=== PATIENT | male | born 1955 | race Caucasian/White ===

== ENCOUNTER 2017-03-30 18:52 | Inpatient (IN) | payer MEDICAID ==
[~2017-03-30] VITALS: Ht 182.9 cm; Wt 116.1 kg
[~2017-03-30 18:52] MED LIST: ASPI81TA39 PO; LISI-661 PO; SERT50TA12 PO
[2017-03-30 20:17] LABS: BASOPHILS % (AUTO) 0.4 % (0.0-2.0); EOSINOPHILS % (AUTO) 1.1 % (1.0-6.0); HEMATOCRIT 44.3 % (41-53); HEMOGLOBIN 15.7 g/dL (13.5-17.5); LYMPHOCYTES # (AUTO) 2.4 K/uL (1.0-4.8); LYMPHOCYTES % (AUTO) 57.3 % (22.0-44.0); MEAN CORPUSCULAR HEMOGLOBIN 32.9 pg (26.0-34.0); MEAN CORPUSCULAR HGB CONC 35.3 G/dL (31.0-37.0); MEAN CORPUSCULAR VOLUME 93 fL (80-100); MONOCYTES # (AUTO) 0.3 K/uL (0.1-1.0); MONOCYTES % (AUTO) 8.2 % (2.0-9.0); NEUTROPHILS # (AUTO) 1.4 K/uL (1.8-7.7); PLATELET COUNT (AUTO) 147 K/uL (150-450); RED BLOOD CELL COUNT(AUTO) 4.75 MIL/uL (4.50-5.90); RED CELL DISTRIBUTION WIDTH 13.8 % (11.5-14.5); WHITE BLOOD COUNT (AUTO) 4.1 K/uL (4.5-11.0)
[2017-03-30 21:11] LABS: ANION GAP 8 mmol/L (8-16); CALCIUM, TOTAL 8.5 mg/dL (8.8-10.5); CARBON DIOXIDE 30 mmol/L (22-29); CHLORIDE 100 mmol/L (98-107); CREATININE 0.79 mg/dL (0.60-1.30); GLOMERULAR FILTR. RATE CALC > 60 mL/min (>60); POTASSIUM 3.6 mmol/L (3.5-5.1); SODIUM SERUM 138 mmol/L (136-145); UREA NITROGEN, BLOOD 10 mg/dL (7-18)
[2017-03-30 21:15] LABS: ALANINE AMINOTRANSFERASE 73 U/L (12-78); ALBUMIN 3.8 g/dL (3.4-5.0); ASPARTATE AMINOTRANSFERASE 104 U/L (15-37); BILIRUBIN,TOTAL 0.5 mg/dL (0.1-1.0); TOTAL PROTEIN, SERUM 7.5 g/dL (6.4-8.2)
[2017-03-30] MEDS ORDERED: LORazepam 1 MG TABLET PO ONE (21:30)
[2017-03-30] MEDS ORDERED: GLUCAGON,HUMAN RECOMBINANT 1 MG VIAL IM PRN (22:00)
[2017-03-30] MEDS ORDERED: INSULIN REGULAR, HUMAN 100 UNITS/ML SQ PRN (22:00)
[2017-03-31] VITALS (7 sets, daily range): BP systolic 108–136; BP diastolic 64–84
[2017-03-31] MEDS ORDERED: INFLUENZA VIRUS VACCINE QVS 2017-18 (3YR+)/PF 60 MCG/0.5 ML SYRINGE IM ONE (05:15)
[2017-03-31] MEDS ORDERED: -PHARMACY VACCINE NOTE- MISC ONE ×2 (05:15)
[2017-03-31 06:12] LABS: GLUCOSE,POINT OF CARE 165 MG/DL (70-110)
[2017-03-31] MEDS: LORazepam 2 MG TABLET PO PRN ×3 (06:12→15:15)
[2017-03-31] MEDS ORDERED: GLUCAGON,HUMAN RECOMBINANT 1 MG VIAL IM PRN (06:45)
[2017-03-31] MEDS: INSULIN ASPART 100 UNITS/ML SQ PRN ×3 (07:17→16:31)
[2017-03-31 08:03] LABS: CHOL/HDL RATIO 2.4 (4.2-7.3)
[2017-03-31] MEDS ORDERED: ONDANSETRON HCL 4 MG TABLET PO PRN (09:45)
[2017-03-31] MEDS ORDERED: GuaiFENesin/D-METHORPHAN [SUGAR-FREE] 200-20MG/10 ML SYRUP UDCUP PO PRN (10:15)
[2017-03-31] MEDS ORDERED: HydrOXYzine PAMOATE 50 MG CAPSULE PO PRN (10:15)
[2017-03-31] MEDS ORDERED: CYANOCOBALAMIN 1,000 MCG/ML VIAL IM ONE (10:15)
[2017-03-31] MEDS: THIAMINE HCL 100 MG TABLET PO SCH ×2 (10:35→16:07)
[2017-03-31] MEDS: MULTIVITAMINS WITH MINERALS, THERAPEUTIC TABLET PO SCH (10:35)
[2017-03-31] MEDS: FOLIC ACID 1 MG TABLET PO SCH (10:35)
[2017-03-31 10:47] LABS: GLUCOSE,POINT OF CARE 142 MG/DL (70-110)
[2017-03-31 16:22] LABS: GLUCOSE,POINT OF CARE 142 MG/DL (70-110)
[2017-03-31] MEDS: ZOLPIDEM TARTRATE 10 MG TABLET PO PRN (20:03)
[2017-03-31 20:12] LABS: GLUCOSE,POINT OF CARE 116 MG/DL (70-110)
[2017-04-01] VITALS: BP 117/72
[2017-04-01 03:33] VITALS: BP 117/72
[2017-04-01 05:57] LABS: GLUCOSE,POINT OF CARE 108 MG/DL (70-110)
[2017-04-01] MEDS ORDERED: LORazepam 2 MG TABLET PO PRN (07:00)
[2017-04-01 08:00] VITALS: BP 124/80
[2017-04-01 08:07] VITALS: BP 124/80
[2017-04-01] MEDS: ARIPiprazole 5 MG TABLET PO SCH (08:28)
[2017-04-01] MEDS: LORazepam 2 MG TABLET PO SCH ×4 (08:28→20:31)
[2017-04-01] MEDS: THIAMINE HCL 100 MG TABLET PO SCH ×2 (08:28→16:05)
[2017-04-01] MEDS: FOLIC ACID 1 MG TABLET PO SCH (08:29)
[2017-04-01] MEDS: SERTRALINE HCL 100 MG TABLET PO SCH (08:29)
[2017-04-01] MEDS: ASPIRIN 81 MG CHEWABLE TABLET PO SCH (08:29)
[2017-04-01] MEDS: MULTIVITAMINS WITH MINERALS, THERAPEUTIC TABLET PO SCH (08:29)
[2017-04-01 11:22] LABS: GLUCOSE,POINT OF CARE 137 MG/DL (70-110)
[2017-04-01 16:00] VITALS: BP 128/74
[2017-04-01 16:08] VITALS: BP 128/74
[2017-04-01 16:26] LABS: GLUCOSE,POINT OF CARE 135 MG/DL (70-110)
[2017-04-01] MEDS: LOPERAMIDE HCL 2 MG CAPSULE PO PRN (16:30)
[2017-04-01 20:37] LABS: GLUCOSE,POINT OF CARE 113 MG/DL (70-110)
[2017-04-01] MEDS: HALOPERIDOL 5 MG TABLET PO PRN (23:57)
[2017-04-01] MEDS: LORazepam 2 MG TABLET PO PRN (23:58)
[2017-04-02 00:51] VITALS: BP 126/84
[2017-04-02 06:48] LABS: GLUCOSE,POINT OF CARE 101 MG/DL (70-110)
[2017-04-02 08:01] VITALS: BP 116/70
[2017-04-02 08:13] VITALS: BP 116/70
[2017-04-02] MEDS: MULTIVITAMINS WITH MINERALS, THERAPEUTIC TABLET PO SCH (08:26)
[2017-04-02] MEDS: ASPIRIN 81 MG CHEWABLE TABLET PO SCH (08:27)
[2017-04-02] MEDS: SERTRALINE HCL 100 MG TABLET PO SCH (08:27)
[2017-04-02] MEDS: FOLIC ACID 1 MG TABLET PO SCH (08:27)
[2017-04-02] MEDS: LORazepam 2 MG TABLET PO SCH ×4 (08:27→20:26)
[2017-04-02] MEDS: THIAMINE HCL 100 MG TABLET PO SCH ×2 (08:27→16:02)
[2017-04-02] MEDS: ARIPiprazole 5 MG TABLET PO SCH (08:27)
[2017-04-02 11:37] LABS: GLUCOSE,POINT OF CARE 120 MG/DL (70-110)
[2017-04-02] MEDS: LOPERAMIDE HCL 2 MG CAPSULE PO PRN (15:40)
[2017-04-02 16:00] VITALS: BP 123/90
[2017-04-02 16:01] VITALS: BP 123/90
[2017-04-02] MEDS: INSULIN ASPART 100 UNITS/ML SQ PRN (17:49)
[2017-04-02 20:37] LABS: GLUCOSE,POINT OF CARE 183 MG/DL (70-110)
[2017-04-02 20:38] LABS: GLUCOSE,POINT OF CARE 102 MG/DL (70-110)
[2017-04-03 00:28] VITALS: BP 128/79
[2017-04-03 00:29] VITALS: BP 128/79
[2017-04-03 06:28] LABS: GLUCOSE,POINT OF CARE 105 MG/DL (70-110)
[2017-04-03] MEDS ORDERED: LORazepam 1 MG TABLET PO PRN (07:00)
[2017-04-03 08:10] VITALS: BP 103/58
[2017-04-03 08:11] VITALS: BP 103/58
[2017-04-03] MEDS: FOLIC ACID 1 MG TABLET PO SCH (08:38)
[2017-04-03] MEDS: THIAMINE HCL 100 MG TABLET PO SCH ×2 (08:38→17:17)
[2017-04-03] MEDS: MULTIVITAMINS WITH MINERALS, THERAPEUTIC TABLET PO SCH (08:38)
[2017-04-03] MEDS: ARIPiprazole 5 MG TABLET PO SCH (08:38)
[2017-04-03] MEDS: LORazepam 1 MG TABLET PO SCH ×4 (08:38→21:17)
[2017-04-03] MEDS: ASPIRIN 81 MG CHEWABLE TABLET PO SCH (08:39)
[2017-04-03] MEDS: SERTRALINE HCL 100 MG TABLET PO SCH (08:39)
[2017-04-03 11:32] LABS: GLUCOSE,POINT OF CARE 93 MG/DL (70-110)
[2017-04-03 16:00] VITALS: BP 111/78
[2017-04-03] MEDS: HALOPERIDOL 5 MG TABLET PO PRN (16:06)
[2017-04-03 16:12] VITALS: BP 111/78
[2017-04-03 16:52] LABS: GLUCOSE,POINT OF CARE 122 MG/DL (70-110)
[2017-04-03 20:36] LABS: GLUCOSE,POINT OF CARE 96 MG/DL (70-110)
[2017-04-04] VITALS (7 sets, daily range): BP systolic 115–131; BP diastolic 63–82
[2017-04-04 06:43] LABS: GLUCOSE,POINT OF CARE 99 MG/DL (70-110)
[2017-04-04] MEDS: MULTIVITAMINS WITH MINERALS, THERAPEUTIC TABLET PO SCH (08:30)
[2017-04-04] MEDS: SERTRALINE HCL 100 MG TABLET PO SCH (08:30)
[2017-04-04] MEDS: THIAMINE HCL 100 MG TABLET PO SCH ×2 (08:30→16:27)
[2017-04-04] MEDS: ASPIRIN 81 MG CHEWABLE TABLET PO SCH (08:31)
[2017-04-04] MEDS: FOLIC ACID 1 MG TABLET PO SCH (08:31)
[2017-04-04] MEDS: LORazepam 1 MG TABLET PO PRN ×3 (08:31→21:14)
[2017-04-04] MEDS: ARIPiprazole 5 MG TABLET PO SCH (08:31)
[2017-04-04 10:57] LABS: GLUCOSE,POINT OF CARE 97 MG/DL (70-110)
[2017-04-04 16:37] LABS: GLUCOSE,POINT OF CARE 137 MG/DL (70-110)
[2017-04-04 21:17] LABS: GLUCOSE,POINT OF CARE 128 MG/DL (70-110)
[2017-04-04] MEDS: ZOLPIDEM TARTRATE 10 MG TABLET PO PRN (21:51)
[2017-04-05 01:16] VITALS: BP 135/88
[2017-04-05 07:42] LABS: GLUCOSE,POINT OF CARE 97 MG/DL (70-110)
[2017-04-05 08:06] VITALS: BP 101/67
[2017-04-05] MEDS: ASPIRIN 81 MG CHEWABLE TABLET PO SCH (08:22)
[2017-04-05] MEDS: SERTRALINE HCL 100 MG TABLET PO SCH (08:23)
[2017-04-05] MEDS: THIAMINE HCL 100 MG TABLET PO SCH ×2 (08:23→16:13)
[2017-04-05] MEDS: FOLIC ACID 1 MG TABLET PO SCH (08:23)
[2017-04-05] MEDS: ARIPiprazole 5 MG TABLET PO SCH (08:23)
[2017-04-05] MEDS: MULTIVITAMINS WITH MINERALS, THERAPEUTIC TABLET PO SCH (08:23)
[2017-04-05] MEDS: LORazepam 2 MG TABLET PO PRN ×2 (08:41→15:50)
[2017-04-05 11:08] LABS: GLUCOSE,POINT OF CARE 119 MG/DL (70-110)
[2017-04-05 16:07] VITALS: BP 111/76
[2017-04-05 16:57] LABS: GLUCOSE,POINT OF CARE 97 MG/DL (70-110)
[2017-04-05] MEDS: ZOLPIDEM TARTRATE 10 MG TABLET PO PRN (21:06)
[2017-04-05 21:37] LABS: GLUCOSE,POINT OF CARE 125 MG/DL (70-110)
[2017-04-06 00:03] VITALS: BP 125/78
[2017-04-06] MEDS: INSULIN ASPART 100 UNITS/ML SQ PRN (07:12)
[2017-04-06 07:52] LABS: GLUCOSE,POINT OF CARE 147 MG/DL (70-110)
[2017-04-06] MEDS: FOLIC ACID 1 MG TABLET PO SCH (08:25)
[2017-04-06] MEDS: THIAMINE HCL 100 MG TABLET PO SCH ×2 (08:25→16:22)
[2017-04-06] MEDS: ASPIRIN 81 MG CHEWABLE TABLET PO SCH (08:25)
[2017-04-06] MEDS: ARIPiprazole 5 MG TABLET PO SCH (08:25)
[2017-04-06] MEDS: SERTRALINE HCL 100 MG TABLET PO SCH (08:25)
[2017-04-06] MEDS: MULTIVITAMINS WITH MINERALS, THERAPEUTIC TABLET PO SCH (08:25)
[2017-04-06] MEDS: LORazepam 2 MG TABLET PO PRN (08:30)
[2017-04-06] MEDS ORDERED: ARIP5TAB8 PO (08:55)
[2017-04-06] MEDS ORDERED: THIA100 PO (08:55)
[2017-04-06] MEDS ORDERED: MV-M1TAB2 PO (08:55)
[2017-04-06] MEDS ORDERED: FOLI1 PO (08:55)
[2017-04-06 09:06] VITALS: BP 117/71
[2017-04-06 12:17] LABS: GLUCOSE,POINT OF CARE 91 MG/DL (70-110)
[2017-04-06 16:12] VITALS: BP 117/77
== END 2017-04-06 16:40 | disposition home or self-care (01) | DRG 750 ==
LOC: EEVIPCON 18:54 → EMS 18:54 → B2S 22:00
PROVIDERS: ADMIT Psychiatry & Neurology Psychiatry; ATTEND Psychiatry & Neurology Psychiatry
PROC: 3E0234Z Introduction of Serum, Toxoid and Vaccine into Muscle, Percutaneous Approach (ICD-10-PCS; principal; 2017-03-31)
DX: F25.1 Schizoaffective disorder, depressive type (principal); E11.22 Type 2 diabetes mellitus with diabetic chronic kidney disease; R45.851 Suicidal ideations; D57.1 Sickle-cell disease without crisis; E55.9 Vitamin D deficiency, unspecified; E78.00 Pure hypercholesterolemia, unspecified; E78.5 Hyperlipidemia, unspecified; F17.200 Nicotine dependence, unspecified, uncomplicated; F32.9 Major depressive disorder, single episode, unspecified; F41.9 Anxiety disorder, unspecified; I12.9 Hypertensive chronic kidney disease with stage 1 through stage 4 chronic kidney disease, or unspecified chronic kidney disease; I25.10 Atherosclerotic heart disease of native coronary artery without angina pectoris; J44.9 Chronic obstructive pulmonary disease, unspecified; K21.9 Gastro-esophageal reflux disease without esophagitis; N18.9 Chronic kidney disease, unspecified; F10.20 Alcohol dependence, uncomplicated; S61.512A Laceration without foreign body of left wrist, initial encounter; Z59.0 Homelessness; Z81.8 Family history of other mental and behavioral disorders; Z86.74 Personal history of sudden cardiac arrest; Z91.5 Personal history of self-harm; Z91.018 Allergy to other foods; Z79.82 Long term (current) use of aspirin; Z23 Encounter for immunization
CPT/HCPCS: 82962; 83036; 99285; G0480; J3420; Q0162

== ENCOUNTER 2017-04-26 12:41 | Inpatient (IN) | payer MEDICAID ==
[~2017-04-26] VITALS: Ht 182.9 cm; Wt 121.7 kg
[~2017-04-26 12:41] MED LIST changes: +ARIP5TAB8 PO; -LISI-661 PO
[2017-04-26] MEDS ORDERED: TRAM50TA4 PO (13:48)
[2017-04-26 14:57] LABS: GLUCOSE,POINT OF CARE 131 MG/DL (70-110)
[2017-04-26] MEDS ORDERED: SERT100T12 PO (15:27)
[2017-04-26 15:28] LABS: BASOPHILS % (AUTO) 0.5 % (0.0-2.0); EOSINOPHILS % (AUTO) 1.1 % (1.0-6.0); HEMOGLOBIN 14.1 g/dL (13.5-17.5); LYMPHOCYTES # (AUTO) 2.5 K/uL (1.0-4.8); LYMPHOCYTES % (AUTO) 45.8 % (22.0-44.0); MEAN CORPUSCULAR HEMOGLOBIN 32.4 pg (26.0-34.0); MEAN CORPUSCULAR HGB CONC 34.4 G/dL (31.0-37.0); MEAN CORPUSCULAR VOLUME 94 fL (80-100); MONOCYTES # (AUTO) 0.3 K/uL (0.1-1.0); MONOCYTES % (AUTO) 5.6 % (2.0-9.0); NEUTROPHILS # (AUTO) 2.6 K/uL (1.8-7.7); PLATELET COUNT (AUTO) 198 K/uL (150-450); RED BLOOD CELL COUNT(AUTO) 4.35 MIL/uL (4.50-5.90); RED CELL DISTRIBUTION WIDTH 14.4 % (11.5-14.5)
[2017-04-26] MEDS ORDERED: LORazepam 2 MG TABLET PO PRN ×2 (15:30→21:30)
[2017-04-26 15:46] LABS: ANION GAP 5 mmol/L (8-16); CALCIUM, TOTAL 8.5 mg/dL (8.8-10.5); CARBON DIOXIDE 33 mmol/L (22-29); CHLORIDE 105 mmol/L (98-107); CREATININE 0.72 mg/dL (0.60-1.30); GLOMERULAR FILTR. RATE CALC > 60 mL/min (>60); GLUCOSE,RANDOM 136 mg/dL (70-110); POTASSIUM 3.6 mmol/L (3.5-5.1); SODIUM SERUM 143 mmol/L (136-145); UREA NITROGEN, BLOOD 8 mg/dL (7-18)
[2017-04-26 15:50] LABS: ALANINE AMINOTRANSFERASE 42 U/L (12-78); ALBUMIN 3.2 g/dL (3.4-5.0); ALKALINE PHOSPHATASE 126 U/L (46-116); ASPARTATE AMINOTRANSFERASE 32 U/L (15-37); BILIRUBIN,TOTAL 0.3 mg/dL (0.1-1.0); TOTAL PROTEIN, SERUM 6.8 g/dL (6.4-8.2)
[2017-04-26 16:00] LABS: AMPHET/METH SCREEN,URINE NEGATIVE (NEGATIVE); BARBITURATE SCREEN, URINE NEGATIVE (NEGATIVE); BENZODIAZEPINES SCREEN,URINE NEGATIVE (NEGATIVE); CANNABINOID SCREEN,URINE NEGATIVE (NEGATIVE); COCAINE SCREEN,URINE NEGATIVE (NEGATIVE); METHADONE SCREEN, URINE NEGATIVE (NEGATIVE); OPIATE SCREEN,URINE NEGATIVE (NEGATIVE)
[2017-04-26 16:04] LABS: PHENCYCLIDINE SCREEN,URINE NEGATIVE (NEGATIVE)
[2017-04-26] MEDS ORDERED: ONDANSETRON HCL 4 MG TABLET PO ONE ×2 (17:45→23:45)
[2017-04-26] MEDS ORDERED: ONDANSETRON HCL 4 MG/2 ML VIAL IM ONE (21:00)
[2017-04-26 21:17] LABS: GLUCOSE,POINT OF CARE 143 MG/DL (70-110)
[2017-04-26 21:30] VITALS: BP 112/68
[2017-04-26] MEDS ORDERED: -PHARMACY VACCINE NOTE- MISC ONE (22:15)
[2017-04-26] MEDS ORDERED: INFLUENZA VIRUS VACCINE QVS 2017-18 (3YR+)/PF 60 MCG/0.5 ML SYRINGE IM ONE (22:15)
[2017-04-26 22:30] VITALS: BP 105/66
[2017-04-26] MEDS ORDERED: INSULIN ASPART 100 UNITS/ML SQ PRN (22:30)
[2017-04-26] MEDS ORDERED: DEXTROSE 50%-WATER 25 GM/50 ML SYRINGE IVP PRN (22:30)
[2017-04-26] MEDS: ZOLPIDEM TARTRATE 10 MG TABLET PO PRN (22:59)
[2017-04-26 23:30] VITALS: BP 114/65
[2017-04-26] MEDS ORDERED: ONDANSETRON HCL 4 MG TABLET PO PRN (23:30)
[2017-04-27] VITALS (9 sets, daily range): BP systolic 117–148; BP diastolic 64–93
[2017-04-27 06:03] LABS: GLUCOMETER DEV NAME(LOC) 3EI B; GLUCOSE,POINT OF CARE 126 MG/DL (70-110)
[2017-04-27 07:48] LABS: CHOL/HDL RATIO 2.5 (4.2-7.3)
[2017-04-27] MEDS: ASPIRIN 81 MG CHEWABLE TABLET PO SCH (08:01)
[2017-04-27] MEDS: ARIPiprazole 5 MG TABLET PO SCH (08:01)
[2017-04-27] MEDS: LORazepam 2 MG TABLET PO SCH ×4 (08:02→20:35)
[2017-04-27] MEDS: NICOTINE 7 MG/24 HOUR PATCH TD SCH (08:02)
[2017-04-27] MEDS: SERTRALINE HCL 100 MG TABLET PO SCH (08:02)
[2017-04-27 11:12] LABS: GLUCOMETER DEV NAME(LOC) 3EI B; GLUCOSE,POINT OF CARE 111 MG/DL (70-110)
[2017-04-27 17:03] LABS: GLUCOMETER DEV NAME(LOC) 3EI B; GLUCOSE,POINT OF CARE 107 MG/DL (70-110)
[2017-04-27 21:13] LABS: GLUCOMETER DEV NAME(LOC) 3EI B; GLUCOSE,POINT OF CARE 121 MG/DL (70-110)
[2017-04-28] MEDS: LORazepam 2 MG TABLET PO PRN (00:01)
[2017-04-28] MEDS: ZOLPIDEM TARTRATE 10 MG TABLET PO PRN ×2 (00:01→20:29)
[2017-04-28 01:30] VITALS: BP 127/88
[2017-04-28 06:23] LABS: GLUCOMETER DEV NAME(LOC) 3EI B; GLUCOSE,POINT OF CARE 137 MG/DL (70-110)
[2017-04-28 08:00] VITALS: BP 133/87
[2017-04-28] MEDS: ASPIRIN 81 MG CHEWABLE TABLET PO SCH (08:49)
[2017-04-28] MEDS: NICOTINE 7 MG/24 HOUR PATCH TD SCH (08:49)
[2017-04-28] MEDS: ARIPiprazole 5 MG TABLET PO SCH (08:49)
[2017-04-28] MEDS: SERTRALINE HCL 100 MG TABLET PO SCH (08:49)
[2017-04-28] MEDS: LORazepam 2 MG TABLET PO SCH ×4 (08:49→20:29)
[2017-04-28] MEDS: HALOPERIDOL 5 MG TABLET PO PRN (10:05)
[2017-04-28] MEDS ORDERED: HydrOXYzine PAMOATE 50 MG CAPSULE PO PRN (10:30)
[2017-04-28] MEDS ORDERED: GuaiFENesin/D-METHORPHAN [SUGAR-FREE] 200-20MG/10 ML SYRUP UDCUP PO PRN (10:30)
[2017-04-28] MEDS ORDERED: CYANOCOBALAMIN 1,000 MCG/ML VIAL IM ONE (10:30)
[2017-04-28] MEDS ORDERED: LOPERAMIDE HCL 2 MG CAPSULE PO PRN (10:30)
[2017-04-28 11:38] LABS: GLUCOMETER DEV NAME(LOC) 3EI B; GLUCOSE,POINT OF CARE 102 MG/DL (70-110)
[2017-04-28] MEDS: THIAMINE HCL 100 MG TABLET PO SCH (16:46)
[2017-04-28 17:03] LABS: GLUCOMETER DEV NAME(LOC) 3EI B; GLUCOSE,POINT OF CARE 98 MG/DL (70-110)
[2017-04-28 18:28] VITALS: BP 119/73
[2017-04-28 20:37] LABS: GLUCOMETER DEV NAME(LOC) 3EI B; GLUCOSE,POINT OF CARE 94 MG/DL (70-110)
[2017-04-29] MEDS: HALOPERIDOL 5 MG TABLET PO PRN (00:57)
[2017-04-29] MEDS: LORazepam 2 MG TABLET PO PRN (00:57)
[2017-04-29 00:58] VITALS: BP 138/90
[2017-04-29 05:52] LABS: GLUCOMETER DEV NAME(LOC) 3EI B; GLUCOSE,POINT OF CARE 111 MG/DL (70-110)
[2017-04-29] MEDS ORDERED: LORazepam 1 MG TABLET PO PRN (07:00)
[2017-04-29 08:00] VITALS: BP 128/90
[2017-04-29] MEDS: ARIPiprazole 5 MG TABLET PO SCH (08:29)
[2017-04-29] MEDS: SERTRALINE HCL 100 MG TABLET PO SCH (08:29)
[2017-04-29] MEDS: FOLIC ACID 1 MG TABLET PO SCH (08:29)
[2017-04-29] MEDS: MULTIVITAMINS WITH MINERALS, THERAPEUTIC TABLET PO SCH (08:29)
[2017-04-29] MEDS: ASPIRIN 81 MG CHEWABLE TABLET PO SCH (08:29)
[2017-04-29] MEDS: THIAMINE HCL 100 MG TABLET PO SCH ×2 (08:29→16:10)
[2017-04-29] MEDS: LORazepam 1 MG TABLET PO SCH ×4 (08:29→20:53)
[2017-04-29] MEDS: NICOTINE 7 MG/24 HOUR PATCH TD SCH (08:32)
[2017-04-29 11:28] LABS: GLUCOMETER DEV NAME(LOC) 3EI B; GLUCOSE,POINT OF CARE 87 MG/DL (70-110)
[2017-04-29 17:28] LABS: GLUCOMETER DEV NAME(LOC) 3EI B; GLUCOSE,POINT OF CARE 91 MG/DL (70-110)
[2017-04-29 18:22] VITALS: BP 138/84
[2017-04-29 21:08] LABS: GLUCOMETER DEV NAME(LOC) 3EI B; GLUCOSE,POINT OF CARE 117 MG/DL (70-110)
[2017-04-30 06:03] LABS: GLUCOMETER DEV NAME(LOC) 3EI B; GLUCOSE,POINT OF CARE 97 MG/DL (70-110)
[2017-04-30 06:11] VITALS: BP 133/94
[2017-04-30] MEDS ORDERED: LORazepam 1 MG TABLET PO PRN (07:00)
[2017-04-30] MEDS: MULTIVITAMINS WITH MINERALS, THERAPEUTIC TABLET PO SCH (08:38)
[2017-04-30] MEDS: ASPIRIN 81 MG CHEWABLE TABLET PO SCH (08:38)
[2017-04-30] MEDS: FOLIC ACID 1 MG TABLET PO SCH (08:38)
[2017-04-30] MEDS: THIAMINE HCL 100 MG TABLET PO SCH ×2 (08:38→17:10)
[2017-04-30] MEDS: ARIPiprazole 5 MG TABLET PO SCH (08:38)
[2017-04-30] MEDS: NICOTINE 7 MG/24 HOUR PATCH TD SCH (08:38)
[2017-04-30] MEDS: SERTRALINE HCL 100 MG TABLET PO SCH (08:39)
[2017-04-30 10:08] VITALS: BP 148/90
[2017-04-30 11:28] LABS: GLUCOMETER DEV NAME(LOC) 3EI B; GLUCOSE,POINT OF CARE 95 MG/DL (70-110)
[2017-04-30 16:32] LABS: GLUCOMETER DEV NAME(LOC) 3EI B; GLUCOSE,POINT OF CARE 104 MG/DL (70-110)
[2017-04-30 16:34] VITALS: BP 130/70
[2017-04-30] MEDS ORDERED: FOLI1 PO (16:37)
[2017-04-30] MEDS ORDERED: THIA100 PO (16:39)
[2017-04-30] MEDS ORDERED: MV-M1TAB2 PO (16:39)
== END 2017-04-30 18:30 | disposition home or self-care (01) | DRG 750 ==
LOC: EMS 12:45 → 3EI 17:05
PROVIDERS: ADMIT Psychiatry & Neurology Psychiatry; ATTEND Psychiatry & Neurology Psychiatry
DX: F25.1 Schizoaffective disorder, depressive type (principal); Z86.74 Personal history of sudden cardiac arrest; R45.851 Suicidal ideations; D57.1 Sickle-cell disease without crisis; I10 Essential (primary) hypertension; E55.9 Vitamin D deficiency, unspecified; J44.9 Chronic obstructive pulmonary disease, unspecified; I25.10 Atherosclerotic heart disease of native coronary artery without angina pectoris; Z28.21 Immunization not carried out because of patient refusal; F60.3 Borderline personality disorder; Z91.018 Allergy to other foods; F41.9 Anxiety disorder, unspecified; E11.9 Type 2 diabetes mellitus without complications; E78.00 Pure hypercholesterolemia, unspecified; E78.5 Hyperlipidemia, unspecified; F10.229 Alcohol dependence with intoxication, unspecified; F17.200 Nicotine dependence, unspecified, uncomplicated; K21.9 Gastro-esophageal reflux disease without esophagitis; Z59.0 Homelessness; Z81.8 Family history of other mental and behavioral disorders; Z91.5 Personal history of self-harm; N28.9 Disorder of kidney and ureter, unspecified; Z71.6 Tobacco abuse counseling; Z63.9 Problem related to primary support group, unspecified
CPT/HCPCS: 82962; 87081; 96372; 99285; G0480; J2405; J3420; Q0162

== ENCOUNTER 2017-05-09 12:51 | Emergency (ER) | payer MEDICAID ==
[~2017-05-09] VITALS: Ht 182.9 cm; Wt 113.6 kg
[~2017-05-09 12:51] MED LIST changes: +FOLI1 PO; +MV-M1TAB2 PO; +SERT100T12 PO; -SERT50TA12 PO; +THIA100 PO
[2017-05-09 15:45] VITALS: BP 132/72
== END 2017-05-09 16:05 | disposition home or self-care (01) ==
LOC: EMS 13:25
DX: F10.10 Alcohol abuse, uncomplicated (principal); I25.10 Atherosclerotic heart disease of native coronary artery without angina pectoris; J44.9 Chronic obstructive pulmonary disease, unspecified; E11.9 Type 2 diabetes mellitus without complications; I10 Essential (primary) hypertension; E78.00 Pure hypercholesterolemia, unspecified; Z02.89 Encounter for other administrative examinations; Z76.0 Encounter for issue of repeat prescription; Z91.018 Allergy to other foods
CPT/HCPCS: 99281

== ENCOUNTER 2017-09-16 14:49 | Inpatient (IN) | payer MEDICAID ==
[~2017-09-16] VITALS: Ht 182.9 cm; Wt 127.5 kg
[2017-09-16] MEDS ORDERED: [UNRECOGNIZED DRUG - REMARK] (15:03)
[2017-09-16] MEDS ORDERED: ACTIVATED CHARCOAL 50 GM/240 ML SUSPENSION PO ONE (16:00)
[2017-09-16 16:23] LABS: BASOPHILS % (AUTO) 0.7 % (0.0-2.0); EOSINOPHILS % (AUTO) 3.9 % (1.0-6.0); HEMATOCRIT 43.1 % (41-53); HEMOGLOBIN 15.2 g/dL (13.5-17.5); LYMPHOCYTES # (AUTO) 2.5 K/uL (1.0-4.8); MEAN CORPUSCULAR HEMOGLOBIN 31.7 pg (26.0-34.0); MEAN CORPUSCULAR HGB CONC 35.3 G/dL (31.0-37.0); MEAN CORPUSCULAR VOLUME 90 fL (80-100); MONOCYTES # (AUTO) 0.3 K/uL (0.1-1.0); MONOCYTES % (AUTO) 5.5 % (2.0-9.0); NEUTROPHILS # (AUTO) 2.4 K/uL (1.8-7.7); NEUTROPHILS % (AUTO) 43.9 % (40.0-70.0); PLATELET COUNT (AUTO) 176 K/uL (150-450); RED BLOOD CELL COUNT(AUTO) 4.79 MIL/uL (4.50-5.90); RED CELL DISTRIBUTION WIDTH 14.5 % (11.5-14.5)
[2017-09-16 16:31] LABS: ANION GAP 6 mmol/L (8-16); CALCIUM, TOTAL 8.7 mg/dL (8.8-10.5); CARBON DIOXIDE 33 mmol/L (22-29); CHLORIDE 100 mmol/L (98-107); CREATININE 0.73 mg/dL (0.60-1.30); GLOMERULAR FILTR. RATE CALC > 60 mL/min (>60); GLUCOSE,RANDOM 165 mg/dL (70-110); POTASSIUM 3.5 mmol/L (3.5-5.1); SODIUM SERUM 139 mmol/L (136-145); UREA NITROGEN, BLOOD 8 mg/dL (7-18)
[2017-09-16 16:37] LABS: ALANINE AMINOTRANSFERASE 24 U/L (12-78); ALBUMIN 3.8 g/dL (3.4-5.0); ALKALINE PHOSPHATASE 104 U/L (46-116); ASPARTATE AMINOTRANSFERASE 15 U/L (15-37); BILIRUBIN,TOTAL 0.4 mg/dL (0.1-1.0); LIPASE 76 U/L (73-393); TOTAL PROTEIN, SERUM 8.1 g/dL (6.4-8.2)
[2017-09-16 16:38] LABS: ACETAMINOPHEN < 2 mcg/mL (10-30)
[2017-09-16 16:43] LABS: SALICYLATE 2.1 mg/dL (2.8-20.0)
[2017-09-16] MEDS ORDERED: ONDANSETRON HCL 4 MG/2 ML VIAL IVP ONE ×2 (16:45→21:15)
[2017-09-16] MEDS ORDERED: SODIUM CHLORIDE 0.9% 1,000 ML IV ONE (16:52)
[2017-09-16] MEDS ORDERED: SODIUM CHLORIDE 0.9% 500 ML IV ONE (17:00)
[2017-09-16 20:05] LABS: AMPHET/METH SCREEN,URINE NEGATIVE (NEGATIVE); BARBITURATE SCREEN, URINE NEGATIVE (NEGATIVE); BENZODIAZEPINES SCREEN,URINE NEGATIVE (NEGATIVE); CANNABINOID SCREEN,URINE NEGATIVE (NEGATIVE); COCAINE SCREEN,URINE NEGATIVE (NEGATIVE); METHADONE SCREEN, URINE NEGATIVE (NEGATIVE); OPIATE SCREEN,URINE NEGATIVE (NEGATIVE)
[2017-09-16 20:11] LABS: PHENCYCLIDINE SCREEN,URINE NEGATIVE (NEGATIVE)
[2017-09-16 20:23] LABS: ANION GAP 3 mmol/L (8-16); CALCIUM, TOTAL 8.3 mg/dL (8.8-10.5); CARBON DIOXIDE 35 mmol/L (22-29); CHLORIDE 102 mmol/L (98-107); CREATININE 0.79 mg/dL (0.60-1.30); GLOMERULAR FILTR. RATE CALC > 60 mL/min (>60); GLUCOSE,RANDOM 195 mg/dL (70-110); POTASSIUM 3.7 mmol/L (3.5-5.1); SODIUM SERUM 140 mmol/L (136-145); UREA NITROGEN, BLOOD 8 mg/dL (7-18)
[2017-09-16 20:28] LABS: ACETAMINOPHEN < 2 mcg/mL (10-30)
[2017-09-16 20:40] LABS: APPEARANCE,URINE CLEAR (CLEAR); BILIRUBIN,URINE NEGATIVE (NEGATIVE); GLUCOSE, URINE (UA) 100 mg/dL (NEGATIVE); KETONES,URINE NEGATIVE (NEGATIVE); LEUKOCYTE ESTERASE ,URINE NEGATIVE (NEGATIVE); NITRATE,URINE NEGATIVE (NEGATIVE); OCCULT BLOOD,URINE NEGATIVE (NEGATIVE); PROTEIN,URINE NEGATIVE (NEGATIVE); UROBILINOGEN,URINE 0.2 mg/dL (<=1.0)
[2017-09-16 20:43] LABS: BACTERIA,URINE None Seen /HPF (None Seen); RBC,URINE None Seen /HPF (0-2); SQUAMOUS EPITHELIAL CELL,UR None Seen /LPF (None Seen); WBC,URINE None Seen /HPF (0-5)
[2017-09-16] MEDS ORDERED: LORazepam 2 MG TABLET PO ONE (22:45)
[2017-09-17] VITALS (10 sets, daily range): BP systolic 110–139; BP diastolic 61–86
[2017-09-17] MEDS ORDERED: ACETAMINOPHEN 325 MG TABLET PO PRN (00:15)
[2017-09-17] MEDS ORDERED: MAG HYDROX/AL HYDROX/SIMETH ES 30 ML SUSPENSION UDCUP PO PRN (00:15)
[2017-09-17] MEDS ORDERED: HALOPERIDOL 5 MG TABLET PO PRN (00:15)
[2017-09-17] MEDS ORDERED: MAGNESIUM HYDROXIDE SUSPENSION 30 ML UDCUP PO PRN (00:15)
[2017-09-17] MEDS ORDERED: HydrOXYzine PAMOATE 50 MG CAPSULE PO PRN (00:15)
[2017-09-17] MEDS ORDERED: LOPERAMIDE HCL 2 MG CAPSULE PO PRN ×2 (00:15)
[2017-09-17] MEDS ORDERED: CYANOCOBALAMIN 1,000 MCG/ML VIAL IM ONE (00:15)
[2017-09-17] MEDS ORDERED: GuaiFENesin/D-METHORPHAN [SUGAR-FREE] 200-20MG/10 ML SYRUP UDCUP PO PRN (00:15)
[2017-09-17] MEDS ORDERED: ONDANSETRON HCL 4 MG/2 ML VIAL IVP ONE (02:30)
[2017-09-17] MEDS: LORazepam 2 MG TABLET PO PRN ×3 (03:45→14:20)
[2017-09-17 03:47] LABS: GLUCOMETER DEV NAME(LOC) BV3N5; GLUCOSE,POINT OF CARE 219 MG/DL (70-110)
[2017-09-17] MEDS: THIAMINE HCL 100 MG TABLET PO SCH ×2 (08:36→16:50)
[2017-09-17] MEDS: MULTIVITAMINS WITH MINERALS, THERAPEUTIC TABLET PO SCH (08:36)
[2017-09-17] MEDS: FOLIC ACID 1 MG TABLET PO SCH (08:37)
[2017-09-17] MEDS: PROMETHAZINE HCL 25 MG TABLET PO PRN ×2 (08:55→14:19)
[2017-09-17] MEDS ORDERED: GLUCAGON,HUMAN RECOMBINANT 1 MG VIAL IM PRN (09:00)
[2017-09-17] MEDS ORDERED: ALBUTEROL SULFATE HFA 90 MCG/PUFF 8 GM INHALER IH PRN (09:30)
[2017-09-17] MEDS: INSULIN LISPRO 100 UNITS/ML SQ PRN ×4 (09:36→20:45)
[2017-09-17 10:28] LABS: GLUCOMETER DEV NAME(LOC) BV3N5; GLUCOSE,POINT OF CARE 163 MG/DL (70-110)
[2017-09-17 12:33] LABS: GLUCOMETER DEV NAME(LOC) BV3N5; GLUCOSE,POINT OF CARE 168 MG/DL (70-110)
[2017-09-17 17:18] LABS: GLUCOMETER DEV NAME(LOC) BV3N5; GLUCOSE,POINT OF CARE 148 MG/DL (70-110)
[2017-09-17] MEDS: ZOLPIDEM TARTRATE 10 MG TABLET PO PRN (20:44)
[2017-09-17] MEDS: SERTRALINE HCL 100 MG TABLET PO SCH (20:44)
[2017-09-17 20:52] LABS: GLUCOMETER DEV NAME(LOC) BV3N5; GLUCOSE,POINT OF CARE 153 MG/DL (70-110)
[2017-09-18 01:35] VITALS: BP 119/91
[2017-09-18] MEDS: LORazepam 2 MG TABLET PO PRN (01:40)
[2017-09-18 02:05] VITALS: BP 122/79
[2017-09-18 06:12] LABS: GLUCOMETER DEV NAME(LOC) BV3N5; GLUCOSE,POINT OF CARE 128 MG/DL (70-110)
[2017-09-18 06:33] VITALS: BP 147/96
[2017-09-18] MEDS ORDERED: LORazepam 2 MG TABLET PO PRN (07:00)
[2017-09-18] MEDS: MULTIVITAMINS WITH MINERALS, THERAPEUTIC TABLET PO SCH (08:14)
[2017-09-18] MEDS: LORazepam 2 MG TABLET PO SCH ×4 (08:14→20:29)
[2017-09-18] MEDS: FOLIC ACID 1 MG TABLET PO SCH (08:14)
[2017-09-18] MEDS: ARIPiprazole 5 MG TABLET PO SCH (08:14)
[2017-09-18] MEDS: ASPIRIN 81 MG EC TABLET PO SCH (08:15)
[2017-09-18] MEDS: PANTOPRAZOLE SODIUM 40 MG DR TABLET PO SCH (08:15)
[2017-09-18] MEDS: THIAMINE HCL 100 MG TABLET PO SCH ×2 (08:16→16:59)
[2017-09-18 08:17] LABS: CHOL/HDL RATIO 2.7 (4.2-7.3); FREE T4 (FREE THYROXINE) 0.84 ng/dL (0.76-1.46); MAGNESIUM 1.6 mg/dL (1.80-2.40); THYROID STIMULATING HORMONE 3.27 uIU/mL (0.36-3.74)
[2017-09-18 08:20] VITALS: BP 110/64
[2017-09-18 09:34] LABS: VITAMIN D,TOTAL (25-0H) 26 ng/mL (30-100)
[2017-09-18 09:35] LABS: VITAMIN B12 LEVEL 944 pg/mL (211-911)
[2017-09-18 12:17] LABS: GLUCOMETER DEV NAME(LOC) BV3N5; GLUCOSE,POINT OF CARE 136 MG/DL (70-110)
[2017-09-18 16:00] VITALS: BP 137/83
[2017-09-18 17:28] LABS: GLUCOMETER DEV NAME(LOC) BV3N5; GLUCOSE,POINT OF CARE 129 MG/DL (70-110)
[2017-09-18] MEDS: SERTRALINE HCL 100 MG TABLET PO SCH (20:29)
[2017-09-18] MEDS: INSULIN LISPRO 100 UNITS/ML SQ PRN (20:30)
[2017-09-18 23:32] LABS: GLUCOMETER DEV NAME(LOC) BV3N5; GLUCOSE,POINT OF CARE 146 MG/DL (70-110)
[2017-09-19 00:37] VITALS: BP 131/74
[2017-09-19 02:54] VITALS: BP 131/74
[2017-09-19 05:57] LABS: GLUCOMETER DEV NAME(LOC) BV3N5; GLUCOSE,POINT OF CARE 127 MG/DL (70-110)
[2017-09-19 08:00] VITALS: BP 127/67
[2017-09-19 08:11] VITALS: BP 127/67
[2017-09-19] MEDS: PANTOPRAZOLE SODIUM 40 MG DR TABLET PO SCH (08:28)
[2017-09-19] MEDS: LORazepam 2 MG TABLET PO SCH ×4 (08:28→20:54)
[2017-09-19] MEDS: THIAMINE HCL 100 MG TABLET PO SCH ×2 (08:28→16:58)
[2017-09-19] MEDS: MULTIVITAMINS WITH MINERALS, THERAPEUTIC TABLET PO SCH (08:28)
[2017-09-19] MEDS: FOLIC ACID 1 MG TABLET PO SCH (08:28)
[2017-09-19] MEDS: ASPIRIN 81 MG EC TABLET PO SCH (08:28)
[2017-09-19] MEDS: ARIPiprazole 5 MG TABLET PO SCH (08:31)
[2017-09-19 11:33] LABS: GLUCOMETER DEV NAME(LOC) BV3N5; GLUCOSE,POINT OF CARE 136 MG/DL (70-110)
[2017-09-19 16:05] VITALS: BP 126/73
[2017-09-19] MEDS: INSULIN LISPRO 100 UNITS/ML SQ PRN (16:59)
[2017-09-19 17:13] LABS: GLUCOMETER DEV NAME(LOC) BV3N5; GLUCOSE,POINT OF CARE 142 MG/DL (70-110)
[2017-09-19] MEDS: SERTRALINE HCL 100 MG TABLET PO SCH (20:54)
[2017-09-19] MEDS: ZOLPIDEM TARTRATE 10 MG TABLET PO PRN (20:54)
[2017-09-19 21:07] LABS: GLUCOMETER DEV NAME(LOC) BV3N5; GLUCOSE,POINT OF CARE 113 MG/DL (70-110)
[2017-09-20 05:35] VITALS: BP 119/68
[2017-09-20 05:37] VITALS: BP 119/68
[2017-09-20 06:27] LABS: GLUCOMETER DEV NAME(LOC) BV3N5; GLUCOSE,POINT OF CARE 127 MG/DL (70-110)
[2017-09-20] MEDS ORDERED: LORazepam 1 MG TABLET PO PRN (07:00)
[2017-09-20 08:00] VITALS: BP 114/60
[2017-09-20 08:09] VITALS: BP 114/60
[2017-09-20] MEDS: PANTOPRAZOLE SODIUM 40 MG DR TABLET PO SCH (08:11)
[2017-09-20] MEDS: LORazepam 1 MG TABLET PO SCH ×4 (08:11→20:38)
[2017-09-20] MEDS: FOLIC ACID 1 MG TABLET PO SCH (08:11)
[2017-09-20] MEDS: MULTIVITAMINS WITH MINERALS, THERAPEUTIC TABLET PO SCH (08:11)
[2017-09-20] MEDS: THIAMINE HCL 100 MG TABLET PO SCH ×2 (08:11→17:13)
[2017-09-20] MEDS: ASPIRIN 81 MG EC TABLET PO SCH (08:12)
[2017-09-20] MEDS: ARIPiprazole 5 MG TABLET PO SCH (08:17)
[2017-09-20 11:53] LABS: GLUCOMETER DEV NAME(LOC) BV3S 2; GLUCOSE,POINT OF CARE 122 MG/DL (70-110)
[2017-09-20 16:05] VITALS: BP 116/76
[2017-09-20 17:33] LABS: GLUCOMETER DEV NAME(LOC) BV3S 2; GLUCOSE,POINT OF CARE 132 MG/DL (70-110)
[2017-09-20 18:48] VITALS: BP 116/76
[2017-09-20] MEDS: ZOLPIDEM TARTRATE 10 MG TABLET PO PRN (20:38)
[2017-09-20] MEDS: SERTRALINE HCL 100 MG TABLET PO SCH (20:38)
[2017-09-20 20:47] LABS: GLUCOMETER DEV NAME(LOC) BV3S 2; GLUCOSE,POINT OF CARE 114 MG/DL (70-110)
[2017-09-21] MEDS: INSULIN LISPRO 100 UNITS/ML SQ PRN (06:36)
[2017-09-21 06:53] LABS: GLUCOMETER DEV NAME(LOC) BV3S 2; GLUCOSE,POINT OF CARE 142 MG/DL (70-110)
[2017-09-21 06:59] VITALS: BP 110/64
[2017-09-21 07:00] VITALS: BP 110/64
[2017-09-21] MEDS ORDERED: LORazepam 1 MG TABLET PO PRN (07:00)
[2017-09-21 08:00] VITALS: BP 110/62
[2017-09-21 08:03] VITALS: BP 110/62
[2017-09-21] MEDS: ASPIRIN 81 MG EC TABLET PO SCH (09:02)
[2017-09-21] MEDS: MULTIVITAMINS WITH MINERALS, THERAPEUTIC TABLET PO SCH (09:02)
[2017-09-21] MEDS: PANTOPRAZOLE SODIUM 40 MG DR TABLET PO SCH (09:02)
[2017-09-21] MEDS: THIAMINE HCL 100 MG TABLET PO SCH ×2 (09:02→16:47)
[2017-09-21] MEDS: FOLIC ACID 1 MG TABLET PO SCH (09:03)
[2017-09-21] MEDS: ARIPiprazole 5 MG TABLET PO SCH (09:24)
[2017-09-21 12:12] LABS: GLUCOMETER DEV NAME(LOC) BV3S 2; GLUCOSE,POINT OF CARE 123 MG/DL (70-110)
[2017-09-21 16:00] VITALS: BP 114/86
[2017-09-21] MEDS: LORazepam 2 MG TABLET PO PRN (16:47)
[2017-09-21 17:23] LABS: GLUCOMETER DEV NAME(LOC) BV3S 2; GLUCOSE,POINT OF CARE 130 MG/DL (70-110)
[2017-09-21 17:54] VITALS: BP 114/86
[2017-09-21] MEDS: SERTRALINE HCL 100 MG TABLET PO SCH (20:29)
[2017-09-21] MEDS: ZOLPIDEM TARTRATE 10 MG TABLET PO PRN (20:29)
[2017-09-21 21:03] LABS: GLUCOMETER DEV NAME(LOC) BV2S 2; GLUCOSE,POINT OF CARE 129 MG/DL (70-110)
[2017-09-22 01:38] VITALS: BP 106/63
[2017-09-22 01:59] VITALS: BP 106/63
[2017-09-22 08:30] VITALS: BP 108/69
[2017-09-22] MEDS: PANTOPRAZOLE SODIUM 40 MG DR TABLET PO SCH (08:53)
[2017-09-22] MEDS: THIAMINE HCL 100 MG TABLET PO SCH (08:53)
[2017-09-22] MEDS: MULTIVITAMINS WITH MINERALS, THERAPEUTIC TABLET PO SCH (08:53)
[2017-09-22] MEDS: ARIPiprazole 5 MG TABLET PO SCH (08:53)
[2017-09-22] MEDS: FOLIC ACID 1 MG TABLET PO SCH (08:54)
[2017-09-22] MEDS: ASPIRIN 81 MG EC TABLET PO SCH (08:54)
[2017-09-22] MEDS ORDERED: PANT40TA25 PO (09:21)
[2017-09-22] MEDS ORDERED: SERT100T12 PO (09:21)
[2017-09-22] MEDS ORDERED: ASPI-1146 PO (09:21)
[2017-09-22] MEDS ORDERED: ARIP5TAB8 PO (09:21)
[2017-09-22] MEDS: INSULIN LISPRO 100 UNITS/ML SQ PRN (12:05)
[2017-09-22 12:08] LABS: GLUCOMETER DEV NAME(LOC) BV2S 2; GLUCOSE,POINT OF CARE 149 MG/DL (70-110)
[2017-09-22] MEDS: LORazepam 2 MG TABLET PO PRN (13:00)
== END 2017-09-22 15:23 | disposition home or self-care (01) | DRG 750 ==
LOC: EMS 14:52 → B3A 09-17 02:01 → B2S 09-21 18:50
PROVIDERS: ADMIT Psychiatry & Neurology Psychiatry; ATTEND Psychiatry & Neurology Psychiatry
DX: F25.1 Schizoaffective disorder, depressive type (principal); Z86.74 Personal history of sudden cardiac arrest; R45.851 Suicidal ideations; I25.10 Atherosclerotic heart disease of native coronary artery without angina pectoris; E11.9 Type 2 diabetes mellitus without complications; E78.00 Pure hypercholesterolemia, unspecified; E78.5 Hyperlipidemia, unspecified; J44.9 Chronic obstructive pulmonary disease, unspecified; N28.9 Disorder of kidney and ureter, unspecified; F41.9 Anxiety disorder, unspecified; F60.3 Borderline personality disorder; I10 Essential (primary) hypertension; D57.1 Sickle-cell disease without crisis; F17.200 Nicotine dependence, unspecified, uncomplicated; Z59.0 Homelessness; Z91.14 Patient's other noncompliance with medication regimen; Z63.9 Problem related to primary support group, unspecified; I25.2 Old myocardial infarction; Z91.018 Allergy to other foods; Z86.718 Personal history of other venous thrombosis and embolism; Z91.5 Personal history of self-harm; Z81.8 Family history of other mental and behavioral disorders; Z71.6 Tobacco abuse counseling
CPT/HCPCS: 80074; 82306; 82607; 83036; 83735; 84439; 84443; 93005; 96361; 96372; 96374; 96376; 99285; G0480; G0481; J2405; J3420; J7030

== ENCOUNTER 2017-09-28 16:09 | Inpatient (IN) | payer MEDICAID ==
[~2017-09-28] VITALS: Ht 182.9 cm; Wt 128.2 kg
[~2017-09-28 16:09] MED LIST changes: +ASPI-1146 PO; -ASPI81TA39 PO; -FOLI1 PO; -MV-M1TAB2 PO; +PANT40TA25 PO; -THIA100 PO
[2017-09-28] MEDS ORDERED: PERTUSS(ACELL),DIPH,TET VAC/PF 0.5 ML VIAL IM ONE (16:45)
[2017-09-28] MEDS ORDERED: SODIUM CHLORIDE 0.9% 1,000 ML IV ONE (16:45)
[2017-09-28] MEDS ORDERED: ONDANSETRON HCL 4 MG/2 ML VIAL IVP ONE ×2 (16:45→20:00)
[2017-09-28] MEDS ORDERED: BACITRACIN 0.9 GM PACKET OINTMENT TP ONE (16:45)
[2017-09-28] MEDS ORDERED: MAGNESIUM SULFATE 2 GM, MVI, ADULT NO.1 WITH VIT K 10 ML, THIAMINE HCL 100 MG, FOLIC AC... IV ONE ×5 (16:45)
[2017-09-28 16:50] LABS: BASOPHILS % (AUTO) 0.7 % (0.0-2.0); EOSINOPHILS % (AUTO) 0.7 % (1.0-6.0); HEMOGLOBIN 14.8 g/dL (13.5-17.5); LYMPHOCYTES # (AUTO) 2.5 K/uL (1.0-4.8); LYMPHOCYTES % (AUTO) 51.4 % (22.0-44.0); MEAN CORPUSCULAR HEMOGLOBIN 31.5 pg (26.0-34.0); MEAN CORPUSCULAR HGB CONC 35.3 G/dL (31.0-37.0); MEAN CORPUSCULAR VOLUME 89 fL (80-100); MONOCYTES # (AUTO) 0.3 K/uL (0.1-1.0); MONOCYTES % (AUTO) 5.9 % (2.0-9.0); NEUTROPHILS % (AUTO) 41.3 % (40.0-70.0); PLATELET COUNT (AUTO) 197 K/uL (150-450); RED CELL DISTRIBUTION WIDTH 14.6 % (11.5-14.5)
[2017-09-28 17:00] LABS: ANION GAP 7 mmol/L (8-16); CALCIUM, TOTAL 8.3 mg/dL (8.8-10.5); CARBON DIOXIDE 31 mmol/L (22-29); CHLORIDE 101 mmol/L (98-107); GLOMERULAR FILTR. RATE CALC > 60 mL/min (>60); GLUCOSE,RANDOM 159 mg/dL (70-110); POTASSIUM 3.4 mmol/L (3.5-5.1); SODIUM SERUM 139 mmol/L (136-145); UREA NITROGEN, BLOOD 8 mg/dL (7-18)
[2017-09-28 17:05] LABS: ALANINE AMINOTRANSFERASE 27 U/L (12-78); ALBUMIN 3.7 g/dL (3.4-5.0); ALKALINE PHOSPHATASE 129 U/L (46-116); ASPARTATE AMINOTRANSFERASE 20 U/L (15-37); BILIRUBIN,TOTAL 0.4 mg/dL (0.1-1.0); LIPASE 140 U/L (73-393); TOTAL PROTEIN, SERUM 7.7 g/dL (6.4-8.2)
[2017-09-28 17:40] LABS: AMPHET/METH SCREEN,URINE NEGATIVE (NEGATIVE); BARBITURATE SCREEN, URINE NEGATIVE (NEGATIVE); BENZODIAZEPINES SCREEN,URINE NEGATIVE (NEGATIVE); CANNABINOID SCREEN,URINE NEGATIVE (NEGATIVE); COCAINE SCREEN,URINE NEGATIVE (NEGATIVE); METHADONE SCREEN, URINE NEGATIVE (NEGATIVE); OPIATE SCREEN,URINE NEGATIVE (NEGATIVE)
[2017-09-28 17:42] LABS: PHENCYCLIDINE SCREEN,URINE NEGATIVE (NEGATIVE)
[2017-09-28] MEDS ORDERED: GLUCAGON,HUMAN RECOMBINANT 1 MG VIAL IM PRN (22:45)
[2017-09-28] MEDS ORDERED: INSULIN LISPRO 100 UNITS/ML SQ PRN (22:45)
[2017-09-29] VITALS (10 sets, daily range): BP systolic 112–151; BP diastolic 67–90
[2017-09-29] MEDS ORDERED: ACETAMINOPHEN 500 MG TABLET PO ONE (00:30)
[2017-09-29 02:59] LABS: CHOL/HDL RATIO 2.8 (4.2-7.3)
[2017-09-29] MEDS ORDERED: ONDANSETRON HCL 4 MG/2 ML VIAL IVP ONE (03:15)
[2017-09-29] MEDS ORDERED: DEXTROSE 50%-WATER 25 GM/50 ML SYG IVP PRN (03:45)
[2017-09-29 05:43] LABS: GLUCOMETER DEV NAME(LOC) 3EX 1; GLUCOSE,POINT OF CARE 149 MG/DL (70-110)
[2017-09-29] MEDS: LORazepam 1 MG TABLET PO PRN ×3 (06:13→12:35)
[2017-09-29] MEDS: INSULIN LISPRO 100 UNITS/ML SQ PRN (06:37)
[2017-09-29] MEDS: MetFORMIN HCL 500 MG TABLET PO SCH (06:37)
[2017-09-29] MEDS: PANTOPRAZOLE SODIUM 40 MG DR TABLET PO SCH (08:25)
[2017-09-29] MEDS ORDERED: GuaiFENesin/D-METHORPHAN [SUGAR-FREE] 200-20MG/10 ML SYRUP UDCUP PO PRN (08:30)
[2017-09-29] MEDS ORDERED: HydrOXYzine PAMOATE 50 MG CAPSULE PO PRN (08:30)
[2017-09-29] MEDS ORDERED: CYANOCOBALAMIN 1,000 MCG/ML VIAL IM ONE (08:30)
[2017-09-29] MEDS ORDERED: LORazepam 2 MG TABLET PO PRN (08:30)
[2017-09-29] MEDS ORDERED: ASPIRIN 325 MG EC TABLET PO SCH (09:00)
[2017-09-29] MEDS: PROMETHAZINE HCL 25 MG TABLET PO PRN ×2 (10:02→16:48)
[2017-09-29] MEDS: MULTIVITAMINS WITH MINERALS, THERAPEUTIC TABLET PO SCH (10:18)
[2017-09-29] MEDS: FOLIC ACID 1 MG TABLET PO SCH (10:18)
[2017-09-29] MEDS: THIAMINE HCL 100 MG TABLET PO SCH ×2 (10:18→16:28)
[2017-09-29] MEDS ORDERED: ONDANSETRON HCL 4 MG TABLET PO PRN (12:15)
[2017-09-29 17:03] LABS: GLUCOMETER DEV NAME(LOC) 3EX 1; GLUCOSE,POINT OF CARE 114 MG/DL (70-110)
[2017-09-29] MEDS: ATORVASTATIN CALCIUM 10 MG TABLET PO SCH (20:07)
[2017-09-29] MEDS: ZOLPIDEM TARTRATE 10 MG TABLET PO PRN (23:01)
[2017-09-30] VITALS (9 sets, daily range): BP systolic 127–152; BP diastolic 72–95
[2017-09-30] MEDS: PROMETHAZINE HCL 25 MG TABLET PO PRN (04:02)
[2017-09-30 06:28] LABS: GLUCOMETER DEV NAME(LOC) 3EX 1; GLUCOSE,POINT OF CARE 115 MG/DL (70-110)
[2017-09-30] MEDS: INSULIN LISPRO 100 UNITS/ML SQ PRN (06:53)
[2017-09-30] MEDS: MetFORMIN HCL 500 MG TABLET PO SCH (07:00)
[2017-09-30] MEDS ORDERED: LORazepam 2 MG TABLET PO PRN (07:00)
[2017-09-30] MEDS: FOLIC ACID 1 MG TABLET PO SCH (09:09)
[2017-09-30] MEDS: ASPIRIN 81 MG EC TABLET PO SCH (09:10)
[2017-09-30] MEDS: PANTOPRAZOLE SODIUM 40 MG DR TABLET PO SCH (09:10)
[2017-09-30] MEDS: ARIPiprazole 5 MG TABLET PO SCH (09:10)
[2017-09-30] MEDS: THIAMINE HCL 100 MG TABLET PO SCH ×2 (09:10→16:53)
[2017-09-30] MEDS: SERTRALINE HCL 100 MG TABLET PO SCH (09:10)
[2017-09-30] MEDS: LORazepam 2 MG TABLET PO SCH ×4 (09:11→20:40)
[2017-09-30] MEDS: MULTIVITAMINS WITH MINERALS, THERAPEUTIC TABLET PO SCH (09:11)
[2017-09-30] MEDS: LOPERAMIDE HCL 2 MG CAPSULE PO PRN ×2 (14:10→19:31)
[2017-09-30] MEDS: ATORVASTATIN CALCIUM 10 MG TABLET PO SCH (20:40)
[2017-09-30 20:43] LABS: GLUCOMETER DEV NAME(LOC) 3EX 1; GLUCOSE,POINT OF CARE 139 MG/DL (70-110)
[2017-09-30] MEDS: ZOLPIDEM TARTRATE 10 MG TABLET PO PRN (22:53)
[2017-10-01 05:32] VITALS: BP 133/87
[2017-10-01 06:08] LABS: GLUCOMETER DEV NAME(LOC) 3EX 1; GLUCOSE,POINT OF CARE 136 MG/DL (70-110)
[2017-10-01 06:34] LABS: ALANINE AMINOTRANSFERASE 28 U/L (12-78); ALBUMIN 3.8 g/dL (3.4-5.0); ALKALINE PHOSPHATASE 131 U/L (46-116); ANION GAP 9 mmol/L (8-16); ASPARTATE AMINOTRANSFERASE 20 U/L (15-37); BILIRUBIN,TOTAL 1.5 mg/dL (0.1-1.0); CALCIUM, TOTAL 9.1 mg/dL (8.8-10.5); CARBON DIOXIDE 27 mmol/L (22-29); CHLORIDE 101 mmol/L (98-107); CREATININE 0.88 mg/dL (0.60-1.30); GLOMERULAR FILTR. RATE CALC > 60 mL/min (>60); GLUCOSE,RANDOM 124 mg/dL (70-110); POTASSIUM 3.4 mmol/L (3.5-5.1); SODIUM SERUM 137 mmol/L (136-145); TOTAL PROTEIN, SERUM 7.8 g/dL (6.4-8.2); UREA NITROGEN, BLOOD 12 mg/dL (7-18)
[2017-10-01] MEDS: MetFORMIN HCL 500 MG TABLET PO SCH (06:45)
[2017-10-01 08:00] VITALS: BP 137/82
[2017-10-01] MEDS: FOLIC ACID 1 MG TABLET PO SCH (09:12)
[2017-10-01] MEDS: ARIPiprazole 5 MG TABLET PO SCH (09:12)
[2017-10-01] MEDS: LORazepam 2 MG TABLET PO SCH ×4 (09:12→20:09)
[2017-10-01] MEDS: SERTRALINE HCL 100 MG TABLET PO SCH (09:12)
[2017-10-01] MEDS: PANTOPRAZOLE SODIUM 40 MG DR TABLET PO SCH (09:13)
[2017-10-01] MEDS: MULTIVITAMINS WITH MINERALS, THERAPEUTIC TABLET PO SCH (09:13)
[2017-10-01] MEDS: ASPIRIN 81 MG EC TABLET PO SCH (09:13)
[2017-10-01] MEDS: THIAMINE HCL 100 MG TABLET PO SCH ×2 (09:13→16:11)
[2017-10-01] MEDS ORDERED: POTASSIUM CHLORIDE 20 MEQ ER TABLET PO ONE (10:00)
[2017-10-01] MEDS: LOPERAMIDE HCL 2 MG CAPSULE PO PRN (13:28)
[2017-10-01 17:13] LABS: GLUCOMETER DEV NAME(LOC) 3EX 1; GLUCOSE,POINT OF CARE 116 MG/DL (70-110)
[2017-10-01 20:01] VITALS: BP 152/79
[2017-10-01] MEDS: ATORVASTATIN CALCIUM 10 MG TABLET PO SCH (20:09)
[2017-10-01 21:22] LABS: GLUCOMETER DEV NAME(LOC) 3EX 1; GLUCOSE,POINT OF CARE 110 MG/DL (70-110)
[2017-10-02] MEDS: ZOLPIDEM TARTRATE 10 MG TABLET PO PRN (00:01)
[2017-10-02 00:13] VITALS: BP 110/79
[2017-10-02 00:15] VITALS: BP 110/79
[2017-10-02 06:18] LABS: GLUCOMETER DEV NAME(LOC) 3EX 1; GLUCOSE,POINT OF CARE 97 MG/DL (70-110)
[2017-10-02] MEDS: MetFORMIN HCL 500 MG TABLET PO SCH (06:33)
[2017-10-02] MEDS ORDERED: LORazepam 1 MG TABLET PO PRN (07:00)
[2017-10-02 09:15] VITALS: BP 129/73
[2017-10-02 09:16] VITALS: BP 129/73
[2017-10-02] MEDS: ASPIRIN 81 MG EC TABLET PO SCH (09:22)
[2017-10-02] MEDS: MULTIVITAMINS WITH MINERALS, THERAPEUTIC TABLET PO SCH (09:22)
[2017-10-02] MEDS: FOLIC ACID 1 MG TABLET PO SCH (09:22)
[2017-10-02] MEDS: PANTOPRAZOLE SODIUM 40 MG DR TABLET PO SCH (09:22)
[2017-10-02] MEDS: LORazepam 1 MG TABLET PO SCH ×4 (09:23→20:23)
[2017-10-02] MEDS: THIAMINE HCL 100 MG TABLET PO SCH ×2 (09:23→16:17)
[2017-10-02] MEDS: SERTRALINE HCL 100 MG TABLET PO SCH (09:23)
[2017-10-02] MEDS: ARIPiprazole 5 MG TABLET PO SCH (09:30)
[2017-10-02 16:48] LABS: GLUCOMETER DEV NAME(LOC) 3EX 1; GLUCOSE,POINT OF CARE 115 MG/DL (70-110)
[2017-10-02] MEDS: ATORVASTATIN CALCIUM 10 MG TABLET PO SCH (20:23)
[2017-10-02 22:38] VITALS: BP 124/62
[2017-10-03 06:39] LABS: GLUCOMETER DEV NAME(LOC) 3EI B; GLUCOSE,POINT OF CARE 107 MG/DL (70-110)
[2017-10-03] MEDS: MetFORMIN HCL 500 MG TABLET PO SCH (07:05)
[2017-10-03 07:07] VITALS: BP 124/75
[2017-10-03 07:11] VITALS: BP 124/75
[2017-10-03] MEDS: PANTOPRAZOLE SODIUM 40 MG DR TABLET PO SCH (08:27)
[2017-10-03] MEDS: ARIPiprazole 5 MG TABLET PO SCH (08:27)
[2017-10-03] MEDS: FOLIC ACID 1 MG TABLET PO SCH (08:27)
[2017-10-03] MEDS: ASPIRIN 81 MG EC TABLET PO SCH (08:27)
[2017-10-03] MEDS: LORazepam 1 MG TABLET PO PRN ×3 (08:27→20:17)
[2017-10-03] MEDS: MULTIVITAMINS WITH MINERALS, THERAPEUTIC TABLET PO SCH (08:28)
[2017-10-03] MEDS: SERTRALINE HCL 100 MG TABLET PO SCH (08:28)
[2017-10-03] MEDS: THIAMINE HCL 100 MG TABLET PO SCH ×2 (08:28→16:09)
[2017-10-03 08:50] LABS: ANION GAP 7 mmol/L (8-16); CARBON DIOXIDE 26 mmol/L (22-29); CHLORIDE 100 mmol/L (98-107); CREATININE 1.02 mg/dL (0.60-1.30); GLOMERULAR FILTR. RATE CALC > 60 mL/min (>60); GLUCOSE,RANDOM 218 mg/dL (70-110); POTASSIUM 4.1 mmol/L (3.5-5.1); SODIUM SERUM 133 mmol/L (136-145); UREA NITROGEN, BLOOD 12 mg/dL (7-18)
[2017-10-03 09:17] VITALS: BP 96/75
[2017-10-03 09:18] VITALS: BP 96/75
[2017-10-03 16:18] LABS: GLUCOMETER DEV NAME(LOC) 3EI B; GLUCOSE,POINT OF CARE 114 MG/DL (70-110)
[2017-10-03 16:30] VITALS: BP 116/73
[2017-10-03] MEDS: ATORVASTATIN CALCIUM 10 MG TABLET PO SCH (20:17)
[2017-10-04 05:48] LABS: GLUCOMETER DEV NAME(LOC) 3EI B; GLUCOSE,POINT OF CARE 128 MG/DL (70-110)
[2017-10-04 06:15] VITALS: BP 128/78
[2017-10-04 06:17] VITALS: BP 128/78
[2017-10-04] MEDS: MetFORMIN HCL 500 MG TABLET PO SCH (06:58)
[2017-10-04] MEDS: INSULIN LISPRO 100 UNITS/ML SQ PRN (06:59)
[2017-10-04] MEDS ORDERED: SERT100T12 PO (09:32)
[2017-10-04] MEDS ORDERED: ATOR10TA84 PO (09:33)
[2017-10-04] MEDS ORDERED: ASPI-1182 PO (09:33)
[2017-10-04] MEDS ORDERED: FOLI1 PO (09:33)
[2017-10-04] MEDS ORDERED: MULT-248 PO (09:34)
[2017-10-04] MEDS ORDERED: METF500T6 PO (09:34)
[2017-10-04] MEDS ORDERED: THIA100 PO (09:35)
[2017-10-04] MEDS: FOLIC ACID 1 MG TABLET PO SCH (10:01)
[2017-10-04] MEDS: ASPIRIN 81 MG EC TABLET PO SCH (10:01)
[2017-10-04] MEDS: THIAMINE HCL 100 MG TABLET PO SCH ×2 (10:01→16:19)
[2017-10-04] MEDS: PANTOPRAZOLE SODIUM 40 MG DR TABLET PO SCH (10:01)
[2017-10-04] MEDS: ARIPiprazole 5 MG TABLET PO SCH (10:01)
[2017-10-04] MEDS: MULTIVITAMINS WITH MINERALS, THERAPEUTIC TABLET PO SCH (10:01)
[2017-10-04] MEDS: SERTRALINE HCL 100 MG TABLET PO SCH (10:02)
[2017-10-04 10:28] VITALS: BP 115/76
[2017-10-04 16:33] LABS: GLUCOMETER DEV NAME(LOC) 3EI B; GLUCOSE,POINT OF CARE 111 MG/DL (70-110)
[2017-10-04 19:55] VITALS: BP 107/66
[2017-10-04] MEDS: ZOLPIDEM TARTRATE 10 MG TABLET PO PRN (20:06)
[2017-10-04] MEDS: ATORVASTATIN CALCIUM 10 MG TABLET PO SCH (20:06)
[2017-10-05 05:53] LABS: GLUCOMETER DEV NAME(LOC) 3EI B; GLUCOSE,POINT OF CARE 105 MG/DL (70-110)
[2017-10-05] MEDS: MetFORMIN HCL 500 MG TABLET PO SCH (06:53)
[2017-10-05 08:46] VITALS: BP 122/81
[2017-10-05] MEDS: ARIPiprazole 5 MG TABLET PO SCH (08:54)
[2017-10-05] MEDS: ASPIRIN 81 MG EC TABLET PO SCH (08:55)
[2017-10-05] MEDS: SERTRALINE HCL 100 MG TABLET PO SCH (08:55)
[2017-10-05] MEDS: FOLIC ACID 1 MG TABLET PO SCH (08:55)
[2017-10-05] MEDS: PANTOPRAZOLE SODIUM 40 MG DR TABLET PO SCH (08:55)
[2017-10-05] MEDS: THIAMINE HCL 100 MG TABLET PO SCH (08:55)
[2017-10-05] MEDS: MULTIVITAMINS WITH MINERALS, THERAPEUTIC TABLET PO SCH (08:56)
== END 2017-10-05 15:00 | disposition home or self-care (01) | DRG 750 ==
LOC: EMS 16:10 → 3EI 09-29 02:50
PROVIDERS: ADMIT Psychiatry & Neurology Psychiatry; ATTEND Psychiatry & Neurology Psychiatry
DX: F25.1 Schizoaffective disorder, depressive type (principal); E11.65 Type 2 diabetes mellitus with hyperglycemia; R45.851 Suicidal ideations; Z86.74 Personal history of sudden cardiac arrest; E87.1 Hypo-osmolality and hyponatremia; D57.1 Sickle-cell disease without crisis; E78.00 Pure hypercholesterolemia, unspecified; E78.5 Hyperlipidemia, unspecified; E87.6 Hypokalemia; F10.229 Alcohol dependence with intoxication, unspecified; F41.9 Anxiety disorder, unspecified; F17.200 Nicotine dependence, unspecified, uncomplicated; R45.87 Impulsiveness; I10 Essential (primary) hypertension; I25.10 Atherosclerotic heart disease of native coronary artery without angina pectoris; J44.9 Chronic obstructive pulmonary disease, unspecified; K21.9 Gastro-esophageal reflux disease without esophagitis; Y90.8 Blood alcohol level of 240 mg/100 ml or more; I25.2 Old myocardial infarction; Z59.0 Homelessness; Z79.82 Long term (current) use of aspirin; Z79.899 Other long term (current) drug therapy; Z86.718 Personal history of other venous thrombosis and embolism; Z91.5 Personal history of self-harm; Z81.8 Family history of other mental and behavioral disorders; Z71.6 Tobacco abuse counseling
CPT/HCPCS: 87081; 90715; 93970; 96374; 96376; 99285; G0480; J2405; J3411; J3420; J3475; J3490; J7030

== ENCOUNTER 2018-11-29 11:57 | Inpatient (IN) | payer MEDICAID ==
[~2018-11-29] VITALS: Ht 177.8 cm; Wt 143.3 kg
[~2018-11-29 11:57] MED LIST changes: -ASPI-1146 PO; +ASPI-1182 PO; +ATOR10TA84 PO; +FOLI1 PO; +METF-960 PO; +MULT-248 PO; +OLAN5TAB5 PO; +THIA100T67 PO
[2018-11-29 12:25] LABS: GLUCOSE,POINT OF CARE 290 MG/DL (70-110)
[2018-11-29] MEDS ORDERED: FURO40 PO (12:29)
[2018-11-29] MEDS ORDERED: ONDANSETRON HCL 4 MG/2 ML VIAL IVP ONE (12:30)
[2018-11-29] MEDS ORDERED: DILTIAZEM HCL 5 MG/ML 5 ML VIAL IVP ONE (12:45)
[2018-11-29 12:52] LABS: BASOPHILS % (AUTO) 0.6 % (0.0-2.0); EOSINOPHILS % (AUTO) 0.6 % (1.0-6.0); HEMATOCRIT 46.7 % (41-53); HEMOGLOBIN 15.8 g/dL (13.5-17.5); LYMPHOCYTES # (AUTO) 1.7 K/uL (1.0-4.8); LYMPHOCYTES % (AUTO) 36.9 % (22.0-44.0); MEAN CORPUSCULAR HEMOGLOBIN 32.8 pg (26.0-34.0); MEAN CORPUSCULAR HGB CONC 33.9 G/dL (31.0-37.0); MEAN CORPUSCULAR VOLUME 97 fL (80-100); MONOCYTES # (AUTO) 0.4 K/uL (0.1-1.0); MONOCYTES % (AUTO) 9.5 % (2.0-9.0); NEUTROPHILS # (AUTO) 2.4 K/uL (1.8-7.7); NEUTROPHILS % (AUTO) 52.4 % (40.0-70.0); RED BLOOD CELL COUNT(AUTO) 4.82 MIL/uL (4.50-5.90); RED CELL DISTRIBUTION WIDTH 15.9 % (11.5-14.5)
[2018-11-29 13:01] LABS: PLATELET COUNT (AUTO) 200 K/uL (150-450)
[2018-11-29 13:03] LABS: ANION GAP 15 mmol/L (8-16); CALCIUM, TOTAL 9.4 mg/dL (8.8-10.5); CARBON DIOXIDE 23 mmol/L (22-29); CHLORIDE 93 mmol/L (98-107); CREATININE 0.88 mg/dL (0.60-1.30); GLOMERULAR FILTR. RATE CALC > 60 mL/min (>60); GLUCOSE,RANDOM 268 mg/dL (70-110); POTASSIUM 3.3 mmol/L (3.5-5.1); SODIUM SERUM 131 mmol/L (136-145); UREA NITROGEN, BLOOD 4 mg/dL (7-18)
[2018-11-29 13:09] LABS: ALANINE AMINOTRANSFERASE 37 U/L (12-78); ALBUMIN 3.5 g/dL (3.4-5.0); ALKALINE PHOSPHATASE 118 U/L (46-116); ASPARTATE AMINOTRANSFERASE 39 U/L (15-37); BILIRUBIN,TOTAL 0.8 mg/dL (0.1-1.0); TOTAL PROTEIN, SERUM 7.6 g/dL (6.4-8.2)
[2018-11-29 13:22] LABS: B-TYPE NATRIURETIC PEPTIDE 17 pg/mL (0-100)
[2018-11-29] MEDS ORDERED: DEXTROSE 50%-WATER 25 GM/50 ML SYRINGE IVP PRN (13:30)
[2018-11-29] MEDS ORDERED: ALBUTEROL SULFATE 2.5 MG/0.5 ML NEB SOLUTION NEB PRN (13:30)
[2018-11-29] MEDS ORDERED: POTASSIUM CHL 10 MEQ/WATER 50 ML IV PRN (13:30)
[2018-11-29] MEDS ORDERED: ACETAMINOPHEN 325 MG TABLET PO PRN (13:30)
[2018-11-29] MEDS ORDERED: MAGNESIUM OXIDE 400 MG TABLET PO PRN (13:30)
[2018-11-29] MEDS ORDERED: MAGNESIUM SULFATE 2 GM/WATER 50 ML IV PRN (13:30)
[2018-11-29] MEDS ORDERED: MAGNESIUM HYDROXIDE SUSPENSION 30 ML UDCUP PO PRN (13:30)
[2018-11-29] MEDS ORDERED: MAGNESIUM SULFATE 4 GM/WATER 100 ML IV PRN (13:30)
[2018-11-29] MEDS: APIXABAN 5 MG TABLET PO SCH ×2 (13:52→23:49)
[2018-11-29] MEDS: METOPROLOL TARTRATE 25 MG TABLET PO SCH ×2 (13:52→22:06)
[2018-11-29] MEDS: MULTIVITAMINS WITH MINERALS, THERAPEUTIC TABLET PO SCH (13:52)
[2018-11-29 14:22] LABS: PROTHROMBIN TIME 10.2 SEC (9.4-11.6)
[2018-11-29 14:49] LABS: APPEARANCE,URINE CLEAR (CLEAR); BILIRUBIN,URINE NEGATIVE (NEGATIVE); GLUCOSE, URINE (UA) >=1000 mg/dL (NEGATIVE); KETONES,URINE TRACE mg/dL (NEGATIVE); LEUKOCYTE ESTERASE ,URINE NEGATIVE (NEGATIVE); NITRATE,URINE NEGATIVE (NEGATIVE); OCCULT BLOOD,URINE TRACE (NEGATIVE); PH,URINE 5.5 (5.0-8.0); PROTEIN,URINE TRACE (NEGATIVE); UROBILINOGEN,URINE 0.2 mg/dL (<=1.0)
[2018-11-29 14:50] LABS: AMPHET/METH SCREEN,URINE NEGATIVE (NEGATIVE); BARBITURATE SCREEN, URINE NEGATIVE (NEGATIVE); BENZODIAZEPINES SCREEN,URINE NEGATIVE (NEGATIVE); CANNABINOID SCREEN,URINE NEGATIVE (NEGATIVE); COCAINE SCREEN,URINE NEGATIVE (NEGATIVE); METHADONE SCREEN, URINE NEGATIVE (NEGATIVE); OPIATE SCREEN,URINE NEGATIVE (NEGATIVE); PHENCYCLIDINE SCREEN,URINE NEGATIVE (NEGATIVE)
[2018-11-29 15:15] LABS: BACTERIA,URINE None Seen /HPF (None Seen); RBC,URINE 0-2 /HPF (0-2); WBC,URINE None Seen /HPF (0-5)
[2018-11-29 15:16] LABS: SQUAMOUS EPITHELIAL CELL,UR Rare /LPF (None Seen)
[2018-11-29] MEDS: POTASSIUM CHLORIDE 20 MEQ ER TABLET PO PRN (16:04)
[2018-11-29] MEDS: ONDANSETRON HCL 4 MG/2 ML VIAL IVP PRN (16:18)
[2018-11-29] MEDS: INSULIN LISPRO 100 UNITS/ML SQ PRN ×2 (17:25→22:10)
[2018-11-29] MEDS: LORazepam 2 MG/ML VIAL IVP PRN ×2 (18:22→23:51)
[2018-11-29 19:41] VITALS: BP 130/85
[2018-11-29] MEDS: DOCUSATE SODIUM 100 MG CAPSULE PO SCH (22:06)
[2018-11-30] VITALS (8 sets, daily range): BP systolic 103–131; BP diastolic 57–88
[2018-11-30 00:05] LABS: GLUCOMETER DEV NAME(LOC) 5N.1; GLUCOSE,POINT OF CARE 331 MG/DL (70-110)
[2018-11-30 00:06] LABS: GLUCOMETER DEV NAME(LOC) 5S.1; GLUCOSE,POINT OF CARE 315 MG/DL (70-110)
[2018-11-30] MEDS: INSULIN LISPRO 100 UNITS/ML SQ PRN ×4 (06:10→20:59)
[2018-11-30 06:50] LABS: GLUCOMETER DEV NAME(LOC) 5S.1; GLUCOSE,POINT OF CARE 246 MG/DL (70-110)
[2018-11-30] MEDS: POTASSIUM CHLORIDE 20 MEQ ER TABLET PO PRN ×2 (08:59→15:04)
[2018-11-30] MEDS: DOCUSATE SODIUM 100 MG CAPSULE PO SCH ×2 (09:00→20:58)
[2018-11-30] MEDS: MULTIVITAMINS WITH MINERALS, THERAPEUTIC TABLET PO SCH (09:00)
[2018-11-30] MEDS ORDERED: FUROSEMIDE 20 MG/2 ML VIAL IVP SCH (09:00)
[2018-11-30] MEDS: FAMOTIDINE 20 MG TABLET PO SCH (09:01)
[2018-11-30] MEDS: METOPROLOL TARTRATE 25 MG TABLET PO SCH ×2 (09:01→20:58)
[2018-11-30] MEDS: LORazepam 2 MG/ML VIAL IVP PRN (11:07)
[2018-11-30] MEDS: THIAMINE HCL 100 MG TABLET PO SCH (11:07)
[2018-11-30] MEDS: FOLIC ACID 1 MG TABLET PO SCH (11:07)
[2018-11-30 11:50] LABS: GLUCOMETER DEV NAME(LOC) 5S.1; GLUCOSE,POINT OF CARE 362 MG/DL (70-110)
[2018-11-30] MEDS: ONDANSETRON HCL 4 MG/2 ML VIAL IVP PRN (14:48)
[2018-11-30] MEDS ORDERED: CYANOCOBALAMIN 1,000 MCG/ML VIAL IM ONE (16:45)
[2018-11-30] MEDS: LORazepam 2 MG TABLET PO PRN ×2 (17:16→21:08)
[2018-11-30] MEDS: ARIPiprazole 15 MG TABLET PO SCH (17:16)
[2018-11-30 19:20] LABS: GLUCOMETER DEV NAME(LOC) 5S.1; GLUCOSE,POINT OF CARE 308 MG/DL (70-110)
[2018-12-01] VITALS (8 sets, daily range): BP systolic 115–140; BP diastolic 71–88
[2018-12-01 00:25] LABS: GLUCOMETER DEV NAME(LOC) 5S.1; GLUCOSE,POINT OF CARE 331 MG/DL (70-110)
[2018-12-01 06:23] LABS: BASOPHILS % (AUTO) 0.4 % (0.0-2.0); EOSINOPHILS % (AUTO) 1.6 % (1.0-6.0); HEMOGLOBIN 14.4 g/dL (13.5-17.5); LYMPHOCYTES # (AUTO) 1.2 K/uL (1.0-4.8); LYMPHOCYTES % (AUTO) 28.2 % (22.0-44.0); MEAN CORPUSCULAR HEMOGLOBIN 32.7 pg (26.0-34.0); MEAN CORPUSCULAR HGB CONC 33.6 G/dL (31.0-37.0); MEAN CORPUSCULAR VOLUME 97 fL (80-100); MONOCYTES # (AUTO) 0.4 K/uL (0.1-1.0); MONOCYTES % (AUTO) 9.7 % (2.0-9.0); NEUTROPHILS # (AUTO) 2.5 K/uL (1.8-7.7); NEUTROPHILS % (AUTO) 60.1 % (40.0-70.0); PLATELET COUNT (AUTO) 109 K/uL (150-450); RED BLOOD CELL COUNT(AUTO) 4.42 MIL/uL (4.50-5.90); RED CELL DISTRIBUTION WIDTH 15.4 % (11.5-14.5)
[2018-12-01 06:47] LABS: ALANINE AMINOTRANSFERASE 39 U/L (12-78); ALKALINE PHOSPHATASE 112 U/L (46-116); ANION GAP 6 mmol/L (8-16); ASPARTATE AMINOTRANSFERASE 39 U/L (15-37); BILIRUBIN,TOTAL 0.8 mg/dL (0.1-1.0); CALCIUM, TOTAL 8.9 mg/dL (8.8-10.5); CARBON DIOXIDE 31 mmol/L (22-29); CHLORIDE 94 mmol/L (98-107); CREATININE 0.92 mg/dL (0.60-1.30); GLOMERULAR FILTR. RATE CALC > 60 mL/min (>60); GLUCOSE,RANDOM 280 mg/dL (70-110); POTASSIUM 3.6 mmol/L (3.5-5.1); SODIUM SERUM 131 mmol/L (136-145); TOTAL PROTEIN, SERUM 6.7 g/dL (6.4-8.2)
[2018-12-01] MEDS ORDERED: LORazepam 2 MG TABLET PO PRN (07:00)
[2018-12-01 07:44] LABS: UREA NITROGEN, BLOOD 11 mg/dL (7-18)
[2018-12-01] MEDS ORDERED: POTASSIUM CHLORIDE 20 MEQ ER TABLET PO ONE (08:45)
[2018-12-01] MEDS: DOCUSATE SODIUM 100 MG CAPSULE PO SCH ×2 (09:00→20:03)
[2018-12-01] MEDS: FOLIC ACID 1 MG TABLET PO SCH (09:31)
[2018-12-01] MEDS: THIAMINE HCL 100 MG TABLET PO SCH (09:31)
[2018-12-01] MEDS: MULTIVITAMINS WITH MINERALS, THERAPEUTIC TABLET PO SCH (09:31)
[2018-12-01] MEDS: LORazepam 2 MG TABLET PO SCH ×4 (09:31→20:05)
[2018-12-01] MEDS: FUROSEMIDE 20 MG TABLET PO SCH (09:32)
[2018-12-01] MEDS: SERTRALINE HCL 100 MG TABLET PO SCH (09:32)
[2018-12-01] MEDS: FAMOTIDINE 20 MG TABLET PO SCH (09:32)
[2018-12-01] MEDS: ARIPiprazole 15 MG TABLET PO SCH (09:32)
[2018-12-01] MEDS: INSULIN LISPRO 100 UNITS/ML SQ PRN ×3 (11:53→20:07)
[2018-12-01 20:31] LABS: GLUCOMETER DEV NAME(LOC) 5S.1; GLUCOSE,POINT OF CARE 295 MG/DL (70-110)
[2018-12-01 20:31] LABS: GLUCOMETER DEV NAME(LOC) 5S.1; GLUCOSE,POINT OF CARE 348 MG/DL (70-110)
[2018-12-01 21:35] LABS: GLUCOMETER DEV NAME(LOC) 5N.2; GLUCOSE,POINT OF CARE 349 MG/DL (70-110)
[2018-12-02 05:32] VITALS: BP 100/60
[2018-12-02] MEDS: INSULIN LISPRO 100 UNITS/ML SQ PRN ×4 (06:13→20:02)
[2018-12-02 06:44] LABS: BASOPHILS % (AUTO) 0.3 % (0.0-2.0); EOSINOPHILS % (AUTO) 2.3 % (1.0-6.0); HEMATOCRIT 42.3 % (41-53); LYMPHOCYTES # (AUTO) 1.1 K/uL (1.0-4.8); LYMPHOCYTES % (AUTO) 28.9 % (22.0-44.0); MEAN CORPUSCULAR HEMOGLOBIN 32.5 pg (26.0-34.0); MEAN CORPUSCULAR VOLUME 98 fL (80-100); MONOCYTES # (AUTO) 0.4 K/uL (0.1-1.0); MONOCYTES % (AUTO) 11.2 % (2.0-9.0); NEUTROPHILS # (AUTO) 2.1 K/uL (1.8-7.7); NEUTROPHILS % (AUTO) 57.3 % (40.0-70.0); PLATELET COUNT (AUTO) 106 K/uL (150-450); RED CELL DISTRIBUTION WIDTH 15.8 % (11.5-14.5)
[2018-12-02 07:18] LABS: ALANINE AMINOTRANSFERASE 42 U/L (12-78); ALBUMIN 3.1 g/dL (3.4-5.0); ALKALINE PHOSPHATASE 110 U/L (46-116); ANION GAP 9 mmol/L (8-16); ASPARTATE AMINOTRANSFERASE 32 U/L (15-37); BILIRUBIN,TOTAL 0.6 mg/dL (0.1-1.0); CALCIUM, TOTAL 9.2 mg/dL (8.8-10.5); CARBON DIOXIDE 29 mmol/L (22-29); CHLORIDE 97 mmol/L (98-107); CREATININE 0.96 mg/dL (0.60-1.30); GLOMERULAR FILTR. RATE CALC > 60 mL/min (>60); GLUCOSE,RANDOM 284 mg/dL (70-110); POTASSIUM 3.8 mmol/L (3.5-5.1); SODIUM SERUM 135 mmol/L (136-145); TOTAL PROTEIN, SERUM 6.4 g/dL (6.4-8.2); UREA NITROGEN, BLOOD 12 mg/dL (7-18)
[2018-12-02 07:25] LABS: GLUCOMETER DEV NAME(LOC) 5N.2; GLUCOSE,POINT OF CARE 293 MG/DL (70-110)
[2018-12-02] MEDS: THIAMINE HCL 100 MG TABLET PO SCH (08:01)
[2018-12-02] MEDS: MULTIVITAMINS WITH MINERALS, THERAPEUTIC TABLET PO SCH (08:02)
[2018-12-02] MEDS: FOLIC ACID 1 MG TABLET PO SCH (08:02)
[2018-12-02] MEDS: FUROSEMIDE 20 MG TABLET PO SCH (08:02)
[2018-12-02] MEDS: SERTRALINE HCL 100 MG TABLET PO SCH (08:02)
[2018-12-02] MEDS: LORazepam 2 MG TABLET PO SCH ×4 (08:02→20:00)
[2018-12-02] MEDS: ARIPiprazole 15 MG TABLET PO SCH (08:02)
[2018-12-02] MEDS: DOCUSATE SODIUM 100 MG CAPSULE PO SCH ×2 (08:04→19:57)
[2018-12-02 08:12] VITALS: BP 146/95
[2018-12-02] MEDS: FAMOTIDINE 20 MG TABLET PO SCH (08:13)
[2018-12-02 11:36] LABS: GLUCOMETER DEV NAME(LOC) 5N.1; GLUCOSE,POINT OF CARE 306 MG/DL (70-110)
[2018-12-02 11:42] VITALS: BP 130/85
[2018-12-02 11:46] LABS: GLUCOMETER DEV NAME(LOC) 5N.2; GLUCOSE,POINT OF CARE 302 MG/DL (70-110)
[2018-12-02 16:07] VITALS: BP 133/97
[2018-12-02 17:21] LABS: GLUCOMETER DEV NAME(LOC) 5S.1; GLUCOSE,POINT OF CARE 263 MG/DL (70-110)
[2018-12-02 19:24] VITALS: BP 130/94
[2018-12-03 00:15] VITALS: BP 140/92
[2018-12-03 05:00] VITALS: BP 120/66
[2018-12-03] MEDS: INSULIN LISPRO 100 UNITS/ML SQ PRN ×3 (06:00→17:33)
[2018-12-03 06:29] LABS: BASOPHILS % (AUTO) 0.3 % (0.0-2.0); EOSINOPHILS % (AUTO) 2.3 % (1.0-6.0); HEMATOCRIT 43.7 % (41-53); HEMOGLOBIN 14.4 g/dL (13.5-17.5); LYMPHOCYTES # (AUTO) 1.3 K/uL (1.0-4.8); LYMPHOCYTES % (AUTO) 29.3 % (22.0-44.0); MEAN CORPUSCULAR HEMOGLOBIN 32.7 pg (26.0-34.0); MEAN CORPUSCULAR VOLUME 99 fL (80-100); MONOCYTES # (AUTO) 0.5 K/uL (0.1-1.0); NEUTROPHILS # (AUTO) 2.4 K/uL (1.8-7.7); NEUTROPHILS % (AUTO) 56.1 % (40.0-70.0); PLATELET COUNT (AUTO) 101 K/uL (150-450); RED CELL DISTRIBUTION WIDTH 15.8 % (11.5-14.5)
[2018-12-03 06:39] LABS: ANION GAP 7 mmol/L (8-16); CALCIUM, TOTAL 9.1 mg/dL (8.8-10.5); CARBON DIOXIDE 30 mmol/L (22-29); CHLORIDE 98 mmol/L (98-107); CREATININE 0.75 mg/dL (0.60-1.30); GLOMERULAR FILTR. RATE CALC > 60 mL/min (>60); GLUCOSE,RANDOM 220 mg/dL (70-110); POTASSIUM 3.8 mmol/L (3.5-5.1); SODIUM SERUM 135 mmol/L (136-145); UREA NITROGEN, BLOOD 13 mg/dL (7-18)
[2018-12-03] MEDS ORDERED: LORazepam 1 MG TABLET PO PRN (07:00)
[2018-12-03 07:52] VITALS: BP 130/82
[2018-12-03] MEDS: DOCUSATE SODIUM 100 MG CAPSULE PO SCH (09:12)
[2018-12-03] MEDS: SERTRALINE HCL 100 MG TABLET PO SCH (09:12)
[2018-12-03] MEDS: ARIPiprazole 15 MG TABLET PO SCH (09:12)
[2018-12-03] MEDS: MULTIVITAMINS WITH MINERALS, THERAPEUTIC TABLET PO SCH (09:12)
[2018-12-03] MEDS: FOLIC ACID 1 MG TABLET PO SCH (09:12)
[2018-12-03] MEDS: FUROSEMIDE 20 MG TABLET PO SCH (09:12)
[2018-12-03] MEDS: THIAMINE HCL 100 MG TABLET PO SCH (09:12)
[2018-12-03] MEDS: FAMOTIDINE 20 MG TABLET PO SCH (09:12)
[2018-12-03] MEDS: LORazepam 1 MG TABLET PO SCH ×3 (09:13→16:12)
[2018-12-03 11:30] VITALS: BP 125/96
[2018-12-03] MEDS ORDERED: SERTRALINE HCL 100 MG TABLET PO SCH (14:00)
[2018-12-03 15:12] VITALS: BP 111/59
[2018-12-03 15:16] LABS: GLUCOMETER DEV NAME(LOC) 5S.1; GLUCOSE,POINT OF CARE 255 MG/DL (70-110)
[2018-12-03 15:16] LABS: GLUCOMETER DEV NAME(LOC) 5S.1; GLUCOSE,POINT OF CARE 295 MG/DL (70-110)
[2018-12-04] MEDS ORDERED: LORazepam 1 MG TABLET PO PRN (07:00)
[2018-12-04 16:51] LABS: GLUCOMETER DEV NAME(LOC) 5N.2; GLUCOSE,POINT OF CARE 259 MG/DL (70-110)
[2018-12-04 16:51] LABS: GLUCOMETER DEV NAME(LOC) 5N.2; GLUCOSE,POINT OF CARE 324 MG/DL (70-110)
== END 2018-12-03 18:50 | DRG 201 ==
LOC: EMS 11:58 → 5S 14:37
PROVIDERS: ADMIT Internal Medicine; ATTEND Internal Medicine
PROC: 5A09357 Assistance with Respiratory Ventilation, Less than 24 Consecutive Hours, Continuous Positive Airway Pressure (ICD-10-PCS; principal; 2018-12-01)
DX: I48.0 Paroxysmal atrial fibrillation (principal); D57.1 Sickle-cell disease without crisis; I11.0 Hypertensive heart disease with heart failure; I50.9 Heart failure, unspecified; R45.851 Suicidal ideations; F10.239 Alcohol dependence with withdrawal, unspecified; F10.229 Alcohol dependence with intoxication, unspecified; I44.2 Atrioventricular block, complete; E66.01 Morbid (severe) obesity due to excess calories; E11.9 Type 2 diabetes mellitus without complications; F25.1 Schizoaffective disorder, depressive type; G47.33 Obstructive sleep apnea (adult) (pediatric); E78.00 Pure hypercholesterolemia, unspecified; F32.9 Major depressive disorder, single episode, unspecified; I25.10 Atherosclerotic heart disease of native coronary artery without angina pectoris; J44.9 Chronic obstructive pulmonary disease, unspecified; S61.512A Laceration without foreign body of left wrist, initial encounter; X78.9XXA Intentional self-harm by unspecified sharp object, initial encounter; Z91.19 Patient's noncompliance with other medical treatment and regimen; Z79.899 Other long term (current) drug therapy; Z91.018 Allergy to other foods; Y93.89 Activity, other specified; Y92.89 Other specified places as the place of occurrence of the external cause; Y99.8 Other external cause status; Z82.49 Family history of ischemic heart disease and other diseases of the circulatory system; Z86.74 Personal history of sudden cardiac arrest; Z91.5 Personal history of self-harm; I25.2 Old myocardial infarction; Z68.42 Body mass index [BMI] 45.0-49.9, adult
CPT/HCPCS: 83735; 84132; 93005; 93306; 94660; 99291; G0480; J1940; J2060; J2405; J3420; J3490

== ENCOUNTER 2018-12-03 19:00 | Inpatient (IN) | payer MEDICAID ==
[~2018-12-03] VITALS: Ht 213.4 cm; Wt 142.2 kg
[~2018-12-03 19:00] MED LIST changes: -ARIP5TAB8 PO; -ASPI-1182 PO; -ATOR10TA84 PO; -FOLI1 PO; +FURO40 PO; -MULT-248 PO; -OLAN5TAB5 PO; -PANT40TA25 PO; -SERT100T12 PO; -THIA100T67 PO
[2018-12-03] MEDS ORDERED: HALOPERIDOL 5 MG TABLET PO PRN (21:00)
[2018-12-03] MEDS ORDERED: DEXTROSE 50%-WATER 25 GM/50 ML SYRINGE IVP PRN (21:45)
[2018-12-03] MEDS ORDERED: PETROLATUM,WHITE 28 GM JELLY TP PRN (21:45)
[2018-12-03] MEDS ORDERED: MAG HYDROX/AL HYDROX/SIMETH ES 30 ML SUSPENSION UDCUP PO PRN (21:45)
[2018-12-03] MEDS ORDERED: ACETAMINOPHEN 325 MG TABLET PO PRN (21:45)
[2018-12-03] MEDS ORDERED: ONDANSETRON HCL 4 MG TABLET PO PRN (21:45)
[2018-12-03] MEDS ORDERED: IBUPROFEN 400 MG TABLET PO PRN (21:45)
[2018-12-03] MEDS ORDERED: MAGNESIUM HYDROXIDE SUSPENSION 30 ML UDCUP PO PRN (21:45)
[2018-12-03] MEDS ORDERED: CloNIDine HCL 0.1 MG TABLET PO PRN (21:45)
[2018-12-03] MEDS ORDERED: ALBUTEROL SULFATE HFA 90 MCG/PUFF 8 GM INHALER IH PRN (21:45)
[2018-12-03] MEDS ORDERED: LOPERAMIDE HCL 2 MG CAPSULE PO PRN (21:45)
[2018-12-03] MEDS ORDERED: NICOTINE 14 MG/24 HOUR PATCH TD PRN (21:45)
[2018-12-03] MEDS ORDERED: GuaiFENesin/D-METHORPHAN [SUGAR-FREE] 200-20MG/10 ML SYRUP UDCUP PO PRN (21:45)
[2018-12-03] MEDS ORDERED: DOCUSATE SODIUM 100 MG CAPSULE PO PRN (21:45)
[2018-12-03 22:05] VITALS: BP 140/90
[2018-12-04 05:41] LABS: GLUCOMETER DEV NAME(LOC) 3E.I; GLUCOSE,POINT OF CARE 223 MG/DL (70-110)
[2018-12-04 06:21] LABS: BASOPHILS % (AUTO) 0.5 % (0.0-2.0); EOSINOPHILS % (AUTO) 2.8 % (1.0-6.0); HEMOGLOBIN 14.4 g/dL (13.5-17.5); LYMPHOCYTES # (AUTO) 1.1 K/uL (1.0-4.8); LYMPHOCYTES % (AUTO) 30.4 % (22.0-44.0); MEAN CORPUSCULAR HEMOGLOBIN 32.9 pg (26.0-34.0); MEAN CORPUSCULAR HGB CONC 33.5 G/dL (31.0-37.0); MEAN CORPUSCULAR VOLUME 98 fL (80-100); MONOCYTES # (AUTO) 0.5 K/uL (0.1-1.0); MONOCYTES % (AUTO) 12.6 % (2.0-9.0); NEUTROPHILS % (AUTO) 53.7 % (40.0-70.0); PLATELET COUNT (AUTO) 104 K/uL (150-450); RED BLOOD CELL COUNT(AUTO) 4.38 MIL/uL (4.50-5.90); RED CELL DISTRIBUTION WIDTH 15.4 % (11.5-14.5)
[2018-12-04 06:30] LABS: HEMOGLOBIN A1C 8.4 % (4.5-6.2)
[2018-12-04] MEDS: MetFORMIN HCL 500 MG TABLET PO SCH (06:41)
[2018-12-04 06:47] LABS: ALANINE AMINOTRANSFERASE 45 U/L (12-78); ALBUMIN 3.2 g/dL (3.4-5.0); ALKALINE PHOSPHATASE 101 U/L (46-116); ANION GAP 5 mmol/L (8-16); ASPARTATE AMINOTRANSFERASE 30 U/L (15-37); BILIRUBIN,TOTAL 0.6 mg/dL (0.1-1.0); CALCIUM, TOTAL 8.9 mg/dL (8.8-10.5); CARBON DIOXIDE 30 mmol/L (22-29); CHLORIDE 100 mmol/L (98-107); CHOLESTEROL 160 mg/dL (131-200); CREATININE 0.78 mg/dL (0.60-1.30); GLOMERULAR FILTR. RATE CALC > 60 mL/min (>60); GLUCOSE,RANDOM 226 mg/dL (70-110); HDL CHOLESTEROL 80 mg/dL (40-60); LDL CHOL (CALC.) 69 mg/dL (0-130); POTASSIUM 3.8 mmol/L (3.5-5.1); SODIUM SERUM 135 mmol/L (136-145); THYROID STIMULATING HORMONE 2.17 uIU/mL (0.36-3.74); TOTAL PROTEIN, SERUM 6.2 g/dL (6.4-8.2); TRIGLYCERIDES 56 mg/dL (15-150); UREA NITROGEN, BLOOD 12 mg/dL (7-18)
[2018-12-04] MEDS: INSULIN LISPRO 100 UNITS/ML SQ PRN ×3 (06:47→21:34)
[2018-12-04 10:11] VITALS: BP 140/69
[2018-12-04] MEDS: ARIPiprazole 15 MG TABLET PO SCH (10:46)
[2018-12-04] MEDS: SERTRALINE HCL 50 MG TABLET PO SCH (10:46)
[2018-12-04] MEDS: FUROSEMIDE 40 MG TABLET PO SCH (10:46)
[2018-12-04 16:36] LABS: GLUCOMETER DEV NAME(LOC) 3E.I; GLUCOSE,POINT OF CARE 240 MG/DL (70-110)
[2018-12-04] MEDS: LORazepam 2 MG TABLET PO PRN (16:47)
[2018-12-04 16:55] VITALS: BP 122/83
[2018-12-04 21:41] LABS: GLUCOMETER DEV NAME(LOC) 3E.I; GLUCOSE,POINT OF CARE 248 MG/DL (70-110)
[2018-12-05] MEDS: INSULIN LISPRO 100 UNITS/ML SQ PRN ×3 (05:43→17:39)
[2018-12-05 06:17] LABS: GLUCOMETER DEV NAME(LOC) 3E.I; GLUCOSE,POINT OF CARE 206 MG/DL (70-110)
[2018-12-05] MEDS: MetFORMIN HCL 500 MG TABLET PO SCH (06:42)
[2018-12-05] MEDS: ARIPiprazole 15 MG TABLET PO SCH (09:28)
[2018-12-05] MEDS: SERTRALINE HCL 50 MG TABLET PO SCH (09:28)
[2018-12-05] MEDS: FUROSEMIDE 40 MG TABLET PO SCH (09:28)
[2018-12-05] MEDS: LORazepam 2 MG TABLET PO PRN (09:33)
[2018-12-05 10:26] VITALS: BP 100/56
[2018-12-05 11:30] LABS: GLUCOMETER DEV NAME(LOC) 3E.I; GLUCOSE,POINT OF CARE 278 MG/DL (70-110)
[2018-12-05 16:30] VITALS: BP 115/65
[2018-12-05 17:46] LABS: GLUCOMETER DEV NAME(LOC) 3E.I; GLUCOSE,POINT OF CARE 240 MG/DL (70-110)
[2018-12-05 22:26] LABS: GLUCOMETER DEV NAME(LOC) 3E.I; GLUCOSE,POINT OF CARE 184 MG/DL (70-110)
[2018-12-06] MEDS: INSULIN LISPRO 100 UNITS/ML SQ PRN ×4 (06:34→21:14)
[2018-12-06 06:39] LABS: GLUCOMETER DEV NAME(LOC) 3E.I; GLUCOSE,POINT OF CARE 208 MG/DL (70-110)
[2018-12-06] MEDS: MetFORMIN HCL 500 MG TABLET PO SCH (06:47)
[2018-12-06 08:00] VITALS: BP 119/68
[2018-12-06] MEDS: LORazepam 2 MG TABLET PO PRN ×2 (09:39→16:09)
[2018-12-06] MEDS: SERTRALINE HCL 50 MG TABLET PO SCH (09:39)
[2018-12-06] MEDS: ARIPiprazole 15 MG TABLET PO SCH (09:39)
[2018-12-06] MEDS: FUROSEMIDE 40 MG TABLET PO SCH (09:39)
[2018-12-06 12:00] LABS: GLUCOMETER DEV NAME(LOC) 3E.I; GLUCOSE,POINT OF CARE 266 MG/DL (70-110)
[2018-12-06 16:41] VITALS: BP 121/85
[2018-12-06 16:55] LABS: GLUCOMETER DEV NAME(LOC) 3E.I; GLUCOSE,POINT OF CARE 237 MG/DL (70-110)
[2018-12-06 20:45] LABS: GLUCOMETER DEV NAME(LOC) 3E.I; GLUCOSE,POINT OF CARE 293 MG/DL (70-110)
[2018-12-07 06:07] LABS: GLUCOMETER DEV NAME(LOC) 3E.I; GLUCOSE,POINT OF CARE 219 MG/DL (70-110)
[2018-12-07] MEDS: MetFORMIN HCL 500 MG TABLET PO SCH (07:03)
[2018-12-07] MEDS: INSULIN LISPRO 100 UNITS/ML SQ PRN ×4 (07:05→22:51)
[2018-12-07 08:00] VITALS: BP 106/64
[2018-12-07] MEDS: FUROSEMIDE 40 MG TABLET PO SCH (09:36)
[2018-12-07] MEDS: ARIPiprazole 15 MG TABLET PO SCH (09:36)
[2018-12-07] MEDS: SERTRALINE HCL 50 MG TABLET PO SCH (09:36)
[2018-12-07] MEDS: LORazepam 2 MG TABLET PO PRN ×2 (09:36→20:29)
[2018-12-07 11:15] LABS: GLUCOMETER DEV NAME(LOC) 3E.I; GLUCOSE,POINT OF CARE 264 MG/DL (70-110)
[2018-12-07 17:26] LABS: GLUCOMETER DEV NAME(LOC) 3E.I; GLUCOSE,POINT OF CARE 259 MG/DL (70-110)
[2018-12-07 20:45] LABS: GLUCOMETER DEV NAME(LOC) 3E.I; GLUCOSE,POINT OF CARE 364 MG/DL (70-110)
[2018-12-08 06:26] LABS: GLUCOMETER DEV NAME(LOC) 3E.I; GLUCOSE,POINT OF CARE 217 MG/DL (70-110)
[2018-12-08] MEDS: INSULIN LISPRO 100 UNITS/ML SQ PRN ×4 (06:48→21:39)
[2018-12-08] MEDS: MetFORMIN HCL 500 MG TABLET PO SCH (06:49)
[2018-12-08 09:10] VITALS: BP 134/68
[2018-12-08] MEDS: LORazepam 2 MG TABLET PO PRN (09:12)
[2018-12-08] MEDS: FUROSEMIDE 40 MG TABLET PO SCH (09:12)
[2018-12-08] MEDS: SERTRALINE HCL 50 MG TABLET PO SCH (09:12)
[2018-12-08] MEDS: ARIPiprazole 15 MG TABLET PO SCH (09:12)
[2018-12-08 11:20] LABS: GLUCOMETER DEV NAME(LOC) 3E.I; GLUCOSE,POINT OF CARE 243 MG/DL (70-110)
[2018-12-08 16:30] VITALS: BP 132/90
[2018-12-08 16:39] LABS: GLUCOMETER DEV NAME(LOC) 3E.I; GLUCOSE,POINT OF CARE 335 MG/DL (70-110)
[2018-12-08] MEDS ORDERED: SERTRALINE HCL 100 MG TABLET PO ONE (18:15)
[2018-12-08 21:46] LABS: GLUCOMETER DEV NAME(LOC) 3E.I; GLUCOSE,POINT OF CARE 293 MG/DL (70-110)
[2018-12-09 05:30] LABS: GLUCOMETER DEV NAME(LOC) 3E.I; GLUCOSE,POINT OF CARE 215 MG/DL (70-110)
[2018-12-09] MEDS: MetFORMIN HCL 500 MG TABLET PO SCH (06:40)
[2018-12-09] MEDS: INSULIN LISPRO 100 UNITS/ML SQ PRN ×4 (06:41→21:10)
[2018-12-09 07:57] LABS: ANION GAP 7 mmol/L (8-16); CALCIUM, TOTAL 9.2 mg/dL (8.8-10.5); CARBON DIOXIDE 29 mmol/L (22-29); CHLORIDE 103 mmol/L (98-107); GLOMERULAR FILTR. RATE CALC > 60 mL/min (>60); GLUCOSE,RANDOM 200 mg/dL (70-110); POTASSIUM 3.9 mmol/L (3.5-5.1); SODIUM SERUM 139 mmol/L (136-145); UREA NITROGEN, BLOOD 18 mg/dL (7-18)
[2018-12-09] MEDS: FUROSEMIDE 40 MG TABLET PO SCH (10:00)
[2018-12-09] MEDS: ARIPiprazole 15 MG TABLET PO SCH (10:00)
[2018-12-09] MEDS: LORazepam 2 MG TABLET PO PRN (11:40)
[2018-12-09 12:10] LABS: GLUCOMETER DEV NAME(LOC) 3E.I; GLUCOSE,POINT OF CARE 296 MG/DL (70-110)
[2018-12-09 13:19] VITALS: BP 128/77
[2018-12-09 16:30] VITALS: BP 122/79
[2018-12-09 17:21] LABS: GLUCOMETER DEV NAME(LOC) 3E.I; GLUCOSE,POINT OF CARE 180 MG/DL (70-110)
[2018-12-09 21:20] LABS: GLUCOMETER DEV NAME(LOC) 3E.I; GLUCOSE,POINT OF CARE 208 MG/DL (70-110)
[2018-12-10 06:10] LABS: GLUCOMETER DEV NAME(LOC) 3E.I; GLUCOSE,POINT OF CARE 187 MG/DL (70-110)
[2018-12-10] MEDS: MetFORMIN HCL 500 MG TABLET PO SCH (06:56)
[2018-12-10] MEDS: INSULIN LISPRO 100 UNITS/ML SQ PRN ×4 (06:57→21:27)
[2018-12-10] MEDS: FUROSEMIDE 40 MG TABLET PO SCH (09:46)
[2018-12-10] MEDS: ARIPiprazole 15 MG TABLET PO SCH (09:46)
[2018-12-10 12:10] LABS: GLUCOMETER DEV NAME(LOC) 3E.I; GLUCOSE,POINT OF CARE 236 MG/DL (70-110)
[2018-12-10] MEDS: LORazepam 2 MG TABLET PO PRN (12:57)
[2018-12-10 14:32] VITALS: BP 124/72
[2018-12-10 16:26] LABS: GLUCOMETER DEV NAME(LOC) 3E.I; GLUCOSE,POINT OF CARE 257 MG/DL (70-110)
[2018-12-10 17:15] VITALS: BP 112/72
[2018-12-10 21:35] LABS: GLUCOMETER DEV NAME(LOC) 3E.I; GLUCOSE,POINT OF CARE 216 MG/DL (70-110)
[2018-12-11 05:32] LABS: GLUCOMETER DEV NAME(LOC) 3E.I; GLUCOSE,POINT OF CARE 190 MG/DL (70-110)
[2018-12-11] MEDS: MetFORMIN HCL 500 MG TABLET PO SCH (06:51)
[2018-12-11] MEDS: INSULIN LISPRO 100 UNITS/ML SQ PRN ×4 (06:52→20:58)
[2018-12-11 08:00] VITALS: BP 128/71
[2018-12-11] MEDS: FUROSEMIDE 40 MG TABLET PO SCH (08:36)
[2018-12-11] MEDS: ARIPiprazole 15 MG TABLET PO SCH (08:36)
[2018-12-11] MEDS: LORazepam 2 MG TABLET PO PRN (14:42)
[2018-12-11 16:35] LABS: GLUCOMETER DEV NAME(LOC) 3E.I; GLUCOSE,POINT OF CARE 243 MG/DL (70-110)
[2018-12-11 19:15] LABS: GLUCOMETER DEV NAME(LOC) 3E.I; GLUCOSE,POINT OF CARE 323 MG/DL (70-110)
[2018-12-11] MEDS: ZOLPIDEM TARTRATE 10 MG TABLET PO PRN (20:14)
[2018-12-11 21:15] LABS: GLUCOMETER DEV NAME(LOC) 3E.I; GLUCOSE,POINT OF CARE 294 MG/DL (70-110)
[2018-12-12] MEDS: INSULIN LISPRO 100 UNITS/ML SQ PRN ×4 (06:24→20:24)
[2018-12-12 06:31] LABS: GLUCOMETER DEV NAME(LOC) 3E.I; GLUCOSE,POINT OF CARE 190 MG/DL (70-110)
[2018-12-12] MEDS: MetFORMIN HCL 500 MG TABLET PO SCH (06:50)
[2018-12-12] MEDS: ARIPiprazole 15 MG TABLET PO SCH (08:36)
[2018-12-12] MEDS: FUROSEMIDE 40 MG TABLET PO SCH (08:36)
[2018-12-12] MEDS: FOLIC ACID 1 MG TABLET PO SCH (08:36)
[2018-12-12 09:50] VITALS: BP 129/90
[2018-12-12 10:45] LABS: GLUCOMETER DEV NAME(LOC) 3E.I; GLUCOSE,POINT OF CARE 302 MG/DL (70-110)
[2018-12-12] MEDS: LORazepam 2 MG TABLET PO PRN (16:02)
[2018-12-12 16:10] LABS: GLUCOMETER DEV NAME(LOC) 3E.I; GLUCOSE,POINT OF CARE 259 MG/DL (70-110)
[2018-12-12 17:00] VITALS: BP 136/88
[2018-12-12 20:25] LABS: GLUCOMETER DEV NAME(LOC) 3E.I; GLUCOSE,POINT OF CARE 291 MG/DL (70-110)
[2018-12-12] MEDS: ZOLPIDEM TARTRATE 10 MG TABLET PO PRN (20:25)
[2018-12-13 06:20] LABS: GLUCOMETER DEV NAME(LOC) 3E.I; GLUCOSE,POINT OF CARE 199 MG/DL (70-110)
[2018-12-13] MEDS: INSULIN LISPRO 100 UNITS/ML SQ PRN ×2 (06:35→11:13)
[2018-12-13] MEDS: MetFORMIN HCL 500 MG TABLET PO SCH (06:52)
[2018-12-13] MEDS: ARIPiprazole 15 MG TABLET PO SCH (09:15)
[2018-12-13] MEDS: FUROSEMIDE 40 MG TABLET PO SCH (09:15)
[2018-12-13] MEDS: FOLIC ACID 1 MG TABLET PO SCH (09:15)
[2018-12-13 10:09] VITALS: BP 106/56
[2018-12-13 11:15] LABS: GLUCOMETER DEV NAME(LOC) 3E.I; GLUCOSE,POINT OF CARE 216 MG/DL (70-110)
[2018-12-13] MEDS ORDERED: ARIP15TA2 PO (11:29)
[2018-12-13] MEDS ORDERED: SERT100T12 PO (11:34)
[2018-12-13] MEDS ORDERED: FOLI1 PO (13:21)
[2018-12-13] MEDS ORDERED: FURO40 PO (13:22)
== END 2018-12-13 15:02 | disposition home or self-care (01) | DRG 750 ==
LOC: 3EI 19:00
DX: F25.1 Schizoaffective disorder, depressive type (principal); I50.9 Heart failure, unspecified; E66.01 Morbid (severe) obesity due to excess calories; E11.9 Type 2 diabetes mellitus without complications; E87.1 Hypo-osmolality and hyponatremia; I48.91 Unspecified atrial fibrillation; D72.819 Decreased white blood cell count, unspecified; E78.5 Hyperlipidemia, unspecified; F10.20 Alcohol dependence, uncomplicated; H40.9 Unspecified glaucoma; I25.10 Atherosclerotic heart disease of native coronary artery without angina pectoris; J44.9 Chronic obstructive pulmonary disease, unspecified; I25.2 Old myocardial infarction; Z79.899 Other long term (current) drug therapy; Z91.5 Personal history of self-harm; Z68.31 Body mass index [BMI] 31.0-31.9, adult
CPT/HCPCS: 83036; 84443; 87081

== ENCOUNTER 2018-12-14 14:12 | Inpatient (IN) | payer MEDICAID ==
[~2018-12-14] VITALS: Ht 182.9 cm; Wt 135.5 kg
[~2018-12-14 14:12] MED LIST changes: +ARIP15TA2 PO; +FOLI1 PO; +SERT100T12 PO
[2018-12-14 16:18] LABS: BASOPHILS % (AUTO) 1.1 % (0.0-2.0); EOSINOPHILS % (AUTO) 2.3 % (1.0-6.0); HEMATOCRIT 45.7 % (41-53); HEMOGLOBIN 15.2 g/dL (13.5-17.5); LYMPHOCYTES # (AUTO) 1.6 K/uL (1.0-4.8); LYMPHOCYTES % (AUTO) 29.1 % (22.0-44.0); MEAN CORPUSCULAR HEMOGLOBIN 32.3 pg (26.0-34.0); MEAN CORPUSCULAR HGB CONC 33.4 G/dL (31.0-37.0); MEAN CORPUSCULAR VOLUME 97 fL (80-100); MONOCYTES # (AUTO) 0.4 K/uL (0.1-1.0); MONOCYTES % (AUTO) 7.9 % (2.0-9.0); NEUTROPHILS # (AUTO) 3.2 K/uL (1.8-7.7); NEUTROPHILS % (AUTO) 59.6 % (40.0-70.0); PLATELET COUNT (AUTO) 176 K/uL (150-450); RED BLOOD CELL COUNT(AUTO) 4.72 MIL/uL (4.50-5.90); RED CELL DISTRIBUTION WIDTH 14.4 % (11.5-14.5)
[2018-12-14 16:28] LABS: ANION GAP 8 mmol/L (8-16); CALCIUM, TOTAL 9.1 mg/dL (8.8-10.5); CARBON DIOXIDE 25 mmol/L (22-29); CHLORIDE 100 mmol/L (98-107); CREATININE 1.05 mg/dL (0.60-1.30); GLOMERULAR FILTR. RATE CALC > 60 mL/min (>60); GLUCOSE,RANDOM 296 mg/dL (70-110); POTASSIUM 3.5 mmol/L (3.5-5.1); SODIUM SERUM 133 mmol/L (136-145); UREA NITROGEN, BLOOD 9 mg/dL (7-18)
[2018-12-14 16:34] LABS: ALANINE AMINOTRANSFERASE 29 U/L (12-78); ALBUMIN 3.3 g/dL (3.4-5.0); ALKALINE PHOSPHATASE 125 U/L (46-116); ASPARTATE AMINOTRANSFERASE 18 U/L (15-37); BILIRUBIN,TOTAL 0.3 mg/dL (0.1-1.0); TOTAL PROTEIN, SERUM 7.1 g/dL (6.4-8.2)
[2018-12-14 16:49] LABS: AMPHET/METH SCREEN,URINE NEGATIVE (NEGATIVE); BARBITURATE SCREEN, URINE NEGATIVE (NEGATIVE); BENZODIAZEPINES SCREEN,URINE NEGATIVE (NEGATIVE); CANNABINOID SCREEN,URINE NEGATIVE (NEGATIVE); COCAINE SCREEN,URINE NEGATIVE (NEGATIVE); METHADONE SCREEN, URINE NEGATIVE (NEGATIVE); OPIATE SCREEN,URINE NEGATIVE (NEGATIVE); PHENCYCLIDINE SCREEN,URINE NEGATIVE (NEGATIVE)
[2018-12-14] MEDS ORDERED: HALOPERIDOL 5 MG TABLET PO PRN (20:45)
[2018-12-15 04:58] LABS: HEMOGLOBIN A1C 7.9 % (4.5-6.2)
[2018-12-15 04:59] LABS: CHOL/HDL RATIO 3.6 (4.2-7.3); CHOLESTEROL 157 mg/dL (131-200); HDL CHOLESTEROL 44 mg/dL (40-60); LDL CHOL (CALC.) 43 mg/dL (0-130); TRIGLYCERIDES 352 mg/dL (15-150)
[2018-12-15 09:06] LABS: GLUCOSE,POINT OF CARE 207 MG/DL (70-110)
[2018-12-15] MEDS ORDERED: NICOTINE 14 MG/24 HOUR PATCH TD PRN (11:30)
[2018-12-15] MEDS ORDERED: MAG HYDROX/AL HYDROX/SIMETH ES 30 ML SUSPENSION UDCUP PO PRN (11:30)
[2018-12-15] MEDS ORDERED: GuaiFENesin/D-METHORPHAN [SUGAR-FREE] 200-20MG/10 ML SYRUP UDCUP PO PRN (11:30)
[2018-12-15] MEDS ORDERED: ONDANSETRON HCL 4 MG TABLET PO PRN (11:30)
[2018-12-15] MEDS ORDERED: CloNIDine HCL 0.1 MG TABLET PO PRN (11:30)
[2018-12-15] MEDS ORDERED: IBUPROFEN 400 MG TABLET PO PRN (11:30)
[2018-12-15] MEDS ORDERED: DOCUSATE SODIUM 100 MG CAPSULE PO PRN (11:30)
[2018-12-15] MEDS ORDERED: ACETAMINOPHEN 325 MG TABLET PO PRN (11:30)
[2018-12-15] MEDS ORDERED: PETROLATUM,WHITE 28 GM JELLY TP PRN (11:30)
[2018-12-15] MEDS ORDERED: ARIPiprazole ER SUSPENSION 400 MG PRE-FILLED DUAL CHAMBER SYRINGE IM SCH (11:30)
[2018-12-15] MEDS ORDERED: MAGNESIUM HYDROXIDE SUSPENSION 30 ML UDCUP PO PRN (11:30)
[2018-12-15] MEDS ORDERED: LOPERAMIDE HCL 2 MG CAPSULE PO PRN (11:30)
[2018-12-15] MEDS ORDERED: ALBUTEROL SULFATE HFA 90 MCG/PUFF 8 GM INHALER IH PRN (11:30)
[2018-12-15 12:10] LABS: GLUCOMETER DEV NAME(LOC) 3E.I; GLUCOSE,POINT OF CARE 267 MG/DL (70-110)
[2018-12-15] MEDS: INSULIN LISPRO 100 UNITS/ML SQ PRN ×3 (12:26→22:21)
[2018-12-15] MEDS: ARIPiprazole 15 MG TABLET PO SCH (13:20)
[2018-12-15] MEDS: SERTRALINE HCL 100 MG TABLET PO SCH (13:20)
[2018-12-15] MEDS: HydrOXYzine PAMOATE 50 MG CAPSULE PO PRN (13:21)
[2018-12-15 15:28] VITALS: BP 135/77
[2018-12-15 16:40] LABS: GLUCOMETER DEV NAME(LOC) 3E.I; GLUCOSE,POINT OF CARE 247 MG/DL (70-110)
[2018-12-15 17:00] VITALS: BP 129/77
[2018-12-15 21:11] LABS: GLUCOMETER DEV NAME(LOC) 3E.I; GLUCOSE,POINT OF CARE 259 MG/DL (70-110)
[2018-12-16] MEDS: MetFORMIN HCL 500 MG TABLET PO SCH (07:13)
[2018-12-16] MEDS: INSULIN LISPRO 100 UNITS/ML SQ PRN ×3 (07:15→17:28)
[2018-12-16] MEDS: FUROSEMIDE 40 MG TABLET PO SCH (09:28)
[2018-12-16] MEDS: ARIPiprazole 15 MG TABLET PO SCH (09:28)
[2018-12-16] MEDS: SERTRALINE HCL 100 MG TABLET PO SCH (09:28)
[2018-12-16] MEDS: FOLIC ACID 1 MG TABLET PO SCH (09:28)
[2018-12-16 10:19] VITALS: BP 116/63
[2018-12-16 12:06] LABS: GLUCOMETER DEV NAME(LOC) 3E.I; GLUCOSE,POINT OF CARE 246 MG/DL (70-110)
[2018-12-16 14:45] LABS: GLUCOMETER DEV NAME(LOC) 3E.I; GLUCOSE,POINT OF CARE 271 MG/DL (70-110)
[2018-12-16 17:06] LABS: GLUCOMETER DEV NAME(LOC) 3E.I; GLUCOSE,POINT OF CARE 206 MG/DL (70-110)
[2018-12-16 18:08] VITALS: BP 104/64
[2018-12-16] MEDS: ZOLPIDEM TARTRATE 10 MG TABLET PO PRN (20:37)
[2018-12-16 20:45] LABS: GLUCOMETER DEV NAME(LOC) 3E.I; GLUCOSE,POINT OF CARE 245 MG/DL (70-110)
[2018-12-17] MEDS: INSULIN LISPRO 100 UNITS/ML SQ PRN ×4 (06:20→20:27)
[2018-12-17 06:21] LABS: GLUCOMETER DEV NAME(LOC) 3E.I; GLUCOSE,POINT OF CARE 200 MG/DL (70-110)
[2018-12-17] MEDS: MetFORMIN HCL 500 MG TABLET PO SCH (06:50)
[2018-12-17] MEDS: FOLIC ACID 1 MG TABLET PO SCH (09:14)
[2018-12-17] MEDS: FUROSEMIDE 40 MG TABLET PO SCH (09:14)
[2018-12-17] MEDS: ARIPiprazole 15 MG TABLET PO SCH (09:14)
[2018-12-17] MEDS: SERTRALINE HCL 100 MG TABLET PO SCH (09:15)
[2018-12-17] MEDS: MULTIVITAMINS WITH MINERALS, THERAPEUTIC TABLET PO SCH (09:15)
[2018-12-17 09:36] VITALS: BP 110/73
[2018-12-17 11:56] LABS: GLUCOMETER DEV NAME(LOC) 3E.I; GLUCOSE,POINT OF CARE 221 MG/DL (70-110)
[2018-12-17 17:00] VITALS: BP 130/85
[2018-12-17 17:41] LABS: GLUCOMETER DEV NAME(LOC) 3E.I; GLUCOSE,POINT OF CARE 213 MG/DL (70-110)
[2018-12-17] MEDS: ZOLPIDEM TARTRATE 10 MG TABLET PO PRN (20:27)
[2018-12-17 20:56] LABS: GLUCOMETER DEV NAME(LOC) 3E.I; GLUCOSE,POINT OF CARE 285 MG/DL (70-110)
[2018-12-18 06:21] LABS: GLUCOMETER DEV NAME(LOC) 3E.I; GLUCOSE,POINT OF CARE 217 MG/DL (70-110)
[2018-12-18] MEDS: INSULIN LISPRO 100 UNITS/ML SQ PRN ×4 (06:36→21:21)
[2018-12-18] MEDS: MetFORMIN HCL 500 MG TABLET PO SCH (07:12)
[2018-12-18] MEDS: MULTIVITAMINS WITH MINERALS, THERAPEUTIC TABLET PO SCH (09:55)
[2018-12-18] MEDS: FOLIC ACID 1 MG TABLET PO SCH (09:55)
[2018-12-18] MEDS: ARIPiprazole 15 MG TABLET PO SCH (09:55)
[2018-12-18] MEDS: FUROSEMIDE 40 MG TABLET PO SCH (09:55)
[2018-12-18] MEDS: SERTRALINE HCL 100 MG TABLET PO SCH (09:55)
[2018-12-18 10:58] VITALS: BP 116/67
[2018-12-18] MEDS: NALTREXONE HCL 50 MG TABLET PO SCH (11:40)
[2018-12-18 11:55] LABS: GLUCOMETER DEV NAME(LOC) 3E.I; GLUCOSE,POINT OF CARE 248 MG/DL (70-110)
[2018-12-18 16:59] LABS: GLUCOMETER DEV NAME(LOC) 3E.I; GLUCOSE,POINT OF CARE 181 MG/DL (70-110)
[2018-12-18] MEDS: ZOLPIDEM TARTRATE 10 MG TABLET PO PRN (21:19)
[2018-12-18 21:25] LABS: GLUCOMETER DEV NAME(LOC) 3E.I; GLUCOSE,POINT OF CARE 246 MG/DL (70-110)
[2018-12-19 05:30] LABS: GLUCOMETER DEV NAME(LOC) 3E.I; GLUCOSE,POINT OF CARE 202 MG/DL (70-110)
[2018-12-19] MEDS: GlipiZIDE 5 MG TABLET PO SCH (06:32)
[2018-12-19] MEDS: MetFORMIN HCL 500 MG TABLET PO SCH (06:33)
[2018-12-19] MEDS: INSULIN LISPRO 100 UNITS/ML SQ PRN ×4 (07:09→21:30)
[2018-12-19] MEDS: SERTRALINE HCL 100 MG TABLET PO SCH (09:41)
[2018-12-19] MEDS: FOLIC ACID 1 MG TABLET PO SCH (09:41)
[2018-12-19] MEDS: MULTIVITAMINS WITH MINERALS, THERAPEUTIC TABLET PO SCH (09:41)
[2018-12-19] MEDS: ARIPiprazole 15 MG TABLET PO SCH (09:42)
[2018-12-19] MEDS: FUROSEMIDE 40 MG TABLET PO SCH (09:44)
[2018-12-19] MEDS: NALTREXONE HCL 50 MG TABLET PO SCH (09:44)
[2018-12-19 11:09] LABS: GLUCOMETER DEV NAME(LOC) 3E.I; GLUCOSE,POINT OF CARE 215 MG/DL (70-110)
[2018-12-19] MEDS: HydrOXYzine PAMOATE 50 MG CAPSULE PO PRN (12:31)
[2018-12-19 12:32] VITALS: BP 119/78
[2018-12-19 16:52] VITALS: BP 124/77
[2018-12-19 17:05] LABS: GLUCOMETER DEV NAME(LOC) 3E.I; GLUCOSE,POINT OF CARE 176 MG/DL (70-110)
[2018-12-19] MEDS: ZOLPIDEM TARTRATE 10 MG TABLET PO PRN (21:20)
[2018-12-19 21:26] LABS: GLUCOMETER DEV NAME(LOC) 3E.I; GLUCOSE,POINT OF CARE 221 MG/DL (70-110)
[2018-12-20 05:46] LABS: GLUCOMETER DEV NAME(LOC) 3E.I; GLUCOSE,POINT OF CARE 184 MG/DL (70-110)
[2018-12-20] MEDS: GlipiZIDE 5 MG TABLET PO SCH (06:49)
[2018-12-20] MEDS: MetFORMIN HCL 500 MG TABLET PO SCH (06:49)
[2018-12-20] MEDS: INSULIN LISPRO 100 UNITS/ML SQ PRN ×4 (06:50→21:04)
[2018-12-20] MEDS: SERTRALINE HCL 100 MG TABLET PO SCH (09:05)
[2018-12-20] MEDS: FOLIC ACID 1 MG TABLET PO SCH (09:05)
[2018-12-20] MEDS: NALTREXONE HCL 50 MG TABLET PO SCH (09:05)
[2018-12-20] MEDS: FUROSEMIDE 40 MG TABLET PO SCH (09:05)
[2018-12-20] MEDS: ARIPiprazole 15 MG TABLET PO SCH (09:05)
[2018-12-20] MEDS: MULTIVITAMINS WITH MINERALS, THERAPEUTIC TABLET PO SCH (09:05)
[2018-12-20 09:31] VITALS: BP 121/74
[2018-12-20 11:40] LABS: GLUCOMETER DEV NAME(LOC) 3E.I; GLUCOSE,POINT OF CARE 193 MG/DL (70-110)
[2018-12-20 16:41] VITALS: BP 105/72
[2018-12-20] MEDS: HydrOXYzine PAMOATE 50 MG CAPSULE PO PRN (17:13)
[2018-12-20 17:35] LABS: GLUCOMETER DEV NAME(LOC) 3E.I; GLUCOSE,POINT OF CARE 180 MG/DL (70-110)
[2018-12-20] MEDS: ZOLPIDEM TARTRATE 10 MG TABLET PO PRN (21:05)
[2018-12-20 21:10] LABS: GLUCOMETER DEV NAME(LOC) 3E.I; GLUCOSE,POINT OF CARE 199 MG/DL (70-110)
[2018-12-21 05:40] LABS: GLUCOMETER DEV NAME(LOC) 3E.I; GLUCOSE,POINT OF CARE 189 MG/DL (70-110)
[2018-12-21] MEDS: GlipiZIDE 5 MG TABLET PO SCH (06:43)
[2018-12-21] MEDS: MetFORMIN HCL 500 MG TABLET PO SCH (06:43)
[2018-12-21] MEDS: INSULIN LISPRO 100 UNITS/ML SQ PRN ×4 (06:44→21:05)
[2018-12-21] MEDS: NALTREXONE HCL 50 MG TABLET PO SCH (09:37)
[2018-12-21] MEDS: FUROSEMIDE 40 MG TABLET PO SCH (09:37)
[2018-12-21] MEDS: SERTRALINE HCL 100 MG TABLET PO SCH (09:37)
[2018-12-21] MEDS: ARIPiprazole 15 MG TABLET PO SCH (09:37)
[2018-12-21] MEDS: MULTIVITAMINS WITH MINERALS, THERAPEUTIC TABLET PO SCH (09:37)
[2018-12-21] MEDS: FOLIC ACID 1 MG TABLET PO SCH (09:37)
[2018-12-21] MEDS: HydrOXYzine PAMOATE 50 MG CAPSULE PO PRN (09:38)
[2018-12-21 09:56] VITALS: BP 139/86
[2018-12-21 11:41] LABS: GLUCOMETER DEV NAME(LOC) 3E.I; GLUCOSE,POINT OF CARE 160 MG/DL (70-110)
[2018-12-21 17:06] LABS: GLUCOMETER DEV NAME(LOC) 3E.I; GLUCOSE,POINT OF CARE 142 MG/DL (70-110)
[2018-12-21 18:03] VITALS: BP 126/79
[2018-12-21 21:16] LABS: GLUCOMETER DEV NAME(LOC) 3E.I; GLUCOSE,POINT OF CARE 217 MG/DL (70-110)
[2018-12-21] MEDS: ZOLPIDEM TARTRATE 10 MG TABLET PO PRN (23:57)
[2018-12-22] VITALS: BP 114/75
[2018-12-22] MEDS: INSULIN LISPRO 100 UNITS/ML SQ PRN ×3 (06:16→21:09)
[2018-12-22 06:17] LABS: GLUCOMETER DEV NAME(LOC) 3E.I; GLUCOSE,POINT OF CARE 176 MG/DL (70-110)
[2018-12-22] MEDS: MetFORMIN HCL 500 MG TABLET PO SCH (06:44)
[2018-12-22] MEDS: GlipiZIDE 5 MG TABLET PO SCH (06:44)
[2018-12-22 08:47] VITALS: BP 117/64
[2018-12-22] MEDS: NALTREXONE HCL 50 MG TABLET PO SCH (10:10)
[2018-12-22] MEDS: MULTIVITAMINS WITH MINERALS, THERAPEUTIC TABLET PO SCH (10:10)
[2018-12-22] MEDS: FUROSEMIDE 40 MG TABLET PO SCH (10:10)
[2018-12-22] MEDS: FOLIC ACID 1 MG TABLET PO SCH (10:10)
[2018-12-22] MEDS: ARIPiprazole 15 MG TABLET PO SCH (10:10)
[2018-12-22] MEDS: SERTRALINE HCL 100 MG TABLET PO SCH (10:10)
[2018-12-22] MEDS: HydrOXYzine PAMOATE 50 MG CAPSULE PO PRN (16:21)
[2018-12-22 16:46] LABS: GLUCOMETER DEV NAME(LOC) 3E.I; GLUCOSE,POINT OF CARE 159 MG/DL (70-110)
[2018-12-22 19:20] VITALS: BP 129/74
[2018-12-22 21:16] LABS: GLUCOMETER DEV NAME(LOC) 3E.I; GLUCOSE,POINT OF CARE 184 MG/DL (70-110)
[2018-12-23] MEDS: MetFORMIN HCL 500 MG TABLET PO SCH (06:52)
[2018-12-23] MEDS: GlipiZIDE 5 MG TABLET PO SCH (06:52)
[2018-12-23] MEDS: INSULIN LISPRO 100 UNITS/ML SQ PRN ×4 (06:58→20:22)
[2018-12-23 08:00] VITALS: BP 155/78
[2018-12-23] MEDS: ARIPiprazole 15 MG TABLET PO SCH (08:28)
[2018-12-23] MEDS: SERTRALINE HCL 100 MG TABLET PO SCH (08:28)
[2018-12-23] MEDS: MULTIVITAMINS WITH MINERALS, THERAPEUTIC TABLET PO SCH (08:28)
[2018-12-23] MEDS: FOLIC ACID 1 MG TABLET PO SCH (08:29)
[2018-12-23] MEDS: NALTREXONE HCL 50 MG TABLET PO SCH (08:29)
[2018-12-23] MEDS: FUROSEMIDE 40 MG TABLET PO SCH (08:29)
[2018-12-23] MEDS: HydrOXYzine PAMOATE 50 MG CAPSULE PO PRN ×2 (08:30→15:54)
[2018-12-23 10:35] LABS: GLUCOMETER DEV NAME(LOC) 3E.C; GLUCOSE,POINT OF CARE 158 MG/DL (70-110)
[2018-12-23 15:45] LABS: GLUCOMETER DEV NAME(LOC) 3E.I; GLUCOSE,POINT OF CARE 179 MG/DL (70-110)
[2018-12-23 16:00] VITALS: BP 102/64
[2018-12-23 16:05] LABS: GLUCOMETER DEV NAME(LOC) 3E.I; GLUCOSE,POINT OF CARE 161 MG/DL (70-110)
[2018-12-23] MEDS: ZOLPIDEM TARTRATE 10 MG TABLET PO PRN (20:20)
[2018-12-23 20:26] LABS: GLUCOMETER DEV NAME(LOC) 3E.I; GLUCOSE,POINT OF CARE 217 MG/DL (70-110)
[2018-12-24] MEDS: MetFORMIN HCL 500 MG TABLET PO SCH (06:54)
[2018-12-24] MEDS: GlipiZIDE 5 MG TABLET PO SCH (06:54)
[2018-12-24] MEDS: INSULIN LISPRO 100 UNITS/ML SQ PRN ×4 (06:55→21:09)
[2018-12-24] MEDS: ARIPiprazole 15 MG TABLET PO SCH (09:41)
[2018-12-24] MEDS: MULTIVITAMINS WITH MINERALS, THERAPEUTIC TABLET PO SCH (09:41)
[2018-12-24] MEDS: SERTRALINE HCL 100 MG TABLET PO SCH (09:41)
[2018-12-24 09:42] VITALS: BP 109/62
[2018-12-24] MEDS: FUROSEMIDE 40 MG TABLET PO SCH (09:42)
[2018-12-24] MEDS: FOLIC ACID 1 MG TABLET PO SCH (09:42)
[2018-12-24] MEDS: NALTREXONE HCL 50 MG TABLET PO SCH (09:42)
[2018-12-24] MEDS: HydrOXYzine PAMOATE 50 MG CAPSULE PO PRN ×2 (09:43→17:39)
[2018-12-24 11:00] LABS: GLUCOMETER DEV NAME(LOC) 3E.I; GLUCOSE,POINT OF CARE 154 MG/DL (70-110)
[2018-12-24 19:13] VITALS: BP 100/71
[2018-12-24] MEDS: ZOLPIDEM TARTRATE 10 MG TABLET PO PRN (21:04)
[2018-12-25] MEDS: MetFORMIN HCL 500 MG TABLET PO SCH (07:15)
[2018-12-25] MEDS: GlipiZIDE 5 MG TABLET PO SCH (07:15)
[2018-12-25] MEDS: INSULIN LISPRO 100 UNITS/ML SQ PRN (07:20)
[2018-12-25] MEDS: NALTREXONE HCL 50 MG TABLET PO SCH (09:23)
[2018-12-25] MEDS: MULTIVITAMINS WITH MINERALS, THERAPEUTIC TABLET PO SCH (09:23)
[2018-12-25] MEDS: SERTRALINE HCL 100 MG TABLET PO SCH (09:23)
[2018-12-25] MEDS: ARIPiprazole 15 MG TABLET PO SCH (09:23)
[2018-12-25] MEDS: FUROSEMIDE 40 MG TABLET PO SCH (09:23)
[2018-12-25] MEDS: FOLIC ACID 1 MG TABLET PO SCH (09:24)
[2018-12-25 10:58] VITALS: BP 130/81
[2018-12-25 12:07] LABS: GLUCOMETER DEV NAME(LOC) 3E.I; GLUCOSE,POINT OF CARE 184 MG/DL (70-110)
[2018-12-25] MEDS ORDERED: ARIP15TA2 PO (12:17)
[2018-12-25] MEDS ORDERED: ARIP400S3 IM (12:17)
[2018-12-25] MEDS ORDERED: NALT50TA6 PO (12:17)
[2018-12-25 12:21] LABS: GLUCOMETER DEV NAME(LOC) 3E.I; GLUCOSE,POINT OF CARE 167 MG/DL (70-110)
[2018-12-25] MEDS ORDERED: GLIP5 PO (12:24)
[2018-12-25] MEDS ORDERED: MULT-1239 PO (12:28)
[2018-12-25 12:40] LABS: GLUCOMETER DEV NAME(LOC) 3E.I; GLUCOSE,POINT OF CARE 169 MG/DL (70-110)
[2018-12-25 12:40] LABS: GLUCOMETER DEV NAME(LOC) 3E.I; GLUCOSE,POINT OF CARE 161 MG/DL (70-110)
[2018-12-25 13:00] LABS: GLUCOMETER DEV NAME(LOC) 3E.I; GLUCOSE,POINT OF CARE 120 MG/DL (70-110)
== END 2018-12-25 14:45 | disposition home or self-care (01) | DRG 750 ==
LOC: EMS 14:14 → 3EI 12-15 09:48
DX: F25.1 Schizoaffective disorder, depressive type (principal); I11.0 Hypertensive heart disease with heart failure; I50.9 Heart failure, unspecified; E66.01 Morbid (severe) obesity due to excess calories; Z86.74 Personal history of sudden cardiac arrest; E11.9 Type 2 diabetes mellitus without complications; E78.00 Pure hypercholesterolemia, unspecified; E78.5 Hyperlipidemia, unspecified; E87.1 Hypo-osmolality and hyponatremia; I25.10 Atherosclerotic heart disease of native coronary artery without angina pectoris; F10.20 Alcohol dependence, uncomplicated; I48.91 Unspecified atrial fibrillation; J44.9 Chronic obstructive pulmonary disease, unspecified; Z79.899 Other long term (current) drug therapy; I25.2 Old myocardial infarction; Z91.5 Personal history of self-harm; Z88.8 Allergy status to other drugs, medicaments and biological substances; Z68.41 Body mass index [BMI] 40.0-44.9, adult
CPT/HCPCS: 83036; 87081; G0480; J0401

== ENCOUNTER 2019-01-10 12:49 | Emergency (ER) | payer MEDICAID ==
[~2019-01-10] VITALS: Ht 182.9 cm; Wt 1.4 kg
[~2019-01-10 12:49] MED LIST changes: +ARIP400S3 IM; +GLIP5 PO; +MULT-1239 PO; +NALT50TA6 PO
[2019-01-10 13:30] LABS: GLUCOSE,POINT OF CARE 287 MG/DL (70-110)
[2019-01-10 15:00] LABS: BAND NEUTROPHILS % (MANUAL) 0 % (0-5)
[2019-01-10 15:03] LABS: HEMATOCRIT 44.7 % (41-53); HEMOGLOBIN 15.2 g/dL (13.5-17.5); MEAN CORPUSCULAR HEMOGLOBIN 32.3 pg (26.0-34.0); MEAN CORPUSCULAR HGB CONC 33.9 G/dL (31.0-37.0); MEAN CORPUSCULAR VOLUME 95 fL (80-100); PLATELET COUNT (AUTO) 107 K/uL (150-450); RED CELL DISTRIBUTION WIDTH 14.4 % (11.5-14.5)
[2019-01-10 15:15] LABS: ANION GAP 9 mmol/L (8-16); CALCIUM, TOTAL 9.1 mg/dL (8.8-10.5); CARBON DIOXIDE 29 mmol/L (22-29); CHLORIDE 96 mmol/L (98-107); CREATININE 0.99 mg/dL (0.60-1.30); GLOMERULAR FILTR. RATE CALC > 60 mL/min (>60); GLUCOSE,RANDOM 275 mg/dL (70-110); POTASSIUM 3.3 mmol/L (3.5-5.1); SODIUM SERUM 134 mmol/L (136-145); UREA NITROGEN, BLOOD 9 mg/dL (7-18)
[2019-01-10 15:20] LABS: ALANINE AMINOTRANSFERASE 47 U/L (12-78); ALBUMIN 3.3 g/dL (3.4-5.0); ALKALINE PHOSPHATASE 114 U/L (46-116); ASPARTATE AMINOTRANSFERASE 31 U/L (15-37); BILIRUBIN,TOTAL 0.6 mg/dL (0.1-1.0); TOTAL PROTEIN, SERUM 6.8 g/dL (6.4-8.2)
[2019-01-10 15:52] LABS: LYMPHOCYTES % (MANUAL) 28 % (22-44); MONOCYTES % (MANUAL) 9 % (2-9); SEGMENTED NEUTROPHILS % 63 % (40-70)
[2019-01-10] MEDS ORDERED: POTASSIUM CHLORIDE 20 MEQ ER TABLET PO ONE (16:00)
[2019-01-10 16:55] VITALS: BP 119/78
== END 2019-01-10 17:00 | disposition home or self-care (01) ==
LOC: EMS 12:52
DX: F10.10 Alcohol abuse, uncomplicated (principal); I25.10 Atherosclerotic heart disease of native coronary artery without angina pectoris; I11.0 Hypertensive heart disease with heart failure; I50.9 Heart failure, unspecified; E78.00 Pure hypercholesterolemia, unspecified; E11.9 Type 2 diabetes mellitus without complications; I25.2 Old myocardial infarction; J44.9 Chronic obstructive pulmonary disease, unspecified; Z91.018 Allergy to other foods; Z79.899 Other long term (current) drug therapy; Z79.84 Long term (current) use of oral hypoglycemic drugs; Y90.0 Blood alcohol level of less than 20 mg/100 ml
CPT/HCPCS: 36415; 80053; 82962; 85007; 85027; 99283; G0480

== ENCOUNTER 2020-03-13 19:24 | Inpatient (IN) | payer MEDICAID ==
[~2020-03-13] VITALS: Ht 182.9 cm; Wt 128.8 kg
[~2020-03-13 19:24] MED LIST changes: +ACET-2865 PO; +ARIP10TA8 PO; -ARIP15TA2 PO; -ARIP400S3 IM; +ASPI-728 PO; +BENZ-51 PO; +BUPR-93 PO; +FAMO20 PO; +FOLI-130 PO; -FOLI1 PO; -FURO40 PO; -GLIP5 PO; +MELA3TAB82 PO; +MOM30 PO; -MULT-1239 PO; +MULT-248 PO; -NALT50TA6 PO; -SERT100T12 PO; +THIA100T80 PO; +ZINC220C14 PO
[2020-03-13 20:00] LABS: GLUCOSE,POINT OF CARE 345 MG/DL (70-110)
[2020-03-13 20:12] LABS: COVID AG,FIA SOURCE NASOPHARYNGEAL
[2020-03-13 20:15] LABS: BASOPHILS % (AUTO) 0.4 % (0.0-2.0); EOSINOPHILS % (AUTO) 1.1 % (1.0-6.0); HEMOGLOBIN 15.1 g/dL (13.5-17.5); LYMPHOCYTES # (AUTO) 2.2 K/uL (1.0-4.8); LYMPHOCYTES % (AUTO) 46.4 % (22.0-44.0); MEAN CORPUSCULAR VOLUME 94 fL (80-100); MONOCYTES # (AUTO) 0.4 K/uL (0.1-1.0); MONOCYTES % (AUTO) 8.4 % (2.0-9.0); NEUTROPHILS # (AUTO) 2.1 K/uL (1.8-7.7); NEUTROPHILS % (AUTO) 43.7 % (40.0-70.0); PLATELET COUNT (AUTO) 134 K/uL (150-450); RED BLOOD CELL COUNT(AUTO) 4.57 MIL/uL (4.50-5.90); RED CELL DISTRIBUTION WIDTH 16.7 % (11.5-14.5)
[2020-03-13 20:17] LABS: AMPHET/METH SCREEN,URINE NEGATIVE (NEGATIVE); BARBITURATE SCREEN, URINE NEGATIVE (NEGATIVE); BENZODIAZEPINES SCREEN,URINE NEGATIVE (NEGATIVE); CANNABINOID SCREEN,URINE NEGATIVE (NEGATIVE); COCAINE SCREEN,URINE NEGATIVE (NEGATIVE); METHADONE SCREEN, URINE NEGATIVE (NEGATIVE); OPIATE SCREEN,URINE NEGATIVE (NEGATIVE)
[2020-03-13 20:18] LABS: PHENCYCLIDINE SCREEN,URINE NEGATIVE (NEGATIVE)
[2020-03-13 20:26] LABS: ANION GAP 13 mmol/L (8-16); CALCIUM, TOTAL 8.9 mg/dL (8.8-10.5); CARBON DIOXIDE 24 mmol/L (22-29); CHLORIDE 94 mmol/L (98-107); CREATININE 1.03 mg/dL (0.60-1.30); GLOMERULAR FILTR. RATE CALC > 60 mL/min (>60); GLUCOSE,RANDOM 320 mg/dL (70-110); POTASSIUM 3.4 mmol/L (3.5-5.1); SODIUM SERUM 131 mmol/L (136-145); UREA NITROGEN, BLOOD 5 mg/dL (7-18)
[2020-03-13 20:32] LABS: ALANINE AMINOTRANSFERASE 103 U/L (12-78); ALBUMIN 3.2 g/dL (3.4-5.0); ALKALINE PHOSPHATASE 173 U/L (46-116); ASPARTATE AMINOTRANSFERASE 98 U/L (15-37); BILIRUBIN,TOTAL 0.6 mg/dL (0.1-1.0); TOTAL PROTEIN, SERUM 7.3 g/dL (6.4-8.2)
[2020-03-13] MEDS ORDERED: INSULIN REGULAR, HUMAN 100 UNITS/ML SQ ONE (21:45)
[2020-03-13] MEDS ORDERED: HALOPERIDOL 5 MG TABLET PO PRN (21:45)
[2020-03-13 23:18] LABS: GLUCOSE,POINT OF CARE 274 MG/DL (70-110)
[2020-03-14] VITALS (10 sets, daily range): BP systolic 102–140; BP diastolic 54–86
[2020-03-14] MEDS ORDERED: INSULIN REGULAR, HUMAN 100 UNITS/ML SQ ONE (00:15)
[2020-03-14 01:17] LABS: GLUCOSE,POINT OF CARE 224 MG/DL (70-110)
[2020-03-14] MEDS: LORazepam 2 MG TABLET PO PRN ×2 (02:40→05:25)
[2020-03-14] MEDS ORDERED: INFLUENZA VIRUS VACCINE QVS 2020-21 (6MO+)/PF 60 MCG/0.5 ML SYRINGE IM ONE (03:00)
[2020-03-14 05:33] LABS: GLUCOMETER DEV NAME(LOC) 3E.I 2; GLUCOSE,POINT OF CARE 224 MG/DL (70-110)
[2020-03-14] MEDS ORDERED: LORazepam 2 MG TABLET PO PRN (07:00)
[2020-03-14] MEDS ORDERED: MELATONIN 3 MG TABLET PO PRN (07:15)
[2020-03-14] MEDS ORDERED: ACETAMINOPHEN 325 MG TABLET PO PRN (07:15)
[2020-03-14] MEDS ORDERED: ONDANSETRON HCL 4 MG TABLET PO PRN (07:15)
[2020-03-14] MEDS ORDERED: LOPERAMIDE HCL 2 MG CAPSULE PO PRN (07:15)
[2020-03-14] MEDS ORDERED: DOCUSATE SODIUM 100 MG CAPSULE PO PRN (07:15)
[2020-03-14] MEDS ORDERED: NICOTINE 14 MG/24 HOUR PATCH TD PRN (07:15)
[2020-03-14] MEDS ORDERED: PETROLATUM,WHITE 28 GM JELLY TP PRN (07:15)
[2020-03-14] MEDS ORDERED: MAG HYDROX/AL HYDROX/SIMETH ES 30 ML SUSPENSION UDCUP PO PRN (07:15)
[2020-03-14] MEDS ORDERED: GuaiFENesin/D-METHORPHAN [SUGAR-FREE] 200-20MG/10 ML SYRUP UDCUP PO PRN (07:15)
[2020-03-14] MEDS ORDERED: BENZONATATE 100 MG CAPSULE PO PRN (07:15)
[2020-03-14] MEDS ORDERED: MAGNESIUM HYDROXIDE SUSPENSION 30 ML UDCUP PO PRN ×2 (07:15)
[2020-03-14] MEDS ORDERED: ALBUTEROL SULFATE HFA 90 MCG/PUFF 8 GM INHALER IH PRN (07:15)
[2020-03-14] MEDS ORDERED: IBUPROFEN 400 MG TABLET PO PRN (07:15)
[2020-03-14] MEDS ORDERED: DEXTROSE 50%-WATER 25 GM/50 ML SYRINGE IVP PRN (07:15)
[2020-03-14] MEDS ORDERED: CloNIDine HCL 0.1 MG TABLET PO PRN (07:15)
[2020-03-14 08:11] LABS: CHOL/HDL RATIO 1.7 (4.2-7.3)
[2020-03-14] MEDS: LORazepam 2 MG TABLET PO SCH ×4 (08:34→20:42)
[2020-03-14] MEDS: MULTIVITAMINS WITH MINERALS, THERAPEUTIC TABLET PO SCH (08:34)
[2020-03-14] MEDS: FAMOTIDINE 20 MG TABLET PO SCH (08:34)
[2020-03-14] MEDS: FOLIC ACID 1 MG TABLET PO SCH (08:34)
[2020-03-14] MEDS: ASPIRIN 81 MG CHEWABLE TABLET PO SCH (08:34)
[2020-03-14] MEDS: THIAMINE 100 MG TABLET PO SCH (08:35)
[2020-03-14] MEDS: ZINC SULFATE 220 MG CAPSULE PO SCH ×2 (08:36→16:17)
[2020-03-14] MEDS: MetFORMIN HCL 850 MG TABLET PO SCH ×2 (08:36→16:17)
[2020-03-14] MEDS: INSULIN LISPRO 100 UNITS/ML SQ PRN ×3 (11:35→21:18)
[2020-03-14 11:37] LABS: GLUCOMETER DEV NAME(LOC) 3E.I 2; GLUCOSE,POINT OF CARE 258 MG/DL (70-110)
[2020-03-14 17:26] LABS: GLUCOMETER DEV NAME(LOC) 3E.I 2; GLUCOSE,POINT OF CARE 315 MG/DL (70-110)
[2020-03-14 21:05] LABS: GLUCOMETER DEV NAME(LOC) 3E.I 2; GLUCOSE,POINT OF CARE 266 MG/DL (70-110)
[2020-03-15 01:00] VITALS: BP 118/78
[2020-03-15 05:15] VITALS: BP 114/71
[2020-03-15 05:41] LABS: GLUCOMETER DEV NAME(LOC) 3E.I 2; GLUCOSE,POINT OF CARE 208 MG/DL (70-110)
[2020-03-15 06:15] LABS: BASOPHILS % (AUTO) 0.3 % (0.0-2.0); EOSINOPHILS % (AUTO) 2.1 % (1.0-6.0); HEMATOCRIT 42.5 % (41-53); HEMOGLOBIN 14.8 g/dL (13.5-17.5); LYMPHOCYTES # (AUTO) 1.1 K/uL (1.0-4.8); LYMPHOCYTES % (AUTO) 32.9 % (22.0-44.0); MEAN CORPUSCULAR HEMOGLOBIN 32.8 pg (26.0-34.0); MEAN CORPUSCULAR HGB CONC 34.8 G/dL (31.0-37.0); MEAN CORPUSCULAR VOLUME 94 fL (80-100); MONOCYTES # (AUTO) 0.3 K/uL (0.1-1.0); MONOCYTES % (AUTO) 9.8 % (2.0-9.0); NEUTROPHILS # (AUTO) 1.9 K/uL (1.8-7.7); NEUTROPHILS % (AUTO) 54.9 % (40.0-70.0); PLATELET COUNT (AUTO) 112 K/uL (150-450); RED BLOOD CELL COUNT(AUTO) 4.51 MIL/uL (4.50-5.90); RED CELL DISTRIBUTION WIDTH 16.6 % (11.5-14.5)
[2020-03-15] MEDS: MetFORMIN HCL 850 MG TABLET PO SCH ×2 (06:55→16:50)
[2020-03-15] MEDS: INSULIN LISPRO 100 UNITS/ML SQ PRN ×4 (07:01→21:19)
[2020-03-15 08:49] VITALS: BP 128/90
[2020-03-15 09:15] VITALS: BP 127/69
[2020-03-15] MEDS: ASPIRIN 81 MG CHEWABLE TABLET PO SCH (09:23)
[2020-03-15] MEDS: FAMOTIDINE 20 MG TABLET PO SCH (09:23)
[2020-03-15] MEDS: MULTIVITAMINS WITH MINERALS, THERAPEUTIC TABLET PO SCH (09:23)
[2020-03-15] MEDS: LORazepam 2 MG TABLET PO SCH ×4 (09:24→21:16)
[2020-03-15] MEDS: THIAMINE 100 MG TABLET PO SCH (09:24)
[2020-03-15] MEDS: FOLIC ACID 1 MG TABLET PO SCH (09:24)
[2020-03-15] MEDS: ZINC SULFATE 220 MG CAPSULE PO SCH ×2 (09:25→16:49)
[2020-03-15 11:41] LABS: GLUCOMETER DEV NAME(LOC) 3E.I 2; GLUCOSE,POINT OF CARE 227 MG/DL (70-110)
[2020-03-15 13:20] VITALS: BP 132/73
[2020-03-15 16:00] VITALS: BP 134/84
[2020-03-15 17:14] LABS: GLUCOMETER DEV NAME(LOC) 3E.I 2; GLUCOSE,POINT OF CARE 253 MG/DL (70-110)
[2020-03-15 21:45] LABS: GLUCOMETER DEV NAME(LOC) 3E.I 2; GLUCOSE,POINT OF CARE 223 MG/DL (70-110)
[2020-03-16 06:21] VITALS: BP 124/84
[2020-03-16 06:27] LABS: GLUCOMETER DEV NAME(LOC) 3E.I 2; GLUCOSE,POINT OF CARE 226 MG/DL (70-110)
[2020-03-16] MEDS ORDERED: LORazepam 1 MG TABLET PO PRN (07:00)
[2020-03-16] MEDS: MetFORMIN HCL 850 MG TABLET PO SCH ×2 (07:06→16:50)
[2020-03-16] MEDS: INSULIN LISPRO 100 UNITS/ML SQ PRN ×4 (07:11→21:29)
[2020-03-16 08:26] VITALS: BP 124/86
[2020-03-16 08:48] VITALS: BP 14/86
[2020-03-16] MEDS: MULTIVITAMINS WITH MINERALS, THERAPEUTIC TABLET PO SCH (09:00)
[2020-03-16] MEDS: THIAMINE 100 MG TABLET PO SCH (09:00)
[2020-03-16] MEDS: ASPIRIN 81 MG CHEWABLE TABLET PO SCH (09:00)
[2020-03-16] MEDS: FOLIC ACID 1 MG TABLET PO SCH (09:00)
[2020-03-16] MEDS: FAMOTIDINE 20 MG TABLET PO SCH (09:00)
[2020-03-16] MEDS: ZINC SULFATE 220 MG CAPSULE PO SCH ×2 (09:01→16:50)
[2020-03-16] MEDS: LORazepam 1 MG TABLET PO SCH ×4 (09:02→20:00)
[2020-03-16 11:26] LABS: GLUCOMETER DEV NAME(LOC) 3E.I 2; GLUCOSE,POINT OF CARE 232 MG/DL (70-110)
[2020-03-16 16:00] VITALS: BP 133/99
[2020-03-16 16:48] LABS: GLUCOMETER DEV NAME(LOC) 3E.I 2; GLUCOSE,POINT OF CARE 243 MG/DL (70-110)
[2020-03-16 21:46] LABS: GLUCOMETER DEV NAME(LOC) 3E.I 2; GLUCOSE,POINT OF CARE 218 MG/DL (70-110)
[2020-03-17 02:09] VITALS: BP 127/85
[2020-03-17 05:49] LABS: GLUCOMETER DEV NAME(LOC) 3E.I 2; GLUCOSE,POINT OF CARE 194 MG/DL (70-110)
[2020-03-17] MEDS: MetFORMIN HCL 850 MG TABLET PO SCH ×2 (07:07→17:01)
[2020-03-17] MEDS: INSULIN LISPRO 100 UNITS/ML SQ PRN ×4 (07:15→20:55)
[2020-03-17 08:02] LABS: ANION GAP 11 mmol/L (8-16); CALCIUM, TOTAL 8.9 mg/dL (8.8-10.5); CARBON DIOXIDE 26 mmol/L (22-29); CHLORIDE 98 mmol/L (98-107); CREATININE 0.86 mg/dL (0.60-1.30); GLOMERULAR FILTR. RATE CALC > 60 mL/min (>60); GLUCOSE,RANDOM 250 mg/dL (70-110); POTASSIUM 3.9 mmol/L (3.5-5.1); SODIUM SERUM 135 mmol/L (136-145); UREA NITROGEN, BLOOD 12 mg/dL (7-18)
[2020-03-17] MEDS: FOLIC ACID 1 MG TABLET PO SCH (08:32)
[2020-03-17] MEDS: THIAMINE 100 MG TABLET PO SCH (08:32)
[2020-03-17] MEDS: ZINC SULFATE 220 MG CAPSULE PO SCH ×2 (08:32→17:01)
[2020-03-17] MEDS: ASPIRIN 81 MG CHEWABLE TABLET PO SCH (08:32)
[2020-03-17] MEDS: FAMOTIDINE 20 MG TABLET PO SCH (08:32)
[2020-03-17] MEDS: MULTIVITAMINS WITH MINERALS, THERAPEUTIC TABLET PO SCH (08:32)
[2020-03-17 09:10] VITALS: BP 100/56
[2020-03-17 11:44] LABS: GLUCOMETER DEV NAME(LOC) 3E.I 2; GLUCOSE,POINT OF CARE 182 MG/DL (70-110)
[2020-03-17] MEDS: LORazepam 1 MG TABLET PO PRN ×2 (12:31→19:44)
[2020-03-17] MEDS: BuPROPion HCL XL 150 MG ER TABLET PO SCH (12:31)
[2020-03-17 16:51] LABS: GLUCOMETER DEV NAME(LOC) 3E.I 2; GLUCOSE,POINT OF CARE 226 MG/DL (70-110)
[2020-03-17 17:03] VITALS: BP 128/93
[2020-03-17 17:04] VITALS: BP 128/93
[2020-03-17 21:19] LABS: GLUCOMETER DEV NAME(LOC) 3E.I 2; GLUCOSE,POINT OF CARE 217 MG/DL (70-110)
[2020-03-18] MEDS: MetFORMIN HCL 850 MG TABLET PO SCH ×2 (06:38→16:40)
[2020-03-18] MEDS: INSULIN LISPRO 100 UNITS/ML SQ PRN ×4 (06:39→21:03)
[2020-03-18 06:46] LABS: GLUCOMETER DEV NAME(LOC) 3E.I 2; GLUCOSE,POINT OF CARE 190 MG/DL (70-110)
[2020-03-18 08:00] VITALS: BP 116/87
[2020-03-18] MEDS: MULTIVITAMINS WITH MINERALS, THERAPEUTIC TABLET PO SCH (08:34)
[2020-03-18] MEDS: ASPIRIN 81 MG CHEWABLE TABLET PO SCH (08:34)
[2020-03-18] MEDS: FAMOTIDINE 20 MG TABLET PO SCH (08:34)
[2020-03-18] MEDS: BuPROPion HCL XL 150 MG ER TABLET PO SCH (08:34)
[2020-03-18] MEDS: FOLIC ACID 1 MG TABLET PO SCH (08:34)
[2020-03-18] MEDS: THIAMINE 100 MG TABLET PO SCH (08:34)
[2020-03-18] MEDS: ZINC SULFATE 220 MG CAPSULE PO SCH ×2 (08:35→16:40)
[2020-03-18 10:51] VITALS: BP 120/76
[2020-03-18 11:38] LABS: GLUCOMETER DEV NAME(LOC) 3E.I 2; GLUCOSE,POINT OF CARE 280 MG/DL (70-110)
[2020-03-18 16:00] VITALS: BP 120/85
[2020-03-18 16:12] VITALS: BP 126/85
[2020-03-18 17:49] LABS: GLUCOMETER DEV NAME(LOC) 3E.I 2; GLUCOSE,POINT OF CARE 236 MG/DL (70-110)
[2020-03-18 20:22] LABS: GLUCOMETER DEV NAME(LOC) 3E.I 2; GLUCOSE,POINT OF CARE 222 MG/DL (70-110)
[2020-03-18] MEDS: ZOLPIDEM TARTRATE 10 MG TABLET PO PRN (21:09)
[2020-03-19 05:32] LABS: GLUCOMETER DEV NAME(LOC) 3E.I 2; GLUCOSE,POINT OF CARE 190 MG/DL (70-110)
[2020-03-19] MEDS: MetFORMIN HCL 850 MG TABLET PO SCH ×2 (06:36→17:30)
[2020-03-19] MEDS: INSULIN LISPRO 100 UNITS/ML SQ PRN ×4 (06:50→21:15)
[2020-03-19 08:00] VITALS: BP 156/94
[2020-03-19] MEDS: MULTIVITAMINS WITH MINERALS, THERAPEUTIC TABLET PO SCH (08:26)
[2020-03-19] MEDS: BuPROPion HCL XL 150 MG ER TABLET PO SCH (08:26)
[2020-03-19] MEDS: FOLIC ACID 1 MG TABLET PO SCH (08:26)
[2020-03-19] MEDS: FAMOTIDINE 20 MG TABLET PO SCH (08:26)
[2020-03-19] MEDS: ASPIRIN 81 MG CHEWABLE TABLET PO SCH (08:26)
[2020-03-19] MEDS: THIAMINE 100 MG TABLET PO SCH (08:26)
[2020-03-19] MEDS: ZINC SULFATE 220 MG CAPSULE PO SCH ×2 (08:26→16:28)
[2020-03-19 16:19] LABS: GLUCOMETER DEV NAME(LOC) 3E.I 2; GLUCOSE,POINT OF CARE 198 MG/DL (70-110)
[2020-03-19 16:35] VITALS: BP 117/75
[2020-03-19 17:15] LABS: GLUCOMETER DEV NAME(LOC) 3E.I 2; GLUCOSE,POINT OF CARE 279 MG/DL (70-110)
[2020-03-19] MEDS: ZOLPIDEM TARTRATE 10 MG TABLET PO PRN (21:14)
[2020-03-19 21:17] LABS: GLUCOMETER DEV NAME(LOC) 3E.I 2; GLUCOSE,POINT OF CARE 180 MG/DL (70-110)
[2020-03-20 05:49] LABS: GLUCOMETER DEV NAME(LOC) 3E.I 2; GLUCOSE,POINT OF CARE 186 MG/DL (70-110)
[2020-03-20] MEDS: MetFORMIN HCL 850 MG TABLET PO SCH ×2 (06:37→17:11)
[2020-03-20] MEDS: INSULIN LISPRO 100 UNITS/ML SQ PRN ×5 (06:48→21:32)
[2020-03-20] MEDS: ASPIRIN 81 MG CHEWABLE TABLET PO SCH (08:43)
[2020-03-20] MEDS: FAMOTIDINE 20 MG TABLET PO SCH (08:43)
[2020-03-20] MEDS: BuPROPion HCL XL 150 MG ER TABLET PO SCH (08:43)
[2020-03-20] MEDS: FOLIC ACID 1 MG TABLET PO SCH (08:43)
[2020-03-20] MEDS: ZINC SULFATE 220 MG CAPSULE PO SCH ×2 (08:43→16:17)
[2020-03-20] MEDS: THIAMINE 100 MG TABLET PO SCH (08:43)
[2020-03-20] MEDS: MULTIVITAMINS WITH MINERALS, THERAPEUTIC TABLET PO SCH (08:43)
[2020-03-20 09:15] VITALS: BP 115/88
[2020-03-20 11:03] LABS: GLUCOMETER DEV NAME(LOC) 3E.I 2; GLUCOSE,POINT OF CARE 189 MG/DL (70-110)
[2020-03-20 16:00] VITALS: BP 118/79
[2020-03-20 17:19] LABS: GLUCOMETER DEV NAME(LOC) 3E.I 2; GLUCOSE,POINT OF CARE 192 MG/DL (70-110)
[2020-03-20] MEDS: ZOLPIDEM TARTRATE 10 MG TABLET PO PRN (20:14)
[2020-03-20 21:06] LABS: GLUCOMETER DEV NAME(LOC) 3E.I 2; GLUCOSE,POINT OF CARE 204 MG/DL (70-110)
[2020-03-21 05:51] LABS: GLUCOMETER DEV NAME(LOC) 3E.I 2; GLUCOSE,POINT OF CARE 169 MG/DL (70-110)
[2020-03-21] MEDS: MetFORMIN HCL 850 MG TABLET PO SCH ×2 (06:56→17:22)
[2020-03-21] MEDS: INSULIN LISPRO 100 UNITS/ML SQ PRN ×4 (07:02→21:33)
[2020-03-21 09:24] VITALS: BP 104/59
[2020-03-21] MEDS: MULTIVITAMINS WITH MINERALS, THERAPEUTIC TABLET PO SCH (09:25)
[2020-03-21] MEDS: BuPROPion HCL XL 150 MG ER TABLET PO SCH (09:25)
[2020-03-21] MEDS: FAMOTIDINE 20 MG TABLET PO SCH (09:25)
[2020-03-21] MEDS: FOLIC ACID 1 MG TABLET PO SCH (09:25)
[2020-03-21] MEDS: THIAMINE 100 MG TABLET PO SCH (09:25)
[2020-03-21] MEDS: ZINC SULFATE 220 MG CAPSULE PO SCH ×2 (09:25→17:22)
[2020-03-21] MEDS: ASPIRIN 81 MG CHEWABLE TABLET PO SCH (09:26)
[2020-03-21 11:31] LABS: GLUCOMETER DEV NAME(LOC) 3E.I 2; GLUCOSE,POINT OF CARE 184 MG/DL (70-110)
[2020-03-21 16:00] VITALS: BP 136/86
[2020-03-21 16:49] LABS: GLUCOMETER DEV NAME(LOC) 3E.I 2; GLUCOSE,POINT OF CARE 188 MG/DL (70-110)
[2020-03-21] MEDS: ZOLPIDEM TARTRATE 10 MG TABLET PO PRN (20:09)
[2020-03-21 20:18] LABS: GLUCOMETER DEV NAME(LOC) 3E.I 2; GLUCOSE,POINT OF CARE 211 MG/DL (70-110)
[2020-03-22 05:35] LABS: GLUCOMETER DEV NAME(LOC) 3E.I 2; GLUCOSE,POINT OF CARE 163 MG/DL (70-110)
[2020-03-22] MEDS: MetFORMIN HCL 850 MG TABLET PO SCH ×2 (06:37→16:16)
[2020-03-22] MEDS: INSULIN LISPRO 100 UNITS/ML SQ PRN ×3 (06:38→17:16)
[2020-03-22] MEDS: ASPIRIN 81 MG CHEWABLE TABLET PO SCH (08:32)
[2020-03-22] MEDS: ZINC SULFATE 220 MG CAPSULE PO SCH ×2 (08:32→16:16)
[2020-03-22] MEDS: BuPROPion HCL XL 150 MG ER TABLET PO SCH (08:32)
[2020-03-22] MEDS: FAMOTIDINE 20 MG TABLET PO SCH (08:32)
[2020-03-22] MEDS: MULTIVITAMINS WITH MINERALS, THERAPEUTIC TABLET PO SCH (08:32)
[2020-03-22] MEDS: FOLIC ACID 1 MG TABLET PO SCH (08:32)
[2020-03-22] MEDS: THIAMINE 100 MG TABLET PO SCH (08:32)
[2020-03-22 08:41] LABS: ANION GAP 7 mmol/L (8-16); CALCIUM, TOTAL 9.1 mg/dL (8.8-10.5); CARBON DIOXIDE 28 mmol/L (22-29); CHLORIDE 100 mmol/L (98-107); CREATININE 0.87 mg/dL (0.60-1.30); GLOMERULAR FILTR. RATE CALC > 60 mL/min (>60); GLUCOSE,RANDOM 223 mg/dL (70-110); SODIUM SERUM 135 mmol/L (136-145); UREA NITROGEN, BLOOD 10 mg/dL (7-18)
[2020-03-22 09:13] VITALS: BP 124/80
[2020-03-22 11:59] LABS: GLUCOMETER DEV NAME(LOC) 3E.I 2; GLUCOSE,POINT OF CARE 189 MG/DL (70-110)
[2020-03-22 16:32] LABS: GLUCOMETER DEV NAME(LOC) 3E.I 2; GLUCOSE,POINT OF CARE 163 MG/DL (70-110)
[2020-03-22 17:44] VITALS: BP 112/75
[2020-03-22] MEDS: ZOLPIDEM TARTRATE 10 MG TABLET PO PRN (20:16)
[2020-03-22 21:22] LABS: GLUCOMETER DEV NAME(LOC) 3E.I 2; GLUCOSE,POINT OF CARE 210 MG/DL (70-110)
[2020-03-23 05:33] LABS: GLUCOMETER DEV NAME(LOC) 3E.I 2; GLUCOSE,POINT OF CARE 172 MG/DL (70-110)
[2020-03-23] MEDS: MetFORMIN HCL 850 MG TABLET PO SCH ×2 (06:38→16:17)
[2020-03-23] MEDS: INSULIN LISPRO 100 UNITS/ML SQ PRN ×3 (06:39→21:07)
[2020-03-23] MEDS: FAMOTIDINE 20 MG TABLET PO SCH (08:59)
[2020-03-23] MEDS: ASPIRIN 81 MG CHEWABLE TABLET PO SCH (08:59)
[2020-03-23] MEDS: BuPROPion HCL XL 150 MG ER TABLET PO SCH (08:59)
[2020-03-23] MEDS: THIAMINE 100 MG TABLET PO SCH (08:59)
[2020-03-23] MEDS: MULTIVITAMINS WITH MINERALS, THERAPEUTIC TABLET PO SCH (08:59)
[2020-03-23] MEDS: FOLIC ACID 1 MG TABLET PO SCH (08:59)
[2020-03-23] MEDS: ZINC SULFATE 220 MG CAPSULE PO SCH ×2 (08:59→16:18)
[2020-03-23 09:23] VITALS: BP 144/76
[2020-03-23 11:31] LABS: GLUCOMETER DEV NAME(LOC) 3E.I 2; GLUCOSE,POINT OF CARE 184 MG/DL (70-110)
[2020-03-23 17:17] VITALS: BP 116/79
[2020-03-23 17:27] LABS: GLUCOMETER DEV NAME(LOC) 3E.I 2; GLUCOSE,POINT OF CARE 133 MG/DL (70-110)
[2020-03-23] MEDS: ZOLPIDEM TARTRATE 10 MG TABLET PO PRN (20:08)
[2020-03-23 20:19] LABS: GLUCOMETER DEV NAME(LOC) 3E.I 2; GLUCOSE,POINT OF CARE 169 MG/DL (70-110)
[2020-03-24 05:34] LABS: GLUCOMETER DEV NAME(LOC) 3E.I 2; GLUCOSE,POINT OF CARE 172 MG/DL (70-110)
[2020-03-24] MEDS: MetFORMIN HCL 850 MG TABLET PO SCH ×2 (07:01→17:04)
[2020-03-24] MEDS: INSULIN LISPRO 100 UNITS/ML SQ PRN ×3 (07:04→20:56)
[2020-03-24] MEDS: BuPROPion HCL XL 150 MG ER TABLET PO SCH (08:49)
[2020-03-24] MEDS: FAMOTIDINE 20 MG TABLET PO SCH (08:49)
[2020-03-24] MEDS: MULTIVITAMINS WITH MINERALS, THERAPEUTIC TABLET PO SCH (08:49)
[2020-03-24] MEDS: THIAMINE 100 MG TABLET PO SCH (08:49)
[2020-03-24] MEDS: FOLIC ACID 1 MG TABLET PO SCH (08:49)
[2020-03-24] MEDS: ASPIRIN 81 MG CHEWABLE TABLET PO SCH (08:49)
[2020-03-24] MEDS: ZINC SULFATE 220 MG CAPSULE PO SCH ×2 (08:51→17:04)
[2020-03-24 09:00] VITALS: BP 116/75
[2020-03-24 11:34] LABS: GLUCOMETER DEV NAME(LOC) 3E.I 2; GLUCOSE,POINT OF CARE 185 MG/DL (70-110)
[2020-03-24 15:40] LABS: COVID AG,FIA SOURCE NASOPHARYNGEAL
[2020-03-24 16:00] VITALS: BP 118/73
[2020-03-24 17:47] LABS: GLUCOMETER DEV NAME(LOC) 3E.I 2; GLUCOSE,POINT OF CARE 177 MG/DL (70-110)
[2020-03-24 21:42] LABS: GLUCOMETER DEV NAME(LOC) 3E.I 2; GLUCOSE,POINT OF CARE 203 MG/DL (70-110)
[2020-03-25 06:24] LABS: GLUCOMETER DEV NAME(LOC) 3E.I 2; GLUCOSE,POINT OF CARE 176 MG/DL (70-110)
[2020-03-25] MEDS: MetFORMIN HCL 850 MG TABLET PO SCH (06:48)
[2020-03-25] MEDS: INSULIN LISPRO 100 UNITS/ML SQ PRN ×2 (06:54→11:48)
[2020-03-25 08:43] VITALS: BP 148/82
[2020-03-25] MEDS: ASPIRIN 81 MG CHEWABLE TABLET PO SCH (08:45)
[2020-03-25] MEDS: THIAMINE 100 MG TABLET PO SCH (08:45)
[2020-03-25] MEDS: BuPROPion HCL XL 150 MG ER TABLET PO SCH (08:45)
[2020-03-25] MEDS: FAMOTIDINE 20 MG TABLET PO SCH (08:45)
[2020-03-25] MEDS: MULTIVITAMINS WITH MINERALS, THERAPEUTIC TABLET PO SCH (08:45)
[2020-03-25] MEDS: FOLIC ACID 1 MG TABLET PO SCH (08:45)
[2020-03-25] MEDS: ZINC SULFATE 220 MG CAPSULE PO SCH (08:46)
[2020-03-25 11:57] LABS: GLUCOMETER DEV NAME(LOC) 3E.I 2; GLUCOSE,POINT OF CARE 144 MG/DL (70-110)
== END 2020-03-25 12:10 | disposition home or self-care (01) | DRG 750 ==
LOC: EMS 19:24 → 3EI 21:40
PROVIDERS: ADMIT Psychiatry & Neurology Psychiatry; ATTEND Psychiatry & Neurology Psychiatry
DX: F25.1 Schizoaffective disorder, depressive type (principal); D72.819 Decreased white blood cell count, unspecified; Z20.828 Contact with and (suspected) exposure to other viral communicable diseases; D57.1 Sickle-cell disease without crisis; E11.65 Type 2 diabetes mellitus with hyperglycemia; E66.9 Obesity, unspecified; E78.00 Pure hypercholesterolemia, unspecified; E78.5 Hyperlipidemia, unspecified; I11.0 Hypertensive heart disease with heart failure; I25.10 Atherosclerotic heart disease of native coronary artery without angina pectoris; I50.9 Heart failure, unspecified; F99 Mental disorder, not otherwise specified; J44.9 Chronic obstructive pulmonary disease, unspecified; E87.1 Hypo-osmolality and hyponatremia; E87.6 Hypokalemia; R45.851 Suicidal ideations; Z68.38 Body mass index [BMI] 38.0-38.9, adult; Z28.21 Immunization not carried out because of patient refusal; I25.2 Old myocardial infarction; Z59.0 Homelessness; Z86.19 Personal history of other infectious and parasitic diseases; Z86.74 Personal history of sudden cardiac arrest; Z91.5 Personal history of self-harm
CPT/HCPCS: 87426; G0480; J1815

== ENCOUNTER 2020-05-06 06:02 | Inpatient (IN) | payer MEDICAID ==
[~2020-05-06] VITALS: Ht 177.8 cm; Wt 131.6 kg
[~2020-05-06 06:02] MED LIST changes: -ACET-2865 PO; -ARIP10TA8 PO; -BENZ-51 PO; -MELA3TAB82 PO; -MOM30 PO
[2020-05-06] MEDS ORDERED: MAGNESIUM SULFATE 2 GM, MVI, ADULT NO.1 WITH VIT K 10 ML, THIAMINE 100 MG, FOLIC ACID 1... IV ONE ×5 (08:30)
[2020-05-06] MEDS ORDERED: LORazepam 2 MG/ML VIAL IVP ONE ×2 (08:30→13:30)
[2020-05-06] MEDS ORDERED: ONDANSETRON HCL 4 MG/2 ML VIAL IVP ONE ×2 (08:30→12:30)
[2020-05-06] MEDS ORDERED: FAMOTIDINE 10 MG/ML 2 ML VIAL IVP ONE (08:30)
[2020-05-06 09:46] LABS: AMPHET/METH SCREEN,URINE NEGATIVE (NEGATIVE); BARBITURATE SCREEN, URINE NEGATIVE (NEGATIVE); BENZODIAZEPINES SCREEN,URINE NEGATIVE (NEGATIVE); CANNABINOID SCREEN,URINE NEGATIVE (NEGATIVE); COCAINE SCREEN,URINE NEGATIVE (NEGATIVE); METHADONE SCREEN, URINE NEGATIVE (NEGATIVE); OPIATE SCREEN,URINE NEGATIVE (NEGATIVE)
[2020-05-06 09:47] LABS: PHENCYCLIDINE SCREEN,URINE NEGATIVE (NEGATIVE)
[2020-05-06 10:41] LABS: BASOPHILS % (AUTO) 0.1 % (0.0-2.0); EOSINOPHILS % (AUTO) 0 % (1.0-6.0); HEMATOCRIT 44.5 % (41-53); HEMOGLOBIN 15.8 g/dL (13.5-17.5); LYMPHOCYTES # (AUTO) 0.5 K/uL (1.0-4.8); LYMPHOCYTES % (AUTO) 4.8 % (22.0-44.0); MEAN CORPUSCULAR HEMOGLOBIN 33.2 pg (26.0-34.0); MEAN CORPUSCULAR HGB CONC 35.5 G/dL (31.0-37.0); MEAN CORPUSCULAR VOLUME 94 fL (80-100); MONOCYTES % (AUTO) 10.1 % (2.0-9.0); NEUTROPHILS # (AUTO) 8.8 K/uL (1.8-7.7); PLATELET COUNT (AUTO) 192 K/uL (150-450); RED BLOOD CELL COUNT(AUTO) 4.76 MIL/uL (4.50-5.90); RED CELL DISTRIBUTION WIDTH 15.2 % (11.5-14.5)
[2020-05-06 11:03] LABS: ALANINE AMINOTRANSFERASE 148 U/L (12-78); ALBUMIN 2.9 g/dL (3.4-5.0); ALKALINE PHOSPHATASE 388 U/L (46-116); ANION GAP 21 mmol/L (8-16); ASPARTATE AMINOTRANSFERASE 129 U/L (15-37); CALCIUM, TOTAL 8.8 mg/dL (8.8-10.5); CARBON DIOXIDE 25 mmol/L (22-29); CHLORIDE 71 mmol/L (98-107); CREATININE 1.11 mg/dL (0.60-1.30); GLOMERULAR FILTR. RATE CALC > 60 mL/min (>60); GLUCOSE,RANDOM 284 mg/dL (70-110); TOTAL PROTEIN, SERUM 7.7 g/dL (6.4-8.2); UREA NITROGEN, BLOOD 12 mg/dL (7-18)
[2020-05-06 11:11] LABS: POTASSIUM 2.1 mmol/L (3.5-5.1); SODIUM SERUM 117 mmol/L (136-145)
[2020-05-06] MEDS ORDERED: POTASSIUM CHLORIDE 20 MEQ ER TABLET PO ONE (11:15)
[2020-05-06 12:03] LABS: LIPASE 5197 U/L (73-393)
[2020-05-06] MEDS ORDERED: POTASSIUM CHL 10 MEQ/WATER 50 ML IV PRN (12:45)
[2020-05-06] MEDS ORDERED: MAGNESIUM SULFATE 4 GM/WATER 100 ML IV PRN (12:45)
[2020-05-06] MEDS ORDERED: ACETAMINOPHEN 325 MG TABLET PO PRN (12:45)
[2020-05-06] MEDS ORDERED: DEXTROSE 50%-WATER 25 GM/50 ML SYRINGE IVP PRN (12:45)
[2020-05-06] MEDS ORDERED: MAGNESIUM SULFATE 2 GM/WATER 50 ML IV PRN (12:45)
[2020-05-06] MEDS: SODIUM CHLORIDE 0.9% 1,000 ML IV SCH (12:58)
[2020-05-06] MEDS: MULTIVITAMINS WITH MINERALS, THERAPEUTIC TABLET PO SCH (12:58)
[2020-05-06 13:17] LABS: COVID AG,FIA SOURCE NASOPHARYNGEAL
[2020-05-06] MEDS: LORazepam 2 MG/ML VIAL IVP PRN ×2 (13:20→21:48)
[2020-05-06 13:29] LABS: PROTHROMBIN TIME 10.9 SEC (9.4-11.6)
[2020-05-06] MEDS ORDERED: METOCLOPRAMIDE HCL 5 MG/ML 2 ML VIAL IVP ONE (13:30)
[2020-05-06] MEDS ORDERED: SODIUM CHLORIDE 0.9% 250 ML IV ONE (13:45)
[2020-05-06] MEDS: HEPARIN SODIUM,PORCINE 5,000 UNITS/ML VIAL SQ SCH ×2 (15:32→23:45)
[2020-05-06] MEDS: ChlordiazePOXIDE HCL 10 MG CAPSULE PO SCH ×2 (16:10→23:45)
[2020-05-06 19:08] VITALS: BP 128/88
[2020-05-06] MEDS: DOCUSATE SODIUM 100 MG CAPSULE PO SCH (21:00)
[2020-05-06] MEDS: INSULIN LISPRO 100 UNITS/ML SQ PRN (23:44)
[2020-05-06 23:52] VITALS: BP 118/77
[2020-05-07] MEDS: SODIUM CHLORIDE 0.9% 1,000 ML IV SCH (03:39)
[2020-05-07 03:55] VITALS: BP 122/85
[2020-05-07] MEDS: INSULIN LISPRO 100 UNITS/ML SQ PRN ×4 (06:23→20:49)
[2020-05-07] MEDS: DOCUSATE SODIUM 100 MG CAPSULE PO SCH ×2 (08:43→20:38)
[2020-05-07] MEDS: MULTIVITAMINS WITH MINERALS, THERAPEUTIC TABLET PO SCH (08:44)
[2020-05-07] MEDS: ChlordiazePOXIDE HCL 10 MG CAPSULE PO SCH ×2 (08:44→16:36)
[2020-05-07] MEDS: PANTOPRAZOLE SODIUM 40 MG DR TABLET PO SCH (08:44)
[2020-05-07] MEDS: HEPARIN SODIUM,PORCINE 5,000 UNITS/ML VIAL SQ SCH ×2 (08:45→16:36)
[2020-05-07 08:47] VITALS: BP 114/59
[2020-05-07 10:01] LABS: BASOPHILS % (AUTO) 0.8 % (0.0-2.0); EOSINOPHILS % (AUTO) 0 % (1.0-6.0); HEMATOCRIT 41.2 % (41-53); HEMOGLOBIN 14.4 g/dL (13.5-17.5); LYMPHOCYTES # (AUTO) 0.5 K/uL (1.0-4.8); LYMPHOCYTES % (AUTO) 4.9 % (22.0-44.0); MEAN CORPUSCULAR VOLUME 95 fL (80-100); MONOCYTES # (AUTO) 0.8 K/uL (0.1-1.0); MONOCYTES % (AUTO) 8.1 % (2.0-9.0); NEUTROPHILS # (AUTO) 8.1 K/uL (1.8-7.7); RED BLOOD CELL COUNT(AUTO) 4.36 MIL/uL (4.50-5.90); RED CELL DISTRIBUTION WIDTH 15.3 % (11.5-14.5)
[2020-05-07 10:07] LABS: NEUTROPHILS % (AUTO) 86.2 % (40.0-70.0); PLATELET COUNT (AUTO) 188 K/uL (150-450)
[2020-05-07 10:17] LABS: ALANINE AMINOTRANSFERASE 115 U/L (12-78); ALBUMIN 2.4 g/dL (3.4-5.0); ALKALINE PHOSPHATASE 316 U/L (46-116); ANION GAP 11 mmol/L (8-16); ASPARTATE AMINOTRANSFERASE 124 U/L (15-37); BILIRUBIN,TOTAL 4.8 mg/dL (0.1-1.0); CALCIUM, TOTAL 7.9 mg/dL (8.8-10.5); CARBON DIOXIDE 27 mmol/L (22-29); CHLORIDE 77 mmol/L (98-107); CREATININE 1.02 mg/dL (0.60-1.30); GLOMERULAR FILTR. RATE CALC > 60 mL/min (>60); GLUCOSE,RANDOM 246 mg/dL (70-110); TOTAL PROTEIN, SERUM 6.6 g/dL (6.4-8.2); UREA NITROGEN, BLOOD 14 mg/dL (7-18)
[2020-05-07 10:20] LABS: SODIUM SERUM 115 mmol/L (136-145)
[2020-05-07 10:21] LABS: POTASSIUM 2.2 mmol/L (3.5-5.1)
[2020-05-07] MEDS ORDERED: SODIUM CHLORIDE 3% 500 ML IV ONE (11:45)
[2020-05-07] MEDS ORDERED: POTASSIUM CHLORIDE 20 MEQ ER TABLET PO ONE ×2 (12:00→19:30)
[2020-05-07] MEDS: POTASSIUM CHL 10 MEQ/WATER 50 ML IV SCH ×7 (13:42→22:58)
[2020-05-07] MEDS: ONDANSETRON HCL 4 MG/2 ML VIAL IVP PRN (13:42)
[2020-05-07 19:11] LABS: ANION GAP 14 mmol/L (8-16); CALCIUM, TOTAL 8.3 mg/dL (8.8-10.5); CARBON DIOXIDE 30 mmol/L (22-29); CHLORIDE 78 mmol/L (98-107); CREATININE 0.93 mg/dL (0.60-1.30); GLOMERULAR FILTR. RATE CALC > 60 mL/min (>60); GLUCOSE,RANDOM 212 mg/dL (70-110); UREA NITROGEN, BLOOD 12 mg/dL (7-18)
[2020-05-07 19:14] LABS: POTASSIUM 2.8 mmol/L (3.5-5.1); SODIUM SERUM 122 mmol/L (136-145)
[2020-05-07 20:05] VITALS: BP 123/58
[2020-05-07] MEDS: LORazepam 2 MG/ML VIAL IVP PRN (20:39)
[2020-05-07 21:37] LABS: ANION GAP 8 mmol/L (8-16); CARBON DIOXIDE 30 mmol/L (22-29); CHLORIDE 82 mmol/L (98-107); CREATININE 0.92 mg/dL (0.60-1.30); GLOMERULAR FILTR. RATE CALC > 60 mL/min (>60); GLUCOSE,RANDOM 240 mg/dL (70-110); UREA NITROGEN, BLOOD 11 mg/dL (7-18)
[2020-05-07 21:39] LABS: SODIUM SERUM 120 mmol/L (136-145)
[2020-05-07 21:40] LABS: POTASSIUM 2.8 mmol/L (3.5-5.1)
[2020-05-07 23:29] VITALS: BP 109/65
[2020-05-08] MEDS: POTASSIUM CHL 10 MEQ/WATER 50 ML IV SCH ×4 (01:19→23:26)
[2020-05-08] MEDS: ChlordiazePOXIDE HCL 10 MG CAPSULE PO SCH ×4 (01:19→23:27)
[2020-05-08] MEDS: HEPARIN SODIUM,PORCINE 5,000 UNITS/ML VIAL SQ SCH ×4 (01:19→23:27)
[2020-05-08 01:53] LABS: ANION GAP 9 mmol/L (8-16); CARBON DIOXIDE 28 mmol/L (22-29); CHLORIDE 85 mmol/L (98-107); CREATININE 0.81 mg/dL (0.60-1.30); GLOMERULAR FILTR. RATE CALC > 60 mL/min (>60); GLUCOSE,RANDOM 185 mg/dL (70-110); POTASSIUM 3.2 mmol/L (3.5-5.1); UREA NITROGEN, BLOOD 11 mg/dL (7-18)
[2020-05-08 02:02] LABS: SODIUM SERUM 122 mmol/L (136-145)
[2020-05-08] MEDS: POTASSIUM CHLORIDE 20 MEQ ER TABLET PO PRN ×3 (02:22→15:15)
[2020-05-08 03:48] VITALS: BP 124/73
[2020-05-08] MEDS: INSULIN LISPRO 100 UNITS/ML SQ PRN ×4 (05:49→21:22)
[2020-05-08 06:17] LABS: BASOPHILS % (AUTO) 0.1 % (0.0-2.0); EOSINOPHILS % (AUTO) 0.3 % (1.0-6.0); HEMOGLOBIN 13.9 g/dL (13.5-17.5); LYMPHOCYTES # (AUTO) 0.8 K/uL (1.0-4.8); LYMPHOCYTES % (AUTO) 9.4 % (22.0-44.0); MEAN CORPUSCULAR HEMOGLOBIN 33.3 pg (26.0-34.0); MEAN CORPUSCULAR HGB CONC 34.8 G/dL (31.0-37.0); MEAN CORPUSCULAR VOLUME 96 fL (80-100); MONOCYTES # (AUTO) 0.7 K/uL (0.1-1.0); MONOCYTES % (AUTO) 7.9 % (2.0-9.0); NEUTROPHILS # (AUTO) 7.4 K/uL (1.8-7.7); NEUTROPHILS % (AUTO) 82.3 % (40.0-70.0); RED BLOOD CELL COUNT(AUTO) 4.18 MIL/uL (4.50-5.90); RED CELL DISTRIBUTION WIDTH 14.9 % (11.5-14.5)
[2020-05-08 07:09] LABS: ALANINE AMINOTRANSFERASE 146 U/L (12-78); ALKALINE PHOSPHATASE 325 U/L (46-116); AMYLASE 48 U/L (25-115); ANION GAP 9 mmol/L (8-16); ASPARTATE AMINOTRANSFERASE 226 U/L (15-37); BILIRUBIN,TOTAL 6.6 mg/dL (0.1-1.0); CALCIUM, TOTAL 7.9 mg/dL (8.8-10.5); CARBON DIOXIDE 27 mmol/L (22-29); CHLORIDE 86 mmol/L (98-107); CREATININE 0.78 mg/dL (0.60-1.30); GLOMERULAR FILTR. RATE CALC > 60 mL/min (>60); GLUCOSE,RANDOM 191 mg/dL (70-110); LIPASE 627 U/L (73-393); POTASSIUM 3.2 mmol/L (3.5-5.1); TOTAL PROTEIN, SERUM 6.3 g/dL (6.4-8.2); UREA NITROGEN, BLOOD 10 mg/dL (7-18)
[2020-05-08 07:15] LABS: PHOSPHORUS 0.5 mg/dL (2.5-4.9); SODIUM SERUM 122 mmol/L (136-145)
[2020-05-08 07:37] VITALS: BP 110/69
[2020-05-08] MEDS ORDERED: SODIUM PHOS,M-BASIC-D-BASIC 20 MMOL in DEXTROSE 5%-WATER 150 ML IV ONE (07:45)
[2020-05-08] MEDS: DOCUSATE SODIUM 100 MG CAPSULE PO SCH ×2 (08:21→20:17)
[2020-05-08] MEDS: MULTIVITAMINS WITH MINERALS, THERAPEUTIC TABLET PO SCH (08:25)
[2020-05-08] MEDS: PANTOPRAZOLE SODIUM 40 MG DR TABLET PO SCH (08:25)
[2020-05-08 08:32] LABS: PLATELET COUNT (AUTO) 111 K/uL (150-450)
[2020-05-08] MEDS: SODIUM CHLORIDE 3% 500 ML IV SCH (09:13)
[2020-05-08] MEDS: SODIUM,POTASSIUM PHOSPHATES POWDER PACKET PO SCH ×2 (11:13→20:19)
[2020-05-08 12:22] VITALS: BP 98/56
[2020-05-08 13:28] LABS: ANION GAP 11 mmol/L (8-16); CARBON DIOXIDE 27 mmol/L (22-29); CHLORIDE 88 mmol/L (98-107); CREATININE 0.87 mg/dL (0.60-1.30); GLOMERULAR FILTR. RATE CALC > 60 mL/min (>60); GLUCOSE,RANDOM 230 mg/dL (70-110); POTASSIUM 3.2 mmol/L (3.5-5.1); SODIUM SERUM 126 mmol/L (136-145); UREA NITROGEN, BLOOD 9 mg/dL (7-18)
[2020-05-08 15:59] VITALS: BP 117/72
[2020-05-08] MEDS: PIPERACILLIN/TAZO 3.375 GM/D5W 50 ML IV SCH ×2 (19:06→23:27)
[2020-05-08 19:48] VITALS: BP 121/75
[2020-05-08 21:08] LABS: ANION GAP 8 mmol/L (8-16); CARBON DIOXIDE 27 mmol/L (22-29); CHLORIDE 89 mmol/L (98-107); CREATININE 0.74 mg/dL (0.60-1.30); GLOMERULAR FILTR. RATE CALC > 60 mL/min (>60); GLUCOSE,RANDOM 295 mg/dL (70-110); POTASSIUM 3.1 mmol/L (3.5-5.1); UREA NITROGEN, BLOOD 7 mg/dL (7-18)
[2020-05-08 21:14] LABS: SODIUM SERUM 124 mmol/L (136-145)
[2020-05-08] MEDS ORDERED: POTASSIUM CHLORIDE 20 MEQ ER TABLET PO ONE (22:30)
[2020-05-08 22:59] VITALS: BP 105/74
[2020-05-09] MEDS: LORazepam 2 MG/ML VIAL IVP PRN (01:01)
[2020-05-09] MEDS: POTASSIUM CHL 10 MEQ/WATER 50 ML IV SCH ×2 (01:02→02:40)
[2020-05-09 04:25] VITALS: BP 104/50
[2020-05-09] MEDS: PIPERACILLIN/TAZO 3.375 GM/D5W 50 ML IV SCH ×4 (06:03→22:49)
[2020-05-09 06:18] LABS: BASOPHILS % (AUTO) 0.4 % (0.0-2.0); EOSINOPHILS % (AUTO) 1.4 % (1.0-6.0); HEMATOCRIT 37.4 % (41-53); HEMOGLOBIN 13.4 g/dL (13.5-17.5); LYMPHOCYTES # (AUTO) 1.2 K/uL (1.0-4.8); LYMPHOCYTES % (AUTO) 15.9 % (22.0-44.0); MEAN CORPUSCULAR HEMOGLOBIN 34.3 pg (26.0-34.0); MEAN CORPUSCULAR HGB CONC 35.7 G/dL (31.0-37.0); MEAN CORPUSCULAR VOLUME 96 fL (80-100); MONOCYTES # (AUTO) 0.7 K/uL (0.1-1.0); MONOCYTES % (AUTO) 10.1 % (2.0-9.0); NEUTROPHILS # (AUTO) 5.3 K/uL (1.8-7.7); NEUTROPHILS % (AUTO) 72.2 % (40.0-70.0); PLATELET COUNT (AUTO) 109 K/uL (150-450); RED BLOOD CELL COUNT(AUTO) 3.89 MIL/uL (4.50-5.90); RED CELL DISTRIBUTION WIDTH 15.4 % (11.5-14.5)
[2020-05-09 07:32] LABS: ALANINE AMINOTRANSFERASE 182 U/L (12-78); ALBUMIN 1.9 g/dL (3.4-5.0); ALKALINE PHOSPHATASE 445 U/L (46-116); AMYLASE 42 U/L (25-115); ANION GAP 9 mmol/L (8-16); ASPARTATE AMINOTRANSFERASE 245 U/L (15-37); BILIRUBIN,TOTAL 5.2 mg/dL (0.1-1.0); CALCIUM, TOTAL 8.1 mg/dL (8.8-10.5); CARBON DIOXIDE 27 mmol/L (22-29); CHLORIDE 93 mmol/L (98-107); CREATININE 0.79 mg/dL (0.60-1.30); GLOMERULAR FILTR. RATE CALC > 60 mL/min (>60); GLUCOSE,RANDOM 186 mg/dL (70-110); LIPASE 497 U/L (73-393); POTASSIUM 3.9 mmol/L (3.5-5.1); SODIUM SERUM 129 mmol/L (136-145); THYROID STIMULATING HORMONE 1.64 uIU/mL (0.36-3.74); TOTAL PROTEIN, SERUM 6.2 g/dL (6.4-8.2); UREA NITROGEN, BLOOD 8 mg/dL (7-18)
[2020-05-09 07:42] LABS: PHOSPHORUS 0.8 mg/dL (2.5-4.9)
[2020-05-09] MEDS: ChlordiazePOXIDE HCL 10 MG CAPSULE PO SCH ×3 (08:00→22:49)
[2020-05-09] MEDS: HEPARIN SODIUM,PORCINE 5,000 UNITS/ML VIAL SQ SCH (08:00)
[2020-05-09] MEDS ORDERED: SODIUM PHOS,M-BASIC-D-BASIC 30 MEQ in DEXTROSE 5%-WATER 150 ML IV ONE (08:00)
[2020-05-09 08:06] VITALS: BP 133/79
[2020-05-09] MEDS ORDERED: SODIUM PHOS,M-BASIC-D-BASIC 20 MEQ in DEXTROSE 5%-WATER 100 ML IV ONE (08:30)
[2020-05-09] MEDS: PANTOPRAZOLE SODIUM 40 MG DR TABLET PO SCH (09:00)
[2020-05-09] MEDS: MULTIVITAMINS WITH MINERALS, THERAPEUTIC TABLET PO SCH (09:00)
[2020-05-09] MEDS: SODIUM,POTASSIUM PHOSPHATES POWDER PACKET PO SCH ×2 (09:00→20:27)
[2020-05-09] MEDS: DOCUSATE SODIUM 100 MG CAPSULE PO SCH ×2 (09:00→20:28)
[2020-05-09 10:47] VITALS: BP 115/84
[2020-05-09] MEDS ORDERED: IOTHALAMATE MEGLUMINE 600 MG/ML 50 ML VIAL IVP ONE (12:14)
[2020-05-09] MEDS ORDERED: ALBUTEROL SULFATE 2.5 MG/0.5 ML NEB SOLUTION NEB ONE (15:30)
[2020-05-09] MEDS: SODIUM CHLORIDE 3% 500 ML IV SCH (16:43)
[2020-05-09 16:53] VITALS: BP 110/73
[2020-05-09 17:38] LABS: ANION GAP 12 mmol/L (8-16); CALCIUM, TOTAL 8.5 mg/dL (8.8-10.5); CARBON DIOXIDE 23 mmol/L (22-29); CHLORIDE 94 mmol/L (98-107); CREATININE 0.69 mg/dL (0.60-1.30); GLOMERULAR FILTR. RATE CALC > 60 mL/min (>60); GLUCOSE,RANDOM 209 mg/dL (70-110); POTASSIUM 3.5 mmol/L (3.5-5.1); SODIUM SERUM 129 mmol/L (136-145); UREA NITROGEN, BLOOD 11 mg/dL (7-18)
[2020-05-09 17:42] LABS: PHOSPHORUS 1.5 mg/dL (2.5-4.9)
[2020-05-09] MEDS: INSULIN LISPRO 100 UNITS/ML SQ PRN ×2 (18:28→22:50)
[2020-05-09 21:14] VITALS: BP 116/68
[2020-05-09 21:35] LABS: ANION GAP 13 mmol/L (8-16); CALCIUM, TOTAL 8.6 mg/dL (8.8-10.5); CARBON DIOXIDE 25 mmol/L (22-29); CHLORIDE 94 mmol/L (98-107); CREATININE 0.79 mg/dL (0.60-1.30); GLOMERULAR FILTR. RATE CALC > 60 mL/min (>60); GLUCOSE,RANDOM 212 mg/dL (70-110); POTASSIUM 3.6 mmol/L (3.5-5.1); SODIUM SERUM 132 mmol/L (136-145); UREA NITROGEN, BLOOD 11 mg/dL (7-18)
[2020-05-10] VITALS (7 sets, daily range): BP systolic 97–123; BP diastolic 60–77
[2020-05-10] MEDS: PIPERACILLIN/TAZO 3.375 GM/D5W 50 ML IV SCH ×3 (05:00→17:56)
[2020-05-10 05:45] LABS: BASOPHILS % (AUTO) 0.3 % (0.0-2.0); EOSINOPHILS % (AUTO) 0.3 % (1.0-6.0); HEMATOCRIT 36.6 % (41-53); HEMOGLOBIN 12.7 g/dL (13.5-17.5); LYMPHOCYTES # (AUTO) 0.7 K/uL (1.0-4.8); LYMPHOCYTES % (AUTO) 12.3 % (22.0-44.0); MEAN CORPUSCULAR HEMOGLOBIN 33.6 pg (26.0-34.0); MEAN CORPUSCULAR HGB CONC 34.8 G/dL (31.0-37.0); MEAN CORPUSCULAR VOLUME 97 fL (80-100); MONOCYTES # (AUTO) 0.6 K/uL (0.1-1.0); NEUTROPHILS # (AUTO) 4.3 K/uL (1.8-7.7); NEUTROPHILS % (AUTO) 76.1 % (40.0-70.0); PLATELET COUNT (AUTO) 149 K/uL (150-450); RED BLOOD CELL COUNT(AUTO) 3.79 MIL/uL (4.50-5.90); RED CELL DISTRIBUTION WIDTH 15.4 % (11.5-14.5)
[2020-05-10] MEDS: INSULIN LISPRO 100 UNITS/ML SQ PRN ×4 (06:16→21:21)
[2020-05-10 07:07] LABS: ALANINE AMINOTRANSFERASE 218 U/L (12-78); ALBUMIN 1.8 g/dL (3.4-5.0); ALKALINE PHOSPHATASE 663 U/L (46-116); ANION GAP 10 mmol/L (8-16); ASPARTATE AMINOTRANSFERASE 296 U/L (15-37); BILIRUBIN,TOTAL 4.6 mg/dL (0.1-1.0); CALCIUM, TOTAL 8.3 mg/dL (8.8-10.5); CARBON DIOXIDE 26 mmol/L (22-29); CHLORIDE 94 mmol/L (98-107); CREATININE 0.74 mg/dL (0.60-1.30); GLOMERULAR FILTR. RATE CALC > 60 mL/min (>60); GLUCOSE,RANDOM 199 mg/dL (70-110); PHOSPHORUS 2.1 mg/dL (2.5-4.9); POTASSIUM 3.5 mmol/L (3.5-5.1); SODIUM SERUM 130 mmol/L (136-145); UREA NITROGEN, BLOOD 12 mg/dL (7-18)
[2020-05-10] MEDS ORDERED: FentaNYL CITRATE PF 100 MCG/2 ML VIAL IVP ONE (07:11)
[2020-05-10] MEDS ORDERED: MIDAZOLAM HCL 2 MG/2 ML VIAL IVP ONE (07:11)
[2020-05-10] MEDS ORDERED: ONDANSETRON HCL 4 MG/2 ML VIAL IVP ONE (07:11)
[2020-05-10] MEDS ORDERED: DEXAMETHASONE SOD PHOS 4 MG/ML VIAL IVP ONE (07:11)
[2020-05-10] MEDS ORDERED: LIDOCAINE/PF 2% 5 ML VIAL IM ONE (07:11)
[2020-05-10] MEDS ORDERED: PROPOFOL 1% 20 ML VIAL IVP ONE (07:11)
[2020-05-10] MEDS ORDERED: SUCCINYLCHOLINE CHLORIDE 20 MG/ML 10 ML VIAL IVP ONE (07:11)
[2020-05-10] MEDS ORDERED: 0.9% SODIUM CHLORIDE 10 ML VIAL IVP ONE (07:11)
[2020-05-10] MEDS ORDERED: PHENYLEPHRINE HCL 10 MG/ML VIAL IVP ONE (07:11)
[2020-05-10] MEDS: ChlordiazePOXIDE HCL 10 MG CAPSULE PO SCH ×2 (07:58→16:32)
[2020-05-10] MEDS: PANTOPRAZOLE SODIUM 40 MG DR TABLET PO SCH (07:59)
[2020-05-10] MEDS: MULTIVITAMINS WITH MINERALS, THERAPEUTIC TABLET PO SCH (07:59)
[2020-05-10] MEDS: DOCUSATE SODIUM 100 MG CAPSULE PO SCH ×2 (08:02→21:00)
[2020-05-10] MEDS: POTASSIUM CHLORIDE 20 MEQ ER TABLET PO PRN (08:37)
[2020-05-10] MEDS ORDERED: 0.9% SODIUM CHLORIDE 5 ML NEB SOLUTION NEB ONE ×2 (12:52→18:47)
[2020-05-10] MEDS: ALBUTEROL SULFATE 2.5 MG/0.5 ML NEB SOLUTION NEB PRN ×3 (12:57→23:53)
[2020-05-10] MEDS: ONDANSETRON HCL 4 MG/2 ML VIAL IVP PRN (21:16)
[2020-05-11] MEDS: ChlordiazePOXIDE HCL 10 MG CAPSULE PO SCH ×4 (00:17→23:55)
[2020-05-11] MEDS: PIPERACILLIN/TAZO 3.375 GM/D5W 50 ML IV SCH ×5 (00:17→23:55)
[2020-05-11] MEDS: ONDANSETRON HCL 4 MG/2 ML VIAL IVP PRN (03:32)
[2020-05-11] MEDS ORDERED: 0.9% SODIUM CHLORIDE 5 ML NEB SOLUTION NEB ONE (04:46)
[2020-05-11 05:40] VITALS: BP 108/52
[2020-05-11] MEDS: INSULIN LISPRO 100 UNITS/ML SQ PRN ×4 (06:13→20:23)
[2020-05-11 06:52] LABS: BASOPHILS % (AUTO) 0.8 % (0.0-2.0); HEMATOCRIT 38.4 % (41-53); HEMOGLOBIN 13.2 g/dL (13.5-17.5); LYMPHOCYTES % (AUTO) 21.9 % (22.0-44.0); MEAN CORPUSCULAR HEMOGLOBIN 33.6 pg (26.0-34.0); MEAN CORPUSCULAR HGB CONC 34.5 G/dL (31.0-37.0); MEAN CORPUSCULAR VOLUME 97 fL (80-100); MONOCYTES # (AUTO) 0.8 K/uL (0.1-1.0); MONOCYTES % (AUTO) 16.5 % (2.0-9.0); NEUTROPHILS # (AUTO) 2.8 K/uL (1.8-7.7); NEUTROPHILS % (AUTO) 58.8 % (40.0-70.0); PLATELET COUNT (AUTO) 148 K/uL (150-450); RED BLOOD CELL COUNT(AUTO) 3.95 MIL/uL (4.50-5.90)
[2020-05-11 07:23] LABS: ALANINE AMINOTRANSFERASE 290 U/L (12-78); ALBUMIN 1.8 g/dL (3.4-5.0); ALKALINE PHOSPHATASE 892 U/L (46-116); ANION GAP 11 mmol/L (8-16); ASPARTATE AMINOTRANSFERASE 343 U/L (15-37); BILIRUBIN,TOTAL 3.7 mg/dL (0.1-1.0); CALCIUM, TOTAL 8.3 mg/dL (8.8-10.5); CARBON DIOXIDE 22 mmol/L (22-29); CHLORIDE 94 mmol/L (98-107); CREATININE 0.87 mg/dL (0.60-1.30); GLOMERULAR FILTR. RATE CALC > 60 mL/min (>60); GLUCOSE,RANDOM 218 mg/dL (70-110); POTASSIUM 3.6 mmol/L (3.5-5.1); SODIUM SERUM 127 mmol/L (136-145); TOTAL PROTEIN, SERUM 6.1 g/dL (6.4-8.2); UREA NITROGEN, BLOOD 13 mg/dL (7-18)
[2020-05-11 07:42] LABS: PHOSPHORUS 1.4 mg/dL (2.5-4.9)
[2020-05-11 08:08] VITALS: BP 104/58
[2020-05-11] MEDS ORDERED: SODIUM PHOS,M-BASIC-D-BASIC 20 MMOL in DEXTROSE 5%-WATER 150 ML IV ONE (08:15)
[2020-05-11] MEDS: PANTOPRAZOLE SODIUM 40 MG DR TABLET PO SCH (08:35)
[2020-05-11] MEDS: MULTIVITAMINS WITH MINERALS, THERAPEUTIC TABLET PO SCH (08:35)
[2020-05-11] MEDS: DOCUSATE SODIUM 100 MG CAPSULE PO SCH ×2 (08:36→20:14)
[2020-05-11] MEDS: FUROSEMIDE 20 MG/2 ML VIAL IVP SCH (08:36)
[2020-05-11] MEDS ORDERED: POTASSIUM CHLORIDE 20 MEQ ER TABLET PO ONE (10:00)
[2020-05-11 11:28] VITALS: BP 102/73
[2020-05-11] MEDS ORDERED: SODIUM CHLORIDE 0.9% 250 ML IV ONE (11:38)
[2020-05-11 16:00] VITALS: BP 108/68
[2020-05-11 19:38] VITALS: BP 99/63
[2020-05-11 23:38] VITALS: BP 109/65
[2020-05-12] MEDS: LORazepam 2 MG/ML VIAL IVP PRN ×2 (00:03→15:13)
[2020-05-12 04:25] VITALS: BP 106/56
[2020-05-12] MEDS ORDERED: SODIUM CHLORIDE 0.9% 250 ML IV ONE (04:54)
[2020-05-12] MEDS: PIPERACILLIN/TAZO 3.375 GM/D5W 50 ML IV SCH ×4 (06:01→23:49)
[2020-05-12] MEDS: INSULIN LISPRO 100 UNITS/ML SQ PRN ×4 (06:14→20:29)
[2020-05-12 07:11] VITALS: BP 102/61
[2020-05-12 07:52] LABS: EOSINOPHILS % (AUTO) 2.6 % (1.0-6.0); HEMOGLOBIN 12.9 g/dL (13.5-17.5); LYMPHOCYTES % (AUTO) 28.6 % (22.0-44.0); MEAN CORPUSCULAR HEMOGLOBIN 33.3 pg (26.0-34.0); MEAN CORPUSCULAR HGB CONC 33.9 G/dL (31.0-37.0); MEAN CORPUSCULAR VOLUME 98 fL (80-100); MONOCYTES # (AUTO) 0.5 K/uL (0.1-1.0); MONOCYTES % (AUTO) 14.2 % (2.0-9.0); NEUTROPHILS # (AUTO) 1.9 K/uL (1.8-7.7); NEUTROPHILS % (AUTO) 53.6 % (40.0-70.0); PLATELET COUNT (AUTO) 151 K/uL (150-450); RED BLOOD CELL COUNT(AUTO) 3.86 MIL/uL (4.50-5.90); RED CELL DISTRIBUTION WIDTH 16.1 % (11.5-14.5)
[2020-05-12 08:18] LABS: ALANINE AMINOTRANSFERASE 257 U/L (12-78); ALBUMIN 1.7 g/dL (3.4-5.0); ALKALINE PHOSPHATASE 883 U/L (46-116); ANION GAP 8 mmol/L (8-16); ASPARTATE AMINOTRANSFERASE 198 U/L (15-37); BILIRUBIN,TOTAL 2.4 mg/dL (0.1-1.0); CALCIUM, TOTAL 8.6 mg/dL (8.8-10.5); CARBON DIOXIDE 26 mmol/L (22-29); CHLORIDE 97 mmol/L (98-107); GLOMERULAR FILTR. RATE CALC > 60 mL/min (>60); GLUCOSE,RANDOM 302 mg/dL (70-110); PHOSPHORUS 2.1 mg/dL (2.5-4.9); POTASSIUM 3.1 mmol/L (3.5-5.1); SODIUM SERUM 131 mmol/L (136-145); TOTAL PROTEIN, SERUM 5.8 g/dL (6.4-8.2); UREA NITROGEN, BLOOD 13 mg/dL (7-18)
[2020-05-12] MEDS: ChlordiazePOXIDE HCL 10 MG CAPSULE PO SCH ×3 (08:19→23:49)
[2020-05-12] MEDS: MULTIVITAMINS WITH MINERALS, THERAPEUTIC TABLET PO SCH (08:19)
[2020-05-12] MEDS: PANTOPRAZOLE SODIUM 40 MG DR TABLET PO SCH (08:19)
[2020-05-12] MEDS: FUROSEMIDE 20 MG/2 ML VIAL IVP SCH (08:19)
[2020-05-12] MEDS: DOCUSATE SODIUM 100 MG CAPSULE PO SCH ×2 (08:19→20:30)
[2020-05-12 11:35] VITALS: BP 107/74
[2020-05-12] MEDS: POTASSIUM CHLORIDE 20 MEQ ER TABLET PO PRN ×2 (11:47→20:20)
[2020-05-12] MEDS ORDERED: POTASSIUM PHOS,M-BASIC-D-BASIC 30 MEQ in DEXTROSE 5%-WATER 150 ML IV ONE (15:00)
[2020-05-12] MEDS ORDERED: DEXTROSE 50%-WATER 25 GM/50 ML SYRINGE IVP PRN (15:30)
[2020-05-12 15:41] VITALS: BP 100/71
[2020-05-12] MEDS ORDERED: POTASSIUM CHLORIDE 20 MEQ ER TABLET PO ONE (16:00)
[2020-05-12 20:40] VITALS: BP 111/80
[2020-05-12] MEDS ORDERED: INSULIN GLARGINE,HUM.REC.ANLOG 100 UNITS/ML SQ SCH (21:00)
[2020-05-13 00:53] VITALS: BP 99/70
[2020-05-13] MEDS: POTASSIUM CHLORIDE 20 MEQ ER TABLET PO PRN (01:19)
[2020-05-13] MEDS: LORazepam 2 MG/ML VIAL IVP PRN (01:20)
[2020-05-13 05:31] VITALS: BP 110/76
[2020-05-13] MEDS: PIPERACILLIN/TAZO 3.375 GM/D5W 50 ML IV SCH ×3 (05:59→17:19)
[2020-05-13] MEDS: INSULIN LISPRO 100 UNITS/ML SQ PRN ×3 (06:02→18:08)
[2020-05-13 07:15] VITALS: BP 89/52
[2020-05-13] MEDS: ChlordiazePOXIDE HCL 10 MG CAPSULE PO SCH ×2 (08:45→15:46)
[2020-05-13] MEDS: PANTOPRAZOLE SODIUM 40 MG DR TABLET PO SCH (08:45)
[2020-05-13] MEDS: FUROSEMIDE 20 MG/2 ML VIAL IVP SCH (08:46)
[2020-05-13] MEDS: MULTIVITAMINS WITH MINERALS, THERAPEUTIC TABLET PO SCH (08:46)
[2020-05-13] MEDS: DOCUSATE SODIUM 100 MG CAPSULE PO SCH (08:49)
[2020-05-13 09:04] LABS: BASOPHILS % (AUTO) 1.3 % (0.0-2.0); EOSINOPHILS % (AUTO) 2.8 % (1.0-6.0); HEMATOCRIT 37.6 % (41-53); HEMOGLOBIN 12.7 g/dL (13.5-17.5); LYMPHOCYTES # (AUTO) 1.1 K/uL (1.0-4.8); LYMPHOCYTES % (AUTO) 29.6 % (22.0-44.0); MEAN CORPUSCULAR HEMOGLOBIN 33.4 pg (26.0-34.0); MEAN CORPUSCULAR HGB CONC 33.8 G/dL (31.0-37.0); MEAN CORPUSCULAR VOLUME 99 fL (80-100); MONOCYTES # (AUTO) 0.4 K/uL (0.1-1.0); MONOCYTES % (AUTO) 11.2 % (2.0-9.0); NEUTROPHILS # (AUTO) 2.1 K/uL (1.8-7.7); NEUTROPHILS % (AUTO) 55.1 % (40.0-70.0); PLATELET COUNT (AUTO) 151 K/uL (150-450); RED BLOOD CELL COUNT(AUTO) 3.79 MIL/uL (4.50-5.90); RED CELL DISTRIBUTION WIDTH 16.3 % (11.5-14.5)
[2020-05-13 09:35] LABS: ALANINE AMINOTRANSFERASE 229 U/L (12-78); ALBUMIN 1.8 g/dL (3.4-5.0); ALKALINE PHOSPHATASE 884 U/L (46-116); ANION GAP 10 mmol/L (8-16); ASPARTATE AMINOTRANSFERASE 130 U/L (15-37); BILIRUBIN,TOTAL 1.8 mg/dL (0.1-1.0); CALCIUM, TOTAL 8.7 mg/dL (8.8-10.5); CARBON DIOXIDE 25 mmol/L (22-29); CHLORIDE 96 mmol/L (98-107); CREATININE 0.83 mg/dL (0.60-1.30); GLOMERULAR FILTR. RATE CALC > 60 mL/min (>60); GLUCOSE,RANDOM 221 mg/dL (70-110); PHOSPHORUS 2.4 mg/dL (2.5-4.9); POTASSIUM 3.8 mmol/L (3.5-5.1); SODIUM SERUM 131 mmol/L (136-145); TOTAL PROTEIN, SERUM 6.1 g/dL (6.4-8.2); UREA NITROGEN, BLOOD 15 mg/dL (7-18)
[2020-05-13 09:49] LABS: COVID AG,FIA SOURCE NASOPHARYNGEAL
[2020-05-13] MEDS: MAGNESIUM OXIDE 400 MG TABLET PO PRN ×2 (10:31→16:24)
[2020-05-13 11:00] VITALS: BP 87/51
[2020-05-13 16:05] VITALS: BP 104/74
[2020-05-13 21:57] LABS: GLUCOMETER DEV NAME(LOC) 3E.I 2; GLUCOSE,POINT OF CARE 231 MG/DL (70-110)
== END 2020-05-13 18:50 ==
LOC: EMS 06:05 → 5S 18:25
PROVIDERS: ADMIT Internal Medicine; ATTEND Internal Medicine
PROC: BF131ZZ Fluoroscopy of Gallbladder and Bile Ducts using Low Osmolar Contrast (ICD-10-PCS; 2020-05-09)
PROC: 0FC98ZZ Extirpation of Matter from Common Bile Duct, Via Natural or Artificial Opening Endoscopic (ICD-10-PCS; principal; 2020-05-09 15:00)
DX: K80.70 Calculus of gallbladder and bile duct without cholecystitis without obstruction (principal); K85.90 Acute pancreatitis without necrosis or infection, unspecified; E43 Unspecified severe protein-calorie malnutrition; E87.6 Hypokalemia; E87.1 Hypo-osmolality and hyponatremia; E11.65 Type 2 diabetes mellitus with hyperglycemia; E66.01 Morbid (severe) obesity due to excess calories; Z68.41 Body mass index [BMI] 40.0-44.9, adult; R45.851 Suicidal ideations; E78.5 Hyperlipidemia, unspecified; E83.39 Other disorders of phosphorus metabolism; E83.41 Hypermagnesemia; F25.9 Schizoaffective disorder, unspecified; I50.9 Heart failure, unspecified; K70.10 Alcoholic hepatitis without ascites; Z91.19 Patient's noncompliance with other medical treatment and regimen; I25.10 Atherosclerotic heart disease of native coronary artery without angina pectoris; Y90.9 Presence of alcohol in blood, level not specified; I25.2 Old myocardial infarction; J44.9 Chronic obstructive pulmonary disease, unspecified; E78.00 Pure hypercholesterolemia, unspecified; D57.1 Sickle-cell disease without crisis; I11.0 Hypertensive heart disease with heart failure; Z83.3 Family history of diabetes mellitus; Z82.49 Family history of ischemic heart disease and other diseases of the circulatory system; Z88.8 Allergy status to other drugs, medicaments and biological substances; Z79.4 Long term (current) use of insulin; F10.139 Alcohol abuse with withdrawal, unspecified; F32.9 Major depressive disorder, single episode, unspecified; Z86.74 Personal history of sudden cardiac arrest; Z79.82 Long term (current) use of aspirin; E87.70 Fluid overload, unspecified; E26.1 Secondary hyperaldosteronism; Z20.822 Contact with and (suspected) exposure to COVID-19
CPT/HCPCS: 76700; 82533; 83735; 83935; 84100; 84132; 84300; 84443; 87426; 93005; 94640; 97162; G0238; G0480; J0330; J1100; J1644; J1815; J1940; J2060; J2250; J2370; J2405; J2543; J2704; J2765; J3010; J3411; J3475; J3480; J3490; J7030; J7050; J7060; Q9961; 36415-L1; 36415-TC; 71045-TC; J7613; X7700

== ENCOUNTER 2020-05-13 19:00 | Inpatient (IN) | payer MEDICAID ==
[~2020-05-13] VITALS: Ht 182.9 cm; Wt 59.6 kg
[2020-05-13 19:58] VITALS: BP 101/60
[2020-05-13] MEDS ORDERED: HALOPERIDOL 5 MG TABLET PO PRN (20:15)
[2020-05-13] MEDS ORDERED: LORazepam 2 MG TABLET PO PRN (20:15)
[2020-05-13] MEDS ORDERED: ONDANSETRON HCL 4 MG TABLET PO PRN (20:30)
[2020-05-13] MEDS ORDERED: ALBUTEROL SULFATE 2.5 MG/0.5 ML NEB SOLUTION NEB PRN (20:30)
[2020-05-13] MEDS ORDERED: DEXTROSE 50%-WATER 25 GM/50 ML SYRINGE IVP PRN (20:45)
[2020-05-13] MEDS: INSULIN GLARGINE,HUM.REC.ANLOG 100 UNITS/ML SQ SCH (20:56)
[2020-05-13] MEDS: INSULIN LISPRO 100 UNITS/ML SQ PRN (20:57)
[2020-05-13] MEDS: ZOLPIDEM TARTRATE 10 MG TABLET PO PRN (21:47)
[2020-05-14 06:14] LABS: GLUCOMETER DEV NAME(LOC) 3E.I 2; GLUCOSE,POINT OF CARE 209 MG/DL (70-110)
[2020-05-14] MEDS: INSULIN LISPRO 100 UNITS/ML SQ PRN ×4 (06:52→20:38)
[2020-05-14 08:02] LABS: BASOPHILS % (AUTO) 1.8 % (0.0-2.0); EOSINOPHILS % (AUTO) 2.9 % (1.0-6.0); HEMATOCRIT 38.2 % (41-53); HEMOGLOBIN 12.7 g/dL (13.5-17.5); LYMPHOCYTES # (AUTO) 1.2 K/uL (1.0-4.8); LYMPHOCYTES % (AUTO) 25.9 % (22.0-44.0); MEAN CORPUSCULAR HEMOGLOBIN 33.1 pg (26.0-34.0); MEAN CORPUSCULAR HGB CONC 33.3 G/dL (31.0-37.0); MEAN CORPUSCULAR VOLUME 99 fL (80-100); MONOCYTES # (AUTO) 0.4 K/uL (0.1-1.0); MONOCYTES % (AUTO) 9.9 % (2.0-9.0); NEUTROPHILS # (AUTO) 2.7 K/uL (1.8-7.7); NEUTROPHILS % (AUTO) 59.5 % (40.0-70.0); PLATELET COUNT (AUTO) 181 K/uL (150-450); RED BLOOD CELL COUNT(AUTO) 3.85 MIL/uL (4.50-5.90); RED CELL DISTRIBUTION WIDTH 16.3 % (11.5-14.5)
[2020-05-14 08:14] LABS: ALANINE AMINOTRANSFERASE 184 U/L (12-78); ALBUMIN 1.8 g/dL (3.4-5.0); ALKALINE PHOSPHATASE 822 U/L (46-116); ANION GAP 7 mmol/L (8-16); ASPARTATE AMINOTRANSFERASE 90 U/L (15-37); BILIRUBIN,TOTAL 1.4 mg/dL (0.1-1.0); CALCIUM, TOTAL 8.4 mg/dL (8.8-10.5); CARBON DIOXIDE 28 mmol/L (22-29); CHLORIDE 100 mmol/L (98-107); CREATININE 0.89 mg/dL (0.60-1.30); GLOMERULAR FILTR. RATE CALC > 60 mL/min (>60); GLUCOSE,RANDOM 285 mg/dL (70-110); POTASSIUM 3.6 mmol/L (3.5-5.1); SODIUM SERUM 135 mmol/L (136-145); TOTAL PROTEIN, SERUM 5.3 g/dL (6.4-8.2); UREA NITROGEN, BLOOD 13 mg/dL (7-18)
[2020-05-14 08:44] VITALS: BP 96/58
[2020-05-14] MEDS: AMOX TR/POT CLAV 875 MG/125 MG TABLET PO SCH ×2 (09:07→16:30)
[2020-05-14] MEDS: FUROSEMIDE 20 MG TABLET PO SCH (09:07)
[2020-05-14] MEDS: PANTOPRAZOLE SODIUM 40 MG DR TABLET PO SCH (09:08)
[2020-05-14] MEDS: BuPROPion HCL XL 150 MG ER TABLET PO SCH (09:08)
[2020-05-14] MEDS: MULTIVITAMINS WITH MINERALS, THERAPEUTIC TABLET PO SCH (09:08)
[2020-05-14 11:30] LABS: GLUCOMETER DEV NAME(LOC) 3E.I 2; GLUCOSE,POINT OF CARE 242 MG/DL (70-110)
[2020-05-14 16:00] VITALS: BP 97/67
[2020-05-14 16:45] LABS: GLUCOMETER DEV NAME(LOC) 3E.I 2; GLUCOSE,POINT OF CARE 315 MG/DL (70-110)
[2020-05-14] MEDS: INSULIN GLARGINE,HUM.REC.ANLOG 100 UNITS/ML SQ SCH (20:39)
[2020-05-14 20:42] LABS: GLUCOMETER DEV NAME(LOC) 3E.I 2; GLUCOSE,POINT OF CARE 323 MG/DL (70-110)
[2020-05-14] MEDS: ZOLPIDEM TARTRATE 10 MG TABLET PO PRN (21:12)
[2020-05-14] MEDS ORDERED: ALBUTEROL SULFATE HFA 90 MCG/PUFF 8 GM INHALER IH PRN (23:00)
[2020-05-14] MEDS ORDERED: MAGNESIUM HYDROXIDE SUSPENSION 30 ML UDCUP PO PRN (23:00)
[2020-05-14] MEDS ORDERED: BENZOCAINE/MENTHOL LOZENGE PO PRN (23:00)
[2020-05-14] MEDS ORDERED: BACITRACIN 28 GM OINTMENT TP PRN (23:00)
[2020-05-14] MEDS ORDERED: MAG HYDROX/AL HYDROX/SIMETH ES 30 ML SUSPENSION UDCUP PO PRN (23:00)
[2020-05-14] MEDS ORDERED: LOPERAMIDE HCL 2 MG CAPSULE PO PRN (23:00)
[2020-05-14] MEDS ORDERED: DOCUSATE SODIUM 100 MG CAPSULE PO PRN (23:00)
[2020-05-14] MEDS ORDERED: PETROLATUM,WHITE 28 GM JELLY TP PRN (23:00)
[2020-05-14] MEDS ORDERED: CloNIDine HCL 0.1 MG TABLET PO PRN (23:00)
[2020-05-15 06:45] LABS: GLUCOMETER DEV NAME(LOC) 3E.I 2; GLUCOSE,POINT OF CARE 224 MG/DL (70-110)
[2020-05-15] MEDS: INSULIN LISPRO 100 UNITS/ML SQ PRN ×4 (06:47→20:44)
[2020-05-15 08:00] VITALS: BP 132/73
[2020-05-15 08:03] LABS: ALANINE AMINOTRANSFERASE 164 U/L (12-78); ALKALINE PHOSPHATASE 823 U/L (46-116); ANION GAP 12 mmol/L (8-16); ASPARTATE AMINOTRANSFERASE 77 U/L (15-37); BILIRUBIN,TOTAL 1.3 mg/dL (0.1-1.0); CALCIUM, TOTAL 9.2 mg/dL (8.8-10.5); CARBON DIOXIDE 24 mmol/L (22-29); CHLORIDE 99 mmol/L (98-107); CREATININE 0.96 mg/dL (0.60-1.30); GLOMERULAR FILTR. RATE CALC > 60 mL/min (>60); GLUCOSE,RANDOM 277 mg/dL (70-110); POTASSIUM 3.6 mmol/L (3.5-5.1); SODIUM SERUM 135 mmol/L (136-145); TOTAL PROTEIN, SERUM 6.5 g/dL (6.4-8.2); UREA NITROGEN, BLOOD 10 mg/dL (7-18)
[2020-05-15] MEDS: AMOX TR/POT CLAV 875 MG/125 MG TABLET PO SCH ×2 (08:22→16:28)
[2020-05-15] MEDS: PANTOPRAZOLE SODIUM 40 MG DR TABLET PO SCH (08:23)
[2020-05-15] MEDS: MULTIVITAMINS WITH MINERALS, THERAPEUTIC TABLET PO SCH (08:23)
[2020-05-15] MEDS: BuPROPion HCL XL 150 MG ER TABLET PO SCH (08:23)
[2020-05-15] MEDS: FUROSEMIDE 20 MG TABLET PO SCH (08:23)
[2020-05-15 11:39] LABS: GLUCOMETER DEV NAME(LOC) 3E.I 2; GLUCOSE,POINT OF CARE 281 MG/DL (70-110)
[2020-05-15 16:16] VITALS: BP 109/69
[2020-05-15 16:43] LABS: GLUCOMETER DEV NAME(LOC) 3E.I 2; GLUCOSE,POINT OF CARE 358 MG/DL (70-110)
[2020-05-15] MEDS: INSULIN GLARGINE,HUM.REC.ANLOG 100 UNITS/ML SQ SCH (20:44)
[2020-05-15] MEDS: ZOLPIDEM TARTRATE 10 MG TABLET PO PRN (20:47)
[2020-05-16] MEDS: INSULIN LISPRO 100 UNITS/ML SQ PRN ×3 (06:43→16:39)
[2020-05-16 06:50] LABS: GLUCOMETER DEV NAME(LOC) 3E.I 2; GLUCOSE,POINT OF CARE 237 MG/DL (70-110)
[2020-05-16 09:00] VITALS: BP 105/71
[2020-05-16] MEDS: FUROSEMIDE 20 MG TABLET PO SCH (09:01)
[2020-05-16] MEDS: PANTOPRAZOLE SODIUM 40 MG DR TABLET PO SCH (09:01)
[2020-05-16] MEDS: MULTIVITAMINS WITH MINERALS, THERAPEUTIC TABLET PO SCH (09:01)
[2020-05-16] MEDS: BuPROPion HCL XL 150 MG ER TABLET PO SCH (09:01)
[2020-05-16] MEDS: AMOX TR/POT CLAV 875 MG/125 MG TABLET PO SCH ×2 (09:01→16:37)
[2020-05-16 10:08] VITALS: BP 106/68
[2020-05-16] MEDS: IBUPROFEN 600 MG TABLET PO PRN (10:08)
[2020-05-16 11:08] VITALS: BP 102/66
[2020-05-16 11:25] LABS: GLUCOMETER DEV NAME(LOC) 3E.I 2; GLUCOSE,POINT OF CARE 295 MG/DL (70-110)
[2020-05-16 12:58] VITALS: BP 110/58
[2020-05-16] MEDS: ACETAMINOPHEN 325 MG TABLET PO PRN (12:58)
[2020-05-16 13:58] VITALS: BP 108/66
[2020-05-16 16:00] VITALS: BP 102/61
[2020-05-16 16:31] LABS: GLUCOMETER DEV NAME(LOC) 3E.I 2; GLUCOSE,POINT OF CARE 386 MG/DL (70-110)
[2020-05-16] MEDS: ZOLPIDEM TARTRATE 10 MG TABLET PO PRN (20:06)
[2020-05-16] MEDS: INSULIN GLARGINE,HUM.REC.ANLOG 100 UNITS/ML SQ SCH (20:11)
[2020-05-16 20:16] LABS: GLUCOMETER DEV NAME(LOC) 3E.I 2; GLUCOSE,POINT OF CARE 421 MG/DL (70-110)
[2020-05-16] MEDS ORDERED: INSULIN GLARGINE,HUM.REC.ANLOG 100 UNITS/ML SQ ONE (21:15)
[2020-05-17 05:39] LABS: GLUCOMETER DEV NAME(LOC) 3E.I 2; GLUCOSE,POINT OF CARE 209 MG/DL (70-110)
[2020-05-17] MEDS: INSULIN LISPRO 100 UNITS/ML SQ PRN ×4 (06:37→20:40)
[2020-05-17] MEDS: AMOX TR/POT CLAV 875 MG/125 MG TABLET PO SCH ×2 (08:14→17:00)
[2020-05-17] MEDS: PANTOPRAZOLE SODIUM 40 MG DR TABLET PO SCH (08:15)
[2020-05-17] MEDS: FUROSEMIDE 20 MG TABLET PO SCH (08:15)
[2020-05-17] MEDS: BuPROPion HCL XL 150 MG ER TABLET PO SCH (08:15)
[2020-05-17] MEDS: MULTIVITAMINS WITH MINERALS, THERAPEUTIC TABLET PO SCH (08:15)
[2020-05-17 08:16] VITALS: BP 99/61
[2020-05-17] MEDS: IBUPROFEN 600 MG TABLET PO PRN ×2 (08:16→17:00)
[2020-05-17 08:40] VITALS: BP 99/61
[2020-05-17 09:16] VITALS: BP 107/64
[2020-05-17 11:17] LABS: GLUCOMETER DEV NAME(LOC) 3E.I 2; GLUCOSE,POINT OF CARE 287 MG/DL (70-110)
[2020-05-17 16:07] VITALS: BP 110/73
[2020-05-17 17:00] VITALS: BP 110/73
[2020-05-17 17:10] LABS: GLUCOMETER DEV NAME(LOC) 3E.I 2; GLUCOSE,POINT OF CARE 344 MG/DL (70-110)
[2020-05-17 18:00] VITALS: BP 105/67
[2020-05-17] MEDS: INSULIN GLARGINE,HUM.REC.ANLOG 100 UNITS/ML SQ SCH (20:38)
[2020-05-17] MEDS: ZOLPIDEM TARTRATE 10 MG TABLET PO PRN (20:41)
[2020-05-17 21:12] LABS: GLUCOMETER DEV NAME(LOC) 3E.I 2; GLUCOSE,POINT OF CARE 308 MG/DL (70-110)
[2020-05-18 05:53] LABS: GLUCOMETER DEV NAME(LOC) 3E.I 2; GLUCOSE,POINT OF CARE 210 MG/DL (70-110)
[2020-05-18] MEDS: INSULIN LISPRO 100 UNITS/ML SQ PRN ×4 (06:31→20:49)
[2020-05-18 08:39] VITALS: BP 117/81
[2020-05-18 08:45] VITALS: BP 117/81
[2020-05-18] MEDS: IBUPROFEN 600 MG TABLET PO PRN (09:08)
[2020-05-18] MEDS: MULTIVITAMINS WITH MINERALS, THERAPEUTIC TABLET PO SCH (09:09)
[2020-05-18] MEDS: AMOX TR/POT CLAV 875 MG/125 MG TABLET PO SCH ×2 (09:09→16:55)
[2020-05-18] MEDS: FUROSEMIDE 20 MG TABLET PO SCH (09:09)
[2020-05-18] MEDS: PANTOPRAZOLE SODIUM 40 MG DR TABLET PO SCH (09:09)
[2020-05-18] MEDS: BuPROPion HCL XL 150 MG ER TABLET PO SCH (09:09)
[2020-05-18 10:08] VITALS: BP 113/66
[2020-05-18 11:25] LABS: GLUCOMETER DEV NAME(LOC) 3E.I 2; GLUCOSE,POINT OF CARE 294 MG/DL (70-110)
[2020-05-18 16:36] VITALS: BP 116/73
[2020-05-18 17:17] LABS: GLUCOMETER DEV NAME(LOC) 3E.I 2; GLUCOSE,POINT OF CARE 257 MG/DL (70-110)
[2020-05-18] MEDS: INSULIN GLARGINE,HUM.REC.ANLOG 100 UNITS/ML SQ SCH (20:48)
[2020-05-18] MEDS: ZOLPIDEM TARTRATE 10 MG TABLET PO PRN (20:49)
[2020-05-18 21:10] LABS: GLUCOMETER DEV NAME(LOC) 3E.I 2; GLUCOSE,POINT OF CARE 257 MG/DL (70-110)
[2020-05-19 05:31] LABS: GLUCOMETER DEV NAME(LOC) 3E.I 2; GLUCOSE,POINT OF CARE 197 MG/DL (70-110)
[2020-05-19] MEDS: INSULIN LISPRO 100 UNITS/ML SQ PRN ×4 (06:37→20:35)
[2020-05-19 08:54] VITALS: BP 99/65
[2020-05-19] MEDS: BuPROPion HCL XL 150 MG ER TABLET PO SCH (08:54)
[2020-05-19] MEDS: PANTOPRAZOLE SODIUM 40 MG DR TABLET PO SCH (08:54)
[2020-05-19] MEDS: FUROSEMIDE 20 MG TABLET PO SCH (08:54)
[2020-05-19] MEDS: MULTIVITAMINS WITH MINERALS, THERAPEUTIC TABLET PO SCH (08:54)
[2020-05-19] MEDS: AMOX TR/POT CLAV 875 MG/125 MG TABLET PO SCH ×2 (08:54→17:26)
[2020-05-19] MEDS: IBUPROFEN 600 MG TABLET PO PRN (08:55)
[2020-05-19 09:55] VITALS: BP 102/68
[2020-05-19 11:23] LABS: GLUCOMETER DEV NAME(LOC) 3E.I 2; GLUCOSE,POINT OF CARE 259 MG/DL (70-110)
[2020-05-19 14:50] LABS: GLUCOMETER DEV NAME(LOC) 3E.I 2; GLUCOSE,POINT OF CARE 328 MG/DL (70-110)
[2020-05-19 15:48] LABS: COVID AG,FIA SOURCE NASOPHARYNGEAL
[2020-05-19 16:00] VITALS: BP 123/78
[2020-05-19 16:44] LABS: GLUCOMETER DEV NAME(LOC) 3E.I 2; GLUCOSE,POINT OF CARE 256 MG/DL (70-110)
[2020-05-19] MEDS: INSULIN GLARGINE,HUM.REC.ANLOG 100 UNITS/ML SQ SCH (20:36)
[2020-05-19] MEDS: ZOLPIDEM TARTRATE 10 MG TABLET PO PRN (20:37)
[2020-05-19 20:41] LABS: GLUCOMETER DEV NAME(LOC) 3E.I 2; GLUCOSE,POINT OF CARE 327 MG/DL (70-110)
[2020-05-19 22:16] LABS: APPEARANCE,URINE CLEAR (CLEAR); BILIRUBIN,URINE NEGATIVE (NEGATIVE); GLUCOSE, URINE (UA) >=1000 mg/dL (NEGATIVE); KETONES,URINE NEGATIVE (NEGATIVE); LEUKOCYTE ESTERASE ,URINE NEGATIVE (NEGATIVE); NITRATE,URINE NEGATIVE (NEGATIVE); OCCULT BLOOD,URINE NEGATIVE (NEGATIVE); PH,URINE 5.5 (5.0-8.0); PROTEIN,URINE NEGATIVE (NEGATIVE); UROBILINOGEN,URINE 0.2 mg/dL (<=1.0)
[2020-05-19 22:24] LABS: BACTERIA,URINE None Seen /HPF (None Seen); RBC,URINE None Seen /HPF (0-2); SQUAMOUS EPITHELIAL CELL,UR None Seen /LPF (None Seen); WBC,URINE None Seen /HPF (0-5)
[2020-05-20 06:35] LABS: GLUCOMETER DEV NAME(LOC) 3E.I 2; GLUCOSE,POINT OF CARE 185 MG/DL (70-110)
[2020-05-20] MEDS: INSULIN LISPRO 100 UNITS/ML SQ PRN ×4 (06:54→20:35)
[2020-05-20 08:14] VITALS: BP 103/64
[2020-05-20] MEDS: AMOX TR/POT CLAV 875 MG/125 MG TABLET PO SCH ×2 (09:13→16:36)
[2020-05-20] MEDS: MULTIVITAMINS WITH MINERALS, THERAPEUTIC TABLET PO SCH (09:13)
[2020-05-20] MEDS: BuPROPion HCL XL 150 MG ER TABLET PO SCH (09:13)
[2020-05-20] MEDS: FUROSEMIDE 40 MG TABLET PO SCH (09:13)
[2020-05-20] MEDS: PANTOPRAZOLE SODIUM 40 MG DR TABLET PO SCH (09:13)
[2020-05-20 09:23] VITALS: BP 103/64
[2020-05-20] MEDS: IBUPROFEN 600 MG TABLET PO PRN (09:26)
[2020-05-20 11:33] LABS: GLUCOMETER DEV NAME(LOC) 3E.I 2; GLUCOSE,POINT OF CARE 228 MG/DL (70-110)
[2020-05-20 16:00] VITALS: BP 109/73
[2020-05-20 16:48] LABS: GLUCOMETER DEV NAME(LOC) 3E.I 2; GLUCOSE,POINT OF CARE 316 MG/DL (70-110)
[2020-05-20] MEDS: INSULIN GLARGINE,HUM.REC.ANLOG 100 UNITS/ML SQ SCH (20:34)
[2020-05-20 20:43] LABS: GLUCOMETER DEV NAME(LOC) 3E.I 2; GLUCOSE,POINT OF CARE 269 MG/DL (70-110)
[2020-05-20] MEDS: ZOLPIDEM TARTRATE 10 MG TABLET PO PRN (21:12)
[2020-05-21 05:56] LABS: GLUCOMETER DEV NAME(LOC) 3E.I 2; GLUCOSE,POINT OF CARE 238 MG/DL (70-110)
[2020-05-21] MEDS: INSULIN LISPRO 100 UNITS/ML SQ PRN ×4 (06:53→20:44)
[2020-05-21] MEDS: BuPROPion HCL XL 150 MG ER TABLET PO SCH (09:13)
[2020-05-21] MEDS: MULTIVITAMINS WITH MINERALS, THERAPEUTIC TABLET PO SCH (09:13)
[2020-05-21] MEDS: PANTOPRAZOLE SODIUM 40 MG DR TABLET PO SCH (09:13)
[2020-05-21] MEDS: FUROSEMIDE 40 MG TABLET PO SCH (09:13)
[2020-05-21] MEDS: IBUPROFEN 600 MG TABLET PO PRN (09:19)
[2020-05-21 09:31] VITALS: BP 100/66
[2020-05-21 12:35] LABS: GLUCOMETER DEV NAME(LOC) 3E.I 2; GLUCOSE,POINT OF CARE 236 MG/DL (70-110)
[2020-05-21 16:00] VITALS: BP 119/79
[2020-05-21 17:02] LABS: GLUCOMETER DEV NAME(LOC) 3E.I 2; GLUCOSE,POINT OF CARE 332 MG/DL (70-110)
[2020-05-21] MEDS: INSULIN GLARGINE,HUM.REC.ANLOG 100 UNITS/ML SQ SCH (20:44)
[2020-05-21] MEDS: ZOLPIDEM TARTRATE 10 MG TABLET PO PRN (20:46)
[2020-05-21 21:10] LABS: GLUCOMETER DEV NAME(LOC) 3E.I 2; GLUCOSE,POINT OF CARE 239 MG/DL (70-110)
[2020-05-21] MEDS: ACETAMINOPHEN 325 MG TABLET PO PRN (22:20)
[2020-05-22 05:15] VITALS: BP 113/69
[2020-05-22] MEDS: ACETAMINOPHEN 325 MG TABLET PO PRN (05:18)
[2020-05-22 05:36] LABS: GLUCOMETER DEV NAME(LOC) 3E.I 2; GLUCOSE,POINT OF CARE 217 MG/DL (70-110)
[2020-05-22] MEDS: INSULIN LISPRO 100 UNITS/ML SQ PRN ×4 (06:35→20:42)
[2020-05-22] MEDS: MULTIVITAMINS WITH MINERALS, THERAPEUTIC TABLET PO SCH (08:19)
[2020-05-22] MEDS: BuPROPion HCL XL 150 MG ER TABLET PO SCH (08:19)
[2020-05-22] MEDS: PANTOPRAZOLE SODIUM 40 MG DR TABLET PO SCH (08:20)
[2020-05-22] MEDS: FUROSEMIDE 40 MG TABLET PO SCH (08:20)
[2020-05-22 08:25] VITALS: BP 107/64
[2020-05-22] MEDS: IBUPROFEN 600 MG TABLET PO PRN (08:25)
[2020-05-22 11:40] LABS: GLUCOMETER DEV NAME(LOC) 3E.I 2; GLUCOSE,POINT OF CARE 244 MG/DL (70-110)
[2020-05-22 16:00] VITALS: BP 105/72
[2020-05-22 16:52] LABS: GLUCOMETER DEV NAME(LOC) 3E.I 2; GLUCOSE,POINT OF CARE 279 MG/DL (70-110)
[2020-05-22] MEDS: INSULIN GLARGINE,HUM.REC.ANLOG 100 UNITS/ML SQ SCH (20:41)
[2020-05-22] MEDS: ZOLPIDEM TARTRATE 10 MG TABLET PO PRN (20:45)
[2020-05-22 20:47] LABS: GLUCOMETER DEV NAME(LOC) 3E.I 2; GLUCOSE,POINT OF CARE 252 MG/DL (70-110)
[2020-05-22 21:45] VITALS: BP 98/60
[2020-05-23 06:27] LABS: GLUCOMETER DEV NAME(LOC) 3E.I 2; GLUCOSE,POINT OF CARE 170 MG/DL (70-110)
[2020-05-23] MEDS: INSULIN LISPRO 100 UNITS/ML SQ PRN ×4 (06:41→20:41)
[2020-05-23 08:00] VITALS: BP 98/60
[2020-05-23] MEDS: FUROSEMIDE 40 MG TABLET PO SCH (08:36)
[2020-05-23] MEDS: MULTIVITAMINS WITH MINERALS, THERAPEUTIC TABLET PO SCH (08:36)
[2020-05-23] MEDS: PANTOPRAZOLE SODIUM 40 MG DR TABLET PO SCH (08:36)
[2020-05-23] MEDS: BuPROPion HCL XL 150 MG ER TABLET PO SCH (08:36)
[2020-05-23] MEDS: IBUPROFEN 600 MG TABLET PO PRN ×2 (08:39→22:52)
[2020-05-23 09:39] VITALS: BP 130/72
[2020-05-23 11:28] LABS: GLUCOMETER DEV NAME(LOC) 3E.I 2; GLUCOSE,POINT OF CARE 225 MG/DL (70-110)
[2020-05-23 16:00] VITALS: BP 97/59
[2020-05-23 16:55] LABS: GLUCOMETER DEV NAME(LOC) 3E.I 2; GLUCOSE,POINT OF CARE 295 MG/DL (70-110)
[2020-05-23] MEDS: INSULIN GLARGINE,HUM.REC.ANLOG 100 UNITS/ML SQ SCH (20:42)
[2020-05-23] MEDS: ZOLPIDEM TARTRATE 10 MG TABLET PO PRN (20:43)
[2020-05-23 20:48] LABS: GLUCOMETER DEV NAME(LOC) 3E.I 2; GLUCOSE,POINT OF CARE 279 MG/DL (70-110)
[2020-05-23 22:52] VITALS: BP 100/66
[2020-05-24 05:41] LABS: GLUCOMETER DEV NAME(LOC) 3E.I 2; GLUCOSE,POINT OF CARE 166 MG/DL (70-110)
[2020-05-24] MEDS: INSULIN LISPRO 100 UNITS/ML SQ PRN ×4 (06:43→20:21)
[2020-05-24] MEDS: BuPROPion HCL XL 150 MG ER TABLET PO SCH (08:41)
[2020-05-24] MEDS: MULTIVITAMINS WITH MINERALS, THERAPEUTIC TABLET PO SCH (08:41)
[2020-05-24] MEDS: PANTOPRAZOLE SODIUM 40 MG DR TABLET PO SCH (08:41)
[2020-05-24] MEDS: FUROSEMIDE 40 MG TABLET PO SCH (08:41)
[2020-05-24 08:45] VITALS: BP 109/80
[2020-05-24] MEDS: IBUPROFEN 600 MG TABLET PO PRN ×2 (08:45→20:32)
[2020-05-24 09:04] VITALS: BP 109/80
[2020-05-24 09:45] VITALS: BP 105/82
[2020-05-24 11:24] LABS: GLUCOMETER DEV NAME(LOC) 3E.I 2; GLUCOSE,POINT OF CARE 210 MG/DL (70-110)
[2020-05-24 16:00] VITALS: BP 99/60
[2020-05-24 17:14] LABS: GLUCOMETER DEV NAME(LOC) 3E.I 2; GLUCOSE,POINT OF CARE 260 MG/DL (70-110)
[2020-05-24] MEDS: ZOLPIDEM TARTRATE 10 MG TABLET PO PRN (20:13)
[2020-05-24] MEDS: INSULIN GLARGINE,HUM.REC.ANLOG 100 UNITS/ML SQ SCH (20:21)
[2020-05-24 20:30] LABS: GLUCOMETER DEV NAME(LOC) 3E.I 2; GLUCOSE,POINT OF CARE 274 MG/DL (70-110)
[2020-05-25 06:31] LABS: GLUCOMETER DEV NAME(LOC) 3E.I 2; GLUCOSE,POINT OF CARE 195 MG/DL (70-110)
[2020-05-25] MEDS: INSULIN LISPRO 100 UNITS/ML SQ PRN ×4 (07:03→21:06)
[2020-05-25] MEDS: PANTOPRAZOLE SODIUM 40 MG DR TABLET PO SCH (09:18)
[2020-05-25] MEDS: MULTIVITAMINS WITH MINERALS, THERAPEUTIC TABLET PO SCH (09:18)
[2020-05-25] MEDS: FUROSEMIDE 40 MG TABLET PO SCH (09:18)
[2020-05-25] MEDS: BuPROPion HCL XL 150 MG ER TABLET PO SCH (09:18)
[2020-05-25 09:45] VITALS: BP 100/55
[2020-05-25] MEDS: IBUPROFEN 600 MG TABLET PO PRN ×2 (09:45→20:27)
[2020-05-25 12:19] LABS: GLUCOMETER DEV NAME(LOC) 3E.I 2; GLUCOSE,POINT OF CARE 265 MG/DL (70-110)
[2020-05-25 16:47] VITALS: BP 104/56
[2020-05-25 17:18] LABS: GLUCOMETER DEV NAME(LOC) 3E.I 2; GLUCOSE,POINT OF CARE 290 MG/DL (70-110)
[2020-05-25 17:28] LABS: COVID AG,FIA SOURCE NASOPHARYNGEAL
[2020-05-25] MEDS: ZOLPIDEM TARTRATE 10 MG TABLET PO PRN (20:27)
[2020-05-25] MEDS: INSULIN GLARGINE,HUM.REC.ANLOG 100 UNITS/ML SQ SCH (20:35)
[2020-05-25 20:40] LABS: GLUCOMETER DEV NAME(LOC) 3E.I 2; GLUCOSE,POINT OF CARE 246 MG/DL (70-110)
[2020-05-26 05:45] LABS: GLUCOMETER DEV NAME(LOC) 3E.I 2; GLUCOSE,POINT OF CARE 172 MG/DL (70-110)
[2020-05-26] MEDS: INSULIN LISPRO 100 UNITS/ML SQ PRN ×4 (06:41→20:55)
[2020-05-26] MEDS: MULTIVITAMINS WITH MINERALS, THERAPEUTIC TABLET PO SCH (08:24)
[2020-05-26] MEDS: BuPROPion HCL XL 150 MG ER TABLET PO SCH (08:24)
[2020-05-26] MEDS: FUROSEMIDE 40 MG TABLET PO SCH (08:25)
[2020-05-26] MEDS: PANTOPRAZOLE SODIUM 40 MG DR TABLET PO SCH (08:25)
[2020-05-26] MEDS: IBUPROFEN 600 MG TABLET PO PRN ×2 (08:33→21:41)
[2020-05-26 08:34] VITALS: BP 126/77
[2020-05-26 09:33] VITALS: BP 122/79
[2020-05-26 11:30] LABS: GLUCOMETER DEV NAME(LOC) 3E.I 2; GLUCOSE,POINT OF CARE 234 MG/DL (70-110)
[2020-05-26 16:00] VITALS: BP 119/76
[2020-05-26 17:15] LABS: GLUCOMETER DEV NAME(LOC) 3E.I 2; GLUCOSE,POINT OF CARE 232 MG/DL (70-110)
[2020-05-26] MEDS: INSULIN GLARGINE,HUM.REC.ANLOG 100 UNITS/ML SQ SCH (20:54)
[2020-05-26] MEDS: ZOLPIDEM TARTRATE 10 MG TABLET PO PRN (20:55)
[2020-05-26 21:01] LABS: GLUCOMETER DEV NAME(LOC) 3E.I 2; GLUCOSE,POINT OF CARE 257 MG/DL (70-110)
[2020-05-26 21:41] VITALS: BP 125/71
[2020-05-27 05:36] LABS: GLUCOMETER DEV NAME(LOC) 3E.I 2; GLUCOSE,POINT OF CARE 218 MG/DL (70-110)
[2020-05-27] MEDS: INSULIN LISPRO 100 UNITS/ML SQ PRN ×2 (07:02→11:14)
[2020-05-27 08:00] VITALS: BP 125/83
[2020-05-27] MEDS: BuPROPion HCL XL 150 MG ER TABLET PO SCH (08:54)
[2020-05-27] MEDS: FUROSEMIDE 40 MG TABLET PO SCH (08:55)
[2020-05-27] MEDS: PANTOPRAZOLE SODIUM 40 MG DR TABLET PO SCH (08:55)
[2020-05-27] MEDS: MULTIVITAMINS WITH MINERALS, THERAPEUTIC TABLET PO SCH (08:55)
[2020-05-27 08:58] VITALS: BP 119/73
[2020-05-27] MEDS: IBUPROFEN 600 MG TABLET PO PRN (08:58)
[2020-05-27 09:58] VITALS: BP 139/88
[2020-05-27 11:21] LABS: GLUCOMETER DEV NAME(LOC) 3E.I 2; GLUCOSE,POINT OF CARE 270 MG/DL (70-110)
[2020-05-27] MEDS ORDERED: INSLAN SQ (11:25)
[2020-05-27] MEDS ORDERED: FURO40 PO (11:25)
[2020-05-27] MEDS ORDERED: PANT-31 PO (11:26)
== END 2020-05-27 15:00 | disposition home or self-care (01) | DRG 750 ==
LOC: 3EI 19:00
PROVIDERS: ADMIT Psychiatry & Neurology Psychiatry; ATTEND Psychiatry & Neurology Psychiatry
DX: F25.9 Schizoaffective disorder, unspecified (principal); E11.65 Type 2 diabetes mellitus with hyperglycemia; E55.9 Vitamin D deficiency, unspecified; E66.01 Morbid (severe) obesity due to excess calories; E78.5 Hyperlipidemia, unspecified; F10.10 Alcohol abuse, uncomplicated; F17.200 Nicotine dependence, unspecified, uncomplicated; I11.0 Hypertensive heart disease with heart failure; I50.9 Heart failure, unspecified; J44.9 Chronic obstructive pulmonary disease, unspecified; K21.9 Gastro-esophageal reflux disease without esophagitis; K59.00 Constipation, unspecified; K70.10 Alcoholic hepatitis without ascites; R45.851 Suicidal ideations; F32.9 Major depressive disorder, single episode, unspecified; Z20.822 Contact with and (suspected) exposure to COVID-19; Z68.39 Body mass index [BMI] 39.0-39.9, adult; Z71.41 Alcohol abuse counseling and surveillance of alcoholic; Z71.6 Tobacco abuse counseling
CPT/HCPCS: 80074; 87081; 87426; 97110; 97161; 97166; 97535; J1815

== ENCOUNTER 2020-07-01 14:38 | Inpatient (IN) | payer MEDICAID ==
[~2020-07-01] VITALS: Ht 188 cm; Wt 132.4 kg
[~2020-07-01 14:38] MED LIST changes: -ASPI-728 PO; -FAMO20 PO; -FOLI-130 PO; +FURO40 PO; +INSLAN SQ; -METF-960 PO; +PANT-31 PO; -THIA100T80 PO; -ZINC220C14 PO
[2020-07-01] MEDS ORDERED: ONDANSETRON HCL 4 MG TABLET PO ONE ×2 (15:30→16:30)
[2020-07-01 16:23] LABS: HEMATOCRIT 44.2 % (41-53); HEMOGLOBIN 15.8 g/dL (13.5-17.5); MEAN CORPUSCULAR HEMOGLOBIN 33.6 pg (26.0-34.0); MEAN CORPUSCULAR HGB CONC 35.7 G/dL (31.0-37.0); MEAN CORPUSCULAR VOLUME 94 fL (80-100); PLATELET COUNT (AUTO) 122 K/uL (150-450); RED BLOOD CELL COUNT(AUTO) 4.69 MIL/uL (4.50-5.90); RED CELL DISTRIBUTION WIDTH 15.7 % (11.5-14.5)
[2020-07-01 16:37] LABS: ANION GAP 18 mmol/L (8-16); CALCIUM, TOTAL 9.3 mg/dL (8.8-10.5); CARBON DIOXIDE 28 mmol/L (22-29); CHLORIDE 93 mmol/L (98-107); CREATININE 0.81 mg/dL (0.60-1.30); GLOMERULAR FILTR. RATE CALC > 60 mL/min (>60); GLUCOSE,RANDOM 167 mg/dL (70-110); SODIUM SERUM 139 mmol/L (136-145); UREA NITROGEN, BLOOD 7 mg/dL (7-18)
[2020-07-01 16:45] LABS: ALANINE AMINOTRANSFERASE 134 U/L (12-78); ALBUMIN 3.2 g/dL (3.4-5.0); ALKALINE PHOSPHATASE 418 U/L (46-116); ASPARTATE AMINOTRANSFERASE 204 U/L (15-37); BILIRUBIN,TOTAL 1.3 mg/dL (0.1-1.0); LIPASE 64 U/L (73-393); TOTAL PROTEIN, SERUM 7.6 g/dL (6.4-8.2)
[2020-07-01 16:50] LABS: B-TYPE NATRIURETIC PEPTIDE 46 pg/mL (0-100)
[2020-07-01 16:50] LABS: AMPHET/METH SCREEN,URINE NEGATIVE (NEGATIVE); BARBITURATE SCREEN, URINE NEGATIVE (NEGATIVE); BENZODIAZEPINES SCREEN,URINE NEGATIVE (NEGATIVE); CANNABINOID SCREEN,URINE NEGATIVE (NEGATIVE); COCAINE SCREEN,URINE NEGATIVE (NEGATIVE); METHADONE SCREEN, URINE NEGATIVE (NEGATIVE); OPIATE SCREEN,URINE NEGATIVE (NEGATIVE)
[2020-07-01 16:51] LABS: PHENCYCLIDINE SCREEN,URINE NEGATIVE (NEGATIVE)
[2020-07-01] MEDS ORDERED: LORazepam 1 MG TABLET PO ONE (17:00)
[2020-07-01 17:09] LABS: BAND NEUTROPHILS % (MANUAL) 0 % (0-5); LYMPHOCYTES % (MANUAL) 39 % (22-44); MONOCYTES % (MANUAL) 5 % (2-9); SEGMENTED NEUTROPHILS % 56 % (40-70)
[2020-07-01] MEDS ORDERED: POTASSIUM CHLORIDE 20 MEQ ER TABLET PO ONE (17:30)
[2020-07-01 19:10] LABS: COVID AG,FIA SOURCE NASOPHARYNGEAL
[2020-07-01 21:45] VITALS: BP 123/78
[2020-07-02] MEDS: LORazepam 2 MG TABLET PO PRN ×3 (00:53→17:20)
[2020-07-02] MEDS ORDERED: LOPERAMIDE HCL 2 MG CAPSULE PO PRN (07:45)
[2020-07-02] MEDS ORDERED: BENZOCAINE/MENTHOL LOZENGE PO PRN (07:45)
[2020-07-02] MEDS ORDERED: DOCUSATE SODIUM 100 MG CAPSULE PO PRN (07:45)
[2020-07-02] MEDS ORDERED: BACITRACIN 28 GM OINTMENT TP PRN (07:45)
[2020-07-02] MEDS ORDERED: DEXTROSE 50%-WATER 25 GM/50 ML SYRINGE IVP PRN (07:45)
[2020-07-02] MEDS ORDERED: MAG HYDROX/AL HYDROX/SIMETH ES 30 ML SUSPENSION UDCUP PO PRN (07:45)
[2020-07-02] MEDS ORDERED: ALBUTEROL SULFATE HFA 90 MCG/PUFF 8 GM INHALER IH PRN (07:45)
[2020-07-02] MEDS ORDERED: CloNIDine HCL 0.1 MG TABLET PO PRN (07:45)
[2020-07-02] MEDS ORDERED: ACETAMINOPHEN 325 MG TABLET PO PRN (07:45)
[2020-07-02] MEDS ORDERED: PETROLATUM,WHITE 28 GM JELLY TP PRN (07:45)
[2020-07-02] MEDS ORDERED: MAGNESIUM HYDROXIDE SUSPENSION 30 ML UDCUP PO PRN (07:45)
[2020-07-02] MEDS ORDERED: OMEPRAZOLE 20 MG CAPSULE PO PRN (07:45)
[2020-07-02] MEDS: MULTIVITAMINS WITH MINERALS, THERAPEUTIC TABLET PO SCH (07:59)
[2020-07-02] MEDS: IBUPROFEN 600 MG TABLET PO PRN (07:59)
[2020-07-02] MEDS: OLANZapine 5 MG TABLET PO PRN (08:00)
[2020-07-02 08:20] LABS: CHOL/HDL RATIO 1.7 (4.2-7.3)
[2020-07-02 12:02] LABS: GLUCOMETER DEV NAME(LOC) 3E.I 2; GLUCOSE,POINT OF CARE 257 MG/DL (70-110)
[2020-07-02] MEDS: INSULIN LISPRO 100 UNITS/ML SQ PRN ×3 (12:13→20:54)
[2020-07-02 12:50] VITALS: BP 116/78
[2020-07-02 16:00] VITALS: BP 109/68
[2020-07-02 17:23] LABS: GLUCOMETER DEV NAME(LOC) 3E.I 2; GLUCOSE,POINT OF CARE 225 MG/DL (70-110)
[2020-07-02 20:30] VITALS: BP 112/72
[2020-07-02 20:34] LABS: GLUCOMETER DEV NAME(LOC) 3E.I 2; GLUCOSE,POINT OF CARE 226 MG/DL (70-110)
[2020-07-02] MEDS: INSULIN GLARGINE,HUM.REC.ANLOG 100 UNITS/ML SQ SCH (20:54)
[2020-07-02] MEDS: ZOLPIDEM TARTRATE 10 MG TABLET PO PRN (20:57)
[2020-07-03 05:25] LABS: GLUCOMETER DEV NAME(LOC) 3E.I 2; GLUCOSE,POINT OF CARE 174 MG/DL (70-110)
[2020-07-03] MEDS: ONDANSETRON HCL 4 MG TABLET PO PRN ×3 (06:15→20:35)
[2020-07-03] MEDS: LORazepam 2 MG TABLET PO PRN ×3 (06:15→20:35)
[2020-07-03] MEDS: INSULIN LISPRO 100 UNITS/ML SQ PRN ×4 (06:37→20:30)
[2020-07-03 06:49] LABS: HEMOGLOBIN A1C 7.1 % (3.8-5.6)
[2020-07-03 07:03] LABS: ALANINE AMINOTRANSFERASE 83 U/L (12-78); ALBUMIN 2.5 g/dL (3.4-5.0); ALKALINE PHOSPHATASE 298 U/L (46-116); ANION GAP 6 mmol/L (8-16); ASPARTATE AMINOTRANSFERASE 77 U/L (15-37); BILIRUBIN,TOTAL 1.5 mg/dL (0.1-1.0); CALCIUM, TOTAL 9.1 mg/dL (8.8-10.5); CARBON DIOXIDE 35 mmol/L (22-29); CHLORIDE 97 mmol/L (98-107); CREATININE 0.86 mg/dL (0.60-1.30); GLOMERULAR FILTR. RATE CALC > 60 mL/min (>60); GLUCOSE,RANDOM 176 mg/dL (70-110); SODIUM SERUM 138 mmol/L (136-145); TOTAL PROTEIN, SERUM 6.1 g/dL (6.4-8.2); UREA NITROGEN, BLOOD 12 mg/dL (7-18)
[2020-07-03 07:32] LABS: POTASSIUM 2.7 mmol/L (3.5-5.1)
[2020-07-03] MEDS: MULTIVITAMINS WITH MINERALS, THERAPEUTIC TABLET PO SCH (08:22)
[2020-07-03] MEDS: BuPROPion HCL XL 150 MG ER TABLET PO SCH (08:22)
[2020-07-03] MEDS ORDERED: POTASSIUM CHLORIDE 20 MEQ ER TABLET PO ONE (08:30)
[2020-07-03 08:50] VITALS: BP 103/70
[2020-07-03 11:14] VITALS: BP 111/71
[2020-07-03] MEDS: IBUPROFEN 600 MG TABLET PO PRN (11:14)
[2020-07-03 11:25] LABS: GLUCOMETER DEV NAME(LOC) 3E.I 2; GLUCOSE,POINT OF CARE 223 MG/DL (70-110)
[2020-07-03 16:23] VITALS: BP 110/79
[2020-07-03 16:51] LABS: GLUCOMETER DEV NAME(LOC) 3E.I 2; GLUCOSE,POINT OF CARE 207 MG/DL (70-110)
[2020-07-03 19:50] VITALS: BP 112/81
[2020-07-03] MEDS: INSULIN GLARGINE,HUM.REC.ANLOG 100 UNITS/ML SQ SCH (20:29)
[2020-07-03 20:36] LABS: GLUCOMETER DEV NAME(LOC) 3E.I 2; GLUCOSE,POINT OF CARE 187 MG/DL (70-110)
[2020-07-03] MEDS: ZOLPIDEM TARTRATE 10 MG TABLET PO PRN (23:04)
[2020-07-04 05:33] LABS: GLUCOMETER DEV NAME(LOC) 3E.I 2; GLUCOSE,POINT OF CARE 153 MG/DL (70-110)
[2020-07-04] MEDS: INSULIN LISPRO 100 UNITS/ML SQ PRN ×4 (06:47→21:09)
[2020-07-04 07:15] VITALS: BP 105/75
[2020-07-04] MEDS: ONDANSETRON HCL 4 MG TABLET PO PRN ×2 (07:19→19:31)
[2020-07-04] MEDS: LORazepam 2 MG TABLET PO PRN ×2 (07:19→19:31)
[2020-07-04 08:19] VITALS: BP 110/75
[2020-07-04] MEDS: BuPROPion HCL XL 150 MG ER TABLET PO SCH (09:54)
[2020-07-04] MEDS: HYPROMELLOSE 0.5% 15 ML OPHTHALMIC SOLUTION OU PRN (09:54)
[2020-07-04] MEDS: MULTIVITAMINS WITH MINERALS, THERAPEUTIC TABLET PO SCH (09:55)
[2020-07-04 13:04] LABS: GLUCOMETER DEV NAME(LOC) 3E.I 2; GLUCOSE,POINT OF CARE 217 MG/DL (70-110)
[2020-07-04 16:22] VITALS: BP 105/75
[2020-07-04 17:07] LABS: GLUCOMETER DEV NAME(LOC) 3E.I 2; GLUCOSE,POINT OF CARE 217 MG/DL (70-110)
[2020-07-04] MEDS: INSULIN GLARGINE,HUM.REC.ANLOG 100 UNITS/ML SQ SCH (21:08)
[2020-07-04] MEDS: ZOLPIDEM TARTRATE 10 MG TABLET PO PRN (21:10)
[2020-07-04 21:16] LABS: GLUCOMETER DEV NAME(LOC) 3E.I 2; GLUCOSE,POINT OF CARE 218 MG/DL (70-110)
[2020-07-05 05:25] LABS: GLUCOMETER DEV NAME(LOC) 3E.I 2; GLUCOSE,POINT OF CARE 156 MG/DL (70-110)
[2020-07-05 06:45] VITALS: BP 108/70
[2020-07-05] MEDS: INSULIN LISPRO 100 UNITS/ML SQ PRN ×4 (07:07→20:43)
[2020-07-05] MEDS: MULTIVITAMINS WITH MINERALS, THERAPEUTIC TABLET PO SCH (08:21)
[2020-07-05] MEDS: HYPROMELLOSE 0.5% 15 ML OPHTHALMIC SOLUTION OU PRN ×2 (08:22→16:52)
[2020-07-05] MEDS: OLANZapine 5 MG TABLET PO PRN ×2 (08:22→16:52)
[2020-07-05] MEDS: LORazepam 2 MG TABLET PO PRN ×2 (08:22→16:52)
[2020-07-05] MEDS: BuPROPion HCL XL 150 MG ER TABLET PO SCH (08:23)
[2020-07-05 08:30] VITALS: BP 92/70
[2020-07-05 12:03] LABS: GLUCOMETER DEV NAME(LOC) 3E.I 2; GLUCOSE,POINT OF CARE 189 MG/DL (70-110)
[2020-07-05 17:25] LABS: GLUCOMETER DEV NAME(LOC) 3E.I 2; GLUCOSE,POINT OF CARE 234 MG/DL (70-110)
[2020-07-05] MEDS: ONDANSETRON HCL 4 MG TABLET PO PRN (20:40)
[2020-07-05] MEDS: ZOLPIDEM TARTRATE 10 MG TABLET PO PRN (20:40)
[2020-07-05] MEDS: INSULIN GLARGINE,HUM.REC.ANLOG 100 UNITS/ML SQ SCH (20:42)
[2020-07-05 21:45] LABS: GLUCOMETER DEV NAME(LOC) 3E.I 2; GLUCOSE,POINT OF CARE 212 MG/DL (70-110)
[2020-07-06 05:52] LABS: GLUCOMETER DEV NAME(LOC) 3E.I 2; GLUCOSE,POINT OF CARE 147 MG/DL (70-110)
[2020-07-06 06:13] VITALS: BP 112/60
[2020-07-06] MEDS: INSULIN LISPRO 100 UNITS/ML SQ PRN ×4 (06:50→20:23)
[2020-07-06] MEDS: MULTIVITAMINS WITH MINERALS, THERAPEUTIC TABLET PO SCH (08:06)
[2020-07-06] MEDS: BuPROPion HCL XL 150 MG ER TABLET PO SCH (08:06)
[2020-07-06] MEDS: LORazepam 2 MG TABLET PO PRN ×2 (08:09→16:08)
[2020-07-06 11:28] LABS: GLUCOMETER DEV NAME(LOC) 3E.I 2; GLUCOSE,POINT OF CARE 181 MG/DL (70-110)
[2020-07-06 16:18] LABS: GLUCOMETER DEV NAME(LOC) 3E.I 2; GLUCOSE,POINT OF CARE 203 MG/DL (70-110)
[2020-07-06] MEDS: INSULIN GLARGINE,HUM.REC.ANLOG 100 UNITS/ML SQ SCH (20:23)
[2020-07-06 20:25] VITALS: BP 128/68
[2020-07-06] MEDS: IBUPROFEN 600 MG TABLET PO PRN (20:25)
[2020-07-06] MEDS: ZOLPIDEM TARTRATE 10 MG TABLET PO PRN (20:25)
[2020-07-06 20:31] LABS: GLUCOMETER DEV NAME(LOC) 3E.I 2; GLUCOSE,POINT OF CARE 195 MG/DL (70-110)
[2020-07-07 05:47] LABS: GLUCOMETER DEV NAME(LOC) 3E.I 2; GLUCOSE,POINT OF CARE 174 MG/DL (70-110)
[2020-07-07 06:40] VITALS: BP 116/95
[2020-07-07] MEDS: LORazepam 2 MG TABLET PO PRN ×2 (06:42→16:16)
[2020-07-07] MEDS: INSULIN LISPRO 100 UNITS/ML SQ PRN ×4 (06:44→22:13)
[2020-07-07] MEDS: MULTIVITAMINS WITH MINERALS, THERAPEUTIC TABLET PO SCH (08:00)
[2020-07-07] MEDS: BuPROPion HCL XL 150 MG ER TABLET PO SCH (08:00)
[2020-07-07 11:23] LABS: GLUCOMETER DEV NAME(LOC) 3E.I 2; GLUCOSE,POINT OF CARE 182 MG/DL (70-110)
[2020-07-07 16:23] LABS: COVID AG,FIA SOURCE NASAL SWAB
[2020-07-07 16:36] LABS: GLUCOMETER DEV NAME(LOC) 3E.I 2; GLUCOSE,POINT OF CARE 317 MG/DL (70-110)
[2020-07-07] MEDS: ZOLPIDEM TARTRATE 10 MG TABLET PO PRN (20:34)
[2020-07-07] MEDS: INSULIN GLARGINE,HUM.REC.ANLOG 100 UNITS/ML SQ SCH (21:38)
[2020-07-07 21:40] LABS: GLUCOMETER DEV NAME(LOC) 3E.I 2; GLUCOSE,POINT OF CARE 180 MG/DL (70-110)
[2020-07-08] MEDS: LORazepam 2 MG TABLET PO PRN (04:55)
[2020-07-08 04:58] VITALS: BP 132/68
[2020-07-08 05:13] LABS: GLUCOMETER DEV NAME(LOC) 3E.I 2; GLUCOSE,POINT OF CARE 183 MG/DL (70-110)
[2020-07-08] MEDS: INSULIN LISPRO 100 UNITS/ML SQ PRN ×4 (06:47→21:00)
[2020-07-08 08:30] VITALS: BP 118/77
[2020-07-08] MEDS: MULTIVITAMINS WITH MINERALS, THERAPEUTIC TABLET PO SCH (08:49)
[2020-07-08] MEDS: BuPROPion HCL XL 150 MG ER TABLET PO SCH (08:49)
[2020-07-08 11:18] LABS: GLUCOMETER DEV NAME(LOC) 3E.I 2; GLUCOSE,POINT OF CARE 211 MG/DL (70-110)
[2020-07-08 17:02] LABS: GLUCOMETER DEV NAME(LOC) 3E.I 2; GLUCOSE,POINT OF CARE 223 MG/DL (70-110)
[2020-07-08] MEDS: INSULIN GLARGINE,HUM.REC.ANLOG 100 UNITS/ML SQ SCH (21:02)
[2020-07-08 21:03] LABS: GLUCOMETER DEV NAME(LOC) 3E.I 2; GLUCOSE,POINT OF CARE 248 MG/DL (70-110)
[2020-07-08] MEDS: ZOLPIDEM TARTRATE 10 MG TABLET PO PRN (21:03)
[2020-07-09] MEDS: LORazepam 2 MG TABLET PO PRN ×2 (05:56→14:03)
[2020-07-09] MEDS: INSULIN LISPRO 100 UNITS/ML SQ PRN ×4 (05:59→21:26)
[2020-07-09 06:36] LABS: GLUCOMETER DEV NAME(LOC) 3E.I 2; GLUCOSE,POINT OF CARE 158 MG/DL (70-110)
[2020-07-09] MEDS: MULTIVITAMINS WITH MINERALS, THERAPEUTIC TABLET PO SCH (08:31)
[2020-07-09] MEDS: BuPROPion HCL XL 150 MG ER TABLET PO SCH (08:32)
[2020-07-09 08:33] VITALS: BP 93/67
[2020-07-09] MEDS: IBUPROFEN 600 MG TABLET PO PRN (08:33)
[2020-07-09] MEDS: INSULIN GLARGINE,HUM.REC.ANLOG 100 UNITS/ML SQ SCH ×2 (08:36→21:22)
[2020-07-09 09:33] VITALS: BP 104/72
[2020-07-09 11:37] LABS: GLUCOMETER DEV NAME(LOC) 3E.I 2; GLUCOSE,POINT OF CARE 192 MG/DL (70-110)
[2020-07-09 16:34] LABS: GLUCOMETER DEV NAME(LOC) 3E.I 2; GLUCOSE,POINT OF CARE 212 MG/DL (70-110)
[2020-07-09] MEDS: ZOLPIDEM TARTRATE 10 MG TABLET PO PRN (21:22)
[2020-07-09 21:27] LABS: GLUCOMETER DEV NAME(LOC) 3E.I 2; GLUCOSE,POINT OF CARE 192 MG/DL (70-110)
[2020-07-10] MEDS: LORazepam 2 MG TABLET PO PRN (05:01)
[2020-07-10 05:25] LABS: GLUCOMETER DEV NAME(LOC) 3E.I 2; GLUCOSE,POINT OF CARE 152 MG/DL (70-110)
[2020-07-10 06:10] VITALS: BP 137/87
[2020-07-10] MEDS: INSULIN LISPRO 100 UNITS/ML SQ PRN ×4 (06:49→21:10)
[2020-07-10] MEDS: BuPROPion HCL XL 150 MG ER TABLET PO SCH (08:36)
[2020-07-10] MEDS: MULTIVITAMINS WITH MINERALS, THERAPEUTIC TABLET PO SCH (08:36)
[2020-07-10] MEDS: INSULIN GLARGINE,HUM.REC.ANLOG 100 UNITS/ML SQ SCH ×2 (08:38→21:09)
[2020-07-10 11:44] LABS: GLUCOMETER DEV NAME(LOC) 3E.I 2; GLUCOSE,POINT OF CARE 156 MG/DL (70-110)
[2020-07-10 16:00] VITALS: BP 122/87
[2020-07-10 17:17] VITALS: BP 130/87
[2020-07-10] MEDS: IBUPROFEN 600 MG TABLET PO PRN (17:17)
[2020-07-10 17:32] LABS: GLUCOMETER DEV NAME(LOC) 3E.I 2; GLUCOSE,POINT OF CARE 164 MG/DL (70-110)
[2020-07-10] MEDS: ZOLPIDEM TARTRATE 10 MG TABLET PO PRN (21:11)
[2020-07-10 21:24] LABS: GLUCOMETER DEV NAME(LOC) 3E.I 2; GLUCOSE,POINT OF CARE 204 MG/DL (70-110)
[2020-07-11 05:28] LABS: GLUCOMETER DEV NAME(LOC) 3E.I 2; GLUCOSE,POINT OF CARE 128 MG/DL (70-110)
[2020-07-11] MEDS: BuPROPion HCL XL 150 MG ER TABLET PO SCH (08:23)
[2020-07-11] MEDS: MULTIVITAMINS WITH MINERALS, THERAPEUTIC TABLET PO SCH (08:23)
[2020-07-11] MEDS: INSULIN GLARGINE,HUM.REC.ANLOG 100 UNITS/ML SQ SCH ×2 (08:25→21:39)
[2020-07-11] MEDS: IBUPROFEN 600 MG TABLET PO PRN (08:34)
[2020-07-11 11:15] LABS: GLUCOMETER DEV NAME(LOC) 3E.I 2; GLUCOSE,POINT OF CARE 175 MG/DL (70-110)
[2020-07-11] MEDS: INSULIN LISPRO 100 UNITS/ML SQ PRN ×3 (11:21→21:40)
[2020-07-11] MEDS: LORazepam 2 MG TABLET PO PRN (15:21)
[2020-07-11 17:33] LABS: GLUCOMETER DEV NAME(LOC) 3E.I 2; GLUCOSE,POINT OF CARE 163 MG/DL (70-110)
[2020-07-11 21:00] LABS: GLUCOMETER DEV NAME(LOC) 3E.I 2; GLUCOSE,POINT OF CARE 247 MG/DL (70-110)
[2020-07-12] MEDS: ZOLPIDEM TARTRATE 10 MG TABLET PO PRN ×2 (02:51→21:06)
[2020-07-12 05:42] LABS: GLUCOMETER DEV NAME(LOC) 3E.I 2; GLUCOSE,POINT OF CARE 147 MG/DL (70-110)
[2020-07-12] MEDS: INSULIN LISPRO 100 UNITS/ML SQ PRN ×4 (06:59→21:27)
[2020-07-12] MEDS: MULTIVITAMINS WITH MINERALS, THERAPEUTIC TABLET PO SCH (09:15)
[2020-07-12] MEDS: BuPROPion HCL XL 150 MG ER TABLET PO SCH (09:15)
[2020-07-12] MEDS: INSULIN GLARGINE,HUM.REC.ANLOG 100 UNITS/ML SQ SCH ×2 (09:17→21:26)
[2020-07-12] MEDS: IBUPROFEN 600 MG TABLET PO PRN (09:23)
[2020-07-12 11:56] LABS: GLUCOMETER DEV NAME(LOC) 3E.I 2; GLUCOSE,POINT OF CARE 140 MG/DL (70-110)
[2020-07-12 16:21] VITALS: BP 125/71
[2020-07-12 17:12] LABS: GLUCOMETER DEV NAME(LOC) 3E.I 2; GLUCOSE,POINT OF CARE 192 MG/DL (70-110)
[2020-07-12 21:02] LABS: GLUCOMETER DEV NAME(LOC) 3E.I 2; GLUCOSE,POINT OF CARE 229 MG/DL (70-110)
[2020-07-13 03:06] VITALS: BP 123/81
[2020-07-13 06:28] LABS: GLUCOMETER DEV NAME(LOC) 3E.I 2; GLUCOSE,POINT OF CARE 135 MG/DL (70-110)
[2020-07-13 08:03] VITALS: BP 117/78
[2020-07-13] MEDS: IBUPROFEN 600 MG TABLET PO PRN (08:03)
[2020-07-13] MEDS: BuPROPion HCL XL 150 MG ER TABLET PO SCH (08:04)
[2020-07-13] MEDS: MULTIVITAMINS WITH MINERALS, THERAPEUTIC TABLET PO SCH (08:04)
[2020-07-13] MEDS: INSULIN GLARGINE,HUM.REC.ANLOG 100 UNITS/ML SQ SCH ×2 (08:17→21:30)
[2020-07-13 11:37] LABS: GLUCOMETER DEV NAME(LOC) 3E.I 2; GLUCOSE,POINT OF CARE 139 MG/DL (70-110)
[2020-07-13] MEDS: INSULIN LISPRO 100 UNITS/ML SQ PRN ×2 (16:54→21:32)
[2020-07-13 17:02] LABS: GLUCOMETER DEV NAME(LOC) 3E.I 2; GLUCOSE,POINT OF CARE 167 MG/DL (70-110)
[2020-07-13 20:43] LABS: GLUCOMETER DEV NAME(LOC) 3E.I 2; GLUCOSE,POINT OF CARE 211 MG/DL (70-110)
[2020-07-13] MEDS: ZOLPIDEM TARTRATE 10 MG TABLET PO PRN (21:27)
[2020-07-14 05:34] LABS: GLUCOMETER DEV NAME(LOC) 3E.I 2; GLUCOSE,POINT OF CARE 111 MG/DL (70-110)
[2020-07-14] MEDS: BuPROPion HCL XL 150 MG ER TABLET PO SCH (08:20)
[2020-07-14] MEDS: MULTIVITAMINS WITH MINERALS, THERAPEUTIC TABLET PO SCH (08:20)
[2020-07-14 08:46] VITALS: BP 130/81
[2020-07-14] MEDS: IBUPROFEN 600 MG TABLET PO PRN (08:46)
[2020-07-14] MEDS: INSULIN GLARGINE,HUM.REC.ANLOG 100 UNITS/ML SQ SCH ×2 (08:48→20:45)
[2020-07-14 11:32] LABS: COVID AG,FIA SOURCE NASOPHARYNGEAL
[2020-07-14 11:41] LABS: GLUCOMETER DEV NAME(LOC) 3E.I 2; GLUCOSE,POINT OF CARE 168 MG/DL (70-110)
[2020-07-14] MEDS: INSULIN LISPRO 100 UNITS/ML SQ PRN ×3 (11:41→20:44)
[2020-07-14 16:21] LABS: GLUCOMETER DEV NAME(LOC) 3E.I 2; GLUCOSE,POINT OF CARE 182 MG/DL (70-110)
[2020-07-14] MEDS: ZOLPIDEM TARTRATE 10 MG TABLET PO PRN (20:43)
[2020-07-14 21:13] LABS: GLUCOMETER DEV NAME(LOC) 3E.I 2; GLUCOSE,POINT OF CARE 201 MG/DL (70-110)
[2020-07-15 06:04] LABS: GLUCOMETER DEV NAME(LOC) 3E.I 2; GLUCOSE,POINT OF CARE 123 MG/DL (70-110)
[2020-07-15 08:30] VITALS: BP 137/93
[2020-07-15] MEDS: BuPROPion HCL XL 150 MG ER TABLET PO SCH (08:44)
[2020-07-15] MEDS: MULTIVITAMINS WITH MINERALS, THERAPEUTIC TABLET PO SCH (08:44)
[2020-07-15] MEDS: IBUPROFEN 600 MG TABLET PO PRN ×2 (08:45→22:20)
[2020-07-15] MEDS: INSULIN GLARGINE,HUM.REC.ANLOG 100 UNITS/ML SQ SCH ×2 (08:45→20:40)
[2020-07-15 09:40] VITALS: BP 123/83
[2020-07-15] MEDS: INSULIN LISPRO 100 UNITS/ML SQ PRN ×3 (11:12→20:40)
[2020-07-15 11:19] LABS: GLUCOMETER DEV NAME(LOC) 3E.I 2; GLUCOSE,POINT OF CARE 153 MG/DL (70-110)
[2020-07-15 16:41] LABS: GLUCOMETER DEV NAME(LOC) 3E.I 2; GLUCOSE,POINT OF CARE 169 MG/DL (70-110)
[2020-07-15 19:27] VITALS: BP 124/75
[2020-07-15] MEDS: ZOLPIDEM TARTRATE 10 MG TABLET PO PRN (20:44)
[2020-07-15 21:20] LABS: GLUCOMETER DEV NAME(LOC) 3E.I 2; GLUCOSE,POINT OF CARE 170 MG/DL (70-110)
[2020-07-16 05:40] LABS: GLUCOMETER DEV NAME(LOC) 3E.I 2; GLUCOSE,POINT OF CARE 105 MG/DL (70-110)
[2020-07-16] MEDS: INSULIN LISPRO 100 UNITS/ML SQ PRN ×3 (07:04→21:15)
[2020-07-16] MEDS: MULTIVITAMINS WITH MINERALS, THERAPEUTIC TABLET PO SCH (08:29)
[2020-07-16] MEDS: BuPROPion HCL XL 150 MG ER TABLET PO SCH (08:29)
[2020-07-16] MEDS: FOLIC ACID 1 MG TABLET PO SCH (08:30)
[2020-07-16] MEDS: THIAMINE 100 MG TABLET PO SCH (08:30)
[2020-07-16] MEDS: INSULIN GLARGINE,HUM.REC.ANLOG 100 UNITS/ML SQ SCH ×2 (08:33→21:14)
[2020-07-16 08:35] VITALS: BP 113/67
[2020-07-16] MEDS: IBUPROFEN 600 MG TABLET PO PRN (08:35)
[2020-07-16 11:58] LABS: GLUCOMETER DEV NAME(LOC) 3E.I 2; GLUCOSE,POINT OF CARE 138 MG/DL (70-110)
[2020-07-16 16:31] VITALS: BP 125/77
[2020-07-16 16:52] LABS: GLUCOMETER DEV NAME(LOC) 3E.I 2; GLUCOSE,POINT OF CARE 222 MG/DL (70-110)
[2020-07-16 21:08] LABS: GLUCOMETER DEV NAME(LOC) 3E.I 2; GLUCOSE,POINT OF CARE 247 MG/DL (70-110)
[2020-07-16] MEDS: ZOLPIDEM TARTRATE 10 MG TABLET PO PRN (21:17)
[2020-07-17 05:29] LABS: GLUCOMETER DEV NAME(LOC) 3E.I 2; GLUCOSE,POINT OF CARE 126 MG/DL (70-110)
[2020-07-17 06:02] VITALS: BP 126/77
[2020-07-17] MEDS: IBUPROFEN 600 MG TABLET PO PRN ×2 (06:04→16:08)
[2020-07-17 08:00] VITALS: BP 146/95
[2020-07-17] MEDS: BuPROPion HCL XL 150 MG ER TABLET PO SCH (08:49)
[2020-07-17] MEDS: THIAMINE 100 MG TABLET PO SCH (08:49)
[2020-07-17] MEDS: FOLIC ACID 1 MG TABLET PO SCH (08:49)
[2020-07-17] MEDS: MULTIVITAMINS WITH MINERALS, THERAPEUTIC TABLET PO SCH (08:50)
[2020-07-17] MEDS: INSULIN GLARGINE,HUM.REC.ANLOG 100 UNITS/ML SQ SCH ×2 (09:34→20:45)
[2020-07-17 11:33] LABS: GLUCOMETER DEV NAME(LOC) 3E.I 2; GLUCOSE,POINT OF CARE 163 MG/DL (70-110)
[2020-07-17] MEDS: INSULIN LISPRO 100 UNITS/ML SQ PRN ×3 (11:44→20:45)
[2020-07-17 16:40] LABS: GLUCOMETER DEV NAME(LOC) 3E.I 2; GLUCOSE,POINT OF CARE 154 MG/DL (70-110)
[2020-07-17 16:46] VITALS: BP 123/76
[2020-07-17] MEDS: ZOLPIDEM TARTRATE 10 MG TABLET PO PRN (20:48)
[2020-07-17 20:52] LABS: GLUCOMETER DEV NAME(LOC) 3E.I 2; GLUCOSE,POINT OF CARE 173 MG/DL (70-110)
[2020-07-18 05:33] LABS: GLUCOMETER DEV NAME(LOC) 3E.I 2; GLUCOSE,POINT OF CARE 132 MG/DL (70-110)
[2020-07-18 06:22] VITALS: BP 122/71
[2020-07-18] MEDS: IBUPROFEN 600 MG TABLET PO PRN ×2 (06:22→16:34)
[2020-07-18 08:00] VITALS: BP 127/76
[2020-07-18] MEDS: THIAMINE 100 MG TABLET PO SCH (08:56)
[2020-07-18] MEDS: BuPROPion HCL XL 150 MG ER TABLET PO SCH (08:56)
[2020-07-18] MEDS: MULTIVITAMINS WITH MINERALS, THERAPEUTIC TABLET PO SCH (08:56)
[2020-07-18] MEDS: FOLIC ACID 1 MG TABLET PO SCH (08:56)
[2020-07-18] MEDS: INSULIN GLARGINE,HUM.REC.ANLOG 100 UNITS/ML SQ SCH ×2 (09:47→21:12)
[2020-07-18] MEDS: INSULIN LISPRO 100 UNITS/ML SQ PRN ×3 (11:15→21:12)
[2020-07-18 11:37] LABS: GLUCOMETER DEV NAME(LOC) 3E.I 2; GLUCOSE,POINT OF CARE 141 MG/DL (70-110)
[2020-07-18 16:00] VITALS: BP 130/85
[2020-07-18 17:40] LABS: GLUCOMETER DEV NAME(LOC) 3E.I 2; GLUCOSE,POINT OF CARE 172 MG/DL (70-110)
[2020-07-18 21:10] LABS: GLUCOMETER DEV NAME(LOC) 3E.I 2; GLUCOSE,POINT OF CARE 199 MG/DL (70-110)
[2020-07-18] MEDS: ZOLPIDEM TARTRATE 10 MG TABLET PO PRN (21:34)
[2020-07-19] MEDS: IBUPROFEN 600 MG TABLET PO PRN ×2 (06:01→16:25)
[2020-07-19 06:05] VITALS: BP 123/80
[2020-07-19 06:22] LABS: GLUCOMETER DEV NAME(LOC) 3E.I 2; GLUCOSE,POINT OF CARE 114 MG/DL (70-110)
[2020-07-19 09:02] VITALS: BP 120/8
[2020-07-19] MEDS: FOLIC ACID 1 MG TABLET PO SCH (09:45)
[2020-07-19] MEDS: THIAMINE 100 MG TABLET PO SCH (09:45)
[2020-07-19] MEDS: MULTIVITAMINS WITH MINERALS, THERAPEUTIC TABLET PO SCH (09:45)
[2020-07-19] MEDS: BuPROPion HCL XL 150 MG ER TABLET PO SCH (09:45)
[2020-07-19] MEDS: INSULIN GLARGINE,HUM.REC.ANLOG 100 UNITS/ML SQ SCH ×2 (09:48→21:44)
[2020-07-19 11:22] LABS: GLUCOMETER DEV NAME(LOC) 3E.I 2; GLUCOSE,POINT OF CARE 147 MG/DL (70-110)
[2020-07-19] MEDS: INSULIN LISPRO 100 UNITS/ML SQ PRN ×3 (12:16→21:45)
[2020-07-19 16:00] VITALS: BP 117/65
[2020-07-19 17:28] LABS: GLUCOMETER DEV NAME(LOC) 3E.I 2; GLUCOSE,POINT OF CARE 228 MG/DL (70-110)
[2020-07-19] MEDS: ZOLPIDEM TARTRATE 10 MG TABLET PO PRN (21:37)
[2020-07-19 21:42] LABS: GLUCOMETER DEV NAME(LOC) 3E.I 2; GLUCOSE,POINT OF CARE 235 MG/DL (70-110)
[2020-07-20 05:25] LABS: GLUCOMETER DEV NAME(LOC) 3E.I 2; GLUCOSE,POINT OF CARE 109 MG/DL (70-110)
[2020-07-20 06:11] VITALS: BP 122/63
[2020-07-20] MEDS: IBUPROFEN 600 MG TABLET PO PRN ×2 (06:11→14:59)
[2020-07-20 08:20] VITALS: BP 121/71
[2020-07-20] MEDS: FOLIC ACID 1 MG TABLET PO SCH (08:36)
[2020-07-20] MEDS: THIAMINE 100 MG TABLET PO SCH (08:36)
[2020-07-20] MEDS: MULTIVITAMINS WITH MINERALS, THERAPEUTIC TABLET PO SCH (08:36)
[2020-07-20] MEDS: BuPROPion HCL XL 150 MG ER TABLET PO SCH (08:37)
[2020-07-20] MEDS: INSULIN GLARGINE,HUM.REC.ANLOG 100 UNITS/ML SQ SCH ×2 (08:38→21:26)
[2020-07-20 11:22] LABS: GLUCOMETER DEV NAME(LOC) 3E.I 2; GLUCOSE,POINT OF CARE 168 MG/DL (70-110)
[2020-07-20] MEDS: INSULIN LISPRO 100 UNITS/ML SQ PRN ×3 (12:02→21:27)
[2020-07-20 14:59] VITALS: BP 136/82
[2020-07-20 16:00] VITALS: BP 139/76
[2020-07-20 17:13] LABS: GLUCOMETER DEV NAME(LOC) 3E.I 2; GLUCOSE,POINT OF CARE 268 MG/DL (70-110)
[2020-07-20] MEDS: ZOLPIDEM TARTRATE 10 MG TABLET PO PRN (20:47)
[2020-07-20 21:01] LABS: GLUCOMETER DEV NAME(LOC) 3E.I 2; GLUCOSE,POINT OF CARE 158 MG/DL (70-110)
[2020-07-21 05:32] LABS: GLUCOMETER DEV NAME(LOC) 3E.I 2; GLUCOSE,POINT OF CARE 119 MG/DL (70-110)
[2020-07-21 05:50] VITALS: BP 130/84
[2020-07-21] MEDS: IBUPROFEN 600 MG TABLET PO PRN ×3 (05:53→22:12)
[2020-07-21] MEDS: INSULIN LISPRO 100 UNITS/ML SQ PRN ×4 (06:40→21:14)
[2020-07-21 08:00] VITALS: BP 126/78
[2020-07-21] MEDS: BuPROPion HCL XL 150 MG ER TABLET PO SCH (08:42)
[2020-07-21] MEDS: THIAMINE 100 MG TABLET PO SCH (08:42)
[2020-07-21] MEDS: FOLIC ACID 1 MG TABLET PO SCH (08:42)
[2020-07-21] MEDS: MULTIVITAMINS WITH MINERALS, THERAPEUTIC TABLET PO SCH (08:43)
[2020-07-21] MEDS: INSULIN GLARGINE,HUM.REC.ANLOG 100 UNITS/ML SQ SCH ×2 (09:08→21:12)
[2020-07-21 11:38] LABS: GLUCOMETER DEV NAME(LOC) 3E.I 2; GLUCOSE,POINT OF CARE 172 MG/DL (70-110)
[2020-07-21 13:00] VITALS: BP 109/56
[2020-07-21 14:08] VITALS: BP 112/76
[2020-07-21 16:00] VITALS: BP 128/69
[2020-07-21 17:22] LABS: GLUCOMETER DEV NAME(LOC) 3E.I 2; GLUCOSE,POINT OF CARE 191 MG/DL (70-110)
[2020-07-21 17:31] LABS: COVID AG,FIA SOURCE NASOPHARYNGEAL
[2020-07-21 21:18] LABS: GLUCOMETER DEV NAME(LOC) 3E.I 2; GLUCOSE,POINT OF CARE 231 MG/DL (70-110)
[2020-07-21] MEDS: ZOLPIDEM TARTRATE 10 MG TABLET PO PRN (21:32)
[2020-07-22 05:33] LABS: GLUCOMETER DEV NAME(LOC) 3E.I 2; GLUCOSE,POINT OF CARE 152 MG/DL (70-110)
[2020-07-22 05:55] VITALS: BP 122/76
[2020-07-22] MEDS: IBUPROFEN 600 MG TABLET PO PRN ×2 (05:55→12:57)
[2020-07-22] MEDS: INSULIN LISPRO 100 UNITS/ML SQ PRN ×4 (06:49→20:57)
[2020-07-22 08:15] VITALS: BP 128/86
[2020-07-22] MEDS: MULTIVITAMINS WITH MINERALS, THERAPEUTIC TABLET PO SCH (08:51)
[2020-07-22] MEDS: BuPROPion HCL XL 150 MG ER TABLET PO SCH (08:51)
[2020-07-22] MEDS: THIAMINE 100 MG TABLET PO SCH (08:51)
[2020-07-22] MEDS: FOLIC ACID 1 MG TABLET PO SCH (08:51)
[2020-07-22] MEDS: INSULIN GLARGINE,HUM.REC.ANLOG 100 UNITS/ML SQ SCH ×2 (09:01→20:58)
[2020-07-22 11:25] LABS: GLUCOMETER DEV NAME(LOC) 3E.I 2; GLUCOSE,POINT OF CARE 191 MG/DL (70-110)
[2020-07-22 12:55] VITALS: BP 115/76
[2020-07-22 13:57] VITALS: BP 110/77
[2020-07-22 16:26] VITALS: BP 116/75
[2020-07-22 17:08] LABS: GLUCOMETER DEV NAME(LOC) 3E.I 2; GLUCOSE,POINT OF CARE 222 MG/DL (70-110)
[2020-07-22] MEDS: ZOLPIDEM TARTRATE 10 MG TABLET PO PRN (20:59)
[2020-07-22 21:07] LABS: GLUCOMETER DEV NAME(LOC) 3E.I 2; GLUCOSE,POINT OF CARE 230 MG/DL (70-110)
[2020-07-23 05:58] LABS: GLUCOMETER DEV NAME(LOC) 3E.I 2; GLUCOSE,POINT OF CARE 152 MG/DL (70-110)
[2020-07-23 06:08] VITALS: BP 123/79
[2020-07-23] MEDS: IBUPROFEN 600 MG TABLET PO PRN ×3 (06:10→20:19)
[2020-07-23] MEDS: INSULIN LISPRO 100 UNITS/ML SQ PRN ×4 (06:58→20:59)
[2020-07-23 08:30] VITALS: BP 125/75
[2020-07-23] MEDS: THIAMINE 100 MG TABLET PO SCH (09:14)
[2020-07-23] MEDS: BuPROPion HCL XL 150 MG ER TABLET PO SCH (09:14)
[2020-07-23] MEDS: FOLIC ACID 1 MG TABLET PO SCH (09:15)
[2020-07-23] MEDS: MULTIVITAMINS WITH MINERALS, THERAPEUTIC TABLET PO SCH (09:15)
[2020-07-23] MEDS: INSULIN GLARGINE,HUM.REC.ANLOG 100 UNITS/ML SQ SCH ×2 (09:24→20:59)
[2020-07-23 11:22] LABS: GLUCOMETER DEV NAME(LOC) 3E.I 2; GLUCOSE,POINT OF CARE 168 MG/DL (70-110)
[2020-07-23 16:57] LABS: GLUCOMETER DEV NAME(LOC) 3E.I 2; GLUCOSE,POINT OF CARE 259 MG/DL (70-110)
[2020-07-23 17:13] VITALS: BP 100/71
[2020-07-23 20:34] LABS: GLUCOMETER DEV NAME(LOC) 3E.I 2; GLUCOSE,POINT OF CARE 217 MG/DL (70-110)
[2020-07-23] MEDS: ZOLPIDEM TARTRATE 10 MG TABLET PO PRN (21:01)
[2020-07-24 05:31] LABS: GLUCOMETER DEV NAME(LOC) 3E.I 2; GLUCOSE,POINT OF CARE 147 MG/DL (70-110)
[2020-07-24 05:55] VITALS: BP 122/85
[2020-07-24] MEDS: IBUPROFEN 600 MG TABLET PO PRN (05:57)
[2020-07-24] MEDS: INSULIN LISPRO 100 UNITS/ML SQ PRN ×4 (06:40→21:40)
[2020-07-24 08:00] VITALS: BP 121/75
[2020-07-24] MEDS: THIAMINE 100 MG TABLET PO SCH (08:58)
[2020-07-24] MEDS: MULTIVITAMINS WITH MINERALS, THERAPEUTIC TABLET PO SCH (08:58)
[2020-07-24] MEDS: FOLIC ACID 1 MG TABLET PO SCH (08:58)
[2020-07-24] MEDS: BuPROPion HCL XL 150 MG ER TABLET PO SCH (08:58)
[2020-07-24] MEDS: INSULIN GLARGINE,HUM.REC.ANLOG 100 UNITS/ML SQ SCH ×2 (09:03→21:40)
[2020-07-24 11:22] LABS: GLUCOMETER DEV NAME(LOC) 3E.I 2; GLUCOSE,POINT OF CARE 172 MG/DL (70-110)
[2020-07-24 17:01] VITALS: BP 125/87
[2020-07-24 17:01] LABS: GLUCOMETER DEV NAME(LOC) 3E.I 2; GLUCOSE,POINT OF CARE 216 MG/DL (70-110)
[2020-07-24] MEDS: ZOLPIDEM TARTRATE 10 MG TABLET PO PRN (21:06)
[2020-07-24 21:24] LABS: GLUCOMETER DEV NAME(LOC) 3E.I 2; GLUCOSE,POINT OF CARE 243 MG/DL (70-110)
[2020-07-25 05:55] VITALS: BP 128/80
[2020-07-25] MEDS: IBUPROFEN 600 MG TABLET PO PRN ×2 (05:57→16:27)
[2020-07-25] MEDS: INSULIN LISPRO 100 UNITS/ML SQ PRN ×4 (06:51→21:42)
[2020-07-25 08:00] VITALS: BP 129/80
[2020-07-25] MEDS: BuPROPion HCL XL 150 MG ER TABLET PO SCH (09:14)
[2020-07-25] MEDS: MULTIVITAMINS WITH MINERALS, THERAPEUTIC TABLET PO SCH (09:14)
[2020-07-25] MEDS: THIAMINE 100 MG TABLET PO SCH (09:14)
[2020-07-25] MEDS: FOLIC ACID 1 MG TABLET PO SCH (09:14)
[2020-07-25] MEDS: INSULIN GLARGINE,HUM.REC.ANLOG 100 UNITS/ML SQ SCH ×2 (09:22→21:41)
[2020-07-25 09:33] LABS: GLUCOMETER DEV NAME(LOC) 3E.I 2; GLUCOSE,POINT OF CARE 144 MG/DL (70-110)
[2020-07-25 11:41] LABS: GLUCOMETER DEV NAME(LOC) 3E.I 2; GLUCOSE,POINT OF CARE 176 MG/DL (70-110)
[2020-07-25 16:00] VITALS: BP 118/76
[2020-07-25 16:36] LABS: GLUCOMETER DEV NAME(LOC) 3E.I 2; GLUCOSE,POINT OF CARE 214 MG/DL (70-110)
[2020-07-25] MEDS: ZOLPIDEM TARTRATE 10 MG TABLET PO PRN (21:13)
[2020-07-25 21:34] LABS: GLUCOMETER DEV NAME(LOC) 3E.I 2; GLUCOSE,POINT OF CARE 210 MG/DL (70-110)
[2020-07-26] MEDS: IBUPROFEN 600 MG TABLET PO PRN ×3 (05:17→20:08)
[2020-07-26 05:48] LABS: GLUCOMETER DEV NAME(LOC) 3E.I 2; GLUCOSE,POINT OF CARE 148 MG/DL (70-110)
[2020-07-26] MEDS: INSULIN LISPRO 100 UNITS/ML SQ PRN ×4 (06:42→21:49)
[2020-07-26 08:51] VITALS: BP 123/85
[2020-07-26] MEDS: FOLIC ACID 1 MG TABLET PO SCH (09:32)
[2020-07-26] MEDS: MULTIVITAMINS WITH MINERALS, THERAPEUTIC TABLET PO SCH (09:32)
[2020-07-26] MEDS: BuPROPion HCL XL 150 MG ER TABLET PO SCH (09:32)
[2020-07-26] MEDS: THIAMINE 100 MG TABLET PO SCH (09:32)
[2020-07-26] MEDS: INSULIN GLARGINE,HUM.REC.ANLOG 100 UNITS/ML SQ SCH ×2 (09:37→21:49)
[2020-07-26 13:02] VITALS: BP 137/98
[2020-07-26 14:02] VITALS: BP 122/81
[2020-07-26 16:14] VITALS: BP 112/74
[2020-07-26 17:24] LABS: GLUCOMETER DEV NAME(LOC) 3E.I 2; GLUCOSE,POINT OF CARE 182 MG/DL (70-110)
[2020-07-26 17:24] LABS: GLUCOMETER DEV NAME(LOC) 3E.I 2; GLUCOSE,POINT OF CARE 182 MG/DL (70-110)
[2020-07-26 20:34] LABS: GLUCOMETER DEV NAME(LOC) 3E.I 2; GLUCOSE,POINT OF CARE 270 MG/DL (70-110)
[2020-07-26] MEDS: ZOLPIDEM TARTRATE 10 MG TABLET PO PRN (22:03)
[2020-07-27 05:15] VITALS: BP 121/76
[2020-07-27] MEDS: IBUPROFEN 600 MG TABLET PO PRN ×3 (05:15→19:26)
[2020-07-27 05:32] LABS: GLUCOMETER DEV NAME(LOC) 3E.I 2; GLUCOSE,POINT OF CARE 137 MG/DL (70-110)
[2020-07-27 08:15] VITALS: BP 129/81
[2020-07-27] MEDS: BuPROPion HCL XL 150 MG ER TABLET PO SCH (08:18)
[2020-07-27] MEDS: FOLIC ACID 1 MG TABLET PO SCH (08:18)
[2020-07-27] MEDS: THIAMINE 100 MG TABLET PO SCH (08:18)
[2020-07-27] MEDS: INSULIN GLARGINE,HUM.REC.ANLOG 100 UNITS/ML SQ SCH ×2 (08:20→21:16)
[2020-07-27] MEDS: MULTIVITAMINS WITH MINERALS, THERAPEUTIC TABLET PO SCH (08:24)
[2020-07-27] MEDS: INSULIN LISPRO 100 UNITS/ML SQ PRN ×3 (11:13→21:18)
[2020-07-27 11:32] LABS: GLUCOMETER DEV NAME(LOC) 3E.I 2; GLUCOSE,POINT OF CARE 190 MG/DL (70-110)
[2020-07-27 12:17] VITALS: BP 145/90
[2020-07-27 13:17] VITALS: BP 144/90
[2020-07-27 16:30] VITALS: BP 108/69
[2020-07-27 16:41] LABS: GLUCOMETER DEV NAME(LOC) 3E.I 2; GLUCOSE,POINT OF CARE 182 MG/DL (70-110)
[2020-07-27 19:22] VITALS: BP 117/67
[2020-07-27] MEDS: ZOLPIDEM TARTRATE 10 MG TABLET PO PRN (20:39)
[2020-07-27 21:10] LABS: GLUCOMETER DEV NAME(LOC) 3E.I 2; GLUCOSE,POINT OF CARE 173 MG/DL (70-110)
[2020-07-28 04:10] VITALS: BP 135/67
[2020-07-28] MEDS: IBUPROFEN 600 MG TABLET PO PRN ×3 (04:13→17:40)
[2020-07-28 05:43] LABS: GLUCOMETER DEV NAME(LOC) 3E.I 2; GLUCOSE,POINT OF CARE 146 MG/DL (70-110)
[2020-07-28] MEDS: INSULIN LISPRO 100 UNITS/ML SQ PRN ×3 (07:02→21:22)
[2020-07-28 08:15] VITALS: BP 138/67
[2020-07-28] MEDS: FOLIC ACID 1 MG TABLET PO SCH (08:51)
[2020-07-28] MEDS: MULTIVITAMINS WITH MINERALS, THERAPEUTIC TABLET PO SCH (08:51)
[2020-07-28] MEDS: THIAMINE 100 MG TABLET PO SCH (08:51)
[2020-07-28] MEDS: BuPROPion HCL XL 150 MG ER TABLET PO SCH (08:51)
[2020-07-28] MEDS: INSULIN GLARGINE,HUM.REC.ANLOG 100 UNITS/ML SQ SCH ×2 (08:56→21:22)
[2020-07-28 11:18] LABS: GLUCOMETER DEV NAME(LOC) 3E.I 2; GLUCOSE,POINT OF CARE 130 MG/DL (70-110)
[2020-07-28 12:20] VITALS: BP 109/61
[2020-07-28 16:00] VITALS: BP 144/94
[2020-07-28 16:03] LABS: COVID AG,FIA SOURCE NASOPHARYNGEAL
[2020-07-28 21:15] LABS: GLUCOMETER DEV NAME(LOC) 3E.I 2; GLUCOSE,POINT OF CARE 184 MG/DL (70-110)
[2020-07-28] MEDS: ZOLPIDEM TARTRATE 10 MG TABLET PO PRN (22:55)
[2020-07-29] MEDS: IBUPROFEN 600 MG TABLET PO PRN ×2 (04:55→17:47)
[2020-07-29 05:05] VITALS: BP 124/59
[2020-07-29 05:17] LABS: GLUCOMETER DEV NAME(LOC) 3E.I 2; GLUCOSE,POINT OF CARE 145 MG/DL (70-110)
[2020-07-29] MEDS: INSULIN LISPRO 100 UNITS/ML SQ PRN ×4 (06:49→21:57)
[2020-07-29 08:00] VITALS: BP 108/76
[2020-07-29] MEDS: BuPROPion HCL XL 150 MG ER TABLET PO SCH (08:41)
[2020-07-29] MEDS: FOLIC ACID 1 MG TABLET PO SCH (08:41)
[2020-07-29] MEDS: THIAMINE 100 MG TABLET PO SCH (08:42)
[2020-07-29] MEDS: MULTIVITAMINS WITH MINERALS, THERAPEUTIC TABLET PO SCH (08:42)
[2020-07-29] MEDS: INSULIN GLARGINE,HUM.REC.ANLOG 100 UNITS/ML SQ SCH ×2 (08:43→21:56)
[2020-07-29 11:41] LABS: GLUCOMETER DEV NAME(LOC) 3E.I 2; GLUCOSE,POINT OF CARE 205 MG/DL (70-110)
[2020-07-29 17:31] LABS: GLUCOMETER DEV NAME(LOC) 3E.I 2; GLUCOSE,POINT OF CARE 177 MG/DL (70-110)
[2020-07-30] MEDS: IBUPROFEN 600 MG TABLET PO PRN ×3 (02:21→20:17)
[2020-07-30 02:24] VITALS: BP 121/76
[2020-07-30 05:26] LABS: GLUCOMETER DEV NAME(LOC) 3E.I 2; GLUCOSE,POINT OF CARE 176 MG/DL (70-110)
[2020-07-30] MEDS: INSULIN LISPRO 100 UNITS/ML SQ PRN ×4 (07:01→21:52)
[2020-07-30 08:00] VITALS: BP 106/75
[2020-07-30] MEDS: THIAMINE 100 MG TABLET PO SCH (08:22)
[2020-07-30] MEDS: FOLIC ACID 1 MG TABLET PO SCH (08:22)
[2020-07-30] MEDS: BuPROPion HCL XL 150 MG ER TABLET PO SCH (08:22)
[2020-07-30] MEDS: MULTIVITAMINS WITH MINERALS, THERAPEUTIC TABLET PO SCH (08:22)
[2020-07-30] MEDS: INSULIN GLARGINE,HUM.REC.ANLOG 100 UNITS/ML SQ SCH ×2 (08:29→21:51)
[2020-07-30] MEDS: DICLOFENAC SODIUM 1% 100 GM GEL [2GM] TP SCH ×2 (08:30→17:26)
[2020-07-30 12:09] LABS: GLUCOMETER DEV NAME(LOC) 3E.I 2; GLUCOSE,POINT OF CARE 240 MG/DL (70-110)
[2020-07-30 16:00] VITALS: BP 107/69
[2020-07-30 17:25] LABS: GLUCOMETER DEV NAME(LOC) 3E.I 2; GLUCOSE,POINT OF CARE 216 MG/DL (70-110)
[2020-07-30 20:15] VITALS: BP 110/68
[2020-07-30 21:08] LABS: GLUCOMETER DEV NAME(LOC) 3E.I 2; GLUCOSE,POINT OF CARE 236 MG/DL (70-110)
[2020-07-30] MEDS: ZOLPIDEM TARTRATE 10 MG TABLET PO PRN (21:52)
[2020-07-31 02:30] VITALS: BP 116/71
[2020-07-31] MEDS: IBUPROFEN 600 MG TABLET PO PRN ×2 (02:34→08:53)
[2020-07-31 05:24] LABS: GLUCOMETER DEV NAME(LOC) 3E.I 2; GLUCOSE,POINT OF CARE 151 MG/DL (70-110)
[2020-07-31] MEDS: INSULIN LISPRO 100 UNITS/ML SQ PRN ×2 (06:47→11:48)
[2020-07-31] MEDS: MULTIVITAMINS WITH MINERALS, THERAPEUTIC TABLET PO SCH (08:45)
[2020-07-31] MEDS: BuPROPion HCL XL 150 MG ER TABLET PO SCH (08:45)
[2020-07-31] MEDS: FOLIC ACID 1 MG TABLET PO SCH (08:45)
[2020-07-31] MEDS: THIAMINE 100 MG TABLET PO SCH (08:45)
[2020-07-31 08:46] VITALS: BP 117/81
[2020-07-31] MEDS: INSULIN GLARGINE,HUM.REC.ANLOG 100 UNITS/ML SQ SCH (08:51)
[2020-07-31] MEDS: DICLOFENAC SODIUM 1% 100 GM GEL [2GM] TP SCH (08:52)
[2020-07-31 09:53] VITALS: BP 121/83
[2020-07-31 11:59] LABS: GLUCOMETER DEV NAME(LOC) 3E.I 2; GLUCOSE,POINT OF CARE 195 MG/DL (70-110)
[2020-07-31] MEDS ORDERED: INSLAN SQ (12:00)
[2020-07-31] MEDS ORDERED: FOLI0.4T6 PO (12:00)
[2020-07-31] MEDS ORDERED: DICL2100G TP (12:00)
[2020-07-31] MEDS ORDERED: THIA100T80 PO (12:02)
== END 2020-07-31 14:35 | disposition home or self-care (01) | DRG 750 ==
LOC: EMS 14:45 → 3EI 21:20
PROVIDERS: ADMIT Psychiatry & Neurology Psychiatry; ATTEND Psychiatry & Neurology Psychiatry
DX: F25.9 Schizoaffective disorder, unspecified (principal); R45.851 Suicidal ideations; E78.5 Hyperlipidemia, unspecified; I11.0 Hypertensive heart disease with heart failure; K21.9 Gastro-esophageal reflux disease without esophagitis; J44.9 Chronic obstructive pulmonary disease, unspecified; I50.9 Heart failure, unspecified; E78.00 Pure hypercholesterolemia, unspecified; E11.65 Type 2 diabetes mellitus with hyperglycemia; E66.01 Morbid (severe) obesity due to excess calories; E55.9 Vitamin D deficiency, unspecified; F10.10 Alcohol abuse, uncomplicated; K70.10 Alcoholic hepatitis without ascites; Z20.822 Contact with and (suspected) exposure to COVID-19; K59.00 Constipation, unspecified; F17.200 Nicotine dependence, unspecified, uncomplicated; F32.9 Major depressive disorder, single episode, unspecified; Y90.6 Blood alcohol level of 120-199 mg/100 ml; I25.10 Atherosclerotic heart disease of native coronary artery without angina pectoris; I25.2 Old myocardial infarction; Z68.37 Body mass index [BMI] 37.0-37.9, adult; Z71.6 Tobacco abuse counseling; Z71.41 Alcohol abuse counseling and surveillance of alcoholic; Z86.74 Personal history of sudden cardiac arrest; Z91.018 Allergy to other foods
CPT/HCPCS: 83036; 84132; 84443; 86592; 87426; 93005; 99285; G0480; J1815; Q0162

== ENCOUNTER 2020-08-30 11:53 | Inpatient (IN) | payer MEDICAID ==
[~2020-08-30] VITALS: Ht 172.7 cm; Wt 125.9 kg
[~2020-08-30 11:53] MED LIST changes: +DICL2100G TP; +FOLI0.4T6 PO; -FURO40 PO; -PANT-31 PO; +THIA100T80 PO
[2020-08-30 12:33] LABS: GLUCOSE,POINT OF CARE 417 MG/DL (70-110)
[2020-08-30 12:56] LABS: BASOPHILS % (AUTO) 0.3 % (0.0-2.0); EOSINOPHILS % (AUTO) 0.5 % (1.0-6.0); HEMATOCRIT 49.3 % (41-53); HEMOGLOBIN 17.6 g/dL (13.5-17.5); LYMPHOCYTES # (AUTO) 0.6 K/uL (1.0-4.8); LYMPHOCYTES % (AUTO) 5.3 % (22.0-44.0); MEAN CORPUSCULAR HEMOGLOBIN 32.5 pg (26.0-34.0); MEAN CORPUSCULAR HGB CONC 35.6 G/dL (31.0-37.0); MEAN CORPUSCULAR VOLUME 91 fL (80-100); MONOCYTES # (AUTO) 1.2 K/uL (0.1-1.0); MONOCYTES % (AUTO) 10.4 % (2.0-9.0); NEUTROPHILS # (AUTO) 9.3 K/uL (1.8-7.7); NEUTROPHILS % (AUTO) 83.5 % (40.0-70.0); PLATELET COUNT (AUTO) 102 K/uL (150-450); RED CELL DISTRIBUTION WIDTH 14.7 % (11.5-14.5)
[2020-08-30] MEDS ORDERED: SODIUM CHLORIDE 0.9% 1,000 ML IV ONE (13:15)
[2020-08-30] MEDS: POTASSIUM CHL 10 MEQ/WATER 50 ML IV SCH ×8 (13:36→22:54)
[2020-08-30 14:10] LABS: ACETONE,BLOOD NEGATIVE (NEGATIVE)
[2020-08-30 14:14] LABS: CHLORIDE 68 mmol/L (98-107); POTASSIUM 1.6 mmol/L (3.5-5.1); SODIUM SERUM 115 mmol/L (136-145)
[2020-08-30 14:15] LABS: ALANINE AMINOTRANSFERASE 175 U/L (12-78); ALKALINE PHOSPHATASE 265 U/L (46-116); ANION GAP 10 mmol/L (8-16); ASPARTATE AMINOTRANSFERASE 413 U/L (15-37); BILIRUBIN,TOTAL 2.3 mg/dL (0.1-1.0); CALCIUM, TOTAL 8.8 mg/dL (8.8-10.5); CARBON DIOXIDE 37 mmol/L (22-29); CREATININE 3.07 mg/dL (0.60-1.30); GLOMERULAR FILTR. RATE CALC 21 mL/min (>60); GLUCOSE,RANDOM 373 mg/dL (70-110); PHOSPHORUS 3.9 mg/dL (2.5-4.9); UREA NITROGEN, BLOOD 45 mg/dL (7-18)
[2020-08-30 14:17] LABS: ALBUMIN 3.1 g/dL (3.4-5.0)
[2020-08-30 14:22] LABS: B-TYPE NATRIURETIC PEPTIDE 127 pg/mL (0-100)
[2020-08-30] MEDS ORDERED: POTASSIUM CHL 20 MEQ/0.9% NS 1,000 ML IV ONE (14:30)
[2020-08-30 14:43] LABS: COVID AG,FIA SOURCE NASOPHARYNGEAL
[2020-08-30 14:52] LABS: APPEARANCE,URINE CLOUDY (CLEAR); GLUCOSE, URINE (UA) 500 mg/dL (NEGATIVE); KETONES,URINE 15 mg/dL (NEGATIVE); LEUKOCYTE ESTERASE ,URINE TRACE (NEGATIVE); NITRATE,URINE NEGATIVE (NEGATIVE); OCCULT BLOOD,URINE LARGE (NEGATIVE); PROTEIN,URINE SEE CONFIRM (NEGATIVE)
[2020-08-30 14:56] LABS: BILIRUBIN,URINE PRELIM. POSITIVE (NEGATIVE)
[2020-08-30 14:57] LABS: AMPHET/METH SCREEN,URINE NEGATIVE (NEGATIVE); BARBITURATE SCREEN, URINE NEGATIVE (NEGATIVE); BENZODIAZEPINES SCREEN,URINE NEGATIVE (NEGATIVE); CANNABINOID SCREEN,URINE NEGATIVE (NEGATIVE); COCAINE SCREEN,URINE NEGATIVE (NEGATIVE); METHADONE SCREEN, URINE NEGATIVE (NEGATIVE); OPIATE SCREEN,URINE NEGATIVE (NEGATIVE)
[2020-08-30 14:59] LABS: SULFOSALICYLIC ACID,URINE 1+ (Negative)
[2020-08-30 15:06] LABS: BACTERIA,URINE Few /HPF (None Seen); RBC,URINE 0-2 /HPF (0-2); SQUAMOUS EPITHELIAL CELL,UR Few /LPF (None Seen)
[2020-08-30 15:12] LABS: PHENCYCLIDINE SCREEN,URINE NEGATIVE (NEGATIVE)
[2020-08-30 15:12] LABS: CREATINE KINASE, TOTAL ONLY 13996 U/L (39-308)
[2020-08-30] MEDS ORDERED: CefTRIAXone 1 GM/DEXTROSE 50 ML IV ONE (15:15)
[2020-08-30] MEDS ORDERED: AZITHROMYCIN 500 MG/NS 250 ML IV ONE (15:15)
[2020-08-30] MEDS ORDERED: ACETAMINOPHEN 325 MG TABLET PO PRN (15:30)
[2020-08-30] MEDS ORDERED: 0.9% SODIUM CHLORIDE 10 ML SYRINGE IVP PRN (15:30)
[2020-08-30] MEDS ORDERED: ONDANSETRON HCL 4 MG/2 ML VIAL IVP PRN (15:30)
[2020-08-30 16:00] VITALS: BP 101/58
[2020-08-30] MEDS ORDERED: MAGNESIUM HYDROXIDE SUSPENSION 30 ML UDCUP PO PRN (16:45)
[2020-08-30] MEDS ORDERED: BISACODYL 10 MG RECTAL RECTAL SUPPOSITORY PR PRN (16:45)
[2020-08-30 16:46] LABS: ABG A-A DIFF O2 149.5 mmHg (10-20.0); ABG BASE EXCESS 12.9 mmol/L (-2.0-3.0); ABG CARBOXYHEMOGLOBIN 1.9 % (0.0-1.5); ABG HCO3 35.1 mmol/L (22.0-26.0); ABG METHEMOGLOBIN 0.3 % (0.0-1.5); ABG OXYHEMOGLOBIN 94.9 % (94.0-100.0); ABG PCO2 44 mmHg (35-45); ABG PH 7.523 (7.35-7.450); ABG TOTAL HEMOGLOBIN 16.5 G/dL (12.0-18.0); SOURCE, BLOOD GAS ARTERIAL
[2020-08-30 16:47] LABS: O2 DEVICE,BLOOD GAS CANNULA (ROOM AIR); SITE, BLOOD GAS RT RADIAL
[2020-08-30 17:40] LABS: GLUCOSE,POINT OF CARE 359 MG/DL (70-110)
[2020-08-30 18:43] LABS: CALCIUM, TOTAL 8.4 mg/dL (8.8-10.5); CREATININE 2.55 mg/dL (0.60-1.30)
[2020-08-30 18:49] LABS: POTASSIUM 2.1 mmol/L (3.5-5.1)
[2020-08-30 20:00] VITALS: BP 93/48
[2020-08-30] MEDS: DOCUSATE SODIUM 100 MG CAPSULE PO SCH (21:00)
[2020-08-30 21:42] LABS: CALCIUM, TOTAL 8.3 mg/dL (8.8-10.5); CREATININE 2.36 mg/dL (0.60-1.30)
[2020-08-31] VITALS: BP 99/56
[2020-08-31] MEDS: POTASSIUM CHL 10 MEQ/WATER 50 ML IV SCH ×10 (00:10→20:36)
[2020-08-31] MEDS: HEPARIN SODIUM,PORCINE 5,000 UNITS/ML VIAL SQ SCH ×3 (00:15→16:24)
[2020-08-31 04:00] VITALS: BP 109/70
[2020-08-31 06:21] LABS: HEMATOCRIT 41.4 % (41-53); HEMOGLOBIN 14.7 g/dL (13.5-17.5); MEAN CORPUSCULAR HEMOGLOBIN 32.7 pg (26.0-34.0); MEAN CORPUSCULAR HGB CONC 35.4 G/dL (31.0-37.0); MEAN CORPUSCULAR VOLUME 92 fL (80-100); PLATELET COUNT (AUTO) 101 K/uL (150-450); RED BLOOD CELL COUNT(AUTO) 4.49 MIL/uL (4.50-5.90); RED CELL DISTRIBUTION WIDTH 14.6 % (11.5-14.5)
[2020-08-31 07:00] LABS: ALBUMIN 2.5 g/dL (3.4-5.0); BILIRUBIN,TOTAL 1.7 mg/dL (0.1-1.0); CALCIUM, TOTAL 8.3 mg/dL (8.8-10.5); CREATININE 1.66 mg/dL (0.60-1.30); TOTAL PROTEIN, SERUM 6.1 g/dL (6.4-8.2)
[2020-08-31 07:01] LABS: POTASSIUM 2.3 mmol/L (3.5-5.1)
[2020-08-31] MEDS ORDERED: *CLINICAL-LEVOFLOXACIN IVPB DOSING CLINICAL ONE (07:30)
[2020-08-31 08:00] VITALS: BP 90/59
[2020-08-31 08:06] LABS: BAND NEUTROPHILS % (MANUAL) 7 % (0-5); LYMPHOCYTES % (MANUAL) 11 % (22-44); MONOCYTES % (MANUAL) 10 % (2-9); SEGMENTED NEUTROPHILS % 72 % (40-70)
[2020-08-31] MEDS: POTASSIUM CHL 20 MEQ/0.9% NS 1,000 ML IV SCH ×2 (08:09→17:43)
[2020-08-31] MEDS: PANTOPRAZOLE SODIUM 40 MG DR TABLET PO SCH (08:09)
[2020-08-31] MEDS: LEVOFLOXACIN 750 MG/D5% WATER 150 ML IV SCH (08:09)
[2020-08-31] MEDS: DOCUSATE SODIUM 100 MG CAPSULE PO SCH ×2 (08:10→20:37)
[2020-08-31] MEDS: ETHYL ALCOHOL 62% ANTISEPTIC NASAL INHALANT 0.6 ML AMPUL NASAL SCH ×2 (08:37→20:37)
[2020-08-31] MEDS ORDERED: DEXTROSE 50%-WATER 25 GM/50 ML SYRINGE IVP PRN (10:15)
[2020-08-31] MEDS ORDERED: SODIUM CHLORIDE 0.9% 500 ML IV ONE ×5 (10:15→17:00)
[2020-08-31] MEDS: INSULIN LISPRO 100 UNITS/ML SQ PRN ×3 (11:27→20:41)
[2020-08-31 11:30] LABS: GLUCOSE,POINT OF CARE 255 MG/DL (70-110)
[2020-08-31 12:00] VITALS: BP 89/61
[2020-08-31 13:54] LABS: CREATININE,URINE RANDOM 73.2 mg/dL (30.0-125.0)
[2020-08-31] MEDS ORDERED: SODIUM CHLORIDE 0.9% 1,000 ML ONE (14:40)
[2020-08-31 15:29] LABS: CREATININE 1.37 mg/dL (0.60-1.30)
[2020-08-31 15:36] LABS: POTASSIUM 2.7 mmol/L (3.5-5.1)
[2020-08-31 16:00] VITALS: BP 92/52
[2020-08-31 17:25] LABS: GLUCOSE,POINT OF CARE 192 MG/DL (70-110)
[2020-08-31 17:25] LABS: GLUCOSE,POINT OF CARE 243 MG/DL (70-110)
[2020-08-31] MEDS ORDERED: NOREPINEPHRINE 4 MG/D5%-WATER 250 ML IV PRN (18:15)
[2020-08-31 20:00] VITALS: BP 120/71
[2020-09-01] VITALS (8 sets, daily range): BP systolic 94–144; BP diastolic 57–71
[2020-09-01 00:01] LABS: GLUCOSE,POINT OF CARE 181 MG/DL (70-110)
[2020-09-01] MEDS: HEPARIN SODIUM,PORCINE 5,000 UNITS/ML VIAL SQ SCH ×3 (00:06→16:49)
[2020-09-01 06:06] LABS: BASOPHILS % (AUTO) 0.4 % (0.0-2.0); EOSINOPHILS % (AUTO) 0.4 % (1.0-6.0); HEMATOCRIT 39.8 % (41-53); HEMOGLOBIN 13.7 g/dL (13.5-17.5); LYMPHOCYTES # (AUTO) 1.1 K/uL (1.0-4.8); LYMPHOCYTES % (AUTO) 18.1 % (22.0-44.0); MEAN CORPUSCULAR HEMOGLOBIN 32.6 pg (26.0-34.0); MEAN CORPUSCULAR HGB CONC 34.5 G/dL (31.0-37.0); MEAN CORPUSCULAR VOLUME 95 fL (80-100); MONOCYTES % (AUTO) 16.1 % (2.0-9.0); PLATELET COUNT (AUTO) 89 K/uL (150-450); RED BLOOD CELL COUNT(AUTO) 4.21 MIL/uL (4.50-5.90); RED CELL DISTRIBUTION WIDTH 14.8 % (11.5-14.5)
[2020-09-01 06:29] LABS: HEMOGLOBIN A1C 8.2 % (3.8-5.6)
[2020-09-01 06:52] LABS: ANION GAP 6 mmol/L (8-16); CALCIUM, TOTAL 8.3 mg/dL (8.8-10.5); CARBON DIOXIDE 34 mmol/L (22-29); CHLORIDE 90 mmol/L (98-107); CREATININE 0.97 mg/dL (0.60-1.30); GLOMERULAR FILTR. RATE CALC > 60 mL/min (>60); GLUCOSE,RANDOM 166 mg/dL (70-110); SODIUM SERUM 130 mmol/L (136-145); THYROID STIMULATING HORMONE 1.17 uIU/mL (0.36-3.74); UREA NITROGEN, BLOOD 26 mg/dL (7-18)
[2020-09-01 06:59] LABS: POTASSIUM 2.6 mmol/L (3.5-5.1)
[2020-09-01 07:00] LABS: CREATINE KINASE, TOTAL ONLY 3810 U/L (39-308)
[2020-09-01] MEDS: DOCUSATE SODIUM 100 MG CAPSULE PO SCH ×2 (08:01→21:00)
[2020-09-01] MEDS: PANTOPRAZOLE SODIUM 40 MG DR TABLET PO SCH (08:01)
[2020-09-01] MEDS: LEVOFLOXACIN 750 MG/D5% WATER 150 ML IV SCH (08:01)
[2020-09-01] MEDS: POTASSIUM CHL 10 MEQ/WATER 50 ML IV SCH ×8 (08:01→22:51)
[2020-09-01] MEDS: ETHYL ALCOHOL 62% ANTISEPTIC NASAL INHALANT 0.6 ML AMPUL NASAL SCH ×2 (08:02→20:46)
[2020-09-01] MEDS: INSULIN LISPRO 100 UNITS/ML SQ PRN ×3 (12:13→20:48)
[2020-09-01 12:24] LABS: GLUCOSE,POINT OF CARE 173 MG/DL (70-110)
[2020-09-01 15:40] LABS: MAGNESIUM 2.8 mg/dL (1.80-2.40)
[2020-09-01 15:42] LABS: ANION GAP 5 mmol/L (8-16); CARBON DIOXIDE 30 mmol/L (22-29); CHLORIDE 90 mmol/L (98-107); CREATININE 0.91 mg/dL (0.60-1.30); GLOMERULAR FILTR. RATE CALC > 60 mL/min (>60); GLUCOSE,RANDOM 193 mg/dL (70-110); SODIUM SERUM 125 mmol/L (136-145); UREA NITROGEN, BLOOD 23 mg/dL (7-18)
[2020-09-01 15:45] LABS: POTASSIUM 2.8 mmol/L (3.5-5.1)
[2020-09-01 15:46] LABS: POTASSIUM 2.9 mmol/L (3.5-5.1)
[2020-09-01 17:38] LABS: GLUCOSE,POINT OF CARE 218 MG/DL (70-110)
[2020-09-01 18:31] LABS: GLUCOSE,POINT OF CARE 231 MG/DL (70-110)
[2020-09-01] MEDS ORDERED: SODIUM CHLORIDE 0.9% 250 ML IV ONE (18:36)
[2020-09-01 22:11] LABS: GLUCOMETER DEV NAME(LOC) 5N.1C; GLUCOSE,POINT OF CARE 213 MG/DL (70-110)
[2020-09-02] MEDS: HEPARIN SODIUM,PORCINE 5,000 UNITS/ML VIAL SQ SCH ×4 (00:16→23:29)
[2020-09-02 04:46] VITALS: BP 140/78
[2020-09-02] MEDS: INSULIN LISPRO 100 UNITS/ML SQ PRN ×4 (06:01→20:49)
[2020-09-02 06:32] LABS: BASOPHILS % (AUTO) 0.5 % (0.0-2.0); EOSINOPHILS % (AUTO) 0.9 % (1.0-6.0); HEMATOCRIT 41.8 % (41-53); HEMOGLOBIN 14.2 g/dL (13.5-17.5); LYMPHOCYTES % (AUTO) 22.2 % (22.0-44.0); MEAN CORPUSCULAR HEMOGLOBIN 32.2 pg (26.0-34.0); MEAN CORPUSCULAR HGB CONC 34.1 G/dL (31.0-37.0); MEAN CORPUSCULAR VOLUME 95 fL (80-100); MONOCYTES # (AUTO) 0.6 K/uL (0.1-1.0); MONOCYTES % (AUTO) 12.3 % (2.0-9.0); NEUTROPHILS % (AUTO) 64.1 % (40.0-70.0); PLATELET COUNT (AUTO) 116 K/uL (150-450); RED BLOOD CELL COUNT(AUTO) 4.42 MIL/uL (4.50-5.90); RED CELL DISTRIBUTION WIDTH 14.6 % (11.5-14.5)
[2020-09-02 06:53] LABS: ANION GAP 8 mmol/L (8-16); CALCIUM, TOTAL 8.8 mg/dL (8.8-10.5); CARBON DIOXIDE 29 mmol/L (22-29); CHLORIDE 89 mmol/L (98-107); GLOMERULAR FILTR. RATE CALC > 60 mL/min (>60); GLUCOSE,RANDOM 230 mg/dL (70-110); SODIUM SERUM 126 mmol/L (136-145); UREA NITROGEN, BLOOD 20 mg/dL (7-18)
[2020-09-02 06:56] LABS: POTASSIUM 2.5 mmol/L (3.5-5.1)
[2020-09-02 07:31] VITALS: BP 111/74
[2020-09-02 07:59] LABS: GLUCOMETER DEV NAME(LOC) 5S.1; GLUCOSE,POINT OF CARE 234 MG/DL (70-110)
[2020-09-02] MEDS: POTASSIUM CHL 10 MEQ/WATER 50 ML IV PRN ×4 (08:23→12:35)
[2020-09-02] MEDS: DOCUSATE SODIUM 100 MG CAPSULE PO SCH ×2 (08:24→20:48)
[2020-09-02] MEDS: LEVOFLOXACIN 750 MG/D5% WATER 150 ML IV SCH (08:25)
[2020-09-02] MEDS: PANTOPRAZOLE SODIUM 40 MG DR TABLET PO SCH (08:25)
[2020-09-02] MEDS: ETHYL ALCOHOL 62% ANTISEPTIC NASAL INHALANT 0.6 ML AMPUL NASAL SCH ×2 (08:26→20:48)
[2020-09-02] MEDS: ACETAMINOPHEN 325 MG TABLET PO PRN ×2 (11:03→20:48)
[2020-09-02 11:30] VITALS: BP 109/74
[2020-09-02 11:57] LABS: GLUCOMETER DEV NAME(LOC) 5S.1; GLUCOSE,POINT OF CARE 244 MG/DL (70-110)
[2020-09-02] MEDS ORDERED: POTASSIUM CHLORIDE 20 MEQ ER TABLET PO ONE (15:30)
[2020-09-02] MEDS: SODIUM CHLORIDE 1 GM TABLET PO SCH ×2 (15:39→20:48)
[2020-09-02 15:52] VITALS: BP 111/78
[2020-09-02 17:52] LABS: GLUCOMETER DEV NAME(LOC) 5S.1; GLUCOSE,POINT OF CARE 194 MG/DL (70-110)
[2020-09-02 20:07] VITALS: BP 97/70
[2020-09-02] MEDS: ONDANSETRON HCL 4 MG/2 ML VIAL IVP PRN (21:10)
[2020-09-02 23:37] VITALS: BP 109/68
[2020-09-03 04:56] LABS: GLUCOMETER DEV NAME(LOC) 5N.1C; GLUCOSE,POINT OF CARE 269 MG/DL (70-110)
[2020-09-03 05:00] VITALS: BP 98/69
[2020-09-03 06:06] LABS: BASOPHILS % (AUTO) 0.7 % (0.0-2.0); HEMATOCRIT 41.2 % (41-53); HEMOGLOBIN 14.1 g/dL (13.5-17.5); LYMPHOCYTES # (AUTO) 1.3 K/uL (1.0-4.8); LYMPHOCYTES % (AUTO) 24.3 % (22.0-44.0); MEAN CORPUSCULAR HEMOGLOBIN 32.6 pg (26.0-34.0); MEAN CORPUSCULAR HGB CONC 34.3 G/dL (31.0-37.0); MEAN CORPUSCULAR VOLUME 95 fL (80-100); MONOCYTES # (AUTO) 0.6 K/uL (0.1-1.0); MONOCYTES % (AUTO) 10.4 % (2.0-9.0); NEUTROPHILS # (AUTO) 3.5 K/uL (1.8-7.7); NEUTROPHILS % (AUTO) 63.6 % (40.0-70.0); PLATELET COUNT (AUTO) 123 K/uL (150-450); RED BLOOD CELL COUNT(AUTO) 4.34 MIL/uL (4.50-5.90); RED CELL DISTRIBUTION WIDTH 14.9 % (11.5-14.5)
[2020-09-03 06:24] LABS: ALANINE AMINOTRANSFERASE 130 U/L (12-78); ALBUMIN 2.1 g/dL (3.4-5.0); ALKALINE PHOSPHATASE 278 U/L (46-116); ANION GAP 6 mmol/L (8-16); ASPARTATE AMINOTRANSFERASE 82 U/L (15-37); BILIRUBIN,TOTAL 0.7 mg/dL (0.1-1.0); CALCIUM, TOTAL 8.7 mg/dL (8.8-10.5); CARBON DIOXIDE 29 mmol/L (22-29); CHLORIDE 92 mmol/L (98-107); CREATININE 0.88 mg/dL (0.60-1.30); GLOMERULAR FILTR. RATE CALC > 60 mL/min (>60); GLUCOSE,RANDOM 183 mg/dL (70-110); SODIUM SERUM 127 mmol/L (136-145); TOTAL PROTEIN, SERUM 5.9 g/dL (6.4-8.2); UREA NITROGEN, BLOOD 17 mg/dL (7-18)
[2020-09-03] MEDS: INSULIN LISPRO 100 UNITS/ML SQ PRN ×4 (06:25→21:59)
[2020-09-03 06:30] LABS: POTASSIUM 2.8 mmol/L (3.5-5.1)
[2020-09-03] MEDS: POTASSIUM CHL 10 MEQ/WATER 50 ML IV PRN ×4 (06:35→13:48)
[2020-09-03 07:07] LABS: ALBUMIN URINE (ELP) 20.9 %
[2020-09-03 07:32] VITALS: BP 98/58
[2020-09-03] MEDS: LEVOFLOXACIN 750 MG/D5% WATER 150 ML IV SCH (07:52)
[2020-09-03] MEDS: ETHYL ALCOHOL 62% ANTISEPTIC NASAL INHALANT 0.6 ML AMPUL NASAL SCH ×2 (07:52→20:25)
[2020-09-03] MEDS: HEPARIN SODIUM,PORCINE 5,000 UNITS/ML VIAL SQ SCH ×2 (07:52→15:40)
[2020-09-03] MEDS: PANTOPRAZOLE SODIUM 40 MG DR TABLET PO SCH (07:53)
[2020-09-03] MEDS: SODIUM CHLORIDE 1 GM TABLET PO SCH ×3 (07:53→20:24)
[2020-09-03] MEDS: DOCUSATE SODIUM 100 MG CAPSULE PO SCH ×2 (07:53→20:23)
[2020-09-03] MEDS: ONDANSETRON HCL 4 MG/2 ML VIAL IVP PRN ×2 (08:05→20:31)
[2020-09-03 09:11] LABS: GLUCOMETER DEV NAME(LOC) 5N.1C; GLUCOSE,POINT OF CARE 182 MG/DL (70-110)
[2020-09-03] MEDS: ACETAMINOPHEN 325 MG TABLET PO PRN (09:54)
[2020-09-03 10:44] VITALS: BP 98/67
[2020-09-03] MEDS: POTASSIUM CHLORIDE 20 MEQ ER TABLET PO SCH ×3 (13:00→20:24)
[2020-09-03 14:46] VITALS: BP 96/61
[2020-09-03] MEDS: POTASSIUM CHLORIDE 20 MEQ in SODIUM CHLORIDE 0.9% 1,000 ML IV SCH (16:16)
[2020-09-03 20:02] LABS: GLUCOMETER DEV NAME(LOC) 5S.1; GLUCOSE,POINT OF CARE 171 MG/DL (70-110)
[2020-09-03 23:53] LABS: GLUCOMETER DEV NAME(LOC) 5N.1C; GLUCOSE,POINT OF CARE 209 MG/DL (70-110)
[2020-09-03 23:54] LABS: GLUCOMETER DEV NAME(LOC) 5N.1C; GLUCOSE,POINT OF CARE 186 MG/DL (70-110)
[2020-09-04 00:20] VITALS: BP 100/61
[2020-09-04] MEDS: HEPARIN SODIUM,PORCINE 5,000 UNITS/ML VIAL SQ SCH ×4 (00:42→23:36)
[2020-09-04] MEDS: POTASSIUM CHLORIDE 20 MEQ in SODIUM CHLORIDE 0.9% 1,000 ML IV SCH ×2 (04:11→19:43)
[2020-09-04] MEDS: INSULIN LISPRO 100 UNITS/ML SQ PRN ×3 (06:01→19:56)
[2020-09-04 06:57] LABS: BASOPHILS % (AUTO) 0.7 % (0.0-2.0); EOSINOPHILS % (AUTO) 0.7 % (1.0-6.0); HEMATOCRIT 38.6 % (41-53); HEMOGLOBIN 13.2 g/dL (13.5-17.5); LYMPHOCYTES % (AUTO) 24.2 % (22.0-44.0); MEAN CORPUSCULAR HEMOGLOBIN 32.7 pg (26.0-34.0); MEAN CORPUSCULAR HGB CONC 34.2 G/dL (31.0-37.0); MEAN CORPUSCULAR VOLUME 96 fL (80-100); MONOCYTES # (AUTO) 0.4 K/uL (0.1-1.0); MONOCYTES % (AUTO) 8.9 % (2.0-9.0); NEUTROPHILS # (AUTO) 2.8 K/uL (1.8-7.7); NEUTROPHILS % (AUTO) 65.5 % (40.0-70.0); PLATELET COUNT (AUTO) 123 K/uL (150-450); RED BLOOD CELL COUNT(AUTO) 4.03 MIL/uL (4.50-5.90); RED CELL DISTRIBUTION WIDTH 15.1 % (11.5-14.5)
[2020-09-04 07:10] LABS: ALANINE AMINOTRANSFERASE 98 U/L (12-78); ALBUMIN 1.9 g/dL (3.4-5.0); ALKALINE PHOSPHATASE 273 U/L (46-116); ANION GAP 6 mmol/L (8-16); ASPARTATE AMINOTRANSFERASE 53 U/L (15-37); BILIRUBIN,TOTAL 0.7 mg/dL (0.1-1.0); CALCIUM, TOTAL 8.6 mg/dL (8.8-10.5); CARBON DIOXIDE 27 mmol/L (22-29); CHLORIDE 96 mmol/L (98-107); CREATININE 0.87 mg/dL (0.60-1.30); GLOMERULAR FILTR. RATE CALC > 60 mL/min (>60); GLUCOSE,RANDOM 214 mg/dL (70-110); POTASSIUM 3.5 mmol/L (3.5-5.1); SODIUM SERUM 129 mmol/L (136-145); TOTAL PROTEIN, SERUM 5.6 g/dL (6.4-8.2); UREA NITROGEN, BLOOD 14 mg/dL (7-18)
[2020-09-04 07:38] VITALS: BP 90/47
[2020-09-04] MEDS: LEVOFLOXACIN 750 MG/D5% WATER 150 ML IV SCH (08:25)
[2020-09-04] MEDS: PANTOPRAZOLE SODIUM 40 MG DR TABLET PO SCH (08:25)
[2020-09-04] MEDS: POTASSIUM CHLORIDE 20 MEQ ER TABLET PO SCH ×4 (08:25→19:40)
[2020-09-04] MEDS: DOCUSATE SODIUM 100 MG CAPSULE PO SCH ×2 (08:25→19:38)
[2020-09-04] MEDS: ETHYL ALCOHOL 62% ANTISEPTIC NASAL INHALANT 0.6 ML AMPUL NASAL SCH ×2 (09:32→19:40)
[2020-09-04] MEDS: ONDANSETRON HCL 4 MG/2 ML VIAL IVP PRN (09:33)
[2020-09-04] MEDS: SODIUM CHLORIDE 1 GM TABLET PO SCH ×3 (10:23→19:39)
[2020-09-04] MEDS ORDERED: BARIUM SULFATE 0.1% SUSPENSION 450 ML BOTTLE ONE (11:21)
[2020-09-04 11:37] LABS: GLUCOMETER DEV NAME(LOC) 5N.1C; GLUCOSE,POINT OF CARE 206 MG/DL (70-110)
[2020-09-04 12:18] VITALS: BP 96/63
[2020-09-04 12:19] LABS: GLUCOMETER DEV NAME(LOC) 5N.3; GLUCOSE,POINT OF CARE 183 MG/DL (70-110)
[2020-09-04] MEDS ORDERED: MEBROFENIN TC99M/MCL ISOTOPE 1 EA INJ INJ ONE (13:45)
[2020-09-04 15:39] VITALS: BP 109/77
[2020-09-04 19:46] LABS: GLUCOMETER DEV NAME(LOC) 5S.1; GLUCOSE,POINT OF CARE 195 MG/DL (70-110)
[2020-09-04] MEDS: HYDROCODONE/ACETAMINOPHEN 5-325 MG TABLET PO PRN (19:46)
[2020-09-04 20:07] VITALS: BP 111/73
[2020-09-04] MEDS: ZOLPIDEM TARTRATE 5 MG TABLET PO PRN (21:06)
[2020-09-04 23:56] VITALS: BP 116/67
[2020-09-05] MEDS: MORPHINE SULFATE 2 MG/ML SYRINGE IVP PRN (02:44)
[2020-09-05 04:20] VITALS: BP 113/73
[2020-09-05 05:23] LABS: GLUCOMETER DEV NAME(LOC) 5N.3; GLUCOSE,POINT OF CARE 192 MG/DL (70-110)
[2020-09-05] MEDS: INSULIN LISPRO 100 UNITS/ML SQ PRN ×3 (05:42→20:33)
[2020-09-05 07:55] VITALS: BP 114/66
[2020-09-05] MEDS: DOCUSATE SODIUM 100 MG CAPSULE PO SCH ×2 (08:20→20:36)
[2020-09-05] MEDS: ONDANSETRON HCL 4 MG/2 ML VIAL IVP PRN ×2 (08:25→12:21)
[2020-09-05] MEDS: POTASSIUM CHLORIDE 20 MEQ in SODIUM CHLORIDE 0.9% 1,000 ML IV SCH (08:25)
[2020-09-05] MEDS: POTASSIUM CHLORIDE 20 MEQ ER TABLET PO SCH (09:00)
[2020-09-05] MEDS: HEPARIN SODIUM,PORCINE 5,000 UNITS/ML VIAL SQ SCH ×3 (09:50→23:46)
[2020-09-05] MEDS: LEVOFLOXACIN 750 MG/D5% WATER 150 ML IV SCH (09:50)
[2020-09-05] MEDS: ETHYL ALCOHOL 62% ANTISEPTIC NASAL INHALANT 0.6 ML AMPUL NASAL SCH ×2 (09:51→20:32)
[2020-09-05] MEDS: SODIUM CHLORIDE 1 GM TABLET PO SCH ×4 (09:51→20:35)
[2020-09-05] MEDS: PANTOPRAZOLE SODIUM 40 MG DR TABLET PO SCH (09:51)
[2020-09-05 10:51] LABS: BASOPHILS % (AUTO) 0.2 % (0.0-2.0); EOSINOPHILS % (AUTO) 0.1 % (1.0-6.0); HEMATOCRIT 40.9 % (41-53); HEMOGLOBIN 13.9 g/dL (13.5-17.5); LYMPHOCYTES # (AUTO) 0.5 K/uL (1.0-4.8); LYMPHOCYTES % (AUTO) 6.2 % (22.0-44.0); MEAN CORPUSCULAR HEMOGLOBIN 32.5 pg (26.0-34.0); MEAN CORPUSCULAR HGB CONC 33.9 G/dL (31.0-37.0); MEAN CORPUSCULAR VOLUME 96 fL (80-100); MONOCYTES # (AUTO) 0.6 K/uL (0.1-1.0); MONOCYTES % (AUTO) 7.3 % (2.0-9.0); NEUTROPHILS # (AUTO) 7.4 K/uL (1.8-7.7); PLATELET COUNT (AUTO) 144 K/uL (150-450); RED BLOOD CELL COUNT(AUTO) 4.27 MIL/uL (4.50-5.90); RED CELL DISTRIBUTION WIDTH 15.6 % (11.5-14.5)
[2020-09-05 10:54] LABS: NEUTROPHILS % (AUTO) 86.2 % (40.0-70.0)
[2020-09-05 11:25] LABS: ALANINE AMINOTRANSFERASE 96 U/L (12-78); ALBUMIN 2.1 g/dL (3.4-5.0); ALKALINE PHOSPHATASE 324 U/L (46-116); ANION GAP 9 mmol/L (8-16); ASPARTATE AMINOTRANSFERASE 55 U/L (15-37); BILIRUBIN,TOTAL 0.8 mg/dL (0.1-1.0); CALCIUM, TOTAL 8.1 mg/dL (8.8-10.5); CARBON DIOXIDE 23 mmol/L (22-29); CHLORIDE 97 mmol/L (98-107); CREATINE KINASE, TOTAL ONLY 258 U/L (39-308); CREATININE 0.69 mg/dL (0.60-1.30); GLOMERULAR FILTR. RATE CALC > 60 mL/min (>60); GLUCOSE,RANDOM 194 mg/dL (70-110); PHOSPHORUS 2.6 mg/dL (2.5-4.9); POTASSIUM 4.1 mmol/L (3.5-5.1); SODIUM SERUM 129 mmol/L (136-145); TOTAL PROTEIN, SERUM 6.1 g/dL (6.4-8.2); UREA NITROGEN, BLOOD 11 mg/dL (7-18)
[2020-09-05 11:44] LABS: GLUCOMETER DEV NAME(LOC) 5S.1; GLUCOSE,POINT OF CARE 173 MG/DL (70-110)
[2020-09-05] MEDS ORDERED: POTASSIUM CHLORIDE 20 MEQ ER TABLET PO PRN (11:45)
[2020-09-05] MEDS ORDERED: MAGNESIUM SULFATE 2 GM/WATER 50 ML IV ONE (11:45)
[2020-09-05 12:04] VITALS: BP 113/68
[2020-09-05] MEDS: ACETAMINOPHEN 325 MG TABLET PO PRN (12:04)
[2020-09-05] MEDS ORDERED: LORazepam 2 MG/ML VIAL IVP PRN (12:30)
[2020-09-05] MEDS ORDERED: SODIUM CHLORIDE 0.9% 250 ML IV ONE (13:30)
[2020-09-05] MEDS: METOCLOPRAMIDE HCL 5 MG/ML 2 ML VIAL IVP PRN (15:49)
[2020-09-05 15:50] VITALS: BP 117/74
[2020-09-05 17:42] LABS: GLUCOMETER DEV NAME(LOC) 5N.1C; GLUCOSE,POINT OF CARE 216 MG/DL (70-110)
[2020-09-05 19:15] VITALS: BP 111/71
[2020-09-05] MEDS: HYDROCODONE/ACETAMINOPHEN 5-325 MG TABLET PO PRN (20:35)
[2020-09-05 20:54] LABS: GLUCOMETER DEV NAME(LOC) 5S.1; GLUCOSE,POINT OF CARE 153 MG/DL (70-110)
[2020-09-05 20:55] LABS: GLUCOMETER DEV NAME(LOC) 5N.1C; GLUCOSE,POINT OF CARE 167 MG/DL (70-110)
[2020-09-06 00:30] VITALS: BP 100/63
[2020-09-06 04:50] VITALS: BP 99/66
[2020-09-06] MEDS: MORPHINE SULFATE 2 MG/ML SYRINGE IVP PRN (04:51)
[2020-09-06] MEDS: INSULIN LISPRO 100 UNITS/ML SQ PRN ×3 (06:15→20:40)
[2020-09-06 07:15] VITALS: BP 130/72
[2020-09-06 08:09] LABS: BASOPHILS % (AUTO) 0.4 % (0.0-2.0); EOSINOPHILS % (AUTO) 0.3 % (1.0-6.0); HEMATOCRIT 37.8 % (41-53); HEMOGLOBIN 12.9 g/dL (13.5-17.5); LYMPHOCYTES # (AUTO) 1.1 K/uL (1.0-4.8); LYMPHOCYTES % (AUTO) 13.7 % (22.0-44.0); MEAN CORPUSCULAR HEMOGLOBIN 32.6 pg (26.0-34.0); MEAN CORPUSCULAR VOLUME 96 fL (80-100); MONOCYTES # (AUTO) 0.4 K/uL (0.1-1.0); MONOCYTES % (AUTO) 5.6 % (2.0-9.0); NEUTROPHILS # (AUTO) 6.3 K/uL (1.8-7.7); PLATELET COUNT (AUTO) 133 K/uL (150-450); RED BLOOD CELL COUNT(AUTO) 3.95 MIL/uL (4.50-5.90); RED CELL DISTRIBUTION WIDTH 15.6 % (11.5-14.5)
[2020-09-06] MEDS: LEVOFLOXACIN 750 MG/D5% WATER 150 ML IV SCH (08:19)
[2020-09-06] MEDS: HEPARIN SODIUM,PORCINE 5,000 UNITS/ML VIAL SQ SCH ×2 (08:19→16:01)
[2020-09-06] MEDS: PANTOPRAZOLE SODIUM 40 MG DR TABLET PO SCH (08:20)
[2020-09-06] MEDS: DOCUSATE SODIUM 100 MG CAPSULE PO SCH ×2 (08:20→20:39)
[2020-09-06] MEDS: ETHYL ALCOHOL 62% ANTISEPTIC NASAL INHALANT 0.6 ML AMPUL NASAL SCH ×2 (08:21→20:39)
[2020-09-06] MEDS: SODIUM CHLORIDE 1 GM TABLET PO SCH ×4 (08:21→20:39)
[2020-09-06 08:32] LABS: ALANINE AMINOTRANSFERASE 86 U/L (12-78); ALBUMIN 1.9 g/dL (3.4-5.0); ALKALINE PHOSPHATASE 294 U/L (46-116); ANION GAP 10 mmol/L (8-16); ASPARTATE AMINOTRANSFERASE 50 U/L (15-37); BILIRUBIN,TOTAL 0.9 mg/dL (0.1-1.0); CALCIUM, TOTAL 8.5 mg/dL (8.8-10.5); CARBON DIOXIDE 23 mmol/L (22-29); CHLORIDE 97 mmol/L (98-107); CREATININE 0.73 mg/dL (0.60-1.30); GLOMERULAR FILTR. RATE CALC > 60 mL/min (>60); GLUCOSE,RANDOM 214 mg/dL (70-110); SODIUM SERUM 130 mmol/L (136-145); TOTAL PROTEIN, SERUM 5.9 g/dL (6.4-8.2); UREA NITROGEN, BLOOD 10 mg/dL (7-18)
[2020-09-06 09:19] LABS: CREATINE KINASE, TOTAL ONLY 183 U/L (39-308)
[2020-09-06] MEDS: HYDROCODONE/ACETAMINOPHEN 5-325 MG TABLET PO PRN ×3 (09:55→18:48)
[2020-09-06 10:57] VITALS: BP 124/75
[2020-09-06 12:53] LABS: GLUCOMETER DEV NAME(LOC) 5N.1C; GLUCOSE,POINT OF CARE 155 MG/DL (70-110)
[2020-09-06 12:53] LABS: GLUCOMETER DEV NAME(LOC) 5N.1C; GLUCOSE,POINT OF CARE 171 MG/DL (70-110)
[2020-09-06] MEDS: LACTOBACILLUS ACIDOPHILUS/BULGARICUS TABLET PO SCH ×2 (14:57→20:38)
[2020-09-06 15:21] VITALS: BP 110/69
[2020-09-06] MEDS: ONDANSETRON HCL 4 MG/2 ML VIAL IVP PRN (16:48)
[2020-09-06 17:55] LABS: GLUCOMETER DEV NAME(LOC) 5S.1; GLUCOSE,POINT OF CARE 104 MG/DL (70-110)
[2020-09-06 18:43] LABS: CREATININE,URINE RANDOM 178.1 mg/dL (30.0-125.0)
[2020-09-06 19:39] VITALS: BP 111/68
[2020-09-06] MEDS: ZOLPIDEM TARTRATE 5 MG TABLET PO PRN (20:39)
[2020-09-07] MEDS: HEPARIN SODIUM,PORCINE 5,000 UNITS/ML VIAL SQ SCH ×4 (00:02→23:40)
[2020-09-07 00:20] VITALS: BP 121/68
[2020-09-07 04:53] VITALS: BP 113/63
[2020-09-07] MEDS: HYDROCODONE/ACETAMINOPHEN 5-325 MG TABLET PO PRN ×2 (05:19→11:31)
[2020-09-07] MEDS: INSULIN LISPRO 100 UNITS/ML SQ PRN ×4 (05:59→20:38)
[2020-09-07 07:00] LABS: GLUCOMETER DEV NAME(LOC) 5N.1C; GLUCOSE,POINT OF CARE 203 MG/DL (70-110)
[2020-09-07 07:02] LABS: BASOPHILS % (AUTO) 0.3 % (0.0-2.0); EOSINOPHILS % (AUTO) 0.5 % (1.0-6.0); HEMATOCRIT 35.3 % (41-53); MEAN CORPUSCULAR HEMOGLOBIN 32.5 pg (26.0-34.0); MEAN CORPUSCULAR HGB CONC 33.9 G/dL (31.0-37.0); MEAN CORPUSCULAR VOLUME 96 fL (80-100); MONOCYTES # (AUTO) 0.4 K/uL (0.1-1.0); NEUTROPHILS # (AUTO) 5.7 K/uL (1.8-7.7); NEUTROPHILS % (AUTO) 79.2 % (40.0-70.0); PLATELET COUNT (AUTO) 157 K/uL (150-450); RED BLOOD CELL COUNT(AUTO) 3.69 MIL/uL (4.50-5.90); RED CELL DISTRIBUTION WIDTH 15.2 % (11.5-14.5)
[2020-09-07 07:17] LABS: ANION GAP 9 mmol/L (8-16); CARBON DIOXIDE 23 mmol/L (22-29); CHLORIDE 96 mmol/L (98-107); CREATININE 0.78 mg/dL (0.60-1.30); GLOMERULAR FILTR. RATE CALC > 60 mL/min (>60); GLUCOSE,RANDOM 174 mg/dL (70-110); PHOSPHORUS 2.9 mg/dL (2.5-4.9); POTASSIUM 3.5 mmol/L (3.5-5.1); SODIUM SERUM 128 mmol/L (136-145); UREA NITROGEN, BLOOD 9 mg/dL (7-18)
[2020-09-07 07:36] VITALS: BP 109/63
[2020-09-07] MEDS: PANTOPRAZOLE SODIUM 40 MG DR TABLET PO SCH (07:50)
[2020-09-07] MEDS: LACTOBACILLUS ACIDOPHILUS/BULGARICUS TABLET PO SCH ×2 (07:50→20:36)
[2020-09-07] MEDS: SODIUM CHLORIDE 1 GM TABLET PO SCH ×3 (07:50→20:37)
[2020-09-07] MEDS: ETHYL ALCOHOL 62% ANTISEPTIC NASAL INHALANT 0.6 ML AMPUL NASAL SCH ×2 (07:50→20:36)
[2020-09-07] MEDS: LEVOFLOXACIN 750 MG/D5% WATER 150 ML IV SCH (07:50)
[2020-09-07] MEDS: DOCUSATE SODIUM 100 MG CAPSULE PO SCH ×2 (07:51→20:37)
[2020-09-07] MEDS ORDERED: SODIUM CHLORIDE 0.9% 250 ML IV ONE (08:29)
[2020-09-07] MEDS: MAGNESIUM SULFATE 3 GM in DEXTROSE 5%-WATER 100 ML IV ONE ×2 (08:32→09:46)
[2020-09-07 11:16] VITALS: BP 110/74
[2020-09-07 15:30] VITALS: BP 108/69
[2020-09-07] MEDS: ONDANSETRON HCL 4 MG/2 ML VIAL IVP PRN (17:29)
[2020-09-07 20:20] VITALS: BP 101/60
[2020-09-07] MEDS: ZOLPIDEM TARTRATE 5 MG TABLET PO PRN (20:37)
[2020-09-07 21:47] LABS: GLUCOMETER DEV NAME(LOC) 5N.1C; GLUCOSE,POINT OF CARE 181 MG/DL (70-110)
[2020-09-07 21:47] LABS: GLUCOMETER DEV NAME(LOC) 5N.1C; GLUCOSE,POINT OF CARE 167 MG/DL (70-110)
[2020-09-07] MEDS: LORazepam 2 MG/ML VIAL IVP PRN (23:40)
[2020-09-08] VITALS (7 sets, daily range): BP systolic 107–140; BP diastolic 60–87
[2020-09-08] MEDS: HYDROCODONE/ACETAMINOPHEN 5-325 MG TABLET PO PRN ×2 (03:40→10:04)
[2020-09-08 07:08] LABS: BASOPHILS % (AUTO) 0.6 % (0.0-2.0); EOSINOPHILS % (AUTO) 0.4 % (1.0-6.0); HEMATOCRIT 34.7 % (41-53); HEMOGLOBIN 11.9 g/dL (13.5-17.5); LYMPHOCYTES # (AUTO) 1.2 K/uL (1.0-4.8); LYMPHOCYTES % (AUTO) 15.7 % (22.0-44.0); MEAN CORPUSCULAR HEMOGLOBIN 32.7 pg (26.0-34.0); MEAN CORPUSCULAR HGB CONC 34.2 G/dL (31.0-37.0); MEAN CORPUSCULAR VOLUME 96 fL (80-100); MONOCYTES # (AUTO) 0.5 K/uL (0.1-1.0); MONOCYTES % (AUTO) 6.3 % (2.0-9.0); NEUTROPHILS # (AUTO) 5.7 K/uL (1.8-7.7); PLATELET COUNT (AUTO) 169 K/uL (150-450); RED BLOOD CELL COUNT(AUTO) 3.63 MIL/uL (4.50-5.90); RED CELL DISTRIBUTION WIDTH 15.1 % (11.5-14.5)
[2020-09-08 07:25] LABS: ANION GAP 9 mmol/L (8-16); CALCIUM, TOTAL 8.1 mg/dL (8.8-10.5); CARBON DIOXIDE 25 mmol/L (22-29); CHLORIDE 99 mmol/L (98-107); CREATININE 0.58 mg/dL (0.60-1.30); GLOMERULAR FILTR. RATE CALC > 60 mL/min (>60); GLUCOSE,RANDOM 126 mg/dL (70-110); PHOSPHORUS 3.4 mg/dL (2.5-4.9); POTASSIUM 3.4 mmol/L (3.5-5.1); SODIUM SERUM 133 mmol/L (136-145); UREA NITROGEN, BLOOD 8 mg/dL (7-18)
[2020-09-08] MEDS ORDERED: POTASSIUM CHLORIDE 20 MEQ ER TABLET PO ONE (07:45)
[2020-09-08] MEDS: PANTOPRAZOLE SODIUM 40 MG DR TABLET PO SCH (08:40)
[2020-09-08] MEDS: LACTOBACILLUS ACIDOPHILUS/BULGARICUS TABLET PO SCH ×2 (08:40→20:54)
[2020-09-08] MEDS: SODIUM CHLORIDE 1 GM TABLET PO SCH ×3 (08:40→20:54)
[2020-09-08] MEDS: ETHYL ALCOHOL 62% ANTISEPTIC NASAL INHALANT 0.6 ML AMPUL NASAL SCH ×2 (08:41→20:52)
[2020-09-08] MEDS: DOCUSATE SODIUM 100 MG CAPSULE PO SCH ×2 (08:41→20:53)
[2020-09-08] MEDS: HEPARIN SODIUM,PORCINE 5,000 UNITS/ML VIAL SQ SCH ×2 (08:41→15:47)
[2020-09-08] MEDS: LEVOFLOXACIN 750 MG/D5% WATER 150 ML IV SCH (08:43)
[2020-09-08] MEDS: INSULIN LISPRO 100 UNITS/ML SQ PRN (12:38)
[2020-09-08 13:25] LABS: LIPASE 36 U/L (73-393)
[2020-09-08] MEDS: PANTOPRAZOLE SODIUM 40 MG/VIAL IVP SCH ×2 (15:46→20:53)
[2020-09-08 18:11] LABS: GLUCOMETER DEV NAME(LOC) 5N.3; GLUCOSE,POINT OF CARE 151 MG/DL (70-110)
[2020-09-08 18:11] LABS: GLUCOMETER DEV NAME(LOC) 5N.3; GLUCOSE,POINT OF CARE 158 MG/DL (70-110)
[2020-09-08] MEDS: LORazepam 2 MG/ML VIAL IVP PRN (18:14)
[2020-09-08 19:56] LABS: GLUCOMETER DEV NAME(LOC) 5S.2B; GLUCOSE,POINT OF CARE 119 MG/DL (70-110)
[2020-09-08 19:57] LABS: GLUCOMETER DEV NAME(LOC) 5N.1C; GLUCOSE,POINT OF CARE 131 MG/DL (70-110)
[2020-09-08 19:57] LABS: GLUCOMETER DEV NAME(LOC) 5S.2B; GLUCOSE,POINT OF CARE 179 MG/DL (70-110)
[2020-09-08 21:29] LABS: BASOPHILS % (AUTO) 0.5 % (0.0-2.0); EOSINOPHILS % (AUTO) 0.5 % (1.0-6.0); HEMATOCRIT 35.7 % (41-53); LYMPHOCYTES # (AUTO) 1.4 K/uL (1.0-4.8); LYMPHOCYTES % (AUTO) 16.6 % (22.0-44.0); MEAN CORPUSCULAR HEMOGLOBIN 32.2 pg (26.0-34.0); MEAN CORPUSCULAR HGB CONC 33.7 G/dL (31.0-37.0); MEAN CORPUSCULAR VOLUME 96 fL (80-100); MONOCYTES # (AUTO) 0.5 K/uL (0.1-1.0); MONOCYTES % (AUTO) 6.3 % (2.0-9.0); NEUTROPHILS # (AUTO) 6.3 K/uL (1.8-7.7); NEUTROPHILS % (AUTO) 76.1 % (40.0-70.0); PLATELET COUNT (AUTO) 206 K/uL (150-450); RED BLOOD CELL COUNT(AUTO) 3.74 MIL/uL (4.50-5.90); RED CELL DISTRIBUTION WIDTH 15.2 % (11.5-14.5)
[2020-09-08 21:32] LABS: ANION GAP 9 mmol/L (8-16); CALCIUM, TOTAL 8.3 mg/dL (8.8-10.5); CARBON DIOXIDE 25 mmol/L (22-29); CHLORIDE 96 mmol/L (98-107); CREATININE 0.64 mg/dL (0.60-1.30); GLOMERULAR FILTR. RATE CALC > 60 mL/min (>60); GLUCOSE,RANDOM 144 mg/dL (70-110); POTASSIUM 3.7 mmol/L (3.5-5.1); SODIUM SERUM 130 mmol/L (136-145); UREA NITROGEN, BLOOD 9 mg/dL (7-18)
[2020-09-08 21:33] LABS: PROTHROMBIN TIME 10.7 SEC (9.4-11.6)
[2020-09-08 21:37] LABS: ALANINE AMINOTRANSFERASE 73 U/L (12-78); ALKALINE PHOSPHATASE 371 U/L (46-116); ASPARTATE AMINOTRANSFERASE 38 U/L (15-37); BILIRUBIN,TOTAL 0.7 mg/dL (0.1-1.0)
[2020-09-08 21:40] LABS: LACTIC ACID 0.8 mmol/L (0.4-2.0)
[2020-09-08] MEDS: ONDANSETRON HCL 4 MG/2 ML VIAL IVP PRN (22:04)
[2020-09-08 23:05] LABS: GLUCOMETER DEV NAME(LOC) 5N.1C; GLUCOSE,POINT OF CARE 145 MG/DL (70-110)
[2020-09-09] MEDS: MORPHINE SULFATE 2 MG/ML SYRINGE IVP PRN ×2 (00:36→10:50)
[2020-09-09 04:21] VITALS: BP 115/68
[2020-09-09] MEDS ORDERED: SODIUM CHLORIDE 0.9% 1,000 ML ONE (05:56)
[2020-09-09 06:00] LABS: BASOPHILS % (AUTO) 0.6 % (0.0-2.0); EOSINOPHILS % (AUTO) 0.5 % (1.0-6.0); HEMATOCRIT 35.7 % (41-53); HEMOGLOBIN 12.1 g/dL (13.5-17.5); LYMPHOCYTES % (AUTO) 12.6 % (22.0-44.0); MEAN CORPUSCULAR HEMOGLOBIN 32.2 pg (26.0-34.0); MEAN CORPUSCULAR VOLUME 95 fL (80-100); MONOCYTES # (AUTO) 0.5 K/uL (0.1-1.0); MONOCYTES % (AUTO) 6.2 % (2.0-9.0); NEUTROPHILS # (AUTO) 6.3 K/uL (1.8-7.7); NEUTROPHILS % (AUTO) 80.1 % (40.0-70.0); PLATELET COUNT (AUTO) 201 K/uL (150-450); RED BLOOD CELL COUNT(AUTO) 3.76 MIL/uL (4.50-5.90); RED CELL DISTRIBUTION WIDTH 15.1 % (11.5-14.5)
[2020-09-09 06:20] LABS: ALANINE AMINOTRANSFERASE 68 U/L (12-78); ALBUMIN 1.9 g/dL (3.4-5.0); ALKALINE PHOSPHATASE 388 U/L (46-116); ANION GAP 5 mmol/L (8-16); ASPARTATE AMINOTRANSFERASE 40 U/L (15-37); BILIRUBIN,TOTAL 0.9 mg/dL (0.1-1.0); CALCIUM, TOTAL 8.2 mg/dL (8.8-10.5); CARBON DIOXIDE 27 mmol/L (22-29); CHLORIDE 97 mmol/L (98-107); CREATININE 0.53 mg/dL (0.60-1.30); GLOMERULAR FILTR. RATE CALC > 60 mL/min (>60); GLUCOSE,RANDOM 128 mg/dL (70-110); POTASSIUM 3.8 mmol/L (3.5-5.1); SODIUM SERUM 129 mmol/L (136-145); TOTAL PROTEIN, SERUM 5.8 g/dL (6.4-8.2); UREA NITROGEN, BLOOD 8 mg/dL (7-18)
[2020-09-09 06:36] LABS: GLUCOMETER DEV NAME(LOC) 5N.1C; GLUCOSE,POINT OF CARE 116 MG/DL (70-110)
[2020-09-09] MEDS ORDERED: MAGNESIUM SULFATE 3 GM in DEXTROSE 5%-WATER 100 ML IV ONE (07:30)
[2020-09-09] MEDS: SODIUM CHLORIDE 1 GM TABLET PO SCH ×3 (09:00→20:59)
[2020-09-09] MEDS: LACTOBACILLUS ACIDOPHILUS/BULGARICUS TABLET PO SCH ×2 (09:00→20:59)
[2020-09-09] MEDS: DOCUSATE SODIUM 100 MG CAPSULE PO SCH ×2 (09:00→20:59)
[2020-09-09] MEDS: DEXTROSE 5%-0.9% SODIUM CHL 1,000 ML IV SCH (09:11)
[2020-09-09] MEDS: LEVOFLOXACIN 750 MG/D5% WATER 150 ML IV SCH (09:15)
[2020-09-09] MEDS: HEPARIN SODIUM,PORCINE 5,000 UNITS/ML VIAL SQ SCH ×4 (11:07→23:46)
[2020-09-09] MEDS: PANTOPRAZOLE SODIUM 40 MG/VIAL IVP SCH ×2 (11:07→21:01)
[2020-09-09 11:17] VITALS: BP 97/64
[2020-09-09] MEDS: ETHYL ALCOHOL 62% ANTISEPTIC NASAL INHALANT 0.6 ML AMPUL NASAL SCH ×2 (11:17→21:04)
[2020-09-09] MEDS ORDERED: LIDOCAINE/PF 2% 5 ML SYRINGE IVP ONE (12:00)
[2020-09-09] MEDS ORDERED: PROPOFOL 1% 20 ML VIAL IVP ONE (12:00)
[2020-09-09 12:42] LABS: GLUCOMETER DEV NAME(LOC) 5S.2B; GLUCOSE,POINT OF CARE 132 MG/DL (70-110)
[2020-09-09] MEDS: GuaiFENesin/D-METHORPHAN [SUGAR-FREE] 200-20MG/10 ML SYRUP UDCUP PO PRN ×2 (16:04→23:48)
[2020-09-09] MEDS: LORazepam 2 MG/ML VIAL IVP PRN (16:04)
[2020-09-09 16:07] VITALS: BP 129/78
[2020-09-09 17:47] LABS: GLUCOMETER DEV NAME(LOC) 5S.2B; GLUCOSE,POINT OF CARE 124 MG/DL (70-110)
[2020-09-09 19:34] VITALS: BP 126/72
[2020-09-09] MEDS: ONDANSETRON HCL 4 MG/2 ML VIAL IVP PRN (23:46)
[2020-09-09 23:53] VITALS: BP 124/69
[2020-09-10] MEDS: METOCLOPRAMIDE HCL 5 MG/ML 2 ML VIAL IVP PRN (03:09)
[2020-09-10] MEDS: MORPHINE SULFATE 2 MG/ML SYRINGE IVP PRN ×4 (03:10→23:12)
[2020-09-10 03:34] VITALS: BP 114/69
[2020-09-10 06:12] LABS: BASOPHILS % (AUTO) 0.4 % (0.0-2.0); EOSINOPHILS % (AUTO) 0.8 % (1.0-6.0); HEMATOCRIT 35.3 % (41-53); HEMOGLOBIN 11.9 g/dL (13.5-17.5); LYMPHOCYTES # (AUTO) 1.1 K/uL (1.0-4.8); LYMPHOCYTES % (AUTO) 13.8 % (22.0-44.0); MEAN CORPUSCULAR HGB CONC 33.7 G/dL (31.0-37.0); MEAN CORPUSCULAR VOLUME 95 fL (80-100); MONOCYTES # (AUTO) 0.5 K/uL (0.1-1.0); MONOCYTES % (AUTO) 6.5 % (2.0-9.0); NEUTROPHILS # (AUTO) 6.2 K/uL (1.8-7.7); NEUTROPHILS % (AUTO) 78.5 % (40.0-70.0); PLATELET COUNT (AUTO) 221 K/uL (150-450); RED BLOOD CELL COUNT(AUTO) 3.71 MIL/uL (4.50-5.90); RED CELL DISTRIBUTION WIDTH 15.4 % (11.5-14.5)
[2020-09-10 06:25] LABS: ALANINE AMINOTRANSFERASE 72 U/L (12-78); ALBUMIN 1.8 g/dL (3.4-5.0); ALKALINE PHOSPHATASE 494 U/L (46-116); ANION GAP 7 mmol/L (8-16); ASPARTATE AMINOTRANSFERASE 58 U/L (15-37); BILIRUBIN,TOTAL 1.1 mg/dL (0.1-1.0); CALCIUM, TOTAL 8.5 mg/dL (8.8-10.5); CARBON DIOXIDE 25 mmol/L (22-29); CHLORIDE 97 mmol/L (98-107); CREATININE 0.57 mg/dL (0.60-1.30); GLOMERULAR FILTR. RATE CALC > 60 mL/min (>60); GLUCOSE,RANDOM 126 mg/dL (70-110); POTASSIUM 3.8 mmol/L (3.5-5.1); SODIUM SERUM 129 mmol/L (136-145); TOTAL PROTEIN, SERUM 5.9 g/dL (6.4-8.2); UREA NITROGEN, BLOOD 7 mg/dL (7-18)
[2020-09-10 07:36] LABS: GLUCOMETER DEV NAME(LOC) 5N.1C; GLUCOSE,POINT OF CARE 122 MG/DL (70-110)
[2020-09-10 07:39] VITALS: BP 110/74
[2020-09-10] MEDS: PANTOPRAZOLE SODIUM 40 MG/VIAL IVP SCH ×2 (08:29→21:14)
[2020-09-10] MEDS: HEPARIN SODIUM,PORCINE 5,000 UNITS/ML VIAL SQ SCH ×3 (08:29→23:12)
[2020-09-10] MEDS: LEVOFLOXACIN 750 MG/D5% WATER 150 ML IV SCH (08:30)
[2020-09-10] MEDS: DEXTROSE 5%-0.9% SODIUM CHL 1,000 ML IV SCH ×2 (08:31→15:54)
[2020-09-10] MEDS: ETHYL ALCOHOL 62% ANTISEPTIC NASAL INHALANT 0.6 ML AMPUL NASAL SCH ×2 (09:00→21:14)
[2020-09-10] MEDS: LACTOBACILLUS ACIDOPHILUS/BULGARICUS TABLET PO SCH ×2 (09:00→21:00)
[2020-09-10] MEDS: SODIUM CHLORIDE 1 GM TABLET PO SCH ×3 (09:00→21:00)
[2020-09-10] MEDS: DOCUSATE SODIUM 100 MG CAPSULE PO SCH ×2 (09:00→21:00)
[2020-09-10 10:26] LABS: GLUCOMETER DEV NAME(LOC) 5N.3; GLUCOSE,POINT OF CARE 122 MG/DL (70-110)
[2020-09-10 10:59] VITALS: BP 114/66
[2020-09-10] MEDS: ONDANSETRON HCL 4 MG/2 ML VIAL IVP PRN (13:54)
[2020-09-10] MEDS: INSULIN LISPRO 100 UNITS/ML SQ PRN (13:55)
[2020-09-10 15:45] VITALS: BP 125/79
[2020-09-10 19:38] VITALS: BP 112/76
[2020-09-10] MEDS: BISACODYL 5 MG EC TABLET PO SCH (21:15)
[2020-09-10] MEDS: SIMETHICONE 80 MG CHEWABLE TABLET CHEW SCH (21:15)
[2020-09-10 23:00] LABS: GLUCOMETER DEV NAME(LOC) 5N.1C; GLUCOSE,POINT OF CARE 114 MG/DL (70-110)
[2020-09-10] MEDS: METOCLOPRAMIDE HCL 5 MG/ML 2 ML VIAL IVP SCH (23:12)
[2020-09-10] MEDS: GuaiFENesin/D-METHORPHAN [SUGAR-FREE] 200-20MG/10 ML SYRUP UDCUP PO PRN (23:58)
[2020-09-11] VITALS (7 sets, daily range): BP systolic 99–114; BP diastolic 51–71
[2020-09-11] MEDS: METOCLOPRAMIDE HCL 5 MG/ML 2 ML VIAL IVP SCH ×3 (05:26→17:49)
[2020-09-11 06:23] LABS: BASOPHILS % (AUTO) 0.5 % (0.0-2.0); HEMATOCRIT 37.2 % (41-53); HEMOGLOBIN 12.6 g/dL (13.5-17.5); LYMPHOCYTES % (AUTO) 12.1 % (22.0-44.0); MEAN CORPUSCULAR HEMOGLOBIN 32.4 pg (26.0-34.0); MEAN CORPUSCULAR HGB CONC 33.8 G/dL (31.0-37.0); MEAN CORPUSCULAR VOLUME 96 fL (80-100); MONOCYTES # (AUTO) 0.5 K/uL (0.1-1.0); MONOCYTES % (AUTO) 5.8 % (2.0-9.0); NEUTROPHILS # (AUTO) 6.4 K/uL (1.8-7.7); NEUTROPHILS % (AUTO) 80.6 % (40.0-70.0); PLATELET COUNT (AUTO) 258 K/uL (150-450); RED BLOOD CELL COUNT(AUTO) 3.88 MIL/uL (4.50-5.90); RED CELL DISTRIBUTION WIDTH 15.2 % (11.5-14.5)
[2020-09-11 06:39] LABS: ALANINE AMINOTRANSFERASE 75 U/L (12-78); ALBUMIN 1.9 g/dL (3.4-5.0); ALKALINE PHOSPHATASE 604 U/L (46-116); ANION GAP 9 mmol/L (8-16); ASPARTATE AMINOTRANSFERASE 50 U/L (15-37); BILIRUBIN,TOTAL 0.8 mg/dL (0.1-1.0); CALCIUM, TOTAL 8.8 mg/dL (8.8-10.5); CARBON DIOXIDE 28 mmol/L (22-29); CHLORIDE 97 mmol/L (98-107); CREATININE 0.72 mg/dL (0.60-1.30); GLOMERULAR FILTR. RATE CALC > 60 mL/min (>60); GLUCOSE,RANDOM 117 mg/dL (70-110); PHOSPHORUS 3.3 mg/dL (2.5-4.9); POTASSIUM 3.8 mmol/L (3.5-5.1); SODIUM SERUM 134 mmol/L (136-145); TOTAL PROTEIN, SERUM 6.4 g/dL (6.4-8.2); UREA NITROGEN, BLOOD 9 mg/dL (7-18)
[2020-09-11] MEDS: SODIUM CHLORIDE 1 GM TABLET PO SCH ×4 (08:25→21:43)
[2020-09-11] MEDS: DOCUSATE SODIUM 100 MG CAPSULE PO SCH ×2 (08:25→20:32)
[2020-09-11] MEDS: LACTOBACILLUS ACIDOPHILUS/BULGARICUS TABLET PO SCH ×2 (08:25→20:31)
[2020-09-11] MEDS: BISACODYL 5 MG EC TABLET PO SCH ×2 (08:29→20:31)
[2020-09-11] MEDS: MORPHINE SULFATE 2 MG/ML SYRINGE IVP PRN ×3 (08:29→21:41)
[2020-09-11] MEDS: PANTOPRAZOLE SODIUM 40 MG/VIAL IVP SCH ×2 (08:30→20:31)
[2020-09-11] MEDS: LEVOFLOXACIN 750 MG/D5% WATER 150 ML IV SCH (08:30)
[2020-09-11] MEDS: SIMETHICONE 80 MG CHEWABLE TABLET CHEW SCH ×4 (08:30→20:31)
[2020-09-11] MEDS: HEPARIN SODIUM,PORCINE 5,000 UNITS/ML VIAL SQ SCH ×2 (08:30→15:49)
[2020-09-11] MEDS: ETHYL ALCOHOL 62% ANTISEPTIC NASAL INHALANT 0.6 ML AMPUL NASAL SCH ×2 (08:30→20:31)
[2020-09-11] MEDS: MINERAL OIL 30 ML UDCUP PO SCH ×2 (15:08→21:42)
[2020-09-11 17:02] LABS: GLUCOMETER DEV NAME(LOC) 5N.3; GLUCOSE,POINT OF CARE 125 MG/DL (70-110)
[2020-09-11 17:02] LABS: GLUCOMETER DEV NAME(LOC) 5N.3; GLUCOSE,POINT OF CARE 125 MG/DL (70-110)
[2020-09-11 17:03] LABS: GLUCOMETER DEV NAME(LOC) 5N.3; GLUCOSE,POINT OF CARE 127 MG/DL (70-110)
[2020-09-11] MEDS: INSULIN LISPRO 100 UNITS/ML SQ PRN (17:50)
[2020-09-11] MEDS: ZOLPIDEM TARTRATE 5 MG TABLET PO PRN (20:30)
[2020-09-12] MEDS: HEPARIN SODIUM,PORCINE 5,000 UNITS/ML VIAL SQ SCH ×3 (00:07→15:53)
[2020-09-12] MEDS: METOCLOPRAMIDE HCL 5 MG/ML 2 ML VIAL IVP SCH ×4 (00:08→17:31)
[2020-09-12 01:19] LABS: GLUCOMETER DEV NAME(LOC) 5N.1C; GLUCOSE,POINT OF CARE 139 MG/DL (70-110)
[2020-09-12 01:19] LABS: GLUCOMETER DEV NAME(LOC) 5N.1C; GLUCOSE,POINT OF CARE 149 MG/DL (70-110)
[2020-09-12 01:19] LABS: GLUCOMETER DEV NAME(LOC) 5N.1C; GLUCOSE,POINT OF CARE 121 MG/DL (70-110)
[2020-09-12] MEDS: HYDROCODONE/ACETAMINOPHEN 5-325 MG TABLET PO PRN ×4 (01:49→22:29)
[2020-09-12 05:45] VITALS: BP 145/79
[2020-09-12] MEDS: INSULIN LISPRO 100 UNITS/ML SQ PRN ×4 (05:56→20:41)
[2020-09-12 07:41] VITALS: BP 128/70
[2020-09-12] MEDS: DOCUSATE SODIUM 100 MG CAPSULE PO SCH ×2 (08:16→20:38)
[2020-09-12] MEDS: SODIUM CHLORIDE 1 GM TABLET PO SCH ×3 (08:16→20:38)
[2020-09-12] MEDS: MINERAL OIL 30 ML UDCUP PO SCH ×2 (08:16→20:38)
[2020-09-12] MEDS: LACTOBACILLUS ACIDOPHILUS/BULGARICUS TABLET PO SCH ×2 (08:17→20:38)
[2020-09-12] MEDS: SIMETHICONE 80 MG CHEWABLE TABLET CHEW SCH ×4 (08:17→20:38)
[2020-09-12] MEDS: BISACODYL 5 MG EC TABLET PO SCH ×2 (08:17→20:38)
[2020-09-12] MEDS: PANTOPRAZOLE SODIUM 40 MG/VIAL IVP SCH ×2 (08:17→20:39)
[2020-09-12] MEDS: LEVOFLOXACIN 750 MG/D5% WATER 150 ML IV SCH (08:18)
[2020-09-12] MEDS: ETHYL ALCOHOL 62% ANTISEPTIC NASAL INHALANT 0.6 ML AMPUL NASAL SCH ×2 (08:18→20:49)
[2020-09-12 08:37] LABS: BASOPHILS % (AUTO) 0.8 % (0.0-2.0); EOSINOPHILS % (AUTO) 1.3 % (1.0-6.0); HEMATOCRIT 35.7 % (41-53); HEMOGLOBIN 12.2 g/dL (13.5-17.5); LYMPHOCYTES # (AUTO) 1.2 K/uL (1.0-4.8); LYMPHOCYTES % (AUTO) 17.2 % (22.0-44.0); MEAN CORPUSCULAR HEMOGLOBIN 32.2 pg (26.0-34.0); MEAN CORPUSCULAR HGB CONC 34.1 G/dL (31.0-37.0); MEAN CORPUSCULAR VOLUME 95 fL (80-100); MONOCYTES # (AUTO) 0.5 K/uL (0.1-1.0); MONOCYTES % (AUTO) 7.2 % (2.0-9.0); NEUTROPHILS % (AUTO) 73.5 % (40.0-70.0); PLATELET COUNT (AUTO) 265 K/uL (150-450); RED BLOOD CELL COUNT(AUTO) 3.77 MIL/uL (4.50-5.90); RED CELL DISTRIBUTION WIDTH 15.2 % (11.5-14.5)
[2020-09-12 11:26] VITALS: BP 120/70
[2020-09-12] MEDS ORDERED: DOCU-275 PO (13:34)
[2020-09-12] MEDS ORDERED: ACID1TAB8 PO (13:35)
[2020-09-12] MEDS ORDERED: LEVO750T68 PO (13:35)
[2020-09-12] MEDS ORDERED: SIME80TA14 PO (13:36)
[2020-09-12] MEDS ORDERED: NACL1 PO (13:39)
[2020-09-12 16:16] VITALS: BP 114/75
[2020-09-12] MEDS: ACETAMINOPHEN 325 MG TABLET PO PRN (17:40)
[2020-09-12 18:55] LABS: GLUCOMETER DEV NAME(LOC) 5N.1C; GLUCOSE,POINT OF CARE 166 MG/DL (70-110)
[2020-09-12 19:33] VITALS: BP 110/63
[2020-09-12] MEDS: ZOLPIDEM TARTRATE 5 MG TABLET PO PRN (20:38)
[2020-09-12] MEDS: DEXTROSE 5%-0.9% SODIUM CHL 1,000 ML IV SCH (20:39)
[2020-09-12 23:04] VITALS: BP 123/75
[2020-09-13] VITALS (7 sets, daily range): BP systolic 119–138; BP diastolic 70–89
[2020-09-13] MEDS: HYDROCODONE/ACETAMINOPHEN 5-325 MG TABLET PO PRN ×3 (03:28→15:36)
[2020-09-13] MEDS: METOCLOPRAMIDE HCL 5 MG/ML 2 ML VIAL IVP SCH ×4 (05:42→17:23)
[2020-09-13] MEDS: DOCUSATE SODIUM 100 MG CAPSULE PO SCH ×2 (08:12→21:04)
[2020-09-13] MEDS: LACTOBACILLUS ACIDOPHILUS/BULGARICUS TABLET PO SCH ×2 (08:12→21:05)
[2020-09-13] MEDS: SIMETHICONE 80 MG CHEWABLE TABLET CHEW SCH ×4 (08:12→22:02)
[2020-09-13] MEDS: HEPARIN SODIUM,PORCINE 5,000 UNITS/ML VIAL SQ SCH ×3 (08:13→15:06)
[2020-09-13] MEDS: ETHYL ALCOHOL 62% ANTISEPTIC NASAL INHALANT 0.6 ML AMPUL NASAL SCH ×2 (08:13→21:00)
[2020-09-13] MEDS: BISACODYL 5 MG EC TABLET PO SCH ×2 (08:13→22:02)
[2020-09-13] MEDS: PANTOPRAZOLE SODIUM 40 MG/VIAL IVP SCH ×2 (08:14→21:04)
[2020-09-13] MEDS: SODIUM CHLORIDE 1 GM TABLET PO SCH ×4 (08:14→21:05)
[2020-09-13] MEDS: MINERAL OIL 30 ML UDCUP PO SCH ×2 (08:14→22:02)
[2020-09-13] MEDS: LEVOFLOXACIN 750 MG/D5% WATER 150 ML IV SCH (08:15)
[2020-09-13 09:40] LABS: GLUCOMETER DEV NAME(LOC) 5N.1C; GLUCOSE,POINT OF CARE 154 MG/DL (70-110)
[2020-09-13 12:18] LABS: ANION GAP 9 mmol/L (8-16); CALCIUM, TOTAL 8.1 mg/dL (8.8-10.5); CARBON DIOXIDE 24 mmol/L (22-29); CHLORIDE 99 mmol/L (98-107); CREATININE 0.67 mg/dL (0.60-1.30); GLOMERULAR FILTR. RATE CALC > 60 mL/min (>60); GLUCOSE,RANDOM 156 mg/dL (70-110); PHOSPHORUS 2.9 mg/dL (2.5-4.9); POTASSIUM 3.3 mmol/L (3.5-5.1); SODIUM SERUM 132 mmol/L (136-145); UREA NITROGEN, BLOOD 7 mg/dL (7-18)
[2020-09-13 12:37] LABS: GLUCOMETER DEV NAME(LOC) 5N.1C; GLUCOSE,POINT OF CARE 163 MG/DL (70-110)
[2020-09-13] MEDS ORDERED: MAGNESIUM SULFATE 3 GM in DEXTROSE 5%-WATER 100 ML IV ONE (13:30)
[2020-09-13 18:26] LABS: GLUCOMETER DEV NAME(LOC) 5S.2B; GLUCOSE,POINT OF CARE 120 MG/DL (70-110)
[2020-09-13] MEDS: ZOLPIDEM TARTRATE 5 MG TABLET PO PRN (21:05)
[2020-09-13 22:38] LABS: GLUCOMETER DEV NAME(LOC) 6N.1; GLUCOSE,POINT OF CARE 162 MG/DL (70-110)
[2020-09-13] MEDS: INSULIN LISPRO 100 UNITS/ML SQ PRN (23:30)
[2020-09-14] MEDS: METOCLOPRAMIDE HCL 5 MG/ML 2 ML VIAL IVP SCH ×5 (00:23→18:59)
[2020-09-14] MEDS: HEPARIN SODIUM,PORCINE 5,000 UNITS/ML VIAL SQ SCH ×3 (00:24→16:00)
[2020-09-14] MEDS: HYDROCODONE/ACETAMINOPHEN 5-325 MG TABLET PO PRN ×4 (00:24→21:36)
[2020-09-14 03:03] VITALS: BP 113/75
[2020-09-14] MEDS: ACETAMINOPHEN 325 MG TABLET PO PRN (03:51)
[2020-09-14 05:21] LABS: GLUCOMETER DEV NAME(LOC) 5N.3; GLUCOSE,POINT OF CARE 132 MG/DL (70-110)
[2020-09-14 05:21] LABS: GLUCOMETER DEV NAME(LOC) 5N.3; GLUCOSE,POINT OF CARE 145 MG/DL (70-110)
[2020-09-14 07:23] LABS: GLUCOMETER DEV NAME(LOC) 6N.1; GLUCOSE,POINT OF CARE 133 MG/DL (70-110)
[2020-09-14 07:43] VITALS: BP 133/70
[2020-09-14] MEDS: SIMETHICONE 80 MG CHEWABLE TABLET CHEW SCH ×4 (08:34→20:57)
[2020-09-14] MEDS: LEVOFLOXACIN 750 MG/D5% WATER 150 ML IV SCH (08:34)
[2020-09-14] MEDS: LACTOBACILLUS ACIDOPHILUS/BULGARICUS TABLET PO SCH ×2 (08:34→20:59)
[2020-09-14] MEDS: SODIUM CHLORIDE 1 GM TABLET PO SCH ×3 (08:35→20:59)
[2020-09-14] MEDS: BISACODYL 5 MG EC TABLET PO SCH ×2 (08:35→20:58)
[2020-09-14] MEDS: MINERAL OIL 30 ML UDCUP PO SCH ×2 (08:35→20:59)
[2020-09-14] MEDS: PANTOPRAZOLE SODIUM 40 MG/VIAL IVP SCH ×2 (08:35→20:58)
[2020-09-14] MEDS: DOCUSATE SODIUM 100 MG CAPSULE PO SCH ×2 (08:36→20:58)
[2020-09-14] MEDS: DEXTROSE 5%-0.9% SODIUM CHL 1,000 ML IV SCH (08:39)
[2020-09-14] MEDS: ETHYL ALCOHOL 62% ANTISEPTIC NASAL INHALANT 0.6 ML AMPUL NASAL SCH ×2 (08:46→21:00)
[2020-09-14] MEDS: INSULIN LISPRO 100 UNITS/ML SQ PRN ×2 (12:00→17:26)
[2020-09-14 12:45] LABS: GLUCOMETER DEV NAME(LOC) 6S.1; GLUCOSE,POINT OF CARE 148 MG/DL (70-110)
[2020-09-14 15:36] VITALS: BP 108/72
[2020-09-14 19:34] LABS: GLUCOMETER DEV NAME(LOC) 6S.1; GLUCOSE,POINT OF CARE 161 MG/DL (70-110)
[2020-09-14 20:00] VITALS: BP 120/81
[2020-09-14] MEDS: ONDANSETRON HCL 4 MG/2 ML VIAL IVP PRN (20:24)
[2020-09-14] MEDS: ZOLPIDEM TARTRATE 5 MG TABLET PO PRN (21:00)
[2020-09-14 22:38] LABS: GLUCOMETER DEV NAME(LOC) 6N.1; GLUCOSE,POINT OF CARE 156 MG/DL (70-110)
[2020-09-15 00:19] VITALS: BP 114/73
[2020-09-15] MEDS: METOCLOPRAMIDE HCL 5 MG/ML 2 ML VIAL IVP SCH ×5 (00:57→23:54)
[2020-09-15] MEDS: HEPARIN SODIUM,PORCINE 5,000 UNITS/ML VIAL SQ SCH ×4 (00:58→23:54)
[2020-09-15] MEDS: HYDROCODONE/ACETAMINOPHEN 5-325 MG TABLET PO PRN ×4 (02:54→23:54)
[2020-09-15 04:04] VITALS: BP 106/76
[2020-09-15 07:40] VITALS: BP 124/73
[2020-09-15] MEDS: MINERAL OIL 30 ML UDCUP PO SCH ×2 (08:50→20:14)
[2020-09-15] MEDS: LACTOBACILLUS ACIDOPHILUS/BULGARICUS TABLET PO SCH ×2 (08:50→20:14)
[2020-09-15] MEDS: SIMETHICONE 80 MG CHEWABLE TABLET CHEW SCH ×4 (08:50→20:14)
[2020-09-15] MEDS: PANTOPRAZOLE SODIUM 40 MG/VIAL IVP SCH ×2 (08:51→20:15)
[2020-09-15] MEDS: BISACODYL 5 MG EC TABLET PO SCH ×2 (08:51→20:14)
[2020-09-15] MEDS: DOCUSATE SODIUM 100 MG CAPSULE PO SCH ×2 (08:51→20:15)
[2020-09-15] MEDS: SODIUM CHLORIDE 1 GM TABLET PO SCH ×3 (08:51→20:15)
[2020-09-15] MEDS: ETHYL ALCOHOL 62% ANTISEPTIC NASAL INHALANT 0.6 ML AMPUL NASAL SCH ×2 (08:55→20:45)
[2020-09-15] MEDS: LEVOFLOXACIN 750 MG/D5% WATER 150 ML IV SCH (08:55)
[2020-09-15 08:56] LABS: GLUCOMETER DEV NAME(LOC) 6S.1; GLUCOSE,POINT OF CARE 127 MG/DL (70-110)
[2020-09-15 09:15] LABS: ANION GAP 6 mmol/L (8-16); CALCIUM, TOTAL 8.7 mg/dL (8.8-10.5); CARBON DIOXIDE 28 mmol/L (22-29); CHLORIDE 99 mmol/L (98-107); GLOMERULAR FILTR. RATE CALC > 60 mL/min (>60); GLUCOSE,RANDOM 160 mg/dL (70-110); POTASSIUM 3.6 mmol/L (3.5-5.1); SODIUM SERUM 133 mmol/L (136-145); UREA NITROGEN, BLOOD 6 mg/dL (7-18)
[2020-09-15 09:18] LABS: PHOSPHORUS 3.4 mg/dL (2.5-4.9)
[2020-09-15 14:52] LABS: GLUCOMETER DEV NAME(LOC) 6N.1; GLUCOSE,POINT OF CARE 146 MG/DL (70-110)
[2020-09-15 16:00] VITALS: BP 122/72
[2020-09-15 18:02] LABS: GLUCOMETER DEV NAME(LOC) 6S.1; GLUCOSE,POINT OF CARE 146 MG/DL (70-110)
[2020-09-15 19:30] VITALS: BP 100/69
[2020-09-15] MEDS: ZOLPIDEM TARTRATE 5 MG TABLET PO PRN (20:15)
[2020-09-15] MEDS: INSULIN LISPRO 100 UNITS/ML SQ PRN (20:16)
[2020-09-15 22:54] VITALS: BP 98/53
[2020-09-16 03:47] VITALS: BP 109/52
[2020-09-16] MEDS: HYDROCODONE/ACETAMINOPHEN 5-325 MG TABLET PO PRN ×2 (05:03→10:18)
[2020-09-16] MEDS: METOCLOPRAMIDE HCL 5 MG/ML 2 ML VIAL IVP SCH ×2 (05:46→12:00)
[2020-09-16] MEDS: INSULIN LISPRO 100 UNITS/ML SQ PRN (05:51)
[2020-09-16 06:16] LABS: GLUCOMETER DEV NAME(LOC) 6N.1; GLUCOSE,POINT OF CARE 178 MG/DL (70-110)
[2020-09-16 07:10] LABS: GLUCOMETER DEV NAME(LOC) 6S.1; GLUCOSE,POINT OF CARE 142 MG/DL (70-110)
[2020-09-16 07:33] LABS: ANION GAP 8 mmol/L (8-16); CALCIUM, TOTAL 8.5 mg/dL (8.8-10.5); CARBON DIOXIDE 27 mmol/L (22-29); CHLORIDE 100 mmol/L (98-107); CREATININE 0.75 mg/dL (0.60-1.30); GLOMERULAR FILTR. RATE CALC > 60 mL/min (>60); GLUCOSE,RANDOM 136 mg/dL (70-110); POTASSIUM 3.7 mmol/L (3.5-5.1); SODIUM SERUM 135 mmol/L (136-145); UREA NITROGEN, BLOOD 8 mg/dL (7-18)
[2020-09-16 08:02] VITALS: BP 96/62
[2020-09-16] MEDS: BISACODYL 5 MG EC TABLET PO SCH (09:00)
[2020-09-16] MEDS: DOCUSATE SODIUM 100 MG CAPSULE PO SCH (09:00)
[2020-09-16] MEDS: ETHYL ALCOHOL 62% ANTISEPTIC NASAL INHALANT 0.6 ML AMPUL NASAL SCH ×2 (09:00→09:09)
[2020-09-16] MEDS: MINERAL OIL 30 ML UDCUP PO SCH (09:00)
[2020-09-16] MEDS: HEPARIN SODIUM,PORCINE 5,000 UNITS/ML VIAL SQ SCH (09:03)
[2020-09-16] MEDS: SIMETHICONE 80 MG CHEWABLE TABLET CHEW SCH ×2 (09:03→13:00)
[2020-09-16] MEDS: PANTOPRAZOLE SODIUM 40 MG/VIAL IVP SCH (09:05)
[2020-09-16] MEDS: LEVOFLOXACIN 750 MG/D5% WATER 150 ML IV SCH (09:05)
[2020-09-16] MEDS: LACTOBACILLUS ACIDOPHILUS/BULGARICUS TABLET PO SCH (09:07)
[2020-09-16] MEDS: MAGNESIUM OXIDE 400 MG TABLET PO PRN ×2 (09:08→11:51)
[2020-09-16] MEDS: SODIUM CHLORIDE 1 GM TABLET PO SCH (09:08)
[2020-09-16 10:16] VITALS: BP 106/68
[2020-09-16] MEDS ORDERED: LORazepam 0.5 MG TABLET PO ONE (11:00)
[2020-09-16] MEDS ORDERED: NACL1 PO (11:37)
[2020-09-16] MEDS ORDERED: BUPR75 PO (11:40)
[2020-09-16] MEDS ORDERED: BISA-151 PO (11:43)
[2020-09-16] MEDS ORDERED: SIMETHICONE PO (11:45)
[2020-09-16 11:47] VITALS: BP 110/63
[2020-09-16 11:58] LABS: GLUCOMETER DEV NAME(LOC) 6S.1; GLUCOSE,POINT OF CARE 139 MG/DL (70-110)
== END 2020-09-16 13:50 | disposition home or self-care (01) | DRG 469 ==
LOC: EMS 11:53 → ICU 15:27 → 5S 09-01 18:06 → 6N 09-13 18:20
PROVIDERS: ADMIT Internal Medicine; ATTEND Internal Medicine
PROC: 0D9680Z Drainage of Stomach with Drainage Device, Via Natural or Artificial Opening Endoscopic (ICD-10-PCS; principal; 2020-09-09 07:00)
DX: N17.0 Acute kidney failure with tubular necrosis (principal); R65.11 Systemic inflammatory response syndrome (SIRS) of non-infectious origin with acute organ dysfunction; G93.41 Metabolic encephalopathy; E87.4 Mixed disorder of acid-base balance; K56.7 Ileus, unspecified; E11.65 Type 2 diabetes mellitus with hyperglycemia; E86.1 Hypovolemia; I48.91 Unspecified atrial fibrillation; E66.01 Morbid (severe) obesity due to excess calories; M62.82 Rhabdomyolysis; E83.42 Hypomagnesemia; I50.9 Heart failure, unspecified; I11.0 Hypertensive heart disease with heart failure; E87.1 Hypo-osmolality and hyponatremia; E87.6 Hypokalemia; F17.200 Nicotine dependence, unspecified, uncomplicated; F25.9 Schizoaffective disorder, unspecified; J44.9 Chronic obstructive pulmonary disease, unspecified; N39.0 Urinary tract infection, site not specified; I25.10 Atherosclerotic heart disease of native coronary artery without angina pectoris; F10.20 Alcohol dependence, uncomplicated; K70.10 Alcoholic hepatitis without ascites; F32.9 Major depressive disorder, single episode, unspecified; K21.9 Gastro-esophageal reflux disease without esophagitis; K59.81 Ogilvie syndrome; Z79.4 Long term (current) use of insulin; Z86.74 Personal history of sudden cardiac arrest; Z79.899 Other long term (current) drug therapy; I25.2 Old myocardial infarction; Z91.018 Allergy to other foods; Z68.41 Body mass index [BMI] 40.0-44.9, adult; Z20.822 Contact with and (suspected) exposure to COVID-19
CPT/HCPCS: 36600; 71045; 74018; 74019; 74176; 76705; 76770; 78226; 80048; 80053; 81001; 81002; 82009; 82550; 82570; 82805; 82948; 82962; 83036; 83605; 83690; 83735; 83880; 83935; 84100; 84132; 84133; 84145; 84156; 84166; 84300; 84443; 84484; 85025; 85610; 87040; 87045; 87081; 87086; 87426; 93005; 97110; 97116; 97162; 97530; 99291; A9537; A9575; C9113; G0378; G0480; J0456; J0696; J1644; J1956; J2060; J2270; J2405; J2704; J2765; J3475; J3480; J3490; J7030; J7042; J7050; J7060; 36415-L1; 36415-TC; U0003

== ENCOUNTER 2021-06-16 09:48 | Emergency (ER) | payer MEDICAID ==
[~2021-06-16] VITALS: Ht 182.9 cm; Wt 136.4 kg
[~2021-06-16 09:48] MED LIST changes: +ACAM333T7 PO; +ASPI81TA49 PO; -BUPR-93 PO; -DICL2100G TP; +EMPA10TA PO; +FLUO20CA36 PO; +FOLI-130 PO; -FOLI0.4T6 PO; -INSLAN SQ; +MECL-160 PO; +OLAN5TAB94 PO
[2021-06-16 10:47] LABS: BASOPHILS % (AUTO) 0.7 % (0.0-2.0); EOSINOPHILS % (AUTO) 1.4 % (1.0-6.0); HEMATOCRIT 42.9 % (41-53); HEMOGLOBIN 14.7 g/dL (13.5-17.5); LYMPHOCYTES # (AUTO) 0.8 K/uL (1.0-4.8); LYMPHOCYTES % (AUTO) 19.4 % (22.0-44.0); MEAN CORPUSCULAR HEMOGLOBIN 33.8 pg (26.0-34.0); MEAN CORPUSCULAR HGB CONC 34.3 G/dL (31.0-37.0); MEAN CORPUSCULAR VOLUME 99 fL (80-100); MONOCYTES # (AUTO) 0.3 K/uL (0.1-1.0); MONOCYTES % (AUTO) 7.5 % (2.0-9.0); NEUTROPHILS # (AUTO) 3.1 K/uL (1.8-7.7); PLATELET COUNT (AUTO) 125 K/uL (150-450); RED BLOOD CELL COUNT(AUTO) 4.36 MIL/uL (4.50-5.90); RED CELL DISTRIBUTION WIDTH 15.7 % (11.5-14.5)
[2021-06-16 10:49] VITALS: BP 103/76
[2021-06-16 10:54] LABS: CARBON DIOXIDE 29 mmol/L (22-29); CHLORIDE 100 mmol/L (98-107); POTASSIUM 3.6 mmol/L (3.5-5.1); SODIUM SERUM 139 mmol/L (136-145)
[2021-06-16 10:55] LABS: ANION GAP 10 mmol/L (8-16); CALCIUM, TOTAL 9.2 mg/dL (8.8-10.5); CREATININE 0.86 mg/dL (0.60-1.30); GLOMERULAR FILTR. RATE CALC > 60 mL/min (>60); GLUCOSE,RANDOM 148 mg/dL (70-110); UREA NITROGEN, BLOOD 9 mg/dL (7-18)
[2021-06-16 10:57] LABS: D-DIMER 0.48 mg/L FEU (0.00-0.50)
[2021-06-16 11:00] LABS: ALANINE AMINOTRANSFERASE 19 U/L (12-78); ALBUMIN 3.4 g/dL (3.4-5.0); ALKALINE PHOSPHATASE 70 U/L (46-116); ASPARTATE AMINOTRANSFERASE 23 U/L (15-37); BILIRUBIN,TOTAL 0.9 mg/dL (0.1-1.0); TOTAL PROTEIN, SERUM 7.6 g/dL (6.4-8.2)
[2021-06-16 11:02] LABS: LACTIC ACID 1.6 mmol/L (0.4-2.0)
[2021-06-16] MEDS ORDERED: DOXYCYCLINE HYCLATE 100 MG TABLET PO ONE (11:15)
[2021-06-16] MEDS ORDERED: CEPHALEXIN MONOHYDRATE 500 MG CAPSULE PO ONE (11:15)
[2021-06-16] MEDS ORDERED: DOXY-354 PO (11:57)
[2021-06-16] MEDS ORDERED: CEPH500C3 PO (11:57)
== END 2021-06-16 12:10 | disposition home or self-care (01) ==
LOC: EMS 09:51
DX: L03.116 Cellulitis of left lower limb (principal); I10 Essential (primary) hypertension; I11.0 Hypertensive heart disease with heart failure; I50.9 Heart failure, unspecified; E78.00 Pure hypercholesterolemia, unspecified; J44.9 Chronic obstructive pulmonary disease, unspecified; Z88.8 Allergy status to other drugs, medicaments and biological substances; Z79.899 Other long term (current) drug therapy
CPT/HCPCS: 80053; 82962; 83605; 84484; 85025; 85379; 85610; 85730; 93971; 99284

== ENCOUNTER 2021-09-04 21:30 | Emergency (ER) | payer MEDICAID ==
[~2021-09-04] VITALS: Ht 182.9 cm; Wt 131.8 kg
[~2021-09-04 21:30] MED LIST changes: +CEPH-558 PO; +DOXY-354 PO
[2021-09-04 23:25] VITALS: BP 115/69
== END 2021-09-04 23:34 | disposition home or self-care (01) ==
LOC: EMS 21:42
DX: S80.01XA Contusion of right knee, initial encounter (principal); M25.562 Pain in left knee; G89.29 Other chronic pain; F25.9 Schizoaffective disorder, unspecified; F10.20 Alcohol dependence, uncomplicated; I25.10 Atherosclerotic heart disease of native coronary artery without angina pectoris; I11.0 Hypertensive heart disease with heart failure; I50.9 Heart failure, unspecified; J44.9 Chronic obstructive pulmonary disease, unspecified; E11.9 Type 2 diabetes mellitus without complications; E78.00 Pure hypercholesterolemia, unspecified; Z86.79 Personal history of other diseases of the circulatory system; Z87.19 Personal history of other diseases of the digestive system; Z86.16 Personal history of COVID-19; Z87.898 Personal history of other specified conditions; Z98.890 Other specified postprocedural states; Z91.018 Allergy to other foods; W18.30XA Fall on same level, unspecified, initial encounter; Y93.89 Activity, other specified; Y92.002 Bathroom of unspecified non-institutional (private) residence as the place of occurrence of the external cause; Y99.8 Other external cause status
CPT/HCPCS: 29530; 99283

== ENCOUNTER 2022-10-04 19:55 | Inpatient (IN) | payer MEDICAID ==
[~2022-10-04] VITALS: Ht 182.9 cm; Wt 131.5 kg
[~2022-10-04 19:55] MED LIST changes: -EMPA10TA PO; +EMPA10TA3 PO
[2022-10-04 22:36] LABS: GLUCOMETER DEV NAME(LOC) ER.6; GLUCOSE,POINT OF CARE 231 MG/DL (70-110)
[2022-10-04 22:51] LABS: BASOPHILS % (AUTO) 0.5 % (0.0-2.0); EOSINOPHILS % (AUTO) 2.4 % (1.0-6.0); HEMATOCRIT 44.3 % (41-53); HEMOGLOBIN 14.6 g/dL (13.5-17.5); LYMPHOCYTES # (AUTO) 1.7 K/uL (1.0-4.8); LYMPHOCYTES % (AUTO) 53.2 % (22.0-44.0); MEAN CORPUSCULAR HEMOGLOBIN 33.4 pg (26.0-34.0); MEAN CORPUSCULAR VOLUME 101 fL (80-100); MONOCYTES # (AUTO) 0.4 K/uL (0.1-1.0); MONOCYTES % (AUTO) 11.5 % (2.0-9.0); NEUTROPHILS % (AUTO) 32.4 % (40.0-70.0); PLATELET COUNT (AUTO) 120 K/uL (150-450); RED BLOOD CELL COUNT(AUTO) 4.38 MIL/uL (4.50-5.90); RED CELL DISTRIBUTION WIDTH 15.3 % (11.5-14.5)
[2022-10-04 22:59] LABS: ANION GAP 7 mmol/L (8-16); CALCIUM, TOTAL 8.8 mg/dL (8.8-10.5); CARBON DIOXIDE 30 mmol/L (22-29); CHLORIDE 102 mmol/L (98-107); CREATININE 0.72 mg/dL (0.60-1.30); GLOMERULAR FILTR. RATE CALC > 60 mL/min (>60); GLUCOSE,RANDOM 238 mg/dL (70-110); POTASSIUM 4.3 mmol/L (3.5-5.1); SODIUM SERUM 139 mmol/L (136-145)
[2022-10-04 23:05] LABS: ALANINE AMINOTRANSFERASE 13 U/L (12-78); ALBUMIN 3.3 g/dL (3.4-5.0); ALKALINE PHOSPHATASE 70 U/L (46-116); ASPARTATE AMINOTRANSFERASE 24 U/L (15-37); BILIRUBIN,TOTAL 0.4 mg/dL (0.1-1.0); TOTAL PROTEIN, SERUM 7.3 g/dL (6.4-8.2)
[2022-10-04 23:13] LABS: AMPHET/METH SCREEN,URINE NEGATIVE (NEGATIVE); BARBITURATE SCREEN, URINE NEGATIVE (NEGATIVE); BENZODIAZEPINES SCREEN,URINE NEGATIVE (NEGATIVE); CANNABINOID SCREEN,URINE NEGATIVE (NEGATIVE); COCAINE SCREEN,URINE NEGATIVE (NEGATIVE); METHADONE SCREEN, URINE NEGATIVE (NEGATIVE); OPIATE SCREEN,URINE NEGATIVE (NEGATIVE); PHENCYCLIDINE SCREEN,URINE NEGATIVE (NEGATIVE)
[2022-10-05] VITALS (11 sets, daily range): BP systolic 120–148; BP diastolic 64–83; PULSE 67–98; RESP 17–19; TEMP 97.6–98.6; O2SAT 94–98
[2022-10-05 00:01] LABS: GLUCOMETER DEV NAME(LOC) ER.6; GLUCOSE,POINT OF CARE 211 MG/DL (70-110)
[2022-10-05] MEDS ORDERED: ACETAMINOPHEN 325 MG TABLET PO PRN ×3 (00:15→09:30)
[2022-10-05] MEDS ORDERED: ONDANSETRON HCL 4 MG/2 ML VIAL IVP PRN (00:15)
[2022-10-05 00:33] LABS: COVID AG,FIA SOURCE NASOPHARYNGEAL
[2022-10-05] MEDS ORDERED: ZOLPIDEM TARTRATE 10 MG TABLET PO PRN (04:15)
[2022-10-05] MEDS ORDERED: OLANZapine 5 MG RAPDIS TABLET PO PRN (04:15)
[2022-10-05] MEDS ORDERED: LORazepam 2 MG TABLET PO PRN (04:15)
[2022-10-05 04:21] LABS: GLUCOMETER DEV NAME(LOC) ER.6; GLUCOSE,POINT OF CARE 226 MG/DL (70-110)
[2022-10-05 05:46] LABS: GLUCOMETER DEV NAME(LOC) BV2S.; GLUCOSE,POINT OF CARE 217 MG/DL (70-110)
[2022-10-05] MEDS ORDERED: DIAZEPAM 10 MG TABLET PO PRN (06:00)
[2022-10-05] MEDS ORDERED: NICOTINE 14 MG/24 HOUR PATCH TD PRN (06:30)
[2022-10-05] MEDS ORDERED: DOCUSATE SODIUM 100 MG CAPSULE PO PRN (06:30)
[2022-10-05] MEDS ORDERED: PETROLATUM,WHITE 28 GM JELLY TP PRN (06:30)
[2022-10-05] MEDS ORDERED: IBUPROFEN 400 MG TABLET PO PRN (06:30)
[2022-10-05] MEDS ORDERED: ALBUTEROL SULFATE HFA 90 MCG/PUFF 8 GM INHALER IH PRN (06:30)
[2022-10-05] MEDS ORDERED: MAG HYDROX/AL HYDROX/SIMETH ES 30 ML SUSPENSION UDCUP PO PRN ×2 (06:30→09:30)
[2022-10-05] MEDS ORDERED: LOPERAMIDE HCL 2 MG CAPSULE PO PRN ×2 (06:30→09:30)
[2022-10-05] MEDS ORDERED: MECLIZINE HCL 25 MG TABLET PO PRN (06:30)
[2022-10-05] MEDS ORDERED: ONDANSETRON HCL 4 MG TABLET PO PRN (06:30)
[2022-10-05] MEDS ORDERED: MAGNESIUM HYDROXIDE SUSPENSION 30 ML UDCUP PO PRN ×2 (06:30→09:30)
[2022-10-05] MEDS ORDERED: CloNIDine HCL 0.1 MG TABLET PO PRN (06:30)
[2022-10-05] MEDS: MetFORMIN HCL 500 MG TABLET PO SCH ×2 (06:37→17:00)
[2022-10-05] MEDS ORDERED: GLUCAGON,HUMAN RECOMBINANT 1 MG VIAL IM PRN (07:00)
[2022-10-05] MEDS: FOLIC ACID 1 MG TABLET PO SCH (08:37)
[2022-10-05] MEDS: ASPIRIN 81 MG CHEWABLE TABLET PO SCH (08:37)
[2022-10-05] MEDS: THIAMINE 100 MG TABLET PO SCH (08:37)
[2022-10-05] MEDS ORDERED: TUBERCULIN, PURIFIED PROTEIN DERIVATIVE 5 TU/0.1 ML SYRINGE ID ONE (09:30)
[2022-10-05] MEDS ORDERED: PROMETHAZINE HCL 25 MG TABLET PO PRN (09:30)
[2022-10-05 11:21] LABS: GLUCOMETER DEV NAME(LOC) BV2S.; GLUCOSE,POINT OF CARE 208 MG/DL (70-110)
[2022-10-05] MEDS: INSULIN LISPRO 100 UNITS/ML SQ PRN ×3 (11:34→20:40)
[2022-10-05] MEDS: EMPAGLIFLOZIN 10 MG TABLET PO SCH (13:18)
[2022-10-05] MEDS: FUROSEMIDE 40 MG TABLET PO SCH (13:19)
[2022-10-05] MEDS: POTASSIUM CHLORIDE 10% 40 MEQ/30 ML LIQUID UDCUP PO SCH (13:22)
[2022-10-05 16:36] LABS: GLUCOMETER DEV NAME(LOC) BV2S.; GLUCOSE,POINT OF CARE 188 MG/DL (70-110)
[2022-10-05] MEDS: APIXABAN 5 MG TABLET PO SCH (17:00)
[2022-10-05] MEDS: GABAPENTIN 300 MG CAPSULE PO SCH ×2 (17:28→20:31)
[2022-10-05 20:25] LABS: GLUCOMETER DEV NAME(LOC) BV2S.; GLUCOSE,POINT OF CARE 147 MG/DL (70-110)
[2022-10-05] MEDS: MELATONIN 5 MG TABLET PO SCH (20:31)
[2022-10-05] MEDS ORDERED: OLANZapine 5 MG RAPDIS TABLET PO SCH (21:00)
[2022-10-06] VITALS (7 sets, daily range): BP systolic 105–125; BP diastolic 66–78; PULSE 75–87; RESP 17–18; TEMP 97.6–98.2; O2SAT 96–100
[2022-10-06 06:26] LABS: GLUCOMETER DEV NAME(LOC) BV2S.; GLUCOSE,POINT OF CARE 147 MG/DL (70-110)
[2022-10-06] MEDS: MetFORMIN HCL 500 MG TABLET PO SCH ×2 (06:26→17:49)
[2022-10-06] MEDS: INSULIN LISPRO 100 UNITS/ML SQ PRN ×4 (06:28→20:28)
[2022-10-06] MEDS ORDERED: DIAZEPAM 10 MG TABLET PO PRN (07:00)
[2022-10-06 07:39] LABS: BASOPHILS % (AUTO) 1.2 % (0.0-2.0); EOSINOPHILS % (AUTO) 2.5 % (1.0-6.0); HEMATOCRIT 46.9 % (41-53); LYMPHOCYTES # (AUTO) 1.5 K/uL (1.0-4.8); LYMPHOCYTES % (AUTO) 34.6 % (22.0-44.0); MEAN CORPUSCULAR HEMOGLOBIN 34.4 pg (26.0-34.0); MEAN CORPUSCULAR HGB CONC 34.1 G/dL (31.0-37.0); MEAN CORPUSCULAR VOLUME 101 fL (80-100); MONOCYTES # (AUTO) 0.4 K/uL (0.1-1.0); MONOCYTES % (AUTO) 10.2 % (2.0-9.0); NEUTROPHILS # (AUTO) 2.2 K/uL (1.8-7.7); NEUTROPHILS % (AUTO) 51.5 % (40.0-70.0); PLATELET COUNT (AUTO) 117 K/uL (150-450); RED BLOOD CELL COUNT(AUTO) 4.65 MIL/uL (4.50-5.90); RED CELL DISTRIBUTION WIDTH 14.8 % (11.5-14.5)
[2022-10-06 08:00] LABS: HEMOGLOBIN A1C 7.1 % (3.8-5.6)
[2022-10-06 08:02] LABS: CHOL/HDL RATIO 1.8 (4.2-7.3); FREE T4 (FREE THYROXINE) 1.17 ng/dL (0.76-1.46); THYROID STIMULATING HORMONE 2.72 uIU/mL (0.36-3.74)
[2022-10-06] MEDS: FLUoxetine HCL 20 MG CAPSULE PO SCH (09:02)
[2022-10-06] MEDS: FOLIC ACID 1 MG TABLET PO SCH (09:03)
[2022-10-06] MEDS: THIAMINE 100 MG TABLET PO SCH (09:03)
[2022-10-06] MEDS: DIAZEPAM 10 MG TABLET PO SCH ×4 (09:03→20:22)
[2022-10-06] MEDS: ARIPiprazole 15 MG TABLET PO SCH (09:03)
[2022-10-06] MEDS: GABAPENTIN 300 MG CAPSULE PO SCH ×2 (09:03→13:30)
[2022-10-06] MEDS: NALTREXONE HCL 50 MG TABLET PO SCH (09:04)
[2022-10-06] MEDS: ASPIRIN 81 MG CHEWABLE TABLET PO SCH (09:04)
[2022-10-06] MEDS: POTASSIUM CHLORIDE 10% 40 MEQ/30 ML LIQUID UDCUP PO SCH (09:05)
[2022-10-06] MEDS: OMEGA-3/DHA/EPA/FISH OIL 1,000 MG CAPSULE PO SCH (09:05)
[2022-10-06] MEDS: EMPAGLIFLOZIN 10 MG TABLET PO SCH (09:06)
[2022-10-06] MEDS: APIXABAN 5 MG TABLET PO SCH ×2 (09:06→17:50)
[2022-10-06] MEDS: FUROSEMIDE 40 MG TABLET PO SCH (09:06)
[2022-10-06 16:36] LABS: GLUCOMETER DEV NAME(LOC) BV2S.; GLUCOSE,POINT OF CARE 214 MG/DL (70-110)
[2022-10-06 16:37] LABS: GLUCOMETER DEV NAME(LOC) BV2S.; GLUCOSE,POINT OF CARE 165 MG/DL (70-110)
[2022-10-06] MEDS: GABAPENTIN 400 MG CAPSULE PO SCH ×2 (17:50→20:22)
[2022-10-06] MEDS: TOPIRAMATE 25 MG TABLET PO SCH (17:50)
[2022-10-06 20:16] LABS: GLUCOMETER DEV NAME(LOC) BV2S.; GLUCOSE,POINT OF CARE 184 MG/DL (70-110)
[2022-10-06] MEDS: MELATONIN 5 MG TABLET PO SCH (20:23)
[2022-10-07 06:07] LABS: GLUCOMETER DEV NAME(LOC) BV2S.; GLUCOSE,POINT OF CARE 131 MG/DL (70-110)
[2022-10-07] MEDS: MetFORMIN HCL 500 MG TABLET PO SCH ×2 (06:20→16:58)
[2022-10-07 08:49] VITALS: BP 116/75; PULSE 81; RESP 18; TEMP 98.1
[2022-10-07] MEDS: NALTREXONE HCL 50 MG TABLET PO SCH (08:51)
[2022-10-07] MEDS: TOPIRAMATE 25 MG TABLET PO SCH ×3 (08:51→16:58)
[2022-10-07] MEDS: GABAPENTIN 400 MG CAPSULE PO SCH ×4 (08:51→20:45)
[2022-10-07] MEDS: ARIPiprazole 15 MG TABLET PO SCH (08:51)
[2022-10-07] MEDS: DIAZEPAM 10 MG TABLET PO SCH ×4 (08:52→20:44)
[2022-10-07] MEDS: ASPIRIN 81 MG CHEWABLE TABLET PO SCH (08:52)
[2022-10-07] MEDS: EMPAGLIFLOZIN 10 MG TABLET PO SCH (08:52)
[2022-10-07] MEDS: APIXABAN 5 MG TABLET PO SCH ×2 (08:52→16:58)
[2022-10-07] MEDS: THIAMINE 100 MG TABLET PO SCH (08:53)
[2022-10-07] MEDS: FLUoxetine HCL 20 MG CAPSULE PO SCH (08:53)
[2022-10-07] MEDS: FOLIC ACID 1 MG TABLET PO SCH (08:53)
[2022-10-07] MEDS: FUROSEMIDE 40 MG TABLET PO SCH (08:53)
[2022-10-07] MEDS: POTASSIUM CHLORIDE 10% 40 MEQ/30 ML LIQUID UDCUP PO SCH (08:55)
[2022-10-07] MEDS: OMEGA-3/DHA/EPA/FISH OIL 1,000 MG CAPSULE PO SCH (08:59)
[2022-10-07 11:26] LABS: GLUCOMETER DEV NAME(LOC) BV2S.; GLUCOSE,POINT OF CARE 225 MG/DL (70-110)
[2022-10-07] MEDS: INSULIN LISPRO 100 UNITS/ML SQ PRN ×3 (11:35→22:43)
[2022-10-07 16:46] LABS: GLUCOMETER DEV NAME(LOC) BV2S.; GLUCOSE,POINT OF CARE 174 MG/DL (70-110)
[2022-10-07 20:38] VITALS: BP 119/73; PULSE 71; RESP 18; TEMP 98.1; O2SAT 98
[2022-10-07] MEDS: MELATONIN 5 MG TABLET PO SCH (20:44)
[2022-10-07 23:26] LABS: GLUCOMETER DEV NAME(LOC) BV2S.; GLUCOSE,POINT OF CARE 142 MG/DL (70-110)
[2022-10-08 01:00] VITALS: BP 122/71; PULSE 76; RESP 18; TEMP 98; O2SAT 97
[2022-10-08] MEDS: MetFORMIN HCL 500 MG TABLET PO SCH ×2 (06:28→16:50)
[2022-10-08] MEDS: INSULIN LISPRO 100 UNITS/ML SQ PRN ×4 (06:53→21:04)
[2022-10-08] MEDS ORDERED: DIAZEPAM 5 MG TABLET PO PRN (07:00)
[2022-10-08 07:06] LABS: GLUCOMETER DEV NAME(LOC) BV2S.; GLUCOSE,POINT OF CARE 151 MG/DL (70-110)
[2022-10-08 08:37] VITALS: BP 114/71; PULSE 74; RESP 18; TEMP 97; O2SAT 98
[2022-10-08] MEDS: ASPIRIN 81 MG CHEWABLE TABLET PO SCH (08:41)
[2022-10-08] MEDS: APIXABAN 5 MG TABLET PO SCH ×2 (08:41→16:50)
[2022-10-08] MEDS: EMPAGLIFLOZIN 10 MG TABLET PO SCH (08:41)
[2022-10-08] MEDS: OMEGA-3/DHA/EPA/FISH OIL 1,000 MG CAPSULE PO SCH (08:41)
[2022-10-08] MEDS: FUROSEMIDE 40 MG TABLET PO SCH (08:41)
[2022-10-08] MEDS: FOLIC ACID 1 MG TABLET PO SCH (08:41)
[2022-10-08] MEDS: ARIPiprazole 15 MG TABLET PO SCH (08:41)
[2022-10-08] MEDS: FLUoxetine HCL 20 MG CAPSULE PO SCH (08:41)
[2022-10-08] MEDS: NALTREXONE HCL 50 MG TABLET PO SCH (08:42)
[2022-10-08] MEDS: TOPIRAMATE 25 MG TABLET PO SCH ×3 (08:42→16:50)
[2022-10-08] MEDS: THIAMINE 100 MG TABLET PO SCH (08:42)
[2022-10-08] MEDS: GABAPENTIN 400 MG CAPSULE PO SCH ×3 (08:42→16:50)
[2022-10-08] MEDS: DIAZEPAM 5 MG TABLET PO SCH ×4 (08:42→21:05)
[2022-10-08] MEDS: POTASSIUM CHLORIDE 10% 40 MEQ/30 ML LIQUID UDCUP PO SCH (08:43)
[2022-10-08 09:06] VITALS: BP 114/71; PULSE 68; RESP 18; TEMP 97.1; O2SAT 98
[2022-10-08 11:26] LABS: GLUCOMETER DEV NAME(LOC) BV2S.; GLUCOSE,POINT OF CARE 186 MG/DL (70-110)
[2022-10-08 16:46] LABS: GLUCOMETER DEV NAME(LOC) BV2S.; GLUCOSE,POINT OF CARE 185 MG/DL (70-110)
[2022-10-08 20:54] VITALS: BP 121/82; PULSE 79; RESP 18; TEMP 97.8; O2SAT 95
[2022-10-08] MEDS: MELATONIN 5 MG TABLET PO SCH (21:11)
[2022-10-08] MEDS: GABAPENTIN 300 MG CAPSULE PO SCH (21:11)
[2022-10-08 21:56] LABS: GLUCOMETER DEV NAME(LOC) BV2S.; GLUCOSE,POINT OF CARE 143 MG/DL (70-110)
[2022-10-09] MEDS: MetFORMIN HCL 500 MG TABLET PO SCH ×2 (06:37→16:33)
[2022-10-09] MEDS: INSULIN LISPRO 100 UNITS/ML SQ PRN ×4 (06:39→21:00)
[2022-10-09] MEDS ORDERED: DIAZEPAM 5 MG TABLET PO PRN (07:00)
[2022-10-09 07:15] LABS: GLUCOMETER DEV NAME(LOC) BV2S.; GLUCOSE,POINT OF CARE 165 MG/DL (70-110)
[2022-10-09] MEDS: ARIPiprazole 15 MG TABLET PO SCH (08:50)
[2022-10-09] MEDS: NALTREXONE HCL 50 MG TABLET PO SCH (08:50)
[2022-10-09] MEDS: ASPIRIN 81 MG CHEWABLE TABLET PO SCH (08:50)
[2022-10-09] MEDS: GABAPENTIN 300 MG CAPSULE PO SCH ×4 (08:51→20:07)
[2022-10-09] MEDS: OMEGA-3/DHA/EPA/FISH OIL 1,000 MG CAPSULE PO SCH (08:51)
[2022-10-09] MEDS: TOPIRAMATE 25 MG TABLET PO SCH ×3 (08:51→16:34)
[2022-10-09] MEDS: FLUoxetine HCL 20 MG CAPSULE PO SCH (08:51)
[2022-10-09] MEDS: THIAMINE 100 MG TABLET PO SCH (08:52)
[2022-10-09] MEDS: APIXABAN 5 MG TABLET PO SCH ×2 (08:53→16:33)
[2022-10-09] MEDS: FUROSEMIDE 40 MG TABLET PO SCH (08:53)
[2022-10-09] MEDS: FOLIC ACID 1 MG TABLET PO SCH (08:53)
[2022-10-09] MEDS: EMPAGLIFLOZIN 10 MG TABLET PO SCH (08:53)
[2022-10-09] MEDS: POTASSIUM CHLORIDE 10% 40 MEQ/30 ML LIQUID UDCUP PO SCH (08:53)
[2022-10-09 09:10] VITALS: BP 119/75; PULSE 77; RESP 17; TEMP 97.7; O2SAT 92
[2022-10-09 11:21] LABS: GLUCOMETER DEV NAME(LOC) BV2S.; GLUCOSE,POINT OF CARE 167 MG/DL (70-110)
[2022-10-09 17:46] LABS: GLUCOMETER DEV NAME(LOC) BV2S.; GLUCOSE,POINT OF CARE 146 MG/DL (70-110)
[2022-10-09] MEDS: MELATONIN 5 MG TABLET PO SCH (20:07)
[2022-10-09 20:31] VITALS: BP 111/75; PULSE 65; RESP 18; TEMP 98.1; O2SAT 95
[2022-10-09 23:26] LABS: GLUCOMETER DEV NAME(LOC) BV2S.; GLUCOSE,POINT OF CARE 179 MG/DL (70-110)
[2022-10-10] MEDS: MetFORMIN HCL 500 MG TABLET PO SCH ×2 (06:50→16:21)
[2022-10-10] MEDS: GABAPENTIN 300 MG CAPSULE PO SCH ×4 (08:27→20:07)
[2022-10-10] MEDS: ASPIRIN 81 MG CHEWABLE TABLET PO SCH (08:27)
[2022-10-10] MEDS: TOPIRAMATE 25 MG TABLET PO SCH ×3 (08:27→16:21)
[2022-10-10] MEDS: ARIPiprazole 15 MG TABLET PO SCH (08:27)
[2022-10-10] MEDS: THIAMINE 100 MG TABLET PO SCH (08:28)
[2022-10-10] MEDS: OMEGA-3/DHA/EPA/FISH OIL 1,000 MG CAPSULE PO SCH (08:28)
[2022-10-10] MEDS: APIXABAN 5 MG TABLET PO SCH ×2 (08:28→16:21)
[2022-10-10] MEDS: EMPAGLIFLOZIN 10 MG TABLET PO SCH (08:28)
[2022-10-10] MEDS: FLUoxetine HCL 20 MG CAPSULE PO SCH (08:28)
[2022-10-10] MEDS: FOLIC ACID 1 MG TABLET PO SCH (08:28)
[2022-10-10] MEDS: FUROSEMIDE 40 MG TABLET PO SCH (08:28)
[2022-10-10] MEDS: POTASSIUM CHLORIDE 10% 40 MEQ/30 ML LIQUID UDCUP PO SCH (08:29)
[2022-10-10 08:33] VITALS: BP 125/61; PULSE 60; RESP 17; TEMP 98.3; O2SAT 97
[2022-10-10] MEDS: NALTREXONE HCL 50 MG TABLET PO SCH (09:12)
[2022-10-10] MEDS: INSULIN LISPRO 100 UNITS/ML SQ PRN ×2 (11:18→20:48)
[2022-10-10 15:11] LABS: GLUCOMETER DEV NAME(LOC) BV2S.; GLUCOSE,POINT OF CARE 148 MG/DL (70-110)
[2022-10-10 15:11] LABS: GLUCOMETER DEV NAME(LOC) BV2S.; GLUCOSE,POINT OF CARE 122 MG/DL (70-110)
[2022-10-10 19:26] LABS: GLUCOMETER DEV NAME(LOC) BV2S.; GLUCOSE,POINT OF CARE 139 MG/DL (70-110)
[2022-10-10] MEDS: MELATONIN 5 MG TABLET PO SCH (20:07)
[2022-10-10 21:00] LABS: GLUCOMETER DEV NAME(LOC) BV2S.; GLUCOSE,POINT OF CARE 193 MG/DL (70-110)
[2022-10-10 22:33] VITALS: BP 113/58; PULSE 64; RESP 18; TEMP 97.8; O2SAT 98
[2022-10-11] MEDS: MetFORMIN HCL 500 MG TABLET PO SCH ×2 (06:04→16:53)
[2022-10-11 06:11] LABS: GLUCOMETER DEV NAME(LOC) BV2S.; GLUCOSE,POINT OF CARE 129 MG/DL (70-110)
[2022-10-11] MEDS: ASPIRIN 81 MG CHEWABLE TABLET PO SCH (09:14)
[2022-10-11] MEDS: ARIPiprazole 15 MG TABLET PO SCH (09:14)
[2022-10-11] MEDS: FUROSEMIDE 40 MG TABLET PO SCH (09:15)
[2022-10-11] MEDS: APIXABAN 5 MG TABLET PO SCH ×2 (09:15→17:58)
[2022-10-11] MEDS: FOLIC ACID 1 MG TABLET PO SCH (09:15)
[2022-10-11] MEDS: OMEGA-3/DHA/EPA/FISH OIL 1,000 MG CAPSULE PO SCH (09:15)
[2022-10-11] MEDS: GABAPENTIN 300 MG CAPSULE PO SCH ×4 (09:16→20:21)
[2022-10-11] MEDS: POTASSIUM CHLORIDE 10% 40 MEQ/30 ML LIQUID UDCUP PO SCH (09:16)
[2022-10-11] MEDS: FLUoxetine HCL 20 MG CAPSULE PO SCH (09:17)
[2022-10-11] MEDS: TOPIRAMATE 25 MG TABLET PO SCH ×3 (09:17→16:53)
[2022-10-11] MEDS: THIAMINE 100 MG TABLET PO SCH (09:17)
[2022-10-11 09:57] VITALS: BP 108/64; PULSE 66; RESP 16; TEMP 97.8; O2SAT 95
[2022-10-11] MEDS: NALTREXONE HCL 50 MG TABLET PO SCH (10:06)
[2022-10-11] MEDS: EMPAGLIFLOZIN 10 MG TABLET PO SCH (10:07)
[2022-10-11] MEDS: INSULIN LISPRO 100 UNITS/ML SQ PRN ×3 (11:46→20:29)
[2022-10-11 12:51] LABS: GLUCOMETER DEV NAME(LOC) BV2S.; GLUCOSE,POINT OF CARE 154 MG/DL (70-110)
[2022-10-11 16:51] LABS: GLUCOMETER DEV NAME(LOC) BV2S.; GLUCOSE,POINT OF CARE 184 MG/DL (70-110)
[2022-10-11] MEDS: MELATONIN 5 MG TABLET PO SCH (20:21)
[2022-10-11 20:36] LABS: GLUCOMETER DEV NAME(LOC) BV2S.; GLUCOSE,POINT OF CARE 186 MG/DL (70-110)
[2022-10-12 03:56] VITALS: BP 105/60; PULSE 65; RESP 16; TEMP 97.8
[2022-10-12 06:41] LABS: GLUCOMETER DEV NAME(LOC) BV2X.2; GLUCOSE,POINT OF CARE 115 MG/DL (70-110)
[2022-10-12] MEDS: MetFORMIN HCL 500 MG TABLET PO SCH ×2 (07:25→16:40)
[2022-10-12] MEDS: THIAMINE 100 MG TABLET PO SCH (08:21)
[2022-10-12] MEDS: FOLIC ACID 1 MG TABLET PO SCH (08:21)
[2022-10-12] MEDS: NALTREXONE HCL 50 MG TABLET PO SCH (08:22)
[2022-10-12] MEDS: OMEGA-3/DHA/EPA/FISH OIL 1,000 MG CAPSULE PO SCH (08:22)
[2022-10-12] MEDS: APIXABAN 5 MG TABLET PO SCH ×2 (08:22→16:40)
[2022-10-12] MEDS: TOPIRAMATE 25 MG TABLET PO SCH ×3 (08:22→16:39)
[2022-10-12] MEDS: ARIPiprazole 10 MG TABLET PO SCH (08:23)
[2022-10-12] MEDS: ASPIRIN 81 MG CHEWABLE TABLET PO SCH (08:23)
[2022-10-12] MEDS: EMPAGLIFLOZIN 10 MG TABLET PO SCH (08:23)
[2022-10-12] MEDS: FLUoxetine HCL 20 MG CAPSULE PO SCH (08:24)
[2022-10-12] MEDS: POTASSIUM CHLORIDE 10% 40 MEQ/30 ML LIQUID UDCUP PO SCH (08:24)
[2022-10-12] MEDS: GABAPENTIN 400 MG CAPSULE PO SCH ×4 (08:24→20:36)
[2022-10-12] MEDS: FUROSEMIDE 40 MG TABLET PO SCH (09:00)
[2022-10-12 09:02] VITALS: BP 109/69; PULSE 78; RESP 16; TEMP 98.9
[2022-10-12] MEDS: INSULIN LISPRO 100 UNITS/ML SQ PRN ×3 (11:19→20:39)
[2022-10-12 11:31] LABS: GLUCOMETER DEV NAME(LOC) BV2S.; GLUCOSE,POINT OF CARE 163 MG/DL (70-110)
[2022-10-12 16:31] LABS: GLUCOMETER DEV NAME(LOC) BV2S.; GLUCOSE,POINT OF CARE 165 MG/DL (70-110)
[2022-10-12] MEDS: MELATONIN 5 MG TABLET PO SCH (20:36)
[2022-10-12 20:41] LABS: GLUCOMETER DEV NAME(LOC) BV2S.; GLUCOSE,POINT OF CARE 164 MG/DL (70-110)
[2022-10-12 21:04] VITALS: BP 107/72; PULSE 71; RESP 18; TEMP 97.8; O2SAT 95
[2022-10-13] MEDS: MetFORMIN HCL 500 MG TABLET PO SCH ×2 (06:30→16:59)
[2022-10-13 06:31] LABS: GLUCOMETER DEV NAME(LOC) BV2S.; GLUCOSE,POINT OF CARE 114 MG/DL (70-110)
[2022-10-13 08:49] VITALS: BP 104/60; PULSE 73; RESP 17; TEMP 98.1; O2SAT 96
[2022-10-13] MEDS: TOPIRAMATE 25 MG TABLET PO SCH ×3 (09:22→16:59)
[2022-10-13] MEDS: FUROSEMIDE 40 MG TABLET PO SCH (09:22)
[2022-10-13] MEDS: APIXABAN 5 MG TABLET PO SCH ×2 (09:22→16:59)
[2022-10-13] MEDS: OMEGA-3/DHA/EPA/FISH OIL 1,000 MG CAPSULE PO SCH (09:22)
[2022-10-13] MEDS: EMPAGLIFLOZIN 10 MG TABLET PO SCH (09:22)
[2022-10-13] MEDS: ARIPiprazole 10 MG TABLET PO SCH (09:22)
[2022-10-13] MEDS: ASPIRIN 81 MG CHEWABLE TABLET PO SCH (09:23)
[2022-10-13] MEDS: NALTREXONE HCL 50 MG TABLET PO SCH (09:23)
[2022-10-13] MEDS: FLUoxetine HCL 20 MG CAPSULE PO SCH (09:23)
[2022-10-13] MEDS: FOLIC ACID 1 MG TABLET PO SCH (09:23)
[2022-10-13] MEDS: THIAMINE 100 MG TABLET PO SCH (09:23)
[2022-10-13] MEDS: GABAPENTIN 400 MG CAPSULE PO SCH ×4 (09:23→21:00)
[2022-10-13] MEDS: POTASSIUM CHLORIDE 10% 40 MEQ/30 ML LIQUID UDCUP PO SCH (09:25)
[2022-10-13] MEDS: INSULIN LISPRO 100 UNITS/ML SQ PRN ×3 (11:27→21:11)
[2022-10-13 11:31] LABS: GLUCOMETER DEV NAME(LOC) BV2S.; GLUCOSE,POINT OF CARE 185 MG/DL (70-110)
[2022-10-13 16:56] LABS: GLUCOMETER DEV NAME(LOC) BV2S.; GLUCOSE,POINT OF CARE 188 MG/DL (70-110)
[2022-10-13 20:28] VITALS: BP 106/78; PULSE 75; RESP 18; TEMP 98; O2SAT 95
[2022-10-13 20:31] LABS: GLUCOMETER DEV NAME(LOC) BV2S.; GLUCOSE,POINT OF CARE 177 MG/DL (70-110)
[2022-10-13] MEDS: MELATONIN 5 MG TABLET PO SCH (21:01)
[2022-10-14 06:26] LABS: GLUCOMETER DEV NAME(LOC) BV2S.; GLUCOSE,POINT OF CARE 124 MG/DL (70-110)
[2022-10-14] MEDS: MetFORMIN HCL 500 MG TABLET PO SCH ×2 (06:43→17:27)
[2022-10-14 08:39] VITALS: BP 109/67; PULSE 71; RESP 18; TEMP 98.2; O2SAT 97
[2022-10-14] MEDS: GABAPENTIN 400 MG CAPSULE PO SCH ×4 (09:28→21:50)
[2022-10-14] MEDS: EMPAGLIFLOZIN 10 MG TABLET PO SCH (09:28)
[2022-10-14] MEDS: TOPIRAMATE 25 MG TABLET PO SCH ×3 (09:28→17:26)
[2022-10-14] MEDS: APIXABAN 5 MG TABLET PO SCH ×2 (09:28→17:27)
[2022-10-14] MEDS: POTASSIUM CHLORIDE 10% 40 MEQ/30 ML LIQUID UDCUP PO SCH (09:28)
[2022-10-14] MEDS: ARIPiprazole 10 MG TABLET PO SCH (09:28)
[2022-10-14] MEDS: FUROSEMIDE 40 MG TABLET PO SCH (09:28)
[2022-10-14] MEDS: ASPIRIN 81 MG CHEWABLE TABLET PO SCH (09:29)
[2022-10-14] MEDS: THIAMINE 100 MG TABLET PO SCH (09:29)
[2022-10-14] MEDS: FOLIC ACID 1 MG TABLET PO SCH (09:29)
[2022-10-14] MEDS: OMEGA-3/DHA/EPA/FISH OIL 1,000 MG CAPSULE PO SCH (09:29)
[2022-10-14] MEDS: FLUoxetine HCL 20 MG CAPSULE PO SCH (09:29)
[2022-10-14] MEDS: NALTREXONE HCL 50 MG TABLET PO SCH (09:30)
[2022-10-14 11:21] LABS: GLUCOMETER DEV NAME(LOC) BV2S.; GLUCOSE,POINT OF CARE 207 MG/DL (70-110)
[2022-10-14] MEDS: INSULIN LISPRO 100 UNITS/ML SQ PRN ×3 (11:39→21:19)
[2022-10-14 16:56] LABS: GLUCOMETER DEV NAME(LOC) BV2S.; GLUCOSE,POINT OF CARE 145 MG/DL (70-110)
[2022-10-14 20:31] VITALS: BP 107/72; PULSE 69; RESP 18; TEMP 97.9; O2SAT 97
[2022-10-14 21:26] LABS: GLUCOMETER DEV NAME(LOC) BV2S.; GLUCOSE,POINT OF CARE 148 MG/DL (70-110)
[2022-10-14] MEDS: MELATONIN 5 MG TABLET PO SCH (21:58)
[2022-10-15 06:17] LABS: GLUCOMETER DEV NAME(LOC) BV2S.; GLUCOSE,POINT OF CARE 121 MG/DL (70-110)
[2022-10-15] MEDS: MetFORMIN HCL 500 MG TABLET PO SCH ×2 (06:21→16:45)
[2022-10-15 08:30] VITALS: BP 114/62; PULSE 64; RESP 18; TEMP 98.1; O2SAT 95
[2022-10-15] MEDS: GABAPENTIN 400 MG CAPSULE PO SCH ×4 (09:00→20:16)
[2022-10-15] MEDS: ASPIRIN 81 MG CHEWABLE TABLET PO SCH (09:00)
[2022-10-15] MEDS: OMEGA-3/DHA/EPA/FISH OIL 1,000 MG CAPSULE PO SCH (09:00)
[2022-10-15] MEDS: TOPIRAMATE 25 MG TABLET PO SCH ×3 (09:00→16:45)
[2022-10-15] MEDS: EMPAGLIFLOZIN 10 MG TABLET PO SCH (09:01)
[2022-10-15] MEDS: APIXABAN 5 MG TABLET PO SCH ×2 (09:01→16:44)
[2022-10-15] MEDS: THIAMINE 100 MG TABLET PO SCH (09:01)
[2022-10-15] MEDS: FLUoxetine HCL 20 MG CAPSULE PO SCH (09:01)
[2022-10-15] MEDS: NALTREXONE HCL 50 MG TABLET PO SCH (09:01)
[2022-10-15] MEDS: FOLIC ACID 1 MG TABLET PO SCH (09:01)
[2022-10-15] MEDS: ARIPiprazole 10 MG TABLET PO SCH (09:01)
[2022-10-15] MEDS: FUROSEMIDE 40 MG TABLET PO SCH (09:02)
[2022-10-15] MEDS: POTASSIUM CHLORIDE 10% 40 MEQ/30 ML LIQUID UDCUP PO SCH (09:02)
[2022-10-15] MEDS: INSULIN LISPRO 100 UNITS/ML SQ PRN ×3 (11:39→20:34)
[2022-10-15 11:41] LABS: GLUCOMETER DEV NAME(LOC) BV2S.; GLUCOSE,POINT OF CARE 198 MG/DL (70-110)
[2022-10-15 16:31] LABS: GLUCOMETER DEV NAME(LOC) BV2S.; GLUCOSE,POINT OF CARE 176 MG/DL (70-110)
[2022-10-15 20:11] VITALS: BP 108/68; PULSE 68; RESP 18; TEMP 97.8; O2SAT 98
[2022-10-15] MEDS: MELATONIN 5 MG TABLET PO SCH (20:16)
[2022-10-15 20:36] LABS: GLUCOMETER DEV NAME(LOC) BV2S.; GLUCOSE,POINT OF CARE 184 MG/DL (70-110)
[2022-10-16] MEDS: MetFORMIN HCL 500 MG TABLET PO SCH ×2 (06:50→16:38)
[2022-10-16 08:10] VITALS: BP 110/68; PULSE 79; RESP 16; TEMP 97.3; O2SAT 96
[2022-10-16 09:56] LABS: GLUCOMETER DEV NAME(LOC) BV2S.; GLUCOSE,POINT OF CARE 137 MG/DL (70-110)
[2022-10-16 09:58] VITALS: BP 118/72; PULSE 73; RESP 16
[2022-10-16] MEDS: THIAMINE 100 MG TABLET PO SCH (09:59)
[2022-10-16] MEDS: NALTREXONE HCL 50 MG TABLET PO SCH (09:59)
[2022-10-16] MEDS: GABAPENTIN 400 MG CAPSULE PO SCH ×4 (09:59→20:30)
[2022-10-16] MEDS: FOLIC ACID 1 MG TABLET PO SCH (09:59)
[2022-10-16] MEDS: OMEGA-3/DHA/EPA/FISH OIL 1,000 MG CAPSULE PO SCH (10:00)
[2022-10-16] MEDS: FUROSEMIDE 40 MG TABLET PO SCH (10:00)
[2022-10-16] MEDS: ASPIRIN 81 MG CHEWABLE TABLET PO SCH (10:00)
[2022-10-16] MEDS: FLUoxetine HCL 20 MG CAPSULE PO SCH (10:00)
[2022-10-16] MEDS: ARIPiprazole 10 MG TABLET PO SCH (10:00)
[2022-10-16] MEDS: EMPAGLIFLOZIN 10 MG TABLET PO SCH (10:00)
[2022-10-16] MEDS: POTASSIUM CHLORIDE 10% 40 MEQ/30 ML LIQUID UDCUP PO SCH (10:00)
[2022-10-16] MEDS: APIXABAN 5 MG TABLET PO SCH ×2 (10:00→16:38)
[2022-10-16] MEDS: TOPIRAMATE 25 MG TABLET PO SCH ×3 (10:00→16:37)
[2022-10-16] MEDS: INSULIN LISPRO 100 UNITS/ML SQ PRN ×3 (11:14→20:43)
[2022-10-16 11:25] LABS: GLUCOMETER DEV NAME(LOC) BV2S.; GLUCOSE,POINT OF CARE 165 MG/DL (70-110)
[2022-10-16 16:41] LABS: GLUCOMETER DEV NAME(LOC) BV2S.; GLUCOSE,POINT OF CARE 160 MG/DL (70-110)
[2022-10-16 20:18] VITALS: BP 108/64; PULSE 65; RESP 17; TEMP 98.2; O2SAT 95
[2022-10-16 20:21] LABS: GLUCOMETER DEV NAME(LOC) BV2S.; GLUCOSE,POINT OF CARE 186 MG/DL (70-110)
[2022-10-16] MEDS: MELATONIN 5 MG TABLET PO SCH (20:30)
[2022-10-17] MEDS: MetFORMIN HCL 500 MG TABLET PO SCH ×2 (06:36→17:01)
[2022-10-17 06:46] LABS: GLUCOMETER DEV NAME(LOC) BV2S.; GLUCOSE,POINT OF CARE 124 MG/DL (70-110)
[2022-10-17 08:27] VITALS: BP 92/57; PULSE 71; RESP 16; TEMP 97.4
[2022-10-17 09:02] VITALS: BP 101/71; PULSE 68; RESP 17; TEMP 97.4; O2SAT 96
[2022-10-17] MEDS: OMEGA-3/DHA/EPA/FISH OIL 1,000 MG CAPSULE PO SCH (09:05)
[2022-10-17] MEDS: ASPIRIN 81 MG CHEWABLE TABLET PO SCH (09:05)
[2022-10-17] MEDS: FLUoxetine HCL 20 MG CAPSULE PO SCH (09:05)
[2022-10-17] MEDS: THIAMINE 100 MG TABLET PO SCH (09:05)
[2022-10-17] MEDS: ARIPiprazole 10 MG TABLET PO SCH (09:05)
[2022-10-17] MEDS: EMPAGLIFLOZIN 10 MG TABLET PO SCH (09:06)
[2022-10-17] MEDS: APIXABAN 5 MG TABLET PO SCH ×2 (09:06→17:01)
[2022-10-17] MEDS: GABAPENTIN 400 MG CAPSULE PO SCH ×4 (09:06→20:25)
[2022-10-17] MEDS: TOPIRAMATE 25 MG TABLET PO SCH ×3 (09:06→17:01)
[2022-10-17] MEDS: NALTREXONE HCL 50 MG TABLET PO SCH (09:06)
[2022-10-17] MEDS: FOLIC ACID 1 MG TABLET PO SCH (09:06)
[2022-10-17] MEDS: FUROSEMIDE 40 MG TABLET PO SCH (09:06)
[2022-10-17] MEDS: POTASSIUM CHLORIDE 10% 40 MEQ/30 ML LIQUID UDCUP PO SCH (09:07)
[2022-10-17] MEDS: INSULIN LISPRO 100 UNITS/ML SQ PRN ×2 (11:36→20:52)
[2022-10-17 11:40] LABS: GLUCOMETER DEV NAME(LOC) BV2S.; GLUCOSE,POINT OF CARE 207 MG/DL (70-110)
[2022-10-17 13:04] VITALS: BP 96/68; RESP 17
[2022-10-17 16:51] LABS: GLUCOMETER DEV NAME(LOC) BV2S.; GLUCOSE,POINT OF CARE 131 MG/DL (70-110)
[2022-10-17 20:05] VITALS: BP 106/68; PULSE 67; RESP 19; TEMP 97.6; O2SAT 96
[2022-10-17] MEDS: MELATONIN 5 MG TABLET PO SCH (20:25)
[2022-10-17 21:01] LABS: GLUCOMETER DEV NAME(LOC) BV2S.; GLUCOSE,POINT OF CARE 155 MG/DL (70-110)
[2022-10-18 06:26] LABS: GLUCOMETER DEV NAME(LOC) BV2S.; GLUCOSE,POINT OF CARE 121 MG/DL (70-110)
[2022-10-18] MEDS: MetFORMIN HCL 500 MG TABLET PO SCH ×2 (06:56→17:05)
[2022-10-18 08:09] VITALS: BP 96/66; PULSE 81; RESP 18; TEMP 97.6; O2SAT 100
[2022-10-18] MEDS: FUROSEMIDE 40 MG TABLET PO SCH (09:00)
[2022-10-18] MEDS: NALTREXONE HCL 50 MG TABLET PO SCH (09:40)
[2022-10-18] MEDS: FOLIC ACID 1 MG TABLET PO SCH (09:40)
[2022-10-18] MEDS: FLUoxetine HCL 20 MG CAPSULE PO SCH (09:40)
[2022-10-18] MEDS: TOPIRAMATE 25 MG TABLET PO SCH ×3 (09:40→17:06)
[2022-10-18] MEDS: THIAMINE 100 MG TABLET PO SCH (09:40)
[2022-10-18] MEDS: OMEGA-3/DHA/EPA/FISH OIL 1,000 MG CAPSULE PO SCH (09:41)
[2022-10-18] MEDS: ARIPiprazole 10 MG TABLET PO SCH (09:41)
[2022-10-18] MEDS: GABAPENTIN 400 MG CAPSULE PO SCH ×4 (09:41→20:03)
[2022-10-18] MEDS: ASPIRIN 81 MG CHEWABLE TABLET PO SCH (09:41)
[2022-10-18] MEDS: APIXABAN 5 MG TABLET PO SCH ×2 (09:41→17:05)
[2022-10-18] MEDS: POTASSIUM CHLORIDE 10% 40 MEQ/30 ML LIQUID UDCUP PO SCH (09:44)
[2022-10-18] MEDS: EMPAGLIFLOZIN 10 MG TABLET PO SCH (09:49)
[2022-10-18] MEDS: INSULIN LISPRO 100 UNITS/ML SQ PRN ×2 (11:25→20:42)
[2022-10-18 11:26] LABS: GLUCOMETER DEV NAME(LOC) BV2S.; GLUCOSE,POINT OF CARE 163 MG/DL (70-110)
[2022-10-18 16:36] LABS: GLUCOMETER DEV NAME(LOC) BV2S.; GLUCOSE,POINT OF CARE 134 MG/DL (70-110)
[2022-10-18] MEDS: MELATONIN 5 MG TABLET PO SCH (20:03)
[2022-10-18 20:10] VITALS: BP 95/69; PULSE 79; RESP 20; TEMP 98.4; O2SAT 95
[2022-10-18 20:56] LABS: GLUCOMETER DEV NAME(LOC) BV2S.; GLUCOSE,POINT OF CARE 169 MG/DL (70-110)
[2022-10-19 06:21] LABS: GLUCOMETER DEV NAME(LOC) BV2S.; GLUCOSE,POINT OF CARE 141 MG/DL (70-110)
[2022-10-19] MEDS: MetFORMIN HCL 500 MG TABLET PO SCH ×2 (06:43→16:14)
[2022-10-19] MEDS: INSULIN LISPRO 100 UNITS/ML SQ PRN ×2 (06:43→20:06)
[2022-10-19] MEDS: POTASSIUM CHLORIDE 10% 40 MEQ/30 ML LIQUID UDCUP PO SCH (08:24)
[2022-10-19] MEDS: NALTREXONE HCL 50 MG TABLET PO SCH (08:24)
[2022-10-19] MEDS: ARIPiprazole 10 MG TABLET PO SCH (08:25)
[2022-10-19] MEDS: OMEGA-3/DHA/EPA/FISH OIL 1,000 MG CAPSULE PO SCH (08:25)
[2022-10-19] MEDS: FOLIC ACID 1 MG TABLET PO SCH (08:25)
[2022-10-19] MEDS: ASPIRIN 81 MG CHEWABLE TABLET PO SCH (08:26)
[2022-10-19] MEDS: GABAPENTIN 300 MG CAPSULE PO PRN ×4 (08:26→08:40)
[2022-10-19] MEDS: THIAMINE 100 MG TABLET PO SCH (08:26)
[2022-10-19] MEDS: FUROSEMIDE 40 MG TABLET PO SCH (08:26)
[2022-10-19] MEDS: EMPAGLIFLOZIN 10 MG TABLET PO SCH (08:26)
[2022-10-19] MEDS: TOPIRAMATE 25 MG TABLET PO SCH ×3 (08:27→16:13)
[2022-10-19] MEDS: APIXABAN 5 MG TABLET PO SCH ×2 (08:27→16:13)
[2022-10-19] MEDS: FLUoxetine HCL 20 MG CAPSULE PO SCH (08:31)
[2022-10-19 09:01] VITALS: BP 121/76; PULSE 83; RESP 18; TEMP 97.8; O2SAT 96
[2022-10-19] MEDS: GABAPENTIN 400 MG CAPSULE PO SCH ×4 (09:19→20:03)
[2022-10-19 11:51] LABS: GLUCOMETER DEV NAME(LOC) BV2S.; GLUCOSE,POINT OF CARE 120 MG/DL (70-110)
[2022-10-19 17:11] LABS: GLUCOMETER DEV NAME(LOC) BV2S.; GLUCOSE,POINT OF CARE 135 MG/DL (70-110)
[2022-10-19] MEDS: MELATONIN 5 MG TABLET PO SCH (20:03)
[2022-10-19 20:29] VITALS: BP 107/66; PULSE 67; RESP 18; TEMP 97.2; O2SAT 98
[2022-10-19 20:51] LABS: GLUCOMETER DEV NAME(LOC) BV2S.; GLUCOSE,POINT OF CARE 190 MG/DL (70-110)
[2022-10-20] MEDS: MetFORMIN HCL 500 MG TABLET PO SCH ×2 (06:12→16:59)
[2022-10-20 06:21] LABS: GLUCOMETER DEV NAME(LOC) BV2S.; GLUCOSE,POINT OF CARE 128 MG/DL (70-110)
[2022-10-20 08:07] VITALS: BP 98/60; PULSE 72; RESP 18; TEMP 98.2; O2SAT 96
[2022-10-20] MEDS: ARIPiprazole 10 MG TABLET PO SCH (09:26)
[2022-10-20] MEDS: EMPAGLIFLOZIN 10 MG TABLET PO SCH (09:26)
[2022-10-20] MEDS: FOLIC ACID 1 MG TABLET PO SCH (09:27)
[2022-10-20] MEDS: OMEGA-3/DHA/EPA/FISH OIL 1,000 MG CAPSULE PO SCH (09:27)
[2022-10-20] MEDS: APIXABAN 5 MG TABLET PO SCH ×2 (09:27→16:59)
[2022-10-20] MEDS: TOPIRAMATE 25 MG TABLET PO SCH ×3 (09:27→17:00)
[2022-10-20] MEDS: GABAPENTIN 400 MG CAPSULE PO SCH ×4 (09:27→20:32)
[2022-10-20] MEDS: FLUoxetine HCL 20 MG CAPSULE PO SCH (09:28)
[2022-10-20] MEDS: THIAMINE 100 MG TABLET PO SCH (09:28)
[2022-10-20] MEDS: NALTREXONE HCL 50 MG TABLET PO SCH (09:28)
[2022-10-20] MEDS: ASPIRIN 81 MG CHEWABLE TABLET PO SCH (09:28)
[2022-10-20] MEDS: POTASSIUM CHLORIDE 10% 40 MEQ/30 ML LIQUID UDCUP PO SCH (09:28)
[2022-10-20 11:21] LABS: GLUCOMETER DEV NAME(LOC) BV2S.; GLUCOSE,POINT OF CARE 163 MG/DL (70-110)
[2022-10-20] MEDS: INSULIN LISPRO 100 UNITS/ML SQ PRN ×3 (11:47→20:36)
[2022-10-20] MEDS ORDERED: FLUO20CA36 PO (15:09)
[2022-10-20] MEDS ORDERED: ARIP10TA38 PO (15:09)
[2022-10-20] MEDS ORDERED: GABA-1201 PO (15:09)
[2022-10-20] MEDS ORDERED: MELA5TAB40 PO (15:09)
[2022-10-20] MEDS ORDERED: NALT50TA PO (15:09)
[2022-10-20] MEDS ORDERED: TOPI25 PO (15:09)
[2022-10-20] MEDS ORDERED: OMEG-135 PO (15:09)
[2022-10-20 16:36] LABS: GLUCOMETER DEV NAME(LOC) BV2S.; GLUCOSE,POINT OF CARE 205 MG/DL (70-110)
[2022-10-20 20:20] LABS: GLUCOMETER DEV NAME(LOC) BV2S.; GLUCOSE,POINT OF CARE 146 MG/DL (70-110)
[2022-10-20] MEDS: MELATONIN 5 MG TABLET PO SCH (20:32)
[2022-10-20 20:50] VITALS: BP 101/63; PULSE 69; RESP 16; TEMP 97.6; O2SAT 100
[2022-10-21 06:26] LABS: GLUCOMETER DEV NAME(LOC) BV2S.; GLUCOSE,POINT OF CARE 127 MG/DL (70-110)
[2022-10-21] MEDS: MetFORMIN HCL 500 MG TABLET PO SCH ×2 (06:51→16:48)
[2022-10-21 07:53] LABS: BASOPHILS % (AUTO) 0.3 % (0.0-2.0); EOSINOPHILS % (AUTO) 2.4 % (1.0-6.0); HEMATOCRIT 48.7 % (41-53); HEMOGLOBIN 16.2 g/dL (13.5-17.5); LYMPHOCYTES # (AUTO) 1.7 K/uL (1.0-4.8); LYMPHOCYTES % (AUTO) 24.1 % (22.0-44.0); MEAN CORPUSCULAR HEMOGLOBIN 33.5 pg (26.0-34.0); MEAN CORPUSCULAR HGB CONC 33.4 G/dL (31.0-37.0); MEAN CORPUSCULAR VOLUME 100 fL (80-100); MONOCYTES # (AUTO) 0.5 K/uL (0.1-1.0); MONOCYTES % (AUTO) 6.8 % (2.0-9.0); NEUTROPHILS # (AUTO) 4.8 K/uL (1.8-7.7); NEUTROPHILS % (AUTO) 66.4 % (40.0-70.0); PLATELET COUNT (AUTO) 144 K/uL (150-450); RED BLOOD CELL COUNT(AUTO) 4.85 MIL/uL (4.50-5.90); RED CELL DISTRIBUTION WIDTH 14.7 % (11.5-14.5)
[2022-10-21 08:07] LABS: ALANINE AMINOTRANSFERASE 54 U/L (12-78); ALBUMIN 3.4 g/dL (3.4-5.0); ALKALINE PHOSPHATASE 118 U/L (46-116); ANION GAP 7 mmol/L (8-16); ASPARTATE AMINOTRANSFERASE 27 U/L (15-37); BILIRUBIN,TOTAL 0.5 mg/dL (0.1-1.0); CALCIUM, TOTAL 9.1 mg/dL (8.8-10.5); CARBON DIOXIDE 30 mmol/L (22-29); CHLORIDE 104 mmol/L (98-107); CREATININE 0.75 mg/dL (0.60-1.30); GLOMERULAR FILTR. RATE CALC > 60 mL/min (>60); GLUCOSE,RANDOM 111 mg/dL (70-110); SODIUM SERUM 141 mmol/L (136-145); TOTAL PROTEIN, SERUM 7.7 g/dL (6.4-8.2)
[2022-10-21] MEDS ORDERED: APIX5TAB PO (08:37)
[2022-10-21] MEDS ORDERED: EMPA10TA3 PO (08:38)
[2022-10-21] MEDS ORDERED: ASPI-1450 PO (08:38)
[2022-10-21] MEDS ORDERED: FOLI-130 PO (08:39)
[2022-10-21] MEDS ORDERED: THIA100T80 PO (08:40)
[2022-10-21] MEDS: OMEGA-3/DHA/EPA/FISH OIL 1,000 MG CAPSULE PO SCH (08:43)
[2022-10-21] MEDS: FLUoxetine HCL 20 MG CAPSULE PO SCH (08:44)
[2022-10-21] MEDS: NALTREXONE HCL 50 MG TABLET PO SCH (08:44)
[2022-10-21] MEDS: FOLIC ACID 1 MG TABLET PO SCH (08:44)
[2022-10-21] MEDS: GABAPENTIN 400 MG CAPSULE PO SCH ×4 (08:44→20:58)
[2022-10-21] MEDS: THIAMINE 100 MG TABLET PO SCH (08:44)
[2022-10-21] MEDS: ARIPiprazole 10 MG TABLET PO SCH (08:45)
[2022-10-21] MEDS: APIXABAN 5 MG TABLET PO SCH ×2 (08:45→16:48)
[2022-10-21] MEDS: ASPIRIN 81 MG CHEWABLE TABLET PO SCH (08:45)
[2022-10-21] MEDS: EMPAGLIFLOZIN 10 MG TABLET PO SCH (08:45)
[2022-10-21] MEDS: TOPIRAMATE 25 MG TABLET PO SCH ×3 (08:45→16:48)
[2022-10-21] MEDS: POTASSIUM CHLORIDE 10% 40 MEQ/30 ML LIQUID UDCUP PO SCH (08:46)
[2022-10-21 08:55] VITALS: BP 102/61; PULSE 80; RESP 17; TEMP 97.1; O2SAT 98
[2022-10-21 11:26] LABS: GLUCOMETER DEV NAME(LOC) BV2S.; GLUCOSE,POINT OF CARE 203 MG/DL (70-110)
[2022-10-21] MEDS: INSULIN LISPRO 100 UNITS/ML SQ PRN ×3 (11:32→20:49)
[2022-10-21 16:26] LABS: GLUCOMETER DEV NAME(LOC) BV2S.; GLUCOSE,POINT OF CARE 195 MG/DL (70-110)
[2022-10-21 20:59] VITALS: BP 107/62; PULSE 71; RESP 18; TEMP 97.4; O2SAT 99
[2022-10-21] MEDS: MELATONIN 5 MG TABLET PO SCH (20:59)
[2022-10-21 21:36] LABS: GLUCOMETER DEV NAME(LOC) BV2S.; GLUCOSE,POINT OF CARE 193 MG/DL (70-110)
[2022-10-22] MEDS: MetFORMIN HCL 500 MG TABLET PO SCH ×2 (06:35→16:43)
[2022-10-22 08:06] VITALS: BP 117/68; PULSE 83; RESP 17; TEMP 98.3; O2SAT 99
[2022-10-22] MEDS: NALTREXONE HCL 50 MG TABLET PO SCH (09:16)
[2022-10-22] MEDS: TOPIRAMATE 25 MG TABLET PO SCH ×3 (09:16→16:43)
[2022-10-22] MEDS: FLUoxetine HCL 20 MG CAPSULE PO SCH (09:16)
[2022-10-22] MEDS: GABAPENTIN 400 MG CAPSULE PO SCH ×4 (09:17→20:11)
[2022-10-22] MEDS: APIXABAN 5 MG TABLET PO SCH ×2 (09:17→16:43)
[2022-10-22] MEDS: THIAMINE 100 MG TABLET PO SCH (09:17)
[2022-10-22] MEDS: ARIPiprazole 10 MG TABLET PO SCH (09:17)
[2022-10-22] MEDS: FOLIC ACID 1 MG TABLET PO SCH (09:17)
[2022-10-22] MEDS: ASPIRIN 81 MG CHEWABLE TABLET PO SCH (09:17)
[2022-10-22] MEDS: EMPAGLIFLOZIN 10 MG TABLET PO SCH (09:17)
[2022-10-22] MEDS: OMEGA-3/DHA/EPA/FISH OIL 1,000 MG CAPSULE PO SCH (09:17)
[2022-10-22] MEDS: POTASSIUM CHLORIDE 10% 40 MEQ/30 ML LIQUID UDCUP PO SCH (09:18)
[2022-10-22 11:16] LABS: GLUCOMETER DEV NAME(LOC) BV2S.; GLUCOSE,POINT OF CARE 176 MG/DL (70-110)
[2022-10-22 11:16] LABS: GLUCOMETER DEV NAME(LOC) BV2S.; GLUCOSE,POINT OF CARE 123 MG/DL (70-110)
[2022-10-22] MEDS: INSULIN LISPRO 100 UNITS/ML SQ PRN ×3 (11:45→21:13)
[2022-10-22 16:31] LABS: GLUCOMETER DEV NAME(LOC) BV2S.; GLUCOSE,POINT OF CARE 141 MG/DL (70-110)
[2022-10-22 20:00] VITALS: BP 91/59; PULSE 74; RESP 18; TEMP 98.4; O2SAT 95
[2022-10-22] MEDS: MELATONIN 5 MG TABLET PO SCH (20:11)
[2022-10-22 21:21] LABS: GLUCOMETER DEV NAME(LOC) BV2S.; GLUCOSE,POINT OF CARE 171 MG/DL (70-110)
[2022-10-23] MEDS: MetFORMIN HCL 500 MG TABLET PO SCH ×2 (06:36→17:04)
[2022-10-23 08:08] VITALS: BP 109/67; PULSE 81; RESP 18; TEMP 98; O2SAT 97
[2022-10-23] MEDS: THIAMINE 100 MG TABLET PO SCH (09:47)
[2022-10-23] MEDS: FOLIC ACID 1 MG TABLET PO SCH (09:48)
[2022-10-23] MEDS: ARIPiprazole 10 MG TABLET PO SCH (09:48)
[2022-10-23] MEDS: TOPIRAMATE 25 MG TABLET PO SCH ×3 (09:48→17:04)
[2022-10-23] MEDS: OMEGA-3/DHA/EPA/FISH OIL 1,000 MG CAPSULE PO SCH (09:48)
[2022-10-23] MEDS: ASPIRIN 81 MG CHEWABLE TABLET PO SCH (09:49)
[2022-10-23] MEDS: NALTREXONE HCL 50 MG TABLET PO SCH (09:49)
[2022-10-23] MEDS: APIXABAN 5 MG TABLET PO SCH ×2 (09:49→17:04)
[2022-10-23] MEDS: EMPAGLIFLOZIN 10 MG TABLET PO SCH (09:49)
[2022-10-23] MEDS: GABAPENTIN 400 MG CAPSULE PO SCH ×4 (09:49→20:20)
[2022-10-23] MEDS: FLUoxetine HCL 20 MG CAPSULE PO SCH (09:49)
[2022-10-23] MEDS: POTASSIUM CHLORIDE 10% 40 MEQ/30 ML LIQUID UDCUP PO SCH (09:50)
[2022-10-23 11:20] LABS: GLUCOMETER DEV NAME(LOC) BV2S.; GLUCOSE,POINT OF CARE 192 MG/DL (70-110)
[2022-10-23 11:20] LABS: GLUCOMETER DEV NAME(LOC) BV2S.; GLUCOSE,POINT OF CARE 124 MG/DL (70-110)
[2022-10-23] MEDS: INSULIN LISPRO 100 UNITS/ML SQ PRN ×3 (11:45→20:48)
[2022-10-23 16:36] LABS: GLUCOMETER DEV NAME(LOC) BV2S.; GLUCOSE,POINT OF CARE 174 MG/DL (70-110)
[2022-10-23 19:55] LABS: GLUCOMETER DEV NAME(LOC) BV2S.; GLUCOSE,POINT OF CARE 149 MG/DL (70-110)
[2022-10-23] MEDS: MELATONIN 5 MG TABLET PO SCH (20:20)
[2022-10-23 20:28] VITALS: BP 107/67; PULSE 65; RESP 17; TEMP 98.4; O2SAT 99
[2022-10-24 06:31] LABS: GLUCOMETER DEV NAME(LOC) BV2S.; GLUCOSE,POINT OF CARE 113 MG/DL (70-110)
[2022-10-24] MEDS: MetFORMIN HCL 500 MG TABLET PO SCH ×2 (06:55→16:35)
[2022-10-24 07:55] VITALS: BP 106/71; PULSE 81; RESP 17; TEMP 98; O2SAT 96
[2022-10-24 08:01] VITALS: RESP 16
[2022-10-24] MEDS: NALTREXONE HCL 50 MG TABLET PO SCH (08:12)
[2022-10-24] MEDS: ASPIRIN 81 MG CHEWABLE TABLET PO SCH (08:13)
[2022-10-24] MEDS: ARIPiprazole 10 MG TABLET PO SCH (08:13)
[2022-10-24] MEDS: OMEGA-3/DHA/EPA/FISH OIL 1,000 MG CAPSULE PO SCH (08:13)
[2022-10-24] MEDS: THIAMINE 100 MG TABLET PO SCH (08:13)
[2022-10-24] MEDS: GABAPENTIN 400 MG CAPSULE PO SCH ×4 (08:13→20:04)
[2022-10-24] MEDS: TOPIRAMATE 25 MG TABLET PO SCH ×3 (08:13→16:35)
[2022-10-24] MEDS: FLUoxetine HCL 20 MG CAPSULE PO SCH (08:13)
[2022-10-24] MEDS: FOLIC ACID 1 MG TABLET PO SCH (08:13)
[2022-10-24] MEDS: EMPAGLIFLOZIN 10 MG TABLET PO SCH (08:14)
[2022-10-24] MEDS: APIXABAN 5 MG TABLET PO SCH ×2 (08:14→16:35)
[2022-10-24] MEDS: POTASSIUM CHLORIDE 10% 40 MEQ/30 ML LIQUID UDCUP PO SCH (08:14)
[2022-10-24 11:16] LABS: GLUCOMETER DEV NAME(LOC) BV2S.; GLUCOSE,POINT OF CARE 137 MG/DL (70-110)
[2022-10-24 16:37] LABS: GLUCOMETER DEV NAME(LOC) BV2S.; GLUCOSE,POINT OF CARE 148 MG/DL (70-110)
[2022-10-24] MEDS: INSULIN LISPRO 100 UNITS/ML SQ PRN ×2 (16:40→20:08)
[2022-10-24 20:01] VITALS: BP 104/62; PULSE 70; RESP 16; TEMP 98.1; O2SAT 98
[2022-10-24] MEDS: MELATONIN 5 MG TABLET PO SCH (20:04)
[2022-10-24 20:21] LABS: GLUCOMETER DEV NAME(LOC) BV2S.; GLUCOSE,POINT OF CARE 166 MG/DL (70-110)
[2022-10-25] MEDS: MetFORMIN HCL 500 MG TABLET PO SCH ×2 (06:39→16:58)
[2022-10-25 08:00] VITALS: BP 119/74; PULSE 78; RESP 18; TEMP 98.1; O2SAT 96
[2022-10-25] MEDS: EMPAGLIFLOZIN 10 MG TABLET PO SCH (08:21)
[2022-10-25] MEDS: APIXABAN 5 MG TABLET PO SCH ×2 (08:21→16:59)
[2022-10-25] MEDS: ASPIRIN 81 MG CHEWABLE TABLET PO SCH (08:22)
[2022-10-25] MEDS: ARIPiprazole 10 MG TABLET PO SCH (08:22)
[2022-10-25] MEDS: POTASSIUM CHLORIDE 10% 40 MEQ/30 ML LIQUID UDCUP PO SCH (08:22)
[2022-10-25] MEDS: TOPIRAMATE 25 MG TABLET PO SCH ×3 (08:22→16:58)
[2022-10-25] MEDS: GABAPENTIN 400 MG CAPSULE PO SCH ×4 (08:23→20:02)
[2022-10-25] MEDS: NALTREXONE HCL 50 MG TABLET PO SCH (08:23)
[2022-10-25] MEDS: OMEGA-3/DHA/EPA/FISH OIL 1,000 MG CAPSULE PO SCH (08:23)
[2022-10-25] MEDS: FLUoxetine HCL 20 MG CAPSULE PO SCH (08:23)
[2022-10-25] MEDS: THIAMINE 100 MG TABLET PO SCH (08:23)
[2022-10-25] MEDS: FOLIC ACID 1 MG TABLET PO SCH (08:44)
[2022-10-25] MEDS: INSULIN LISPRO 100 UNITS/ML SQ PRN ×3 (11:53→20:34)
[2022-10-25 12:36] LABS: GLUCOMETER DEV NAME(LOC) BV2S.; GLUCOSE,POINT OF CARE 166 MG/DL (70-110)
[2022-10-25 12:36] LABS: GLUCOMETER DEV NAME(LOC) BV2S.; GLUCOSE,POINT OF CARE 138 MG/DL (70-110)
[2022-10-25 16:21] LABS: GLUCOMETER DEV NAME(LOC) BV2S.; GLUCOSE,POINT OF CARE 181 MG/DL (70-110)
[2022-10-25] MEDS: GuaiFENesin/D-METHORPHAN [SUGAR-FREE] 200-20MG/10 ML SYRUP UDCUP PO PRN (20:00)
[2022-10-25] MEDS: MELATONIN 5 MG TABLET PO SCH (20:02)
[2022-10-25 21:22] VITALS: BP 110/67; PULSE 76; RESP 18; TEMP 97.8; O2SAT 95
[2022-10-26 02:55] LABS: GLUCOMETER DEV NAME(LOC) BV2S.; GLUCOSE,POINT OF CARE 217 MG/DL (70-110)
[2022-10-26] MEDS: GuaiFENesin/D-METHORPHAN [SUGAR-FREE] 200-20MG/10 ML SYRUP UDCUP PO PRN ×2 (06:08→20:35)
[2022-10-26 06:22] LABS: GLUCOMETER DEV NAME(LOC) BV2S.; GLUCOSE,POINT OF CARE 129 MG/DL (70-110)
[2022-10-26] MEDS: MetFORMIN HCL 500 MG TABLET PO SCH ×2 (06:36→16:37)
[2022-10-26 08:08] VITALS: BP 119/69; PULSE 82; RESP 18; TEMP 98.2; O2SAT 96
[2022-10-26] MEDS: OMEGA-3/DHA/EPA/FISH OIL 1,000 MG CAPSULE PO SCH (08:35)
[2022-10-26] MEDS: FOLIC ACID 1 MG TABLET PO SCH (08:36)
[2022-10-26] MEDS: POTASSIUM CHLORIDE 10% 40 MEQ/30 ML LIQUID UDCUP PO SCH (08:36)
[2022-10-26] MEDS: FLUoxetine HCL 20 MG CAPSULE PO SCH (08:36)
[2022-10-26] MEDS: ASPIRIN 81 MG CHEWABLE TABLET PO SCH (08:36)
[2022-10-26] MEDS: TOPIRAMATE 25 MG TABLET PO SCH ×3 (08:37→16:37)
[2022-10-26] MEDS: ARIPiprazole 10 MG TABLET PO SCH (08:37)
[2022-10-26] MEDS: GABAPENTIN 400 MG CAPSULE PO SCH ×4 (08:37→21:05)
[2022-10-26] MEDS: THIAMINE 100 MG TABLET PO SCH (08:37)
[2022-10-26] MEDS: NALTREXONE HCL 50 MG TABLET PO SCH (08:47)
[2022-10-26] MEDS: EMPAGLIFLOZIN 10 MG TABLET PO SCH (09:03)
[2022-10-26] MEDS: APIXABAN 5 MG TABLET PO SCH ×2 (09:03→16:37)
[2022-10-26 11:51] LABS: GLUCOMETER DEV NAME(LOC) BV2S.; GLUCOSE,POINT OF CARE 143 MG/DL (70-110)
[2022-10-26] MEDS: INSULIN LISPRO 100 UNITS/ML SQ PRN ×2 (12:24→20:44)
[2022-10-26 16:21] LABS: GLUCOMETER DEV NAME(LOC) BV2S.; GLUCOSE,POINT OF CARE 105 MG/DL (70-110)
[2022-10-26] MEDS: CIPROFLOXACIN HCL 0.3% 2.5 ML OPHTHALMIC SOLUTION OS SCH (16:36)
[2022-10-26 20:41] LABS: GLUCOMETER DEV NAME(LOC) BV2S.; GLUCOSE,POINT OF CARE 173 MG/DL (70-110)
[2022-10-26] MEDS: MELATONIN 5 MG TABLET PO SCH (21:05)
[2022-10-26 21:20] VITALS: BP 120/72; PULSE 80; RESP 17; TEMP 98.1; O2SAT 98
[2022-10-27 06:16] LABS: GLUCOMETER DEV NAME(LOC) BV2S.; GLUCOSE,POINT OF CARE 125 MG/DL (70-110)
[2022-10-27] MEDS: MetFORMIN HCL 500 MG TABLET PO SCH ×2 (06:25→17:05)
[2022-10-27 08:12] VITALS: BP 100/62; PULSE 96; RESP 18; TEMP 98.2; O2SAT 97
[2022-10-27] MEDS: NALTREXONE HCL 50 MG TABLET PO SCH (08:27)
[2022-10-27] MEDS: OMEGA-3/DHA/EPA/FISH OIL 1,000 MG CAPSULE PO SCH (08:27)
[2022-10-27] MEDS: FLUoxetine HCL 20 MG CAPSULE PO SCH (08:28)
[2022-10-27] MEDS: TOPIRAMATE 25 MG TABLET PO SCH ×3 (08:28→17:05)
[2022-10-27] MEDS: APIXABAN 5 MG TABLET PO SCH ×2 (08:28→17:05)
[2022-10-27] MEDS: GABAPENTIN 400 MG CAPSULE PO SCH ×4 (08:28→20:01)
[2022-10-27] MEDS: ASPIRIN 81 MG CHEWABLE TABLET PO SCH (08:28)
[2022-10-27] MEDS: FOLIC ACID 1 MG TABLET PO SCH (08:28)
[2022-10-27] MEDS: THIAMINE 100 MG TABLET PO SCH (08:29)
[2022-10-27] MEDS: EMPAGLIFLOZIN 10 MG TABLET PO SCH (08:29)
[2022-10-27] MEDS: ARIPiprazole 10 MG TABLET PO SCH (08:29)
[2022-10-27] MEDS: POTASSIUM CHLORIDE 10% 40 MEQ/30 ML LIQUID UDCUP PO SCH (08:30)
[2022-10-27] MEDS: CIPROFLOXACIN HCL 0.3% 2.5 ML OPHTHALMIC SOLUTION OS SCH ×3 (09:38→17:09)
[2022-10-27] MEDS: GuaiFENesin/D-METHORPHAN [SUGAR-FREE] 200-20MG/10 ML SYRUP UDCUP PO PRN ×2 (09:44→20:00)
[2022-10-27] MEDS: INSULIN LISPRO 100 UNITS/ML SQ PRN (11:19)
[2022-10-27 11:27] LABS: GLUCOMETER DEV NAME(LOC) BV2S.; GLUCOSE,POINT OF CARE 179 MG/DL (70-110)
[2022-10-27 16:52] LABS: GLUCOMETER DEV NAME(LOC) BV2S.; GLUCOSE,POINT OF CARE 126 MG/DL (70-110)
[2022-10-27 20:01] VITALS: BP 113/71; PULSE 83; RESP 19; TEMP 97.8; O2SAT 96
[2022-10-27] MEDS: MELATONIN 5 MG TABLET PO SCH (20:01)
[2022-10-27 20:41] LABS: GLUCOMETER DEV NAME(LOC) BV2S.; GLUCOSE,POINT OF CARE 138 MG/DL (70-110)
[2022-10-28 06:22] LABS: GLUCOMETER DEV NAME(LOC) BV2S.; GLUCOSE,POINT OF CARE 132 MG/DL (70-110)
[2022-10-28] MEDS: MetFORMIN HCL 500 MG TABLET PO SCH ×2 (06:28→17:06)
[2022-10-28] MEDS: GuaiFENesin/D-METHORPHAN [SUGAR-FREE] 200-20MG/10 ML SYRUP UDCUP PO PRN ×3 (06:58→21:05)
[2022-10-28] MEDS ORDERED: BENZOCAINE/MENTHOL LOZENGE [6 LOZENGES/PACKET] PO PRN (07:00)
[2022-10-28 08:03] VITALS: BP 105/64; PULSE 98; RESP 19; TEMP 98.2; O2SAT 96
[2022-10-28] MEDS: ARIPiprazole 10 MG TABLET PO SCH (08:55)
[2022-10-28] MEDS: OMEGA-3/DHA/EPA/FISH OIL 1,000 MG CAPSULE PO SCH (08:56)
[2022-10-28] MEDS: GABAPENTIN 400 MG CAPSULE PO SCH ×4 (08:56→20:22)
[2022-10-28] MEDS: TOPIRAMATE 25 MG TABLET PO SCH ×3 (08:56→17:07)
[2022-10-28] MEDS: APIXABAN 5 MG TABLET PO SCH ×2 (08:56→17:06)
[2022-10-28] MEDS: FLUoxetine HCL 20 MG CAPSULE PO SCH (08:56)
[2022-10-28] MEDS: EMPAGLIFLOZIN 10 MG TABLET PO SCH (08:56)
[2022-10-28] MEDS: FOLIC ACID 1 MG TABLET PO SCH (08:56)
[2022-10-28] MEDS: THIAMINE 100 MG TABLET PO SCH (08:57)
[2022-10-28] MEDS: POTASSIUM CHLORIDE 10% 40 MEQ/30 ML LIQUID UDCUP PO SCH (08:57)
[2022-10-28] MEDS: NALTREXONE HCL 50 MG TABLET PO SCH (08:57)
[2022-10-28] MEDS: ASPIRIN 81 MG CHEWABLE TABLET PO SCH (08:57)
[2022-10-28] MEDS: CIPROFLOXACIN HCL 0.3% 2.5 ML OPHTHALMIC SOLUTION OS SCH ×3 (09:03→17:24)
[2022-10-28] MEDS: INSULIN LISPRO 100 UNITS/ML SQ PRN (11:23)
[2022-10-28 12:56] LABS: GLUCOMETER DEV NAME(LOC) BV2S.; GLUCOSE,POINT OF CARE 202 MG/DL (70-110)
[2022-10-28 16:51] LABS: GLUCOMETER DEV NAME(LOC) BV2S.; GLUCOSE,POINT OF CARE 118 MG/DL (70-110)
[2022-10-28 20:13] VITALS: BP 112/66; PULSE 90; RESP 19; TEMP 98.4; O2SAT 94
[2022-10-28] MEDS: MELATONIN 5 MG TABLET PO SCH (20:23)
[2022-10-28 21:06] LABS: GLUCOMETER DEV NAME(LOC) BV2S.; GLUCOSE,POINT OF CARE 137 MG/DL (70-110)
[2022-10-29] MEDS: MetFORMIN HCL 500 MG TABLET PO SCH ×2 (06:22→16:23)
[2022-10-29] MEDS: GuaiFENesin/D-METHORPHAN [SUGAR-FREE] 200-20MG/10 ML SYRUP UDCUP PO PRN (06:22)
[2022-10-29 06:32] LABS: GLUCOMETER DEV NAME(LOC) BV2S.; GLUCOSE,POINT OF CARE 110 MG/DL (70-110)
[2022-10-29] MEDS: CIPROFLOXACIN HCL 0.3% 2.5 ML OPHTHALMIC SOLUTION OS SCH ×2 (08:01→12:56)
[2022-10-29] MEDS: GABAPENTIN 400 MG CAPSULE PO SCH ×3 (08:01→16:23)
[2022-10-29] MEDS: FOLIC ACID 1 MG TABLET PO SCH (08:01)
[2022-10-29] MEDS: FLUoxetine HCL 20 MG CAPSULE PO SCH (08:01)
[2022-10-29] MEDS: THIAMINE 100 MG TABLET PO SCH (08:02)
[2022-10-29] MEDS: APIXABAN 5 MG TABLET PO SCH (08:02)
[2022-10-29] MEDS: ASPIRIN 81 MG CHEWABLE TABLET PO SCH (08:02)
[2022-10-29] MEDS: EMPAGLIFLOZIN 10 MG TABLET PO SCH (08:02)
[2022-10-29] MEDS: OMEGA-3/DHA/EPA/FISH OIL 1,000 MG CAPSULE PO SCH (08:02)
[2022-10-29] MEDS: TOPIRAMATE 25 MG TABLET PO SCH ×3 (08:02→16:23)
[2022-10-29] MEDS: ARIPiprazole 10 MG TABLET PO SCH (08:03)
[2022-10-29] MEDS: NALTREXONE HCL 50 MG TABLET PO SCH (08:03)
[2022-10-29] MEDS: POTASSIUM CHLORIDE 10% 40 MEQ/30 ML LIQUID UDCUP PO SCH (08:03)
[2022-10-29 08:14] VITALS: BP 114/71; PULSE 87; RESP 17; TEMP 98; O2SAT 98
[2022-10-29 11:31] LABS: GLUCOMETER DEV NAME(LOC) BV2S.; GLUCOSE,POINT OF CARE 120 MG/DL (70-110)
[2022-10-29] MEDS: INSULIN LISPRO 100 UNITS/ML SQ PRN (16:24)
[2022-10-29] MEDS ORDERED: VARE1TAB25 PO (16:29)
[2022-10-29 17:27] LABS: GLUCOMETER DEV NAME(LOC) BV2S.; GLUCOSE,POINT OF CARE 183 MG/DL (70-110)
== END 2022-10-29 16:30 | disposition home or self-care (01) | DRG 750 ==
LOC: EMS 19:56 → B2S 10-05 03:00
PROVIDERS: ADMIT Psychiatry & Neurology Psychiatry; ATTEND Psychiatry & Neurology Psychiatry
DX: F25.9 Schizoaffective disorder, unspecified (principal); E11.9 Type 2 diabetes mellitus without complications; I50.9 Heart failure, unspecified; R45.851 Suicidal ideations; I11.0 Hypertensive heart disease with heart failure; Z20.822 Contact with and (suspected) exposure to COVID-19; E78.00 Pure hypercholesterolemia, unspecified; F10.229 Alcohol dependence with intoxication, unspecified; F17.210 Nicotine dependence, cigarettes, uncomplicated; F31.9 Bipolar disorder, unspecified; F41.9 Anxiety disorder, unspecified; F60.0 Paranoid personality disorder; I25.10 Atherosclerotic heart disease of native coronary artery without angina pectoris; J44.9 Chronic obstructive pulmonary disease, unspecified; Y90.8 Blood alcohol level of 240 mg/100 ml or more; Z55.9 Problems related to education and literacy, unspecified; Z59.9 Problem related to housing and economic circumstances, unspecified; Z63.9 Problem related to primary support group, unspecified; Z65.3 Problems related to other legal circumstances; Z86.16 Personal history of COVID-19; Z86.74 Personal history of sudden cardiac arrest; Z91.148 Patient's other noncompliance with medication regimen for other reason
CPT/HCPCS: 80053; 80061; 80307; 82962; 83036; 84439; 84443; 85025; 99285; G0480; Q0162; Q9967